=== PATIENT | female | born 1980 | race Caucasian/White ===

== ENCOUNTER 2022-01-13 23:51 | Inpatient (IN) ==
[2022-01-14] MEDS ORDERED: HYDROmorphone INJ 1 MG/ML SYRINGE IV STA (00:49)
[2022-01-14] MEDS ORDERED: ONDANSETRON INJ 2 MG/ML 2 ML VIAL IV STA ×2 (00:49→05:14)
[2022-01-14] MEDS ORDERED: SODIUM CHLORIDE 0.9% 1000ML 1,000 ML IV SCH ×3 (00:56→11:07)
[2022-01-14 01:40] LABS: Basophils # (auto) 0.02 K/uL (0-0.2); Basophils % (auto) 0.1 %; Eosinophils # (auto) 0.02 K/uL (0-0.5); Eosinophils % (auto) 0.1 %; Hematocrit (blood only) 41.7 % (37-47); Hemoglobin 13.9 g/dL (12.0-16.0); Immature Granulocytes # (auto) 0.04 K/uL (0.00-0.02); Immature Granulocytes % (auto) 0.3 %; Lymphocytes # (auto) 1.12 K/uL (1.2-3.4); Lymphocytes % (auto) 8.3 %; Mean Corpuscular Hemoglobin 31.2 pg (25-34); Mean Corpuscular Hgb Conc 33.3 g/dL (32-36); Mean Corpuscular Volume 93.7 fL (80-100); Mean Platelet Volume 11.3 fL (7.4-10.4); Monocytes # (auto) 0.75 K/uL (0.11-0.59); Monocytes % (auto) 5.6 %; Neutrophils # (auto) 11.49 K/uL (1.4-6.5); Neutrophils % (auto) 85.6 %; Platelet Count 327 K/uL (130-400); RDW Coefficient of Variation 12.8 % (11.5-14.5); RDW Standard Deviation 43.9 fL (36.4-46.3); Red Blood Count 4.45 M/uL (4.2-5.4); White Blood Count 13.44 K/uL (4.8-10.8)
[2022-01-14 01:48] LABS: Alanine Aminotransferase 18 U/L (7-52); Albumin Globulin Ratio 1.2 (0.9-2); Albumin Level 4.4 gm/dl (3.4-5.0); Alkaline Phosphatase 126 U/L (34-104); Anion Gap 22 (3-11); Aspartate Aminotransferase 11 U/L (13-39); BUN Creatinine Ratio 17.5 (10-20); Bilirubin,Total 0.6 mg/dl (0.2-1.0); Blood Urea Nitrogen 10 mg/dl (6-23); Calcium 9.8 mg/dl (8.5-10.1); Carbon Dioxide 18 mmol/L (21-32); Chloride 97 mmol/L (98-107); Est GFR (African American) 131.6 ml/min; Est GFR (Non-African American) 113.5 ml/min; Globulin 3.8 gm/dl (2.5-4.0); Glucose 363 mg/dl (70-99(Fasting)); Potassium 3.3 mmol/L (3.5-5.1); Sodium 137 mmol/L (136-145); Total Protein 8.2 gm/dl (6.0-8.3)
[2022-01-14] MEDS ORDERED: OPTIRAY 320 100ml IV ONE (02:33)
[2022-01-14] MEDS ORDERED: HYDROmorphone INJ 0.5 MG/0.5 ML SYR IV STA ×3 (02:59→06:41)
--- NOTE | 2022-01-14 08:58 | Emergency Department Note ---
Impression & Plan Post-operative pain, Intractable nausea and vomiting, H/O pancreatic cancer ED Provider Note CHIEF COMPLAINT: Vomiting HISTORY OF PRESENT ILLNESS: [place] Ceballos is a 41 year old female with history of pancreatic cancer with previous chemotherapy and recent radiation, DM2, HTN, DLD, among others listed below who presents to the Emergency Department for evaluation of intractable nausea and vomiting with associated abdominal pain which has been worsening since he had a surgical procedure 4 days prior. The patient states that she was scheduled to have a Whipple procedure done with general surgery at [facility] in [place] this past Saturday. When the opened her up, she states that they saw additional lesions on her liver so they did not perform the procedure and closed her abdomen back up. The patient did stay in the hospital briefly for continued pain control but was then discharged home with instructions to follow-up with her oncologist. The patient states that her oncologist did order additional imaging, however this has not yet been done and she is unsure of additional plans to come. Since returning home, the patient states that she has continued with significant abdominal pain despite taking Tylenol, oxycodone, and gabapentin. She has been taking stool softeners but states that she has not been able to move her bowels at all since earlier in the week, prior to having the surgery. The patient also states that she has constantly felt nauseous and has not been able to eat or drink anything secondary to her discomfort. Anything she tries to consume, she immediately vomits back up and notes large amounts of green liquid with dark flecks throughout. No apparent blood. Currently, she rates her discomfort as a 7/10 which worsens with movements and after vomiting. None of her medications have been helping. Due to her ongoing symptoms, the patient presents to the ED for further evaluation this evening. The patient denies having specific chest pain but states that she has felt more short of breath and tired. No fevers/chills. RSchreiner OF SYSTEMS: 10 systems were reviewed and were negative unless otherwise stated in HPI as above PHYSICAL EXAM: VITALS: Vitals are noted on the nurse's note and reviewed by myself. Hypertensive and tachycardic, additional vital signs stable. General: Resting in bed, appears very tired and uncomfortable HEENT: Normocephalic, atraumatic, PERRL, EOMI, mucous membranes extremely dry, oropharynx clear Neck: Supple, nontender, ROM intact without pain Resp: Good inspiratory effort on room air, lung sounds clear bilaterally CV: Tachycardic rate, regular rhythm, peripheral pulses palpated Abd: Midline surgical incision with rod in place, appears to be healing well without wound dehiscence, no surrounding erythema or edema. Abdomen is mildly distended but soft. Tender to palpation generally about the abdomen. No rebound, guarding or rigidity to suggest peritoneal signs MSK: Moving all extremities without apparent pain or difficulty Integumentary: Warm, dry, no appreciable rash Neuro: Awake, alert and oriented x 3, interacting and answering questions appropriately Differential diagnosis includes post-surgical pain, ileus, obstruction, abscess, pancreatic cancer, metastasis, among others were considered. EMERGENCY DEPARTMENT COURSE: Physical exam and history were performed. Nursing triage notes, EMR, and medication list were personally reviewed. Patient is a 41-year-old female with history of pancreatic cancer with previous chemotherapy and recent radiation who presents emergency department for evaluation of intractable nausea and vomiting with associated abdominal pain which has been worsening since she had a surgical procedure 4 days prior. She was scheduled to have a Whipple procedure, however after opening her abdomen she was noted to have additional lesions on her liver so the procedure was not performed and her abdomen was subsequently closed. Additional history as descr ibed above. See physical exam as noted above. Continuous director cardiac: Order was placed for continuous director cardiac. Patient was placed on the director cardiac. Patient was noted to be sinus tachycardic at an initial rate of 109 bpm. The patient was offered medications. IV access was established and she was given 1 L NSS, Zofran 4 mg and Dilaudid 1 mg. The patient was given an additional dose of Zofran 4 mg and multiple additional doses of Dilaudid in 0.5 mg increments throughout her emergency department course for continued pain and nausea. Labs were obtained and reviewed by myself as below. Of note, she does have leukocytosis with a WBC of 13.44. No concern for anemia with hemoglobin 13.9. Electrolytes WNL. Renal indices stable. Glucose elevated at 324. LFTs nondiagnostic. CAT scan of the abdomen and pelvis were obtained and reviewed by radiologist myself as below. This did show postsurgical changes, negative for bowel loop dilatation or obstruction. This did show postsurgical changes. No evidence for bowel loop dilatation or obstruction. The patient was evaluated several times throughout her emergency department course and continued to have abdominal pain and nausea despite given multiple doses of medications as above. She also continued to remain hypertensive and tachycardic. I do feel that she will benefit from continued management in the hospital. [facility] to evaluate the patient for further management. The patient verbalized understanding agreement with the treatment plan as above. The chart was completed utilizing [employer] Speech Voice Recognition Software. Grammatical errors, random word insertions, pronoun errors, and incomplete sentences are an occasional consequence of this system due to software limitations, ambient noise, and hardware issues. Any formal questions or co ncerns about the content, text, or information contained within the body of this dictation should be directly addressed to the provider for clarification. Past Med/Surg History Medical History Allergy-induced asthma rare inhaler use Depression with anxiety Diabetes mellitus, type 2 IDDM Dyslipidemia Hypertension Hypothyroidism Lumbosacral pain Obesity Pancreatic cancer + current chemo, follows with S heme/onc PCOS (polycystic ovarian syndrome) Surgical History History of ERCP ERCP (06/2021) & EUS/ERCP (04/28/21): Good view with glidescope #3, ETT 7.0 at [facility] History of tonsillectomy History of umbilical hernia repair History of vascular access device A PORT INSERTION History of wisdom tooth extraction Nausea and vomiting after administration of anesthetic agent Family History Brother Diabetes Hypertension Father Hypertension Aunt Diabetes Grandmother (Maternal) Diabetes Other No family history of adverse response to anesthesia Social History Smoking Status: Former smoker Tobacco Type: Cigarettes packs per day: 1; Cigarettes Per Day: 15 cigs/day; Second Hand Exposure: No; Do You Dip or Chew Tobacco: No; Tobacco Cessation Education Requested by Patient: No Hx Alcohol Use: No Hx Substance Use: No Preferred Language: Lao Communication Ability: Effective Track Patrol Required: No Beliefs That Will Affect Care: None Current Living Situation: Alone and Family Current Living Situation Comment: WITH DAUGHTER Other Information That Helps Us Care for You: No Feels Safe at Home: Yes Safety Concerns: Feels Safe At This Time Assistive Devices: Glasses Allergies Allergies Allergy/AdvReac Type Severity Reaction Status Date / Time Penicillins Allergy Mild Rash Verified 01/14/22 00:54 [facility] AdvReac Severe Pancreatiti Verified 01/14/22 00:54 s clarithromycin AdvReac Unknown Vomiting Verified 01/14/22 00:54 fish Allergy Severe Anaphylaxis Uncoded 01/14/22 00:54 Home Meds Home Medications Medication Instructions Recorded Confirmed albuterol sulfate 90 mcg/actuation 1 - 2 puff INHALATION Q6H PRN 04/14/21 01/14/22 aerosol inhaler (Ventolin HFA) amlodipine 5 mg tablet 5 mg PO BID 04/14/21 01/14/22 clonidine HCl 0.1 mg tablet 0.1 mg PO QID PRN 04/14/21 01/14/22 duloxetine 60 mg capsule,delayed 120 mg PO DAILY cap 04/14/21 01/14/22 release (Cymbalta) enalapril maleate 20 mg tablet 20 mg PO QAM 04/14/21 01/14/22 (Vasotec) flash glucose scanning reader 04/14/21 12/25/21 ([employer] Tanmay 14 Day Yawkey) hydrochlorothiazide 25 mg tablet 25 mg PO QAM 04/14/21 01/14/22 lamotrigine 200 mg tablet 200 mg PO HS 04/14/21 01/14/22 (Lamictal) levothyroxine 50 mcg tablet 50 mcg PO QAM 04/14/21 01/14/22 ropinirole 4 mg tablet 4 mg PO TID 04/14/21 01/14/22 valacyclovir 1 gram tablet 2,000 mg PO BID PRN tab 04/14/21 01/14/22 atenolol 50 mg tablet 100 mg PO QAM 04/28/21 01/14/22 oxycodone 10 mg tablet 10 mg PO Q4 PRN 06/22/21 01/14/22 acetaminophen 500 mg tablet See Rx Instructions .ROUTE .COMPLEX 01/14/22 01/14/22 carisoprodol 350 mg tablet 350 mg PO Q8 PRN 01/14/22 01/14/22 docusate sodium 100 mg capsule 100 mg PO AMHS 01/14/22 01/14/22 enoxaparin 40 mg/0.4 mL 40 mg SUBCUT QAM 01/14/22 01/14/22 subcutaneous syringe furosemide 40 mg tablet 40 mg PO UD 01/14/22 01/14/22 gabapentin 300 mg capsule See Rx Instructions .ROUTE .COMPLEX 01/14/22 01/14/22 insulin aspart U-100 100 unit/mL 22 unit SUBCUT TIDM 01/14/22 01/14/22 (3 mL) subcutaneous pen (Novolog Flexpen U-100 Insulin aspart) insulin glargine U-300 conc 300 0 unit SUBCUT UD 01/14/22 01/14/22 unit/mL (3 mL) subcutaneous pen (Toujeo Max U-300 SoloStar) lidocaine-prilocaine 2.5 %-2.5 % See Rx Instructions .ROUTE .COMPLEX 01/14/22 01/14/22 topical cream lipase 16,800-protease 1 cap PO TIDM 01/14/22 01/14/22 56,800-amylase 98,400 unit capsule, delayed rel (Pancreaze) loratadine 10 mg tablet (Claritin) 10 mg PO DAILY 01/14/22 01/14/22 lorazepam 1 mg tablet 1 mg PO Q8 PRN 01/14/22 01/14/22 ondansetron 8 mg disintegrating 8 mg TRANSLINGUAL Q8 PRN 01/14/22 01/14/22 tablet pegfilgrastim-bmez 6 mg/0.6 mL 6 mg SUBCUT UD 01/14/22 01/14/22 subcutaneous syringe (Ziextenzo) potassium chloride 10 mEq 10 meq PO AMHS 01/14/22 01/14/22 tablet,extended release quetiapine 100 mg tablet 100 mg PO HS 01/14/22 01/14/22 sennosides 8.6 mg tablet (senna) 17.2 mg PO QAM 01/14/22 01/14/22 Previous Rx's Medication Instructions Recorded blood sugar diagnostic (OneTouch #600 ea 05/26/21 Verio test strips) flash glucose sensor (FreeStyle #7 ea 05/26/21 Tanmay 14 Day Sensor) pen needle, diabetic 31 gauge x #150 ea 11/29/21 3/16" (BD Ultra-Fine Mini Pen Needle) flash glucose scanning reader #2 ea 01/02/22 (FreeStyle Tanmay 2 Yawkey) flash glucose sensor (FreeStyle #2 ea 01/02/22 Tanmay 2 Sensor) Results & Data (ED) Vital Signs Vital Signs - 24 hr 01/13/22 23:52 01/13/22 23:59 01/14/22 02:40 Temperature 36.1 C L Temperature Source Temporal Artery Scan Pulse Rate 109 H Pulse Rate [Apical] 106 H Pulse Rhythm [Apical] Regular Pulse Strength [Apical] Respiratory Rate 18 18 Respiratory Effort / Characteristics Non-Labored Non-Labored Respiratory Depth Normal Normal Blood Pressure 180/111 H Blood Pressure [Left Arm] 176/103 H Blood Pressure Mean 134 Blood Pressure Mean [Left Arm] 127 Blood Pressure Position [Left Arm] Pulse Oximetry 96 92 Oxygen Delivery Method Room Air Sepsis Recent Fever Within 48 Hours No Sepsis New/Unexplained Change in Mental Status N/A Sepsis Action Taken by Nursing No Action Required 01/14/22 04:41 01/14/22 05:44 01/14/22 06:27 Temperature 37.1 C Temperature Source Oral Pulse Rate Pulse Rate [Apical] 113 H 115 H Pulse Rhythm [Apical] Pulse Strength [Apical] Respiratory Rate 16 26 H Respiratory Effort / Characteristics Respiratory Depth Blood Pressure Blood Pressure [Left Arm] 176/111 H 165/106 H Blood Pressure Mean Blood Pressure Mean [Left Arm] 132 125 Blood Pressure Position [Left Arm] Lying Lying Pulse Oximetry 92 91 Oxygen Delivery Method Room Air Room Air Sepsis Recent Fever Within 48 Hours Sepsis New/Unexplained Change in Mental Status Sepsis Action Taken by Nursing 01/14/22 07:13 Temperature Temperature Source Pulse Rate Pulse Rate [Apical] 122 H Pulse Rhythm [Apical] Regular Pulse Strength [Apical] Normal Respiratory Rate 20 Respiratory Effort / Characteristics Non-Labored Respiratory Depth Normal Blood Pressure Blood Pressure [Left Arm] 177/111 H Blood Pressure Mean Blood Pressure Mean [Left Arm] 133 Blood Pressure Position [Left Arm] Lying Pulse Oximetry 95 Oxygen Delivery Method Room Air Sepsis Recent Fever Within 48 Hours Sepsis New/Unexplained Change in Mental Status Sepsis Action Taken by Nursing Laboratory Data Result diagrams: 01/14/22 01:10 01/14/22 19:18 Lab Results 01/14/22 01/14/22 01/14/22 Range/Units 01:10 01:10 05:49 WBC 13.44 H (4.8-10.8) K/uL RBC 4.45 (4.2-5.4) M/uL Hgb 13.9 (12.0-16.0) g/dL Hct 41.7 (37-47) % MCV 93.7 (80-100) fL MCH 31.2 (25-34) pg MCHC 33.3 (32-36) g/dL RDW Std Deviation 43.9 (36.4-46.3) fL RDW Coeff of Yang 12.8 (11.5-14.5) % Plt Count 327 (130-400) K/uL MPV 11.3 H (7.4-10.4) fL Immature Gran % (Auto) 0.3 % Neut % (Auto) 85.6 % Lymph % (Auto) 8.3 % [place] % (Auto) 5.6 % Eos % (Auto) 0.1 % Baso % (Auto) 0.1 % Neut # (Auto) 11.49 H (1.4-6.5) K/uL Lymph # (Auto) 1.12 L (1.2-3.4) K/uL [place] # (Auto) 0.75 H (0.11-0.59) K/uL Eos # (Auto) 0.02 (0-0.5) K/uL Baso # (Auto) 0.02 (0-0.2) K/uL Immature Gran # (Auto) 0.04 H (0.00-0.02) K/uL Sodium 137 (136-145) mmol/L Potassium 3.3 L (3.5-5.1) mmol/L Chloride 97 L (98-107) mmol/L Carbon Dioxide 18 L (21-32) mmol/L Anion Gap 22 H (3-11) BUN 10 (6-23) mg/dl Creatinine 0.57 L (0.6-1.2) mg/dl Est Cr Clr Drug Dosing Not Reportable Est GFR ( Amer) 131.6 ml/min Est GFR (Non-Af Amer) 113.5 ml/min BUN/Creatinine Ratio 17.5 (10-20) Glucose 363 H* (70-99(Fasting)) mg/dl Calcium 9.8 (8.5-10.1) mg/dl Total Bilirubin 0.6 (0.2-1.0) mg/dl AST 11 L (13-39) U/L ALT 18 (7-52) U/L Alkaline Phosphatase 126 H (34-104) U/L Total Protein 8.2 (6.0-8.3) gm/dl Albumin 4.4 (3.4-5.0) gm/dl Globulin 3.8 (2.5-4.0) gm/dl Albumin/Globulin Ratio 1.2 (0.9-2) SARS-CoV-2, RNA, NAAT NEGATIVE (NEGATIVE) Administered Medications Hydrocodone Bitart/Acetaminophen (Hydrocodone/Acetaminophen 10/325 Tab) 1 tab PO Q4H PRN PRN Reason: Pain Stop: 01/28/22 15:37 Last Admin: 01/14/22 19:57 Dose: 1 tab Documented by: [id number] Amlodipine Besylate (Amlodipine Besylate 5 Mg Tab) 5 mg PO BID BRIANNA Stop: 02/13/22 11:06 Last Admin: 01/14/22 15:17 Dose: 5 mg Documented by: [id number] Lipase/Protease/Amylase (Pancreaze (Lipase 16,800u) Cap) 1 cap PO TIDM BRIANNA Stop: 02/13/22 16:59 Last Admin: 01/14/22 15:33 Dose: 1 cap Documented by: [id number] Atenolol (Atenolol 50 Mg Tablet) 100 mg PO QAM BRIANNA Stop: 02/13/22 11:06 Last Admin: 01/14/22 15:17 Dose: 100 mg Documented by: [id number] Docusate Sodium (Docusate Sodium 100 Mg Cap) 100 mg PO AMHS BRIANNA Stop: 02/13/22 11:06 Last Admin: 01/14/22 15:17 Dose: 100 mg Documented by: [id number] Duloxetine HCl (Duloxetine Hcl 60 Mg Cap) 120 mg PO DAILY BRIANNA Stop: 02/13/22 11:06 Last Admin: 01/14/22 15:16 Dose: 120 mg Documented by: [id number] Enalapril Maleate (Enalapril Maleate 10 Mg Tab) 20 mg PO QAM BRIANNA Stop: 02/13/22 11:06 Last Admin: 01/14/22 15:16 Dose: 20 mg Documented by: [id number] Gabapentin (Gabapentin 300 Mg Cap) 300 mg PO TID BRIANNA; Taper Stop: 01/23/22 13:59 Last Admin: 01/14/22 15:29 Dose: 300 mg Documented by: [id number] Hydrochlorothiazide (Hydrochlorothiazide 25 Mg Tab) 25 mg PO QAM BRIANNA Stop: 02/13/22 11:06 Last Admin: 01/14/22 15:16 Dose: Not Given Documented by: [id number] Insulin Human Regular 250 (units/ Sodium Chloride) 250 mls @ 3.3 mls/hr IV .Q24H BRIANNA; Protocol Stop: 02/13/22 11:06 Last Titration: 01/14/22 20:01 Dose: 3.3 units/hr, 3.3 mls/hr Documented by: [id number] Cosigned by: [id number] Titration: 01/14/22 18:56 Dose: 3.3 units/hr, 3.3 mls/hr Documented by: [id number] Cosigned by: [id number] Titration: 01/14/22 18:19 Dose: 4.1 units/hr, 4.1 mls/hr Documented by: [id number] Cosigned by: [id number] Titration: 01/14/22 17:15 Dose: 4.1 units/hr, 4.1 mls/hr Documented by: [id number] Cosigned by: [id number] Titration: 01/14/22 15:10 Dose: 5.1 units/hr, 5.1 mls/hr Documented by: [id number] Cosigned by: [id number] Titration: 01/14/22 14:05 Dose: 6.4 units/hr, 6.4 mls/hr Documented by: [id number] Cosigned by: [id number] Admin: 01/14/22 12:50 Dose: 8 units/hr, 8 mls/hr Documented by: [id number] Cosigned by: [id number] Potassium Chloride/Dextrose/Sod Cl (D5w And 1/2nss + 20meq Kcl) 20 meq in 1,000 mls @ 150 mls/hr IV .Q6H40M BRIANNA Stop: 02/13/22 14:59 Last Admin: 01/14/22 15:14 Dose: 150 mls/hr Documented by: [id number] Magnesium Sulfate/Dextrose (Magnesium Sulfate / D5w) 1 gm in 100 mls @ 50 mls/hr IV Q2H BRIANNA Stop: 01/14/22 20:29 Last Admin: 01/14/22 18:50 Dose: 50 mls/hr Documented by: [id number] Infusion: 01/14/22 18:50 Dose: 50 mls/hr Documented by: [id number] Infusion: 01/14/22 18:50 Dose: 50 mls/hr Documented by: [id number] Admin: 01/14/22 17:51 Dose: 50 mls/hr Documented by: [id number] Insulin Aspart (Insulin Aspart Per Unit) 0 units SC ACHS BRIANNA Stop: 02/13/22 11:29 Last Admin: 01/14/22 17:08 Dose: Not Given Documented by: [id number] Admin: 01/14/22 13:09 Dose: Not Given Documented by: [id number] Levothyroxine Sodium (Levothyroxine Sodium 50 Mcg Tablet) 50 mcg PO DAILYBB [facility] Stop: 02/13/22 11:06 Last Admin: 01/14/22 15:16 Dose: Not Given Documented by: [id number] Loratadine (Loratadine 10 Mg Tab) 10 mg PO DAILY BRIANNA Stop: 02/13/22 11:06 Last Admin: 01/14/22 15:15 Dose: 10 mg Documented by: [id number] Potassium Chloride (Potassium Chloride 10 Meq Tabcr) 10 meq PO AMHS BRIANNA Stop: 02/13/22 11:06 Last Admin: 01/14/22 15:34 Dose: 10 meq Documented by: [id number] Ropinirole HCl (Ropinirole Hcl 2 Mg Tablet) 4 mg PO TID BRIANNA Stop: 02/13/22 11:06 Last Admin: 01/14/22 15:32 Dose: 4 mg Documented by: [id number] Admin: 01/14/22 15:15 Dose: 4 mg Documented by: [id number] Sennosides (Senna 8.6 Mg Tab) 17.2 mg PO QAM BRIANNA Stop: 02/13/22 11:06 Last Admin: 01/14/22 15:15 Dose: 17.2 mg Documented by: [id number] Discontinued Medications Hydromorphone HCl (Hydromorphone Inj 1 Mg/Ml Syringe) 1 mg IV NOW STA Stop: 01/14/22 00:50 Last Admin: 01/14/22 01:13 Dose: 1 mg Documented by: [id number] Hydromorphone HCl (Hydromorphone Inj 0.5 Mg/0.5 Ml Syr) 0.5 mg IV NOW STA Stop: 01/14/22 03:00 Last Admin: 01/14/22 03:08 Dose: 0.5 mg Documented by: [id number] Hydromorphone HCl (Hydromorphone Inj 0.5 Mg/0.5 Ml Syr) 0.5 mg IV NOW STA Stop: 01/14/22 04:56 Last Admin: 01/14/22 05:06 Dose: 0.5 mg Documented by: [id number] Hydromorphone HCl (Hydromorphone Inj 0.5 Mg/0.5 Ml Syr) 0.5 mg IV NOW STA Stop: 01/14/22 06:42 Last Admin: 01/14/22 06:50 Dose: 0.5 mg Documented by: [id number] Hydromorphone HCl (Hydromorphone Inj 1 Mg/Ml Syringe) 1 mg IV Q3H PRN PRN Reason: Pain Stop: 01/28/22 11:06 Last Admin: 01/14/22 15:38 Dose: 1 mg Documented by: [id number] Admin: 01/14/22 11:34 Dose: 1 mg Documented by: [id number] Sodium Chloride (Nss 1000ml) 1,000 mls @ 999 mls/hr IV .Q1H1M BRIANNA Stop: 01/14/22 01:56 Last Infusion: 01/14/22 02:42 Dose: 0 mls/hr Documented by: [id number] Admin: 01/14/22 01:20 Dose: 999 mls/hr Documented by: [id number] Sodium Chloride (Nss 1000ml) 1,000 mls @ 999 mls/hr IV .Q1H1M BRIANNA Stop: 01/14/22 12:07 Last Infusion: 01/14/22 15:45 Dose: 0 mls/hr Documented by: [id number] Admin: 01/14/22 12:50 Dose: 999 mls/hr Documented by: [id number] Potassium Chloride/Sodium Chloride (1/2 Nss + 20meq Kcl 1000ml) 20 meq in 1,000 mls @ 200 mls/hr IV .Q5H BRIANNA Stop: 01/14/22 14:59 Last Admin: 01/14/22 15:14 Dose: Not Given Documented by: [id number] Insulin Glargine (Insulin Glargine Solostar 100 Units/Ml 3 Ml Pen) 50 units SC ONE ONE; Protocol Stop: 01/14/22 17:01 Last Admin: 01/14/22 19:46 Dose: 50 units Documented by: [id number] Cosigned by: [id number] Ioversol (Optiray 320 100ml) 95 ml IV ONCE ONE Stop: 01/14/22 02:34 Last Admin: 01/14/22 02:21 Dose: 95 ml Documented by: [id number] Ketorolac Tromethamine (Ketorolac 30 Mg/Ml Vial) 30 mg IV NOW ONE Stop: 01/14/22 09:03 Last Admin: 01/14/22 09:09 Dose: 30 mg Documented by: [id number] Miscellaneous (Dka Goal Range 150-250 Mg/Dl) 1 ea N/A ONE ONE Stop: 01/14/22 11:08 Last Admin: 01/14/22 15:17 Dose: 1 ea Documented by: [id number] Ondansetron HCl (Ondansetron Inj 2 Mg/Ml 2 Ml Vial) 4 mg IV NOW STA Stop: 01/14/22 00:50 Last Admin: 01/14/22 01:00 Dose: 4 mg Documented by: [id number] Ondansetron HCl (Ondansetron Inj 2 Mg/Ml 2 Ml Vial) 4 mg IV NOW STA Stop: 01/14/22 05:15 Last Admin: 01/14/22 05:23 Dose: 4 mg Documented by: [id number] Potassium Chloride (Potassium Chloride 20 Meq/15 Ml Udc) 60 meq PO NOW STA Stop: 01/14/22 11:08 Last Admin: 01/14/22 11:33 Dose: 60 meq Documented by: [id number] Imaging Data Radiologist's Impression: Abdomen/Pelvis CT 01/14/22 00:54 CT abd pelvis IV con only CLINICAL HISTORY: Diffuse abdominal pain with nausea and vomiting. History pancreatic cancer COMPARISON STUDY: 04/28/2021 CT DOSE: 1467.70 mGy.cm TECHNIQUE: Standard CT of the Abdomen and Pelvis was performed with IV contrast. A dose lowering technique was utilized adhering to the principles of ALARA. Contrast Volume: Optiray 320, 95 ml. The patient did not receive oral contrast. FINDINGS: Lung base: There is right basilar atelectasis. Abdominal cavity and pancreas: The patient is status post recent abdominal surgery for resection of a mass in head of pancreas. There is minimal free air present related to the surgery. A biliary stent is now in place with pneumobilia present. There is dilatation of the pancreatic duct. Liver: There is homogeneous attenuation of the liver parenchyma. There is no evidence for enhancing mass lesion. Spleen: There is homogeneous attenuation of the splenic parenchyma. There is no enhancing mass lesion. Gall Bladder: The gallbladder is well distended with no evidence for intraluminal calculi, wall thickening or pericholecystic edema. Adrenal glands: The adrenal glands are normal in size and attenuation. There is no evidence for enhancing mass lesion. Kidneys: There is homogeneous attenuation of the renal parenchyma bilaterally. There is no evidence for renal calculus or hydronephrosis. There is no evidence for enhancing mass. Bowel: The bowel loops are normally placed within the abdomen and pelvis without evidence for dilatation or obstruction. There is no evidence for mass lesion. There is prominent fecal material in the rectosigmoid colon characteristic of mild fecal stasis without impaction or obstruction. There are no inflammatory changes present. Bladder: The bladder is within normal limits with no evidence for focal mass, calculus or diverticulum. : There is no evidence for pelvic mass or adenopathy. There is no evidence for pelvic ascites. Calcified fibroid uterus. There are cystic changes of the ovaries. Vasculature: There is no evidence for aneurysmal dilatation of the abdominal aorta. Osseous structures: There is no acute osseous pathology. Degenerative changes of the spine. IMPRESSION: 1. Status post resection head of pancreas with biliary stent in place. Postsurgical changes are present. 2. No evidence for bowel loop dilatation or obstruction. 3. Right basilar atelectasis. 4. Additional nonacute findings are delineated above. ACT 112: Negative or not required by law. Electronically signed by: Albert Johns M.D. 01/14/2022 3:08 PM Discharge Plan Visit Data Chief Complaint: Vomiting Stated Complaint: POST SURGERY VOMITING ED Provider: Hemalatha Beltrán ED Midlevel Provider: Beronica Esquivel Discharge Problem: Post-operative pain, Intractable nausea and vomiting, H/O pancreatic cancer Patient Disposition: Admitted As Inpatient Discharge Instructions Interventions: ED Discharge Assessment Last Done: 01/14/22 11:35
[2022-01-14] MEDS ORDERED: KETOROLAC 30 MG/ML VIAL IV ONE (09:02)
[2022-01-14] MEDS ORDERED: DKA GOAL RANGE 150-250 mg/dl ONE (11:07)
[2022-01-14] MEDS ORDERED: CARISOPRODOL 350 MG TABLET PO PRN (11:07)
[2022-01-14] MEDS ORDERED: NITROGLYCERIN SL 0.4 MG/TAB TAB SL PRN (11:07)
[2022-01-14] MEDS ORDERED: POTASSIUM CHLORIDE 20 MEQ/15 ML UDC PO STA (11:07)
[2022-01-14] MEDS ORDERED: DC ALL PREVIOUSLY ORDERED DIABETES MEDS ONE (11:07)
[2022-01-14] MEDS ORDERED: LIDOCAINE/PRILOCAINE 2.5% EA CRM EXT PRN (11:07)
[2022-01-14] MEDS ORDERED: STAT IV Infusion **Titration per Protocol STA ×2 (11:07)
[2022-01-14] MEDS ORDERED: PENDING 1/2NSS+20mEq KCL IVF SCH (11:07)
[2022-01-14] MEDS ORDERED: ACETAMINOPHEN 325 MG TAB PO PRN (11:07)
[2022-01-14] MEDS ORDERED: valACYclovir HCL 500 MG TABLET PO PRN (11:07)
[2022-01-14] MEDS ORDERED: LABETALOL HCL IV 5 MG/ML 20ML IV PRN (11:07)
[2022-01-14] MEDS ORDERED: ALBUTEROL HFA 8 GM INHALER INH PRN (11:07)
[2022-01-14] MEDS ORDERED: oxyCODONE HCL IR 5 MG TAB (IMMEDIATE RELEASE) PO PRN (11:07)
[2022-01-14] MEDS ORDERED: INSULIN REGULAR 250 UNITS in SODIUM CHLORIDE 0.9% 247.5 ML IV SCH (11:07)
[2022-01-14] MEDS ORDERED: PHARMACY GLYCEMIC MGMT CONSULT PRN (11:07)
[2022-01-14] MEDS ORDERED: POTASSIUM CHLORIDE 20 MEQ in SODIUM CHLORIDE 0.45 % 1,000 ML IV SCH (11:30)
[2022-01-14] MEDS ORDERED: INSULIN ASPART PER UNIT SC SCH (11:30)
[2022-01-14] MEDS ORDERED: SODIUM CHLOR 0.45% + 20MEQ KCL 20 MEQ/1,000 ML BAG IV SCH (11:30)
[2022-01-14] MEDS: HYDROmorphone INJ 1 MG/ML SYRINGE IV PRN ×3 (11:34→21:27)
[2022-01-14 12:35] LABS: BUN Creatinine Ratio 14.8 (10-20); Calcium 9.5 mg/dl (8.5-10.1); Creatinine Clr Calc Pharmacy 133.3 ml/min; Est GFR (African American) 128.7 ml/min; Magnesium 1.7 mg/dl (1.7-2.4); Phosphorus 4.3 mg/dl (2.5-4.9); Potassium 3.8 mmol/L (3.5-5.1)
[2022-01-14] MEDS: INSULIN ASPART PER UNIT SC SCH ×3 (13:09→21:26)
--- NOTE | 2022-01-14 14:04 | Pharmacy Report ---
Pharmacy Glycemic Short Note 2 - Date of Service January 14, 2022 - Glycemic Short BSG Results (Last 24 hours): 01/14/22 01/14/22 01/14/22 01:10 11:14 11:26 Glucose 363 H* 324 H* POC Glucose 311 H* OUTPATIENT ANTIDIABETIC REGIMEN: * As reported from Endocrinology note in [place]: * Toujeo 110 units SQ daily * NovoLog 22 units TID + SSI ASSESSMENT: * 41 year old female admitted with vomiting, DKA, PMH significant for Type 2 DM, pancreatic cancer, started on DKA protocol, IV fluids, insulin drip * Pt NPO at this time PLAN FOR INPATIENT GLYCEMIC CONTROL: * Insulin drip per DKA protocol * Goal range 150-250mg/dl, will adjust to 110-180mg/dl as blood sugars come into goal range * currently running at 8ml/hr * Basal insulin * Lantus 50 units HS - to overlap with insulin drip in anticipation of transition to SQ insulin tomorrow * Bolus insulin * NovoLog per scale ACHS per insulin drip calculator if diet started
--- NOTE | 2022-01-14 15:10 | CT Scan Report ---
CT abd pelvis IV con only CLINICAL HISTORY: Diffuse abdominal pain with nausea and vomiting. History pancreatic cancer COMPARISON STUDY: 04/28/2021 CT DOSE: 1467.70 mGy.cm TECHNIQUE: Standard CT of the Abdomen and Pelvis was performed with IV contrast. A dose lowering kaylin hnique was utilized adhering to the principles of ALARA. Contrast Volume: Optiray 320, 95 ml. The patient did not receive oral contrast. FINDINGS: Lung base: There is right basilar atelectasis. Abdominal cavity and pancreas: The patient is status post recent abdominal surgery for resection of a mass in head of pancreas. There is minimal free air present related to the surgery. A biliary stent is now in place with pneumobilia present. There is dilatation of the pancreatic duct. Liver: There is homogeneous attenuation of the liver parenchyma. There is no evidence for enhancing m ass lesion. Spleen: There is homogeneous attenuation of the splenic parenchyma. There is no enhancing mass lesion . Gall Bladder: The gallbladder is well distended with no evidence for intraluminal calculi, wall thick ening or pericholecystic edema. Adrenal glands: The adrenal glands are normal in size and attenuation. There is no evidence for enhan cing mass lesion. Kidneys: There is homogeneous attenuation of the renal parenchyma bilaterally. There is no evidence f or renal calculus or hydronephrosis. There is no evidence for enhancing mass. Bowel: The bowel loops are normally placed within the abdomen and pelvis without evidence for dilatat ion or obstruction. There is no evidence for mass lesion. There is prominent fecal material in the re ctosigmoid colon characteristic of mild fecal stasis without impaction or obstruction. There are no i nflammatory changes present. Bladder: The bladder is within normal limits with no evidence for focal mass, calculus or diverticulu m. : There is no evidence for pelvic mass or adenopathy. There is no evidence for pelvic ascites. Calc ified fibroid uterus. There are cystic changes of the ovaries. Vasculature: There is no evidence for aneurysmal dilatation of the abdominal aorta. Osseous structures: There is no acute osseous pathology. Degenerative changes of the spine. IMPRESSION: 1. Status post resection head of pancreas with biliary stent in place. Postsurgical changes are prese nt. 2. No evidence for bowel loop dilatation or obstruction. 3. Right basilar atelectasis. 4. Additional nonacute findings are delineated above. ACT 112: Negative or not required by law. Electronically signed by: Albert Johns M.D. 01/14/2022 3:08 PM
[2022-01-14] MEDS: D5W AND 1/2NSS + 20MEQ KCL 20 MEQ/1,000 ML BAG IV SCH ×2 (15:14→21:40)
[2022-01-14] MEDS: rOPINIRole HCL 2 MG TABLET PO SCH ×3 (15:15→21:36)
[2022-01-14] MEDS: LORATADINE 10 MG TAB PO SCH (15:15)
[2022-01-14] MEDS: SENNA 8.6 MG TAB PO SCH (15:15)
[2022-01-14] MEDS: LEVOTHYROXINE SODIUM 50 MCG TABLET PO SCH (15:16)
[2022-01-14] MEDS: hydroCHLOROthiazide 25 MG TAB PO SCH (15:16)
[2022-01-14] MEDS: DULoxetine HCL 60 MG CAP PO SCH (15:16)
[2022-01-14] MEDS: ENALAPRIL MALEATE 10 MG TAB PO SCH (15:16)
[2022-01-14] MEDS: ATENOLOL 50 MG TABLET PO SCH (15:17)
[2022-01-14] MEDS: amLODIPine BESYLATE 5 MG TAB PO SCH ×2 (15:17→20:14)
[2022-01-14] MEDS: DOCUSATE SODIUM 100 MG CAP PO SCH ×2 (15:17→20:13)
[2022-01-14] MEDS: GABAPENTIN 300 MG CAP PO SCH ×2 (15:29→20:13)
[2022-01-14] MEDS: PANCREAZE (LIPASE 16,800U) CAP PO SCH (15:33)
[2022-01-14] MEDS: POTASSIUM CHLORIDE 10 MEQ TABCR PO SCH ×2 (15:34→20:18)
[2022-01-14] MEDS ORDERED: HYDROcodone/ACETAMINOPHEN 10/325 TAB PO PRN (15:38)
--- NOTE | 2022-01-14 15:45 | History and Physical Report ---
DATE OF ADMISSION: 01/14/2022. CHIEF COMPLAINT: Nausea, vomiting, abdominal pain. HISTORY OF PRESENT ILLNESS: This 41-year-old female with past medical history significant for type 2 diabetes, history of polycystic ovary disease, hyperlipidemia, history of dehydration, chronic rhinitis, hypertension, obesity, history of abdominal uterine bleeding, allergic conjunctivitis, history of tobacco use disorder, history of pancreatic cancer, status post chemoradiation. The patient was supposed to get Whipple surgery at [facility] recently, when they opened up they found liver lesions and surgery was aborted. She was supposed to follow up with Hem/Onc with CT scan abdomen and pelvis, but since the surgery, she is having lot of abdominal pain, nausea, vomiting constipated and not able to eat much, getting dehydrated, so came to the ER. In the ER, she received some pain medications. She was also given enema for constipation, with bowel movement, but as she has persistent nausea, vomiting we called her for admission. Patient is having tachycardia and high blood pressure.Patient says she is not able to eat much the last few days because of the persistent nausea. Requesting for pain medication. Denies any headache, no dizziness, no blurred vision, no earache, no runny nose, no sore throat, no cough, no fevers, no chest pain or shortness of breath. There is no blood in stool, or black stools. Normal bladder movements. No swelling in the legs. ALLERGIES: PENICILLINS, TRULICITY, CLARITHROMYCIN, FISH. PAST MEDICAL HISTORY: As mentioned above. PAST SURGICAL HISTORY: Dental surgery, EGDs, EGD with endoscopic ultrasound, ERCP, malignant biliary stricture, stent exchange, hysteroscopy with biopsy and polypectomy, injection of lumbosacral spine, tonsillectomy, Whipple procedure aborted due to intraoperative finding of liver metastasis with repair of inguinal hernia. MEDICATIONS: The patient is on Tylenol as directed, albuterol 2 puffs inhalation q. 6 hours p.r.n., amlodipine 5 mg p.o. b.i.d., atenolol 100 mg p.o. a.m., carisoprodol 350 mg p.o. 8 hours p.r.n., clonidine 0.1 mg p.o. q.i.d. p.r.n. for anxiety, Colace 100 mg p.o. b.i.d., Duloxetine 120 mg p.o. daily, enalapril 20 mg p.o. a.m., Lovenox 40 mg subcutaneous a.m., Lasix, gabapentin as directed, hydrochlorothiazide 25 mg p.o. a.m., NovoLog 22 units subcutaneous t.i.d., insulin glargine as directed, Lamictal 200 mg p.o. at bedtime, levothyroxine 50 mcg p.o. a.m., Pancrease enzyme 1 capsule p.o. t.i.d., loratadine 10 mg p.o. daily, Lorazepam 1 mg p.o. 8 hours p.r.n., Zofran 8 mg, po q. 8 hours p.r.n., oxycodone 10 mg p.o. q. 4 hours p.r.n., potassium chloride 10 mEq p.o. b.i.d., quetiapine 100 mg p.o. at bedtime, sotalol 40 mg p.o. t.i.d., senna 17.2 mg p.o. a.m., valacyclovir 2 g p.o. b.i.d. p.r.n. FAMILY HISTORY: Significant for maternal grandfather had cirrhosis; maternal grandmother had diabetes; paternal grandfather had lung cancer, paternal grandmother had hypertension; father had hypertension, brother has diabetes. SOCIAL HISTORY: Smoked about 3/4 pack a day for 20 years. No alcohol use. No drug use. REVIEW OF SYSTEMS: As per HPI. Rest of review of systems is negative. PHYSICAL EXAMINATION: GENERAL: The patient is obese, not in acute distress. VITAL SIGNS: Temperature 37.1, pulse 120, respiratory rate 20, blood pressure 177/111, oxygen 95% on room air. HEENT: Pupils equal, round and reactive to light. Oral mucosa dry. NECK: No JVD or neck masses. CARDIOVASCULAR: S1 and S2 heard. Tachycardia. No murmurs. RESPIRATORY SYSTEM: Normal AP diameter. No accessory muscle use. No wheezing, no crackles. ABDOMEN: Soft. Surgical site clean, no drainage seen. Diffuse mild tenderness. Mild guarding, no rigidity, no distention. CENTRAL NERVOUS SYSTEM: Cranial nerves II-XII grossly intact, nonfocal. EXTREMITIES: No edema, no erythema. LABORATORY: WBC 13.4, hemoglobin 13.9, hematocrit 41.7, platelets 227. Sodium 137, potassium 3.3, chloride 197, CO2 18, BUN 10, creatinine 0.5, glucose 363, total bilirubin 0.6, AST 11, ALT 18, alkaline phosphatase 126. SARS-CoV-2 rapid test negative. IMAGING: CT of abdomen and pelvis preliminary report, no acute findings. ASSESSMENT AND PLAN: This is a 41-year-old female who recently diagnosed with pancreatic cancer s/p chemoradiation and planned for Whipple procedure at [facility] which was aborted as they found lesions on liver presents with persistent nausea, vomiting. 1. Persistent nausea and vomiting. We will placed her on clear liquid diet, aggressive IV fluids, IV Zofran p.r.n. Consult GI 2. possible early diabetic ketoacidosis. Sugars are 360 and CO2 is 18, we will place on insulin's DKA protocol. Pharmacy consult. 2. Pancreatic cancer, status post chemoradiation. Recently whipple procedure aborted because of liver metastasis. Follow up with Hem/Onc. 3. Depression, anxiety. Continue her home medications. 4. Hypothyroidism. Continue Synthroid. 5. Hypertension. Continue home medication of amlodipine, atenolol and enalapril. Currently possible hypertensive urgency, placed on IV labetalol p.r.n. Monitor the blood pressure. 6. Deep venous thrombosis prophylaxis, Lovenox. DISPOSITION: Closely monitor in the med tele. PT/OT prior to discharge. Social Service to help with discharge planning. Job ID: [id number] [facility] HOSPITALPatricio
[2022-01-14 16:02] LABS: BUN Creatinine Ratio 20.4 (10-20); Calcium 8.8 mg/dl (8.5-10.1); Creatinine Clr Calc Pharmacy 165.9 ml/min; Est GFR (African American) 138.3 ml/min; Est GFR (Non-African American) 119.3 ml/min; Magnesium 1.6 mg/dl (1.7-2.4); Phosphorus 2.7 mg/dl (2.5-4.9); Potassium 3.6 mmol/L (3.5-5.1)
[2022-01-14] MEDS ORDERED: INSULIN GLARGINE SOLOSTAR 100 UNITS/ML 3 ML PEN SC ONE (17:00)
--- NOTE | 2022-01-14 17:36 | Communication Note ---
Date of Service: January 14, 2022 Seen and examined at bedside. Chart reviewed. Admitted earlier today ( see H&P) note for details. CT A/P 1. Status post resection head of pancreas with biliary stent in place. Postsurgical changes are present. 2. No evidence for bowel loop dilatation or obstruction. 3. Right basilar atelectasis. 4. Additional nonacute findings are delineated above. Still having significant pain during my encounter, bandar with movements. She is tearful. States oxy does not help. Dilaudid lasts only 45 mins or so. No N/V. Abdominal exam non peritoneal, incision site clean dry intact with no cellulitis or discharge. Will have norco q4hr prn- if not controlled toradol prn alternating with dilaudid whichever helps more. Her DKA is rapidly improving- AG closed- talked to pharmacy and will change to basal bolus insulin. Electrolytes stable. Will follow. She hopes to go home tomorrow.
[2022-01-14] MEDS: MAGNESIUM SULFATE / D5W 1 GM/100 ML BAG IV SCH ×2 (17:51→18:50)
[2022-01-14 20:07] LABS: BUN Creatinine Ratio 20.9 (10-20); Calcium 8.8 mg/dl (8.5-10.1); Creatinine Clr Calc Pharmacy 188.4 ml/min; Est GFR (African American) 144.4 ml/min; Est GFR (Non-African American) 124.6 ml/min; Phosphorus 2.5 mg/dl (2.5-4.9); Potassium 3.4 mmol/L (3.5-5.1)
[2022-01-14] MEDS: cloNIDine HCL 0.1 MG TAB PO PRN (20:13)
[2022-01-14] MEDS: lamoTRIgine 100 MG TAB PO SCH (20:13)
[2022-01-14] MEDS: ENOXAPARIN INJ 40 MG/0.4 ML SYR SQ SCH (20:13)
[2022-01-14] MEDS ORDERED: INSULIN GLARGINE SOLOSTAR 100 UNITS/ML 3 ML PEN SC SCH (21:00)
[2022-01-14] MEDS: LORazepam 1 MG TAB PO PRN (21:26)
[2022-01-14] MEDS: ONDANSETRON INJ 2 MG/ML 2 ML VIAL IV PRN (21:35)
[2022-01-14] MEDS: QUEtiapine FUMARATE 100 MG TABLET PO SCH (21:36)
[2022-01-14] MEDS: KETOROLAC TROMETHAMINE 15 MG/ML VIAL IV PRN (23:24)
[2022-01-14] MEDS: SODIUM CHLORIDE 0.45 % 1,000 ML IV SCH (23:24)
[2022-01-14 23:48] LABS: Calcium 8.8 mg/dl (8.5-10.1); Creatinine Clr Calc Pharmacy 192.9 ml/min; Est GFR (African American) 145.5 ml/min; Est GFR (Non-African American) 125.5 ml/min; Phosphorus 3.1 mg/dl (2.5-4.9); Potassium 3.8 mmol/L (3.5-5.1)
[2022-01-15] MEDS: PENDING D5 1/2NS+20mEq KCL IVF SCH (00:22)
[2022-01-15] MEDS: INSULIN ASPART PER UNIT SC SCH ×6 (00:46→21:00)
[2022-01-15] MEDS: HYDROmorphone INJ 1 MG/ML SYRINGE IV PRN ×3 (02:22→21:17)
[2022-01-15] MEDS: LEVOTHYROXINE SODIUM 50 MCG TABLET PO SCH (07:34)
[2022-01-15] MEDS: SODIUM CHLORIDE 0.45 % 1,000 ML IV SCH ×2 (07:37→21:15)
[2022-01-15] MEDS: DOCUSATE SODIUM 100 MG CAP PO SCH ×2 (08:33→21:06)
[2022-01-15] MEDS: DULoxetine HCL 60 MG CAP PO SCH (08:33)
[2022-01-15] MEDS: hydroCHLOROthiazide 25 MG TAB PO SCH (08:33)
[2022-01-15] MEDS: amLODIPine BESYLATE 5 MG TAB PO SCH ×2 (08:34→21:05)
[2022-01-15] MEDS: rOPINIRole HCL 2 MG TABLET PO SCH ×3 (08:34→21:05)
[2022-01-15] MEDS: SENNA 8.6 MG TAB PO SCH (08:34)
[2022-01-15] MEDS: ATENOLOL 50 MG TABLET PO SCH (08:34)
[2022-01-15] MEDS: GABAPENTIN 300 MG CAP PO SCH ×3 (08:34→21:06)
[2022-01-15] MEDS: PANCREAZE (LIPASE 16,800U) CAP PO SCH ×3 (08:35→17:28)
[2022-01-15] MEDS: LORATADINE 10 MG TAB PO SCH (08:35)
[2022-01-15] MEDS: ENALAPRIL MALEATE 10 MG TAB PO SCH (08:35)
[2022-01-15] MEDS: POTASSIUM CHLORIDE 10 MEQ TABCR PO SCH ×2 (08:37→21:18)
[2022-01-15] MEDS: KETOROLAC TROMETHAMINE 15 MG/ML VIAL IV PRN (08:38)
[2022-01-15] MEDS: ONDANSETRON INJ 2 MG/ML 2 ML VIAL IV PRN ×2 (08:48→16:21)
[2022-01-15 09:16] LABS: Basophils # (auto) 0.02 K/uL (0-0.2); Basophils % (auto) 0.2 %; Eosinophils # (auto) 0.64 K/uL (0-0.5); Eosinophils % (auto) 6.4 %; Hematocrit (blood only) 38.6 % (37-47); Hemoglobin 12.5 g/dL (12.0-16.0); Immature Granulocytes # (auto) 0.04 K/uL (0.00-0.02); Immature Granulocytes % (auto) 0.4 %; Lymphocytes # (auto) 1.54 K/uL (1.2-3.4); Lymphocytes % (auto) 15.3 %; Mean Corpuscular Hemoglobin 30.9 pg (25-34); Mean Corpuscular Hgb Conc 32.4 g/dL (32-36); Mean Corpuscular Volume 95.5 fL (80-100); Mean Platelet Volume 10.6 fL (7.4-10.4); Monocytes # (auto) 0.69 K/uL (0.11-0.59); Monocytes % (auto) 6.9 %; Neutrophils # (auto) 7.12 K/uL (1.4-6.5); Neutrophils % (auto) 70.8 %; Platelet Count 280 K/uL (130-400); RDW Coefficient of Variation 12.8 % (11.5-14.5); RDW Standard Deviation 44.4 fL (36.4-46.3); Red Blood Count 4.04 M/uL (4.2-5.4); White Blood Count 10.05 K/uL (4.8-10.8)
[2022-01-15 09:56] LABS: BUN Creatinine Ratio 25.6 (10-20); Calcium 8.9 mg/dl (8.5-10.1); Creatinine Clr Calc Pharmacy 242.5 ml/min; Est GFR (African American) 149.1 ml/min; Est GFR (Non-African American) 128.6 ml/min; Magnesium 1.7 mg/dl (1.7-2.4); Phosphorus 3.3 mg/dl (2.5-4.9); Potassium 3.7 mmol/L (3.5-5.1)
[2022-01-15] MEDS: NICOTINE 21 MG/24 HR TDSY TD SCH (10:33)
[2022-01-15] MEDS: POLYETHYLENE (MIRALAX) 17 GM PACK PO PRN (10:47)
[2022-01-15] MEDS: cloNIDine HCL 0.1 MG TAB PO PRN (10:47)
[2022-01-15 11:08] LABS: Estimated Average Glucose 189 mg/dl; Hemoglobin A1C 8.2 % (4.5-5.6)
[2022-01-15] MEDS: LORazepam 1 MG TAB PO PRN (11:36)
[2022-01-15] MEDS ORDERED: INSULIN GLARGINE SOLOSTAR 100 UNITS/ML 3 ML PEN SC ONE (12:30)
--- NOTE | 2022-01-15 12:40 | Pharmacy Report ---
Pharmacy Glycemic Short Note 2 - Date of Service January 15, 2022 - Glycemic Short BSG Results (Last 24 hours): 01/14/22 01/14/22 01/14/22 14:01 15:09 15:10 Glucose 204 H POC Glucose 242 H 186 H 01/14/22 01/14/22 01/14/22 16:11 17:06 18:08 Glucose POC Glucose 174 H 146 H 171 H 01/14/22 01/14/22 01/14/22 18:52 19:18 19:57 Glucose 143 H POC Glucose 142 H 153 H 01/14/22 01/14/22 01/15/22 21:57 23:15 00:26 Glucose 139 H POC Glucose 134 H 129 H 01/15/22 01/15/22 01/15/22 04:05 07:38 08:38 Glucose 144 H POC Glucose 132 H 123 H 01/15/22 11:26 Glucose POC Glucose 166 H OUTPATIENT ANTIDIABETIC REGIMEN: * As reported from Endocrinology note in [place]: * Toujeo 110 units SQ daily * NovoLog 22 units TID + SSI * HbA1C = 8.2% ASSESSMENT: * Patient was transitioned from insulin infusion yesterday. She was given 50 units of Lantus. * BSGs today are 123-166 mg/dL. Patient has a diet ordered but did not eat breakfast. Patient requesting Lantus be moved to morning. * Will reduce Lantus dose by 20% to 40 units due to overlap with moving Lantus to AM and decreased PO intake. * Novolog weight-based stress of 2-3. Background * 41 year old female admitted with vomiting, DKA, PMH significant for Type 2 DM, pancreatic cancer, started on DKA protocol, IV fluids, insulin drip * Pt NPO at this time PLAN FOR INPATIENT GLYCEMIC CONTROL: * Basal insulin * Lantus 40 units with lunch today then qAM * Bolus insulin * NovoLog ACHS or q6 if NPO * CF = 25 mg/dL/unit * CR = 8
[2022-01-15] MEDS ORDERED: fentaNYL 50 MCG/HR TDSY TD SCH (16:30)
--- NOTE | 2022-01-15 17:03 | Gastrointestinal Consultation ---
Date of Consultation January 15, 2022 Assessment & Plan (1) Nausea & vomiting: Most likely caused by the effect of post op pain meds, constipation and pancreas cancer. This is resolved. No plans for GI procedures. For constipation would continue stimulant and osmotic laxative. GI will sign off. Please notify us if new/worsening GI issues. Supervising Physician Co-Signing Physician Notes Late entry: Patient was seen and examined on 01/15 with ANNETTE Busch whose note reflects our findings and plan. History of Present Illness Reason for Consultation: Nausea, vomiting Requesting Physician: Dr. Hutchins Attending Physician: Femi Clinton MD History of Present Illness Ms. Jamaica Ceballos is a 41 yr old female w DM2, PCOS, hyperlipidemia, HTN, who was dx'ed with pancreas cancer in by EUS in Apr 2021 and completed neoadjuvant chemo/radiation then attempted Whipple last week. Unfortunately liver mets was seen and though she has a large mid abdomen incision with sutures, the whipple was aborted. She was discharged to home but had not been able to mange the post surgical/cancer pain at home and presented to the ED for pain control. After arrival, she vomited once, bringing up coffee grounds emesis. The nausea and vomiting has since resolved but the pain continues. She has had constipation since surgery, is being given Senna and miralax and passed a small BM this morning. She has been passing flatus as well. Allergies Allergy/AdvReac Type Severity Reaction Status Date / Time Penicillins Allergy Mild Rash Verified 01/14/22 00:54 dulaglutide [From [facility]] AdvReac Severe Pancreatiti Verified 01/14/22 00:54 s clarithromycin AdvReac Unknown Vomiting Verified 01/14/22 00:54 fish Allergy Severe Anaphylaxis Uncoded 01/14/22 00:54 Home Medications Medication Instructions Recorded Confirmed Type albuterol sulfate 90 mcg/actuation 1 - 2 puff INHALATION Q6H PRN 04/14/21 01/14/22 History aerosol inhaler (Ventolin HFA) amlodipine 5 mg tablet 5 mg PO BID 04/14/21 01/14/22 History clonidine HCl 0.1 mg tablet 0.1 mg PO QID PRN 04/14/21 01/14/22 History duloxetine 60 mg capsule,delayed 120 mg PO DAILY cap 04/14/21 01/14/22 History release (Cymbalta) enalapril maleate 20 mg tablet 20 mg PO QAM 04/14/21 01/14/22 History (Vasotec) flash glucose scanning reader 04/14/21 12/25/21 History (FreeStyle Tanmay 14 Day [place]) hydrochlorothiazide 25 mg tablet 25 mg PO QAM 04/14/21 01/14/22 History lamotrigine 200 mg tablet 200 mg PO HS 04/14/21 01/14/22 History (Lamictal) levothyroxine 50 mcg tablet 50 mcg PO QAM 04/14/21 01/14/22 History ropinirole 4 mg tablet 4 mg PO TID 04/14/21 01/14/22 History valacyclovir 1 gram tablet 2,000 mg PO BID PRN tab 04/14/21 01/14/22 History atenolol 50 mg tablet 100 mg PO QAM 04/28/21 01/14/22 History blood sugar diagnostic (OneTouch #600 ea 05/26/21 12/25/21 Rx Verio test strips) flash glucose sensor (FreeStyle #7 ea 05/26/21 12/25/21 Rx Tanmay 14 Day Sensor) oxycodone 10 mg tablet 10 mg PO Q4 PRN 06/22/21 01/14/22 History pen needle, diabetic 31 gauge x #150 ea 11/29/21 12/25/21 Rx 3/16" (BD Ultra-Fine Mini Pen Needle) flash glucose scanning reader #2 ea 01/02/22 01/02/22 Rx (FreeStyle Tanmay 2 [place]) flash glucose sensor (FreeStyle #2 ea 01/02/22 01/02/22 Rx Tanmay 2 Sensor) acetaminophen 500 mg tablet See Rx Instructions .ROUTE .COMPLEX 01/14/22 01/14/22 History carisoprodol 350 mg tablet 350 mg PO Q8 PRN 01/14/22 01/14/22 History docusate sodium 100 mg capsule 100 mg PO AMHS 01/14/22 01/14/22 History enoxaparin 40 mg/0.4 mL 40 mg SUBCUT QAM 01/14/22 01/14/22 History subcutaneous syringe furosemide 40 mg tablet 40 mg PO UD 01/14/22 01/14/22 History gabapentin 300 mg capsule See Rx Instructions .ROUTE .COMPLEX 01/14/22 01/14/22 History insulin aspart U-100 100 unit/mL 22 unit SUBCUT TIDM 01/14/22 01/14/22 History (3 mL) subcutaneous pen (Novolog Flexpen U-100 Insulin aspart) insulin glargine U-300 conc 300 0 unit SUBCUT UD 01/14/22 01/14/22 History unit/mL (3 mL) subcutaneous pen (Toujeo Max U-300 SoloStar) lidocaine-prilocaine 2.5 %-2.5 % See Rx Instructions .ROUTE .COMPLEX 01/14/22 01/14/22 History topical cream lipase 16,800-protease 1 cap PO TIDM 01/14/22 01/14/22 History 56,800-amylase 98,400 unit capsule, delayed rel (Pancreaze) loratadine 10 mg tablet (Claritin) 10 mg PO DAILY 01/14/22 01/14/22 History lorazepam 1 mg tablet 1 mg PO Q8 PRN 01/14/22 01/14/22 History ondansetron 8 mg disintegrating 8 mg TRANSLINGUAL Q8 PRN 01/14/22 01/14/22 History tablet pegfilgrastim-bmez 6 mg/0.6 mL 6 mg SUBCUT UD 01/14/22 01/14/22 History subcutaneous syringe (Ziextenzo) potassium chloride 10 mEq 10 meq PO AMHS 01/14/22 01/14/22 History tablet,extended release quetiapine 100 mg tablet 100 mg PO HS 01/14/22 01/14/22 History sennosides 8.6 mg tablet (senna) 17.2 mg PO QAM 01/14/22 01/14/22 History Patient History Medical History Allergy-induced asthma rare inhaler use Depression with anxiety Diabetes mellitus, type 2 IDDM Dyslipidemia Hypertension Hypothyroidism Lumbosacral pain Obesity Pancreatic cancer + current chemo, follows with [facility] heme/onc PCOS (polycystic ovarian syndrome) Surgical History History of ERCP ERCP (06/2021) & EUS/ERCP (04/28/21): Good view with glidescope #3, ETT 7.0 at [facility] History of tonsillectomy History of umbilical hernia repair History of vascular access device A PORT INSERTION History of wisdom tooth extraction Nausea and vomiting after administration of anesthetic agent Family History Brother Diabetes Hypertension Father Hypertension Aunt Diabetes Grandmother (Maternal) Diabetes Other No family history of adverse response to anesthesia Social History Smoking Status: Former smoker Tobacco Type: Cigarettes packs per day: 1; Cigarettes Per Day: 15 cigs/day; Second Hand Exposure: No; Do You Dip or Chew Tobacco: No; Tobacco Cessation Education Requested by Patient: No Hx Alcohol Use: No Hx Substance Use: No Preferred Language: Portuguese Communication Ability: Effective 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 [employer] Required: No Beliefs That Will Affect Care: None marital status: Single Current Living Situation: Alone and Family Current Living Situation Comment: WITH DAUGHTER Other Information That Helps Us Care for You: No Feels Safe at Home: Yes Safety Concerns: Feels Safe At This Time Assistive Devices: Oxygen - at Night Review of Systems Review of Systems: ROS: Gen: + weakness, no fevers, + weight loss Eyes: No eye redness, or pain, no recent vision changes Resp: No SOB, no cough Cardio: No palpitations/irregular beats, no chest pain GI: as per HPI, otherwise (-) : Denies pain on urination Skin: No jaundice, itching or new rashes Physical Exam Constitutional: well developed and cooperative Eyes: PERRL, conjunctivae normal, anicteric sclerae Respiratory: normal respiratory effort, lungs clear to auscultation Cardiovascular: RRR, no murmur, no edema Gastrointestinal (Abdomen): Inspection/Auscultation: normal bowel sounds Percussion/Palpation: + abdomen tender (large mid line abd incision, w rod, no discharge, no bleeding, no edema) and abdomen soft; abdomen not rigid Skin: no rashes, warm and dry normal turgor and + pallor Neurologic: PERRL, EOMI, accommodation nl, no face palsy, no dysarthria awake; not confused Psychiatric: A+Ox3, euthymic affect Orientation: alert, oriented x 3 and cooperative Lymphatic: no cervical or axillary lymphadenopathy Results & Data ([facility]) Vital Signs (Past 12 Hours) Vital Signs Temp Pulse Resp BP Pulse Ox 01/15/22 11:07 36.9 C 69 14 158/94 H 92 01/15/22 10:45 36.8 C 72 170/92 H 92 01/15/22 08:00 36.9 C 80 16 174/100 H 92 Laboratory Results WBC 10, Hct 12.5, Hct 38.6, plts 280, Na 139, K 3.7, Cl 106, CO2 24 BUN 10, Cr 0.39, glucose 144. Diagnostic Findings CTAP 01/14/22: . Status post resection head of pancreas with biliary stent in place. Postsurgical changes are present. 2. No evidence for bowel loop dilatation or obstruction. 3. Right basilar atelectasis. 4. Additional nonacute findings are delineated above.
[2022-01-15] MEDS ORDERED: traMADol HCL 50 MG TABLET PO PRN (20:19)
--- NOTE | 2022-01-15 20:31 | Hospitalist Progress Note ---
Date of Service January 15, 2022 Assessment & Plan (1) Post-operative pain: (2) Intractable nausea and vomiting: Plan: 41-year-old female with past medical history significant for type 2 diabetes, history of polycystic ovary disease, hyperlipidemia, history of dehydration, chronic rhinitis, hypertension, obesity, history of abdominal uterine bleeding, allergic conjunctivitis, history of tobacco use disorder, history of pancreatic cancer, status post chemoradiation presented 6/12 w/ c/o N, V and abd pain a/w decreased appetite. Of note, she was recently diagnosed with pancreatic cancer s/p chemoradiation and planned for Whipple procedure at [place] which was abo rted as they found lesions on liver. She is being managed for the following: Admitting CT A/P1. Status post resection head of pancreas with biliary stent in place. Postsurgical changes are present. 2. No evidence for bowel loop dilatation or obstruction. 3. Right basilar atelectasis. 4. Additional nonacute findings are delineated above. 1. Persistent nausea and vomiting. zofran, and on ivf, improving, dc ivf if eating ok. 2. possible early diabetic ketoacidosis.s/p DKA protocol, resolved, N/V improved, pt eating Ok. 2. Pancreatic cancer, status post chemoradiation. Recently whipple procedure aborted because of liver metastasis. Follow up with Hem/Onc. #. Abdominal pain: related to cancer, Oxy and hydrocodone doesn't help per Pt, on ketorolac and dilaudid, added fentanyl patch and tramadol. Pain Mx consult. 3. Depression, anxiety. Continue her home medications. 4. Hypothyroidism. Continue Synthroid. 5. Hypertension. Continue home medication of amlodipine, atenolol and enalapril. BP better controlled, placed on IV labetalol p.r.n. Monitor the blood pressure. 6. Deep venous thrombosis prophylaxis, Lovenox. dispo: pain control, awaiting Pain Mx consult recs for DC, pt will need Pain Mx f/u as OP, Hem/onc f/u and PCP f/u. Admission and Anticipated Discharge Date Admission Date: January 14, 2022 Subjective Patient seen and examined at bedside as a follow-up of early diabetic ketoa cidosis, persistent nausea and vomiting, persistent abdominal pain. Patient was lying in bed, on room air, in mild distress due to belly pain. Patient reports tolerating diet better today. Patient had 1 episode of emesis overnight, no nausea or vomiting in the morning. Patient denies chest pain or palpitation. Patient denies headache. Patient appears sad. Physical Exam Physical Exam: GENERAL: Alert and oriented x3. NAD, on RA. HEENT: No pallor, no icterus. Pupils equal, round and reactive to light. Oral mucosa moist. NECK: No JVD, no neck masses. HEART: S1 and S2 heard. Regular rate and rhythm. No murmur, no gallop. RESPIRATORY SYSTEM: Normal AP diameter. No accessory muscle use. No wheezing, no crackles. ABDOMEN: Soft, bowel sounds present, diffuse tender, midline incision clean w/ sutures, no distention. CENTRAL NERVOUS SYSTEM: No facial droop. Speech is clear. Obeys simple commands. Moves extremities. EXTREMITIES: No edema, no erythema seen. Results & Data Results & Data ([facility]) Vital Signs (Past 12 Hours) Vital Signs Temp Pulse Resp BP Pulse Ox 01/15/22 19:47 36.9 C 81 18 145/89 H 90 01/15/22 17:17 36.7 C 72 18 145/82 H 92 01/15/22 11:07 36.9 C 69 14 158/94 H 92 01/15/22 10:45 36.8 C 72 170/92 H 92
[2022-01-15] MEDS: QUEtiapine FUMARATE 100 MG TABLET PO SCH (21:06)
[2022-01-15] MEDS: lamoTRIgine 100 MG TAB PO SCH (21:06)
[2022-01-15] MEDS: ENOXAPARIN INJ 40 MG/0.4 ML SYR SQ SCH (21:07)
[2022-01-15] MEDS: MELATONIN 3 MG TAB PO SCH (21:17)
[2022-01-15] MEDS: CHECK fentaNYL PATCH PLACEMENT SCH (23:54)
[2022-01-16] MEDS: LEVOTHYROXINE SODIUM 50 MCG TABLET PO SCH (06:16)
[2022-01-16] MEDS ORDERED: MoRPHine SULFATE IR 15 MG TAB (IMMEDIATE RELEASE) PO PRN (07:57)
[2022-01-16] MEDS ORDERED: HYDROmorphone INJ 1 MG/ML SYRINGE IV PRN (07:59)
--- NOTE | 2022-01-16 08:39 | Pain Management Consultation ---
Date of Consultation January 16, 2022 Assessment & Plan (1) Post-operative pain: (2) H/O pancreatic cancer: 1. Current pain complaints appear to be predominantly postoperative as opposed to chronic ongoing cancer related pain. We discussed management options at length with the patient. Will recommend discontinuation of fentanyl patch given that her presurgical opiate burden was minimal and current pain appears to be more postoperative in nature with an extremely large midline abdominal i ncision. Given reported prior failure of hydrocodone and oxycodone, will initiate MS IR 15 mg every 4 hours as needed breakthrough pain-recommend use at pain scale greater than 5/10. Patient will maintain tramadol 50 mg every 4 hours as needed breakthrough pain for pain scale less than 5/10. Dosage adjustments will be made based upon response. 2. Will discontinue Soma 3. Recommend she maintain gabapentin 300 mg 3 times daily. Would consider dose titration pending pain control issues. 4. She will continue to follow Dr. Felder in the outpatient setting for management of comorbid mood disorder 5. She is not currently a candidate for interventional treatment such as celiac plexus block, but moving forward should she develop midepigastric abdominal pain is has a pancreatic cancer burden this would be considered. 6. Will continue to follow. History of Present Illness Reason for Consultation: Abdominal Pain Requesting Physician: Femi Clinton MD Attending Physician: Femi Clinton MD History of Present Illness Mrs. Ceballos is a 41-year-old white female who was admitted due to nausea, vomiting and abdominal pain complaints. Patient has past medical history significant for type 2 diabetes mellitus, hyperlipidemia, hypertension, obesity, tobacco use disorder and pancreatic cancer. Patient is status post chemoradiation and underwent a surgical procedure last Saturday at [facility] in [place]. There was plan for Whipple procedure which was aborted due to discovery of liver metastatic disease. The patient reported onset of recurrent abdominal pain complaints the night following her surgery which has been fairly persistent since that time. She then developed difficulty with nausea and vomiting as well as constipation. This led to increased difficulties with abdominal pain. She denies any significant abdominal pain prior to her procedure and no ongoing utilization of chronic opiate therapy. The pain is more over the incisional site and generalized across the abdomen. She denies any specific deep boring or aching pain in the midepigastric region. She was further reporting some left-sided lumbosacral pain which she felt was related to vomiting but does have history of lumbar herniated disc with lumbar radiculopathy. She has no current radicular pain complaints. Patient's pain is episodically sharp and localized ranging between a 4-7/10. Patient reports that she was trialed on oxycodone and hydrocodone without relief of symptoms. She was initiated on fentanyl 50 mcg every 72 hour patch yesterday afternoon. She finds IV Dilaudid to be effective at diminishing her pain. She did utilize tramadol this morning which she felt was moderately effective at diminishing abdominal pain complaints. She reports that she is tolerating the fentanyl patch at this time. She is awaiting a PET scan and further recommendations from oncology due to the recent discovery during her surgical procedure. She does co ntinue to follow Dr. Felder regarding behavioral health and feels the symptoms are currently adequately controlled with her current medications. She did have bowel movement yesterday after undergoing an enema the day prior. Patient has no further constitutional complaints at this time. Plan of care discussed with Dr. Estrada. Pain Assessment Full Body Front + Back: 1. Generalized abdominal pain-midline incisional site pain 2. Left-sided lumbosacral pain Pain scale - at its best (0-10): 4 Pain scale - at its worst (0-10): 7 Allergies Allergy/AdvReac Type Severity Reaction Status Date / Time Penicillins Allergy Mild Rash Verified 01/14/22 00:54 dulaglutide [From [facility]] AdvReac Severe Pancreatiti Verified 01/14/22 00:54 s clarithromycin AdvReac Unknown Vomiting Verified 01/14/22 00:54 fish Allergy Severe Anaphylaxis Uncoded 01/14/22 00:54 Home Medications Medication Instructions Recorded Confirmed Type albuterol sulfate 90 mcg/actuation 1 - 2 puff INHALATION Q6H PRN 04/14/21 01/14/22 History aerosol inhaler (Ventolin HFA) amlodipine 5 mg tablet 5 mg PO BID 04/14/21 01/14/22 History clonidine HCl 0.1 mg tablet 0.1 mg PO QID PRN 04/14/21 01/14/22 History duloxetine 60 mg capsule,delayed 120 mg PO DAILY cap 04/14/21 01/14/22 History release (Cymbalta) enalapril maleate 20 mg tablet 20 mg PO QAM 04/14/21 01/14/22 History (Vasotec) flash glucose scanning reader 04/14/21 12/25/21 History (FreeStyle Tanmay 14 Day [place]) hydrochlorothiazide 25 mg tablet 25 mg PO QAM 04/14/21 01/14/22 History lamotrigine 200 mg tablet 200 mg PO HS 04/14/21 01/14/22 History (Lamictal) levothyroxine 50 mcg tablet 50 mcg PO QAM 04/14/21 01/14/22 History ropinirole 4 mg tablet 4 mg PO TID 04/14/21 01/14/22 History valacyclovir 1 gram tablet 2,000 mg PO BID PRN tab 04/14/21 01/14/22 History atenolol 50 mg tablet 100 mg PO QAM 04/28/21 01/14/22 History blood sugar diagnostic (OneTouch #600 ea 05/26/21 12/25/21 Rx Verio test strips) flash glucose sensor (FreeStyle #7 ea 05/26/21 12/25/21 Rx Tanmay 14 Day Sensor) oxycodone 10 mg tablet 10 mg PO Q4 PRN 06/22/21 01/14/22 History pen needle, diabetic 31 gauge x #150 ea 11/29/21 12/25/21 Rx 3/16" (BD Ultra-Fine Mini Pen Needle) flash glucose scanning reader #2 ea 01/02/22 01/02/22 Rx (FreeStyle Tanmay 2 [place]) flash glucose sensor (FreeStyle #2 ea 01/02/22 01/02/22 Rx Tanmay 2 Sensor) acetaminophen 500 mg tablet See Rx Instructions .ROUTE .COMPLEX 01/14/22 01/14/22 History carisoprodol 350 mg tablet 350 mg PO Q8 PRN 01/14/22 01/14/22 History docusate sodium 100 mg capsule 100 mg PO AMHS 01/14/22 01/14/22 History enoxaparin 40 mg/0.4 mL 40 mg SUBCUT QAM 01/14/22 01/14/22 History subcutaneous syringe furosemide 40 mg tablet 40 mg PO UD 01/14/22 01/14/22 History gabapentin 300 mg capsule See Rx Instructions .ROUTE .COMPLEX 01/14/22 01/14/22 History insulin aspart U-100 100 unit/mL 22 unit SUBCUT TIDM 01/14/22 01/14/22 History (3 mL) subcutaneous pen (Novolog Flexpen U-100 Insulin aspart) insulin glargine U-300 conc 300 0 unit SUBCUT UD 01/14/22 01/14/22 History unit/mL (3 mL) subcutaneous pen (Toujeo Max U-300 SoloStar) lidocaine-prilocaine 2.5 %-2.5 % See Rx Instructions .ROUTE .COMPLEX 01/14/22 01/14/22 History topical cream lipase 16,800-protease 1 cap PO TIDM 01/14/22 01/14/22 History 56,800-amylase 98,400 unit capsule, delayed rel (Pancreaze) loratadine 10 mg tablet (Claritin) 10 mg PO DAILY 01/14/22 01/14/22 History lorazepam 1 mg tablet 1 mg PO Q8 PRN 01/14/22 01/14/22 History ondansetron 8 mg disintegrating 8 mg TRANSLINGUAL Q8 PRN 01/14/22 01/14/22 History tablet pegfilgrastim-bmez 6 mg/0.6 mL 6 mg SUBCUT UD 01/14/22 01/14/22 History subcutaneous syringe (Ziextenzo) potassium chloride 10 mEq 10 meq PO AMHS 01/14/22 01/14/22 History tablet,extended release quetiapine 100 mg tablet 100 mg PO HS 01/14/22 01/14/22 History sennosides 8.6 mg tablet (senna) 17.2 mg PO QAM 01/14/22 01/14/22 History Pain History Pain Intensity Pain scale - at its best (0-10): 4 Pain scale - at its worst (0-10): 7 Patient History Medical History Allergy-induced asthma rare inhaler use Depression with anxiety Diabetes mellitus, type 2 IDDM Dyslipidemia Hypertension Hypothyroidism Lumbosacral pain Obesity Pancreatic cancer + current chemo, follows with [facility] heme/onc PCOS (polycystic ovarian syndrome) Surgical History History of ERCP ERCP (06/2021) & EUS/ERCP (04/28/21): Good view with glidescope #3, ETT 7.0 at [facility] History of tonsillectomy History of umbilical hernia repair History of vascular access device A PORT INSERTION History of wisdom tooth extraction Nausea and vomiting after administration of anesthetic agent Family History Brother Diabetes Hypertension Father Hypertension Aunt Diabetes Grandmother (Maternal) Diabetes Other No family history of adverse response to anesthesia Social History Smoking Status: Former smoker Tobacco Type: Cigarettes packs per day: 1; Cigarettes Per Day: 15 cigs/day; Second Hand Exposure: No; Do You Dip or Chew Tobacco: No; Tobacco Cessation Education Requested by Patient: No Hx Alcohol Use: No Hx Substance Use: No Preferred Language: [place] Communication Ability: Effective Channel Opener Outsoles Required: No Beliefs That Will Affect Care: None marital status: Single Current Living Situation: Alone and Family Current Living Situation Comment: WITH DAUGHTER Other Information That Helps Us Care for You: No Feels Safe at Home: Yes Safety Concerns: Feels Safe At This Time Assistive Devices: Oxygen - at Night Physical Exam Physical Exam: General: Patient lying supine quietly in exam room in no acute distress. Speech and thought process appropriate. Mood and affect appropriate. Cognition intact. Patient obese and physically deconditioned. Head: Normocephalic and atraumatic. ENT: No evidence of nasal or oral mucosal lesions. Mucous membranes are moist. Eyes: Pupils equal round reactive to light. Neck: Supple without adenopathy and full range of motion. Abdomen: Soft and nondistended. No organomegaly. Bowel sounds active. Patient has a large midline incision extending from the mid epigastric through the suprapubic region with rod in place. There is no evidence of edema, erythema or skin breakdown. The wound is well approximated. Patient is generally tender over the incisional region and to palpation throughout the abdomen without rebound or guarding. No focal midepigastric tenderness to palpation. Back/spine: Patient was able to logroll towards her right side for visual inspection. Fentanyl patch is in place on the left shoulder. No erythema. Patient is nontender palpation over the midline. No focal facet or SI joint tenderness. Minimally tender in the lumbar paravertebral musculature and quadratus lumborum. Lower extremities: SLR negative bilaterally. Strength testing 5/5 and equal. Sensation intact without deficit. Neurologic: Cranial nerves grossly intact. Ambulatory function not witnessed. Results (Pain Clinic) Diagnostic Review CT Findings: Close Abdomen/Pelvis CT (Signed) Albert Johns - 01/14/22 Arthroscopy Image 12/29/21 CT Scan 11/02/21 Endo Retro Cholangiopancreatogram (Signed) Gary Prajapati - 06/23/21 Endo Retro Cholangiopancreatogram (Signed) AbdulsamabenedictMolham - 06/23/21 Upper Endoscopic Ultrasound 04/28/21 Endo Retro Cholangiopancreatogram (Signed) Mahendra Alvarez - 04/28/21 Upper Endoscopic Ultrasound (Signed) Abdulsamad,Molham - 04/28/21 Endo Retro Cholangiopancreatogram (Signed) Abdulsamad,Molham - 04/28/21 GI Upper Endoscopy Procedure 04/28/[address] (Signed) Gary Prajapati - 04/28/21 Outside Magnetic Resonance Imaging (MRI) 04/25/21 Chest X-Ray 04/07/21 [place], [place] [phone] CT Scan Report Patient:MIR CEBALLOS Admit Date:01/14/22 MR#:[id number] Address1:[address] [place] [address] Acct ID:[id number] Address2: Date:1980 [facility] Zip:[place] [address] Age:41 Location:2W Sex:F Room/Bed:[facility] Att Phy:Russell Aguilar MD Diagnosis:VOMITING Maru Phy:Dhruv Hawley MD Service Date:01/14/22 Fam Phy: Interpreting Phy:Albert Johns MDAdmit Phy:Arie Hutchins MD Ordering Phy:Beronica Esquivel PA-C cc: ~ CT abd pelvis IV con only CLINICAL HISTORY: Diffuse abdominal pain with nausea and vomiting. History pancreatic cancer COMPARISON STUDY: 04/28/2021 CT DOSE: 1467.70 mGy.cm TECHNIQUE: Standard CT of the Abdomen and Pelvis was performed with IV contrast. A dose lowering technique was utilized adhering to the principles of ALARA. Contrast Volume: Optiray 320, 95 ml. The patient did not receive oral contrast. FINDINGS: Lung base: There is right basilar atelectasis. Abdominal cavity and pancreas: The patient is status post recent abdominal surgery for resection of a mass in head of pancreas. There is minimal free air present related to the surgery. A biliary stent is now in place with pneumobilia present. There is dilatation of the pancreatic duct. Liver: There is homogeneous attenuation of the liver parenchyma. There is no evidence for enhancing mass lesion. Spleen: There is homogeneous attenuation of the splenic parenchyma. There is no enhancing mass lesion. Gall Bladder: The gallbladder is well distended with no evidence for intraluminal calculi, wall thickening or pericholecystic edema. Adrenal glands: The adrenal glands are normal in size and attenuation. There is no evidence for enhancing mass lesion. Kidneys: There is homogeneous attenuation of the renal parenchyma bilaterally. There is no evidence for renal calculus or hydronephrosis. There is no evidence for enhancing mass. Bowel: The bowel loops are normally placed within the abdomen and pelvis without evidence for dilatation or obstruction. There is no evidence for mass lesion. There is prominent fecal material in the rectosigmoid colon characteristic of mild fecal stasis without impaction or obstruction. There are no inflammatory changes present. Bladder: The bladder is within normal limits with no evidence for focal mass, calculus or diverticulum. : There is no evidence for pelvic mass or adenopathy. There is no evidence for pelvic ascites. Calcified fibroid uterus. There are cystic changes of the ovar ies. Vasculature: There is no evidence for aneurysmal dilatation of the abdominal aorta. Osseous structures: There is no acute osseous pathology. Degenerative changes of the spine. IMPRESSION: 1. Status post resection head of pancreas with biliary stent in place. Postsurgical changes are present. 2. No evidence for bowel loop dilatation or obstruction. 3. Right basilar atelectasis. 4. Additional nonacute findings are delineated above. ACT 112: Negative or not required by law. Electronically signed by: Albert Johns M.D. 01/14/2022 3:08 PM Dictated:01/14/22 1454 Transcribed: 01/14/22 1451
[2022-01-16] MEDS: INSULIN ASPART PER UNIT SC SCH ×4 (08:43→21:00)
[2022-01-16] MEDS: CHECK fentaNYL PATCH PLACEMENT SCH (08:43)
[2022-01-16] MEDS: NICOTINE 21 MG/24 HR TDSY TD SCH (08:45)
[2022-01-16] MEDS: GABAPENTIN 300 MG CAP PO SCH ×3 (08:47→20:54)
[2022-01-16] MEDS: PANCREAZE (LIPASE 16,800U) CAP PO SCH ×3 (08:47→17:27)
[2022-01-16] MEDS: DOCUSATE SODIUM 100 MG CAP PO SCH ×2 (08:48→20:54)
[2022-01-16] MEDS: SENNA 8.6 MG TAB PO SCH (08:48)
[2022-01-16] MEDS: ATENOLOL 50 MG TABLET PO SCH (08:48)
[2022-01-16] MEDS: amLODIPine BESYLATE 5 MG TAB PO SCH ×2 (08:48→20:53)
[2022-01-16] MEDS: rOPINIRole HCL 2 MG TABLET PO SCH ×3 (08:48→20:55)
[2022-01-16] MEDS: hydroCHLOROthiazide 25 MG TAB PO SCH (08:49)
[2022-01-16] MEDS: ENALAPRIL MALEATE 10 MG TAB PO SCH (08:49)
[2022-01-16] MEDS: LORATADINE 10 MG TAB PO SCH (08:49)
[2022-01-16] MEDS: DULoxetine HCL 60 MG CAP PO SCH (08:49)
[2022-01-16] MEDS: SODIUM CHLORIDE 0.45 % 1,000 ML IV SCH (08:56)
[2022-01-16] MEDS: POLYETHYLENE (MIRALAX) 17 GM PACK PO PRN (08:57)
[2022-01-16] MEDS: LORazepam 1 MG TAB PO PRN (08:58)
[2022-01-16] MEDS: POTASSIUM CHLORIDE 10 MEQ TABCR PO SCH ×2 (08:58→20:58)
[2022-01-16] MEDS: cloNIDine HCL 0.1 MG TAB PO PRN (11:54)
[2022-01-16] MEDS: traMADol HCL 50 MG TABLET PO PRN ×3 (12:32→20:57)
--- NOTE | 2022-01-16 14:51 | Pharmacy Report ---
Pharmacy Glycemic Short Note 2 - Date of Service January 16, 2022 - Glycemic Short BSG Results (Last 24 hours): 01/15/22 01/15/22 01/15/22 16:47 20:20 22:44 POC Glucose 121 H 107 H 63 L* 01/15/22 01/15/22 01/16/22 23:13 23:33 05:21 POC Glucose 63 L* 71 138 H 01/16/22 01/16/22 01/16/22 07:36 11:35 11:57 POC Glucose 118 H 94 75 OUTPATIENT ANTIDIABETIC REGIMEN: * As reported from Endocrinology note in Aug: * Toujeo 110 units SQ daily * NovoLog 22 units TID + SSI * HbA1C = 8.2% ASSESSMENT: 01/16/22 * BSGs yesterday were [phone] and today are 118-94/75 mg/dL. * Patient received 53 units of insulin yesterday (40 units of basal and 13 units of bolus). Patient had a hypoglycemic episode most likely due to too much basal. * Had attempted to move Lantus administration to AM but due to hypoglycemia then lower BSGs halted this process. Lunch BSG lower than breakfast. * Will schedule Lantus with dinner. Highest dose available is 20 units (half of what patient received yesterday) due to hypoglycemia yesterday. * Continue loosened Novolog. 01/15/22 * Patient was transitioned from insulin infusion yesterday. She was given 50 units of Lantus. * BSGs today are 123-166 mg/dL. Patient has a diet ordered but did not eat breakfast. Patient requesting Lantus be moved to morning. * Will reduce Lantus dose by 20% to 40 units due to overlap with moving Lantus to AM and decreased PO intake. * Novolog weight-based stress of 2-3. Background * 41 year old female admitted with vomiting, DKA, PMH significant for Type 2 DM, pancreatic cancer, started on DKA protocol, IV fluids, insulin drip * Pt NPO at this time PLAN FOR INPATIENT GLYCEMIC CONTROL: * Basal insulin * Lantus 0-20 units with dinner then reevaluate tomorrow (hold if BSG < 100 mg/dL; 10 units if BSG 100-140 mg/dL; 20 units for BSG > 140 mg/dL) * Bolus insulin * NovoLog ACHS or q6 if NPO * CF = 25 mg/dL/unit * CR = 8
[2022-01-16] MEDS ORDERED: INSULIN GLARGINE SOLOSTAR 100 UNITS/ML 3 ML PEN SC ONE (17:00)
[2022-01-16] MEDS: MoRPHine SULFATE IR 15 MG TAB (IMMEDIATE RELEASE) PO PRN (17:26)
--- NOTE | 2022-01-16 17:56 | Hospitalist Progress Note ---
Date of Service January 16, 2022 Assessment & Plan (1) Post-operative pain: (2) Intractable nausea and vomiting: Plan: 41-year-old female with past medical history significant for type 2 diabetes, history of polycystic ovary disease, hyperlipidemia, history of dehydration, chronic rhinitis, hypertension, obesity, history of abdominal uterine bleeding, allergic conjunctivitis, history of tobacco use disorder, history of pancreatic cancer, status post chemoradiation presented 6/12 w/ c/o N, V and abd pain a/w decreased appetite. Of note, she was recently diagnosed with pancreatic cancer s/p chemoradiation and planned for Whipple procedure at [place] which was abo rted as they found lesions on liver. She is being managed for the following: Admitting CT A/P1. Status post resection head of pancreas with biliary stent in place. Postsurgical changes are present. 2. No evidence for bowel loop dilatation or obstruction. 3. Right basilar atelectasis. 4. Additional nonacute findings are delineated above. 1. Persistent nausea and vomiting. zofran prn, improved, dc ivf. 2. possible early diabetic ketoacidosis.s/p DKA protocol, resolved, N/V improved, pt eating Ok. 2. Pancreatic cancer, status post chemoradiation. Recently whipple procedure aborted because of liver metastasis. Follow up with Hem/Onc. #. Abdominal pain: related to post op status vs cancer, Oxy and hydrocodone doesn't help per Pt, on ketorolac and dilaudid and tramadol. Pain Mx consult -- appreciate recs 3. Depression, anxiety. Continue her home medications. 4. Hypothyroidism. Continue Synthroid. 5. Hypertension. Continue home medication of amlodipine, atenolol and enalapril. BP better controlled, placed on IV labetalol p.r.n. Monitor the blood pressure. 6. Deep venous thrombosis prophylaxis, Lovenox. dispo: pain control, awaiting Pain Mx consult recs for DC, pt will need Pain Mx f/u as OP, Hem/onc f/u and PCP f/u. Admission and Anticipated Discharge Date Admission Date: January 14, 2022 Subjective Patient seen and examined at bedside as a follow-up of early diabetic ketoacidosis, persistent nausea and vomiting, persistent abdominal pain. Patient was lying in bed, on room air, not in acute distress, no new events overnight, no nausea or vomiting. Patient reports tolerating diet well today. Patient denies chest pain or palpitation. Patient denies headache. Patient feels better. Physical Exam Physical Exam: GENERAL: Alert and oriented x3. NAD, on RA. HEENT: No pallor, no icterus. Pupils equal, round and reactive to light. Oral mucosa moist. NECK: No JVD, no neck masses. HEART: S1 and S2 heard. Regular rate and rhythm. No murmur, no gallop. RESPIRATORY SYSTEM: Normal AP diameter. No accessory muscle use. No wheezing, no crackles. ABDOMEN: Soft, bowel sounds present, diffuse tender, midline incision clean w/ sutures, no distention. CENTRAL NERVOUS SYSTEM: No facial droop. Speech is clear. Obeys simple commands. Moves extremities. EXTREMITIES: No edema, no erythema seen. Results & Data Results & Data ([facility]) Vital Signs (Past 12 Hours) Vital Signs Temp Pulse Pulse Resp BP Pulse Ox 01/16/22 16:08 36.6 C 69 18 111/73 91 01/16/22 15:05 70 01/16/22 11:10 37.3 C 81 18 160/93 H 92 01/16/22 08:28 36.9 C 87 18 150/81 H 93
[2022-01-16] MEDS: MELATONIN 3 MG TAB PO SCH (20:50)
[2022-01-16] MEDS: lamoTRIgine 100 MG TAB PO SCH (20:50)
[2022-01-16] MEDS: ENOXAPARIN INJ 40 MG/0.4 ML SYR SQ SCH (20:53)
[2022-01-16] MEDS: QUEtiapine FUMARATE 100 MG TABLET PO SCH (20:54)
[2022-01-17] MEDS: MoRPHine SULFATE IR 15 MG TAB (IMMEDIATE RELEASE) PO PRN (04:40)
[2022-01-17] MEDS: LEVOTHYROXINE SODIUM 50 MCG TABLET PO SCH (06:18)
[2022-01-17] MEDS: traMADol HCL 50 MG TABLET PO PRN ×3 (08:06→16:14)
[2022-01-17] MEDS: POTASSIUM CHLORIDE 10 MEQ TABCR PO SCH (08:24)
[2022-01-17] MEDS: POLYETHYLENE (MIRALAX) 17 GM PACK PO PRN (08:24)
[2022-01-17] MEDS: PANCREAZE (LIPASE 16,800U) CAP PO SCH ×3 (08:25→16:14)
[2022-01-17] MEDS: NICOTINE 21 MG/24 HR TDSY TD SCH (08:25)
[2022-01-17] MEDS: rOPINIRole HCL 2 MG TABLET PO SCH ×2 (08:25→12:21)
[2022-01-17] MEDS: DOCUSATE SODIUM 100 MG CAP PO SCH (08:25)
[2022-01-17] MEDS: GABAPENTIN 300 MG CAP PO SCH (08:26)
[2022-01-17] MEDS: amLODIPine BESYLATE 5 MG TAB PO SCH (08:26)
[2022-01-17] MEDS: hydroCHLOROthiazide 25 MG TAB PO SCH (08:26)
[2022-01-17] MEDS: ENALAPRIL MALEATE 10 MG TAB PO SCH (08:26)
[2022-01-17] MEDS: ATENOLOL 50 MG TABLET PO SCH (08:27)
[2022-01-17] MEDS: SENNA 8.6 MG TAB PO SCH (08:27)
[2022-01-17] MEDS: DULoxetine HCL 60 MG CAP PO SCH (08:27)
[2022-01-17] MEDS: LORATADINE 10 MG TAB PO SCH (08:27)
[2022-01-17] MEDS: INSULIN ASPART PER UNIT SC SCH ×2 (08:30→12:22)
[2022-01-17 08:55] LABS: Calcium 8.9 mg/dl (8.5-10.1); Creatinine Clr Calc Pharmacy 191.4 ml/min; Est GFR (African American) 137.4 ml/min; Est GFR (Non-African American) 118.5 ml/min; Magnesium 1.7 mg/dl (1.7-2.4); Phosphorus 5.1 mg/dl (2.5-4.9); Potassium 3.5 mmol/L (3.5-5.1)
--- NOTE | 2022-01-17 09:03 | Pain Management Progress Note ---
Date of Service January 17, 2022 Assessment & Plan (1) Post-operative pain: (2) H/O pancreatic cancer: (3) Therapeutic opioid-induced constipation (OIC): Plan: 1. Would recommend continuing with tramadol 100 mg every 6 hours for as needed breakthrough pain 2. Continue with MiraLAX and Senokot utilization. Potentially increase MiraLAX to twice daily 3. Patient may follow-up in the pain clinic in the outpatient setting as needed. Pain service will sign off on patient at this time. Admission and Anticipated Discharge Date Admission Date: January 14, 2022 Subjective Ms. Ceballos is a 41-year-old white female who was admitted due to intractable abdominal region pain status post a aborted Whipple procedure with known history of metastatic pancreatic cancer. She had reported no chronic pain leading up to her surgical procedure reporting that most of her pain is related to postoperative discomfort near the incisional site. She subsequently developed some nausea, vomiting and constipation in the postoperative setting which may have exacerbated her incisional region pain. She had reported minimal benefit from oxycodone and hydrocodone. She was subsequently initiated on fentanyl 2 days ago which was discontinued yesterday. She was transition to tramadol 100 mg every 6 hours for as needed breakthrough pain with morphine 30 mg for pain not well controlled with tramadol. She reports that the tramadol has been effective at diminishing her abdominal pain without notable side effects. She reports some sedation from morphine but she was reporting more efficacy from this medication compared to the oxycodone hydrocodone dosing. She is eager for discharge today feeling that her pain control is improved. She indicates that her current pain is minimal at a 4-5/10. Her pain remains in the midline near the incisional site. Patient reported improved sleep quality and quantity and reports she was able to lie on her side to sleep. Patient has no further constitutional complaints. Plan of care discussed with Dr. Estrada. Pain Assessment Pain Assessment Full Body Front + Back: 1. Midline incisional region pain Physical Exam Physical Exam: General: Patient was sleeping upon entering the room. She was awakened without difficulty. She reports that her pain is currently minimal at a 3-4/10 indicating just some abdominal region soreness. Abdomen: Soft and nondistended. Incisional site is well approximated in the midline. Minimally tender to palpation. Neurologic: Cranial nerves grossly intact. Ambulation not witnessed.
[2022-01-17] MEDS ORDERED: LACTULOSE SYRUP 20 GM/30 ML UDC PO ONE (11:10)
[2022-01-17] MEDS: LORazepam 1 MG TAB PO PRN (11:29)
--- NOTE | 2022-01-17 12:40 | Pharmacy Report ---
Pharmacy Glycemic Short Note 2 - Date of Service January 17, 2022 - Glycemic Short BSG Results (Last 24 hours): 01/16/22 01/16/22 01/17/22 16:32 20:10 07:51 Glucose POC Glucose 132 H 130 H 118 H 01/17/22 01/17/22 08:01 12:04 Glucose 117 H POC Glucose 132 H OUTPATIENT ANTIDIABETIC REGIMEN: * As reported from Endocrinology note in [place]: * Toujeo 110 units SQ daily * NovoLog 22 units TID + SSI * HbA1C = 8.2% ASSESSMENT: 01/17/22 * Patient's BSGs yesterday were 118-94/75-132-130 mg/dL. Patient received 14 units of insulin (10 units of basal and 4 units of bolus). * BSGs today are 118-132 mg/dL. * Since lunch BSG trending upwards, more comfortable transitioning to AM insulin. Give 10 units at lunch today then start Lantus tomorrow AM. * Continue Novolog. 01/16/22 * BSGs yesterday were [phone] and today are 118-94/75 mg/dL. * Patient received 53 units of insulin yesterday (40 units of basal and 13 units of bolus). Patient had a hypoglycemic episode most likely due to too much basal. * Had attempted to move Lantus administration to AM but due to hypoglycemia then lower BSGs halted this process. Lunch BSG lower than breakfast. * Will schedule Lantus with dinner. Highest dose available is 20 units (half of what patient received yesterday) due to hypoglycemia yesterday. * Continue loosened Novolog. 01/15/22 * Patient was transitioned from insulin infusion yesterday. She was given 50 units of Lantus. * BSGs today are 123-166 mg/dL. Patient has a diet ordered but did not eat breakfast. Patient requesting Lantus be moved to morning. * Will reduce Lantus dose by 20% to 40 units due to overlap with moving Lantus to AM and decreased PO intake. * Novolog weight-based stress of 2-3. Background * 41 year old female admitted with vomiting, DKA, PMH significant for Type 2 DM, pancreatic cancer, started on DKA protocol, IV fluids, insulin drip * Pt NPO at this time PLAN FOR INPATIENT GLYCEMIC CONTROL: * Basal insulin * Lantus 10 units SQ x 1 then * Lantus 10-20 units SQ qAM (10 units if BSG < 120 mg/dL; 20 units for BSG 120 mg/dL or greater) * Bolus insulin * NovoLog ACHS or q6 if NPO * CF = 25 mg/dL/unit * CR = 8
[2022-01-17] MEDS ORDERED: INSULIN GLARGINE SOLOSTAR 100 UNITS/ML 3 ML PEN SC ONE (12:45)
--- NOTE | 2022-01-17 15:13 | Discharge Summary ---
Date of Service January 17, 2022 Admission HPI Per Admitting Provider CHIEF COMPLAINT: Nausea, vomiting, abdominal pain. HISTORY OF PRESENT ILLNESS: This 41-year-old female with past medical history significant for type 2 diabetes, history of polycystic ovary disease, hyperlipidemia, history of dehydration, chronic rhinitis, hypertension, obesity, history of abdominal uterine bleeding, allergic conjunctivitis, history of tobacco use disorder, history of pancreatic cancer, status post chemoradiation. The patient was supposed to get Whipple surgery at [facility] recently, when they opened up they found liver lesions and surgery was aborted. She was supposed to follow up with Hem/Onc with CT scan abdomen and pelvis, but since the surgery, she is having lot of abdominal pain, nausea, vomiting constipated and not able to eat much, getting dehydrated, so came to the ER. In the ER, she received some pain medications. She was also given enema for constipation, with bowel movement, but as she has persistent nausea, vomiting we called her for admission. Patient is having tachycardia and high blood pressure.Patient says she is not able to eat much the last few days because of the persistent nausea. Requesting for pain medication. Denies any headache, no dizziness, no blurred vision, no earache, no runny nose, no sore throat, no cough, no fevers, no chest pain or shortness of breath. There is no blood in stool, or black stools. Normal bladder movements. No swelling in the legs. ALLERGIES: PENICILLINS, TRULICITY, CLARITHROMYCIN, FISH. PAST MEDICAL HISTORY: As mentioned above. PAST SURGICAL HISTORY: Dental surgery, EGDs, EGD with endoscopic ultrasound, ERCP, malignant biliary stricture, stent exchange, hysteroscopy with biopsy and polypectomy, injection of lumbosacral spine, tonsillectomy, Whipple procedure aborted due to intraoperative finding of liver metastasis with repair of inguinal hernia. MEDICATIONS: The patient is on Tylenol as directed, albuterol 2 puffs inhalation q. 6 hours p.r.n., amlodipine 5 mg p.o. b.i.d., atenolol 100 mg p.o. a.m., carisoprodol 350 mg p.o. 8 hours p.r.n., clonidine 0.1 mg p.o. q.i.d. p.r.n. for anxiety, Colace 100 mg p.o. b.i.d., Duloxetine 120 mg p.o. daily, enalapril 20 mg p.o. a.m., Lovenox 40 mg subcutaneous a.m., Lasix, gabapentin as directed, hydrochlorothiazide 25 mg p.o. a.m., NovoLog 22 units subcutaneous t.i.d., insulin glargine as directed, Lamictal 200 mg p.o. at bedtime, levothyroxine 50 mcg p.o. a.m., Pancrease enzyme 1 capsule p.o. t.i.d., loratadine 10 mg p.o. daily, Lorazepam 1 mg p.o. 8 hours p.r.n., Zofran 8 mg, po q. 8 hours p.r.n., oxycodone 10 mg p.o. q. 4 hours p.r.n., potassium chloride 10 mEq p.o. b.i.d., quetiapine 100 mg p.o. at bedtime, sotalol 40 mg p.o. t.i.d., senna 17.2 mg p.o. a.m., valacyclovir 2 g p.o. b.i.d. p.r.n. FAMILY HISTORY: Significant for maternal grandfather had cirrhosis; maternal grandmother had diabetes; paternal grandfather had lung cancer, paternal grandmother had hypertension; father had hypertension, brother has diabetes. SOCIAL HISTORY: Smoked about 3/4 pack a day for 20 years. No alcohol use. No drug use. REVIEW OF SYSTEMS: As per HPI. Rest of review of systems is negative. Admission Exam Per Admitting Provider GENERAL: The patient is obese, not in acute distress. VITAL SIGNS: Temperature 37.1, pulse 120, respiratory rate 20, blood pressure 177/111, oxygen 95% on room air. HEENT: Pupils equal, round and reactive to light. Oral mucosa dry. NECK: No JVD or neck masses. CARDIOVASCULAR: S1 and S2 heard. Tachycardia. No murmurs. RESPIRATORY SYSTEM: Normal AP diameter. No accessory muscle use. No wheezing, no crackles. ABDOMEN: Soft. Surgical site clean, no drainage seen. Diffuse mild tenderness. Mild guarding, no rigidity, no distention. CENTRAL NERVOUS SYSTEM: Cranial nerves II-XII grossly intact, nonfocal. EXTREMITIES: No edema, no erythema. Principal Diagnosis Early DKA, nausea and vomiting Postoperative versus cancer related abdominal pain Discharge Exam GENERAL: Alert and oriented x3. NAD, on RA. HEENT: No pallor, no icterus. Pupils equal, round and reactive to light. Oral mucosa moist. NECK: No JVD, no neck masses. HEART: S1 and S2 heard. Regular rate and rhythm. No murmur, no gallop. RESPIRATORY SYSTEM: Normal AP diameter. No accessory muscle use. No wheezing, no crackles. ABDOMEN: Soft, bowel sounds present, diffuse tender-minimal, midline incision clean w/ sutures, no distention. CENTRAL NERVOUS SYSTEM: No facial droop. Speech is clear. Obeys simple commands. Moves extremities. EXTREMITIES: No edema, no erythema seen. Discharge Data Allergies Allergy/AdvReac Type Severity Reaction Status Date / Time Fish Containing Products Allergy Severe Anaphylaxis Verified 01/16/22 11:11 Penicillins Allergy Mild Rash Verified 01/14/22 00:54 dulaglutide [From [facility]] AdvReac Severe Pancreatiti Verified 01/14/22 00:54 s clarithromycin AdvReac Unknown Vomiting Verified 01/14/22 00:54 Consultations 01/14/22 05:54 ED Decision to Admit Stat 01/14/22 11:07 Consult Gastroenterology Routine 01/15/22 09:30 Consult Pain Management Routine Ordered Studies 01/14/22 00:54 CT abd pelvis IV con only Urgent Hospital Course (1) Post-operative pain: (2) Intractable nausea and vomitin-year-old female with past medical history significant for type 2 diabetes, history of polycystic ovary disease, hyperlipidemia, history of dehydration, chronic rhinitis, hypertension, obesity, history of abdominal uterine bleeding, allergic conjunctivitis, history of tobacco use disorder, history of pancreatic cancer, status post chemoradiation presented 01/14 w/ c/o N, V and abd pain a/w decreased appetite. Of note, she was recently diagnosed with pancreatic cancer s/p chemoradiation and planned for Whipple procedure at [facility] which was aborted as they found lesions on liver. She was managed for the following: Admitting CT A/P1. Status post resection head of pancreas with biliary stent in place. Postsurgical changes are present. 2. No evidence for bowel loop dilatation or obstruction. 3. Right basilar atelectasis. 4. Additional nonacute findings are delineated above. 1. Persistent nausea and vomiting. zofran prn, improved, tolerating diet. 2. possible early diabetic ketoacidosis.s/p DKA protocol, resolved, N/V improved, pt eating Ok. 2. Pancreatic cancer, status post chemoradiation. Recently whipple procedure aborted because of liver metastasis. Follow up with Hem/Onc as OP. Pt aware. #. Abdominal pain: related to post op status vs cancer, Oxy and hydrocodone doesn't help per Pt, Pain Mx evaluated, Discontinuing soma and oxy, pt on tramadol. appreaciate pain mx recs. 3. Depression, anxiety. Continue her home medications. 4. Hypothyroidism. Continue Synthroid. 5. Hypertension. Continue home medication of amlodipine, atenolol and enalapril. BP better controlled, placed on IV labetalol p.r.n. Monitor the bl ood pressure. 6. Deep venous thrombosis prophylaxis, Lovenox. Patient being discharged home with following instruction at the point of discharge: Follow-up with the primary care physician within a week time. Follow-up with your oncologist within a week time. Follow-up with your psychiatry doctor as an outpatient. Establish and maintain follow-up with your pain doctor as an outpatient for ongoing management of her pain. Your oxycodone and carisoprodol has been discontinued for pain management while inpatient. You have been discharged on tramadol for few days worth, for further prescription you will need to follow-up with your primary care physician or establish pain management as an outpatient. Get your blood work CBC and CMP in a week time and have the results forwarded to your primary care physician. You can use [id number] laxatives for constipation. Take your medications as prescribed. Total Time Total Time Spent Total Time Spent (In Minutes): 40 Discharge Plan Discharge Items Patient Disposition: Home - Home Health Services Reason For Visit: VOMITING Discharge Diagnosis: Early DKA, nausea and vomiting Postoperative versus cancer related abdominal pain Activity: Resume your previous activity Non-emergency contact: Primary Care Provider Call non-emergency contact if: you have any medication questions, your symptoms worsen and your temperature is above 101 Follow-up/Referrals: Lobito Holt [Staff Physician] - (Date & Time 01/29/2022 11:15 AM Provider Lobito Holt MD Department General Surgery, [facility] ) Dhruv Hawley MD [Primary Care Provider] - (Date & Time 01/19/2022 2:00 PM Provider Dhruv Hawley MD Department [facility] ) Gregorio Bahena MD [Surgeon] - (Date & Time 01/31/2022 11:15 AM Provider Gregorio Bahena MD Department Hematology/Oncology [facility] ) Diet: Carb Consistent or DM2 Diet Texture: Dental soft (bite-sized) Addtl Attending Provider Instructions: Follow-up with the primary care physician within a week time. Follow-up with your oncologist within a week time. Follow-up with your psychiatry doctor as an outpatient. Establish and maintain follow-up with your pain doctor as an outpatient for ongoing management of her pain. Your oxycodone and carisoprodol has been discontinued for pain management while inpatient. You have been discharged on tramadol for few days worth, for further prescription you will need to follow-up with your primary care physician or establish pain management as an outpatient. Get your blood work CBC and CMP in a week time and have the results forwarded to your primary care physician. You can use [id number] laxatives for constipation. Take your medications as prescribed. Pending Studies at Discharge: No Stand-Alone Forms: My [employer], Smoking Cessation Medications and DC Order Prescriptions: New nicotine [Nicoderm CQ] 21 mg/24 hr Patch 24 Hour 21 mg transdermal QAM 28 Days Qty: 28 RF: 0 tramadol 50 mg Tablet 100 mg PO Q6H PRN (Reason: pain (scale score 7-10)) 6 Days Qty: 48 RF: 0 Continued (DME) OneTouch Verio test strips Strip See Rx Instructions .Route Qty: 600 RF: 3 (DME) FreeStyle Tanmay 14 Day Sensor Kit See Rx Instructions .Route Qty: 7 RF: 3 (DME) pen needle, diabetic [BD Ultra-Fine Mini Pen Needle] 31 gauge x 3/16" needle See Rx Instructions .Route Qty: 150 RF: 5 (DME) FreeStyle Tanmay 2 Rudolph Misc See Rx Instructions .ROUTE Qty: 2 RF: 11 (DME) FreeStyle Tanmay 2 Sensor Kit See Rx Instructions .Route Qty: 2 RF: 11 levothyroxine 50 mcg tablet 50 mcg PO QAM RF: 0 hydrochlorothiazide 25 mg tablet 25 mg PO QAM RF: 0 amlodipine 5 mg tablet 5 mg PO BID RF: 0 ropinirole 4 mg tablet 4 mg PO TID RF: 0 enalapril maleate [Vasotec] 20 mg tablet 20 mg PO QAM RF: 0 (DME) FreeStyle Tanmay 14 Day Rudolph Misc See Rx Instructions .Route RF: 0 albuterol sulfate [Ventolin HFA] 90 mcg/actuation HFA aerosol inhaler 1 - 2 puff inhalation Q6H PRN (Reason: Shortness Of Breath Or Wheezing) RF: 0 valacyclovir 1 gram tablet 2,000 mg PO BID PRN (Reason: Cold Sores) RF: 0 clonidine HCl 0.1 mg tablet 0.1 mg PO QID PRN (Reason: Anxiety) RF: 0 lamotrigine [Lamictal] 200 mg tablet 200 mg PO HS RF: 0 duloxetine [Cymbalta] 60 mg capsule,delayed release(DR/EC) 120 mg PO DAILY RF: 0 atenolol 50 mg tablet 100 mg PO QAM RF: 0 enoxaparin 40 mg/0.4 mL syringe 40 mg subcut QAM RF: 0 quetiapine 100 mg tablet 100 mg PO HS RF: 0 lorazepam 1 mg tablet 1 mg PO Q8 PRN (Reason: anxiety or sleep) RF: 0 Pancreaze 16,800-56,800- 98,400 unit capsule,delayed release(DR/EC) 1 cap PO TIDM RF: 0 Toujeo Max U-300 SoloStar 300 unit/mL (3 mL) insulin pen 0 unit SUBCUT UD RF: 0 insulin aspart U-100 [Novolog Flexpen U-100 Insulin] 100 unit/mL (3 mL) insulin pen 22 unit subcut TIDM RF: 0 docusate sodium 100 mg Capsule 100 mg PO AMHS RF: 0 acetaminophen 500 mg Tablet See Rx Instructions .ROUTE .COMPLEX RF: 0 loratadine [Claritin] 10 mg Tablet 10 mg PO DAILY RF: 0 ondansetron 8 mg tablet,disintegrating 8 mg translingual Q8 PRN (Reason: Nausea) RF: 0 furosemide 40 mg tablet 40 mg PO UD RF: 0 potassium chloride 10 mEq tablet extended release 10 meq PO AMHS RF: 0 lidocaine-prilocaine 2.5-2.5 % cream See Rx Instructions .ROUTE .COMPLEX RF: 0 Ziextenzo 6 mg/0.6 mL syringe 6 mg SUBCUT UD RF: 0 gabapentin 300 mg capsule See Rx Instructions .ROUTE .COMPLEX Qty: 9 RF: 0 Changed sennosides [senna] 8.6 mg Tablet 17.2 mg PO BID Qty: 0 RF: 0 Discontinued oxycodone 10 mg Tablet 10 mg PO Q4 PRN (Reason: severe incisional pain) RF: 0 carisoprodol 350 mg tablet 350 mg PO Q8 PRN (Reason: Muscle Spasm) RF: 0 Discharge Orders: Discharge Order (Routine); Ordered 01/17/22 Ordered By: Femi Clinton Admission Data Admit Date/Time: 01/14/22 07:44 Attending Provider: Femi Clinton Admit Provider: Arie Hutchins Primary Care Provider: Dhruv Hawley Other Providers: Gregorio Bahena ; Arie Hutchins ; Rex Swann ; David Estrada
[2022-01-18] MEDS ORDERED: INSULIN GLARGINE SOLOSTAR 100 UNITS/ML 3 ML PEN SC SCH (09:00)
== END 2022-01-17 16:35 | disposition home health service (06) | DRG 638 ==
LOC: ED 23:51 → SUATTDRO 01-14 07:44 → EDINP 01-14 07:44 → 2W 01-14 12:08

== ENCOUNTER 2022-02-09 12:34 | Observation (INO) ==
[2022-02-09] MEDS ORDERED: LORazepam 2 MG/1 ML VIAL IV STA (13:23)
[2022-02-09] MEDS ORDERED: SODIUM CHLORIDE 0.9% 1000ML 1,000 ML IV STA (13:23)
[2022-02-09] MEDS ORDERED: ONDANSETRON INJ 2 MG/ML 2 ML VIAL IV STA (13:23)
--- NOTE | 2022-02-09 13:38 | Emergency Department Note ---
Impression & Plan Hypoglycemia, Acute dehydration, Nausea & vomiting, Closed fibular fracture ED Provider Note CHIEF COMPLAINT: Leg pain/swelling, fevers, low blood sugar HISTORY OF PRESENTING ILLNESS: This is a 42-year-old female with past medical history significant for stage IV pancreatic cancer and currently receiving chemotherapy, who presents to the emergency department by private vehicle with complaint of fluctuating blood glucose levels, feeling feverish and having some chills, and concerns about increased pain and swelling in her right lower extremity. The patient notes that she has been having persistently low blood glucose levels for the past 2 weeks, and feels that this caused her to fall 1 week ago and she sustained a right fibula fracture at that time. She spoke with her tire mold tester last week and reports they decreased her long-acting insulin from 110 units down to 80 units/day, however she notes that she was not taking any insulin at all for the past few days due to persistently low blood glucose levels and she is not eating much. She has a continuous glucose monitor. She notes that she does not have much of an appetite and has a lot of nausea and vomiting because of her chemotherapy treatment. She states that she is having significant difficulty caring for herself because of pain in the right ankle and lightheadedness from low blood sugar. She also notes that she has been feeling feverish and having chills off and on for the past 2 days, however she has not checked her temperature. She denies any headaches, neck pain or stiffness, chest pain, shortness of breath, cough, hemoptysis, diarrhea, urinary symptoms, or rash. She denies any known sick contacts. She is vaccinated and boosted for COVID-19. She notes that her abdominal pain is at baseline. She does note that she has been feeling itchy, which she relates is often worse when her bilirubin levels are rising. She is followed by [facility] oncology and endocrinology and notes that she has a referral and an appointment this coming Saturday to establish care with [facility] regarding her pancreatic cancer and hopes to get into a clinical trial. She states that she does not feel like she can go home because her blood sugars have been very low and difficult to control and she is having difficulty caring for herself. She lives alone at home with her 10-year-old daughter, though she does note that she has some in-home nursing care. REVIEW OF SYSTEMS: A complete 10 point review of systems was reviewed with the patient with pertinent positives and negatives as per history of present il lness. All else were negative. PAST MEDICAL HISTORY: Pancreatic cancer, type 2 diabetes, hypertension, dyslipidemia, hypothyroidism, PCOS, depression, anxiety, tobacco use SOCIAL HISTORY: Lives at home, she is a current everyday smoker ALLERGIES: Reviewed in chart and with the patient PHYSICAL EXAM: CONSTITUTIONAL: Pleasant and cooperative. Nontoxic-appearing and in no acute distress. Appears mildly dehydrated. HEENT: Normocephalic, atraumatic. PERRL, EOMI, no scleral icterus. TMs normal. Pharynx normal. Dry mucous membranes. NECK: Supple, full active range of motion without discomfort. No cervical adenopathy. No nuchal rigidity or meningismus. RESPIRATORY: Clear to auscultation bilaterally with no wheezing, crackles, rhonchi or stridor. Equal expansion bilaterally. CARDIOVASCULAR: Regular rate and rhythm with no murmurs, rubs or gallops. Normal peripheral perfusion. No edema. GASTROINTESTINAL: Soft, nontender, nondistended. No palpable masses or HSM. Bowel sounds present in all quadrants. []No CVA tenderness bilaterally. MUSCULOSKELETAL: Moderate diffuse swelling noted to the right ankle, most prominent along the lateral aspect with surrounding ecchymosis. Slightly warm to touch. No erythema. Mild tenderness to palpation throughout the posterior calf. Negative Homans' sign. DP and PT pulses 2+, brisk capillary refill. INTEGUMENTARY: Diffuse pink urticarial rash noted to the abdominal wall, blanches, pruritic. Linear petechia and excoriations noted. No jaundice. NEUROLOGIC: Alert and oriented X 4 with normal affect. Normal strength and sensation in all 4 extremities. Normal speech. Normal gait observed. ED COURSE AND MEDICAL DECISION MAKING: CC: Patient presenting with complaint of low blood glucose levels, fevers, leg pain/swelling DIFFERENTIAL DIAGNOSIS: Includes, but not limited to viral syndrome, COVID-19, pneumonia, urinary tract infection, sepsis, bacteremia, cellulitis, DVT, electrolyte abnormality, dehydration, medication side effect, among others. INTERPRETATION OF LABS: No leukocytosis, mild anemia (appears to be decreasing over the past month), normal platelets, mild hyponatremia, hypokalemia, and hypochloremia which all appear improved from previous labs. Normal renal function. Mildly elevated liver enzymes within normal bilirubin and lipase. Lactate and procalcitonin unremarkable. UA appears negative COVID-19 test negative. EKG: Indication was fevers. Shows normal sinus rhythm with rate of 83 bpm, normal intervals, no ST elevation or depression, no ectopy by my interpretation. No previous EKGs available for comparison. MEDICATION RECONCILIATION: I attest that I have personally reviewed the patient's current medication list. INITIAL VITAL SIGNS REVIEW: I reviewed the patient's initial vital signs and interpret them as follows: T: Afebrile; BP: Normotensive; HR: Mildly tachycardic; RR: Within normal limits; Pulse Ox: Within normal limits on room air. MDM SUMMARY: Patient was evaluated at bedside, history and physical exam performed. Patient is alert and oriented, in no acute distress, resting calmly in the stretcher. She appears somewhat dehydrated on exam with dry mucous membranes and mild tachycardia. I did check her temperature at bedside and it was 99.5 F. She currently compl ains of feeling very itchy. Urticarial rash was noted on her abdomen as well as several petechia and excoriations noted. She does not have any evidence of jaundice or icterus on my exam. Abdominal ex am is benign. She does note that she was recently started on Keflex for UTI, she is unsure if she has taken this before, which could be the cause of her itching and rash. Cardiac monitoring: An order was placed for continuous cardiac monitoring. The monitor shows a rate of 95 bpm with normal sinus rhythm. The patient states that she has been feeling worse anxiety than usual and requested something for this, she has taken Ativan in the past with good effect. The patient does note that she feels unsafe to care for herself at home and is requesting to be admitted. I discussed with the patient that I would discuss this possibility with the hospitalist after her work-up is back Orders were placed for labs, lactate, procalcitonin, blood cultures x2, UA, IV fluid bolus for hydration, IV Ativan for anxiety, IV Zofran for nausea, EKG, chest x-ray, and venous ultrasound of the right lower extremity. Patient discussed with Dr. Ocasio, who agrees with my assessment, plan, and disposition. Labs and imaging reviewed as above, labs notable for a mild anemia which appears to be somewhat new and mildly elevated liver enzymes. No significant electrolyte abnormalities. No hypoglycemia currently. Lactate and procalcitonin were unremarkable and UA appears negative for UTI. Negative COVID. Nursing staff notified me that the patient's rash and itching were worsening, 50 mg IV Benadryl was ordered. The patient is not having any respiratory symptoms. Lungs remain clear with no evidence of wheezing and there is no facial or oral swelling. Given the recent start of Keflex, I suspect this could be the cause of the rash. Urine culture was reviewed from 3 days ago and was negative, I feel the patient does not need to continue the Keflex. Given the patient's persistent issues with hypoglycemia at home as well as nausea and vomiting with poor appetite, I felt that she warranted evaluation by the hospitalist team for possible admission. I spoke on the phone with Keiry Mahmood PA-C with the [facility] hospitalist team, who agrees to evaluate the patient for admission. Patient reassessed multiple times throughout ED stay, she has remained hemodynamically stable and repeat temp was normal at 98.6F. Patient did have some periods of hypoxia, however she notes that this is not uncommon for her and she has oxygen for use at home. She was placed on nasal cannula. The patient was updated on all results and plan for admission, all questions were answered to the best my ability and the patient was agreeable to this plan. The patient was stable at the time of admission. The chart was completed utilizing [employer] system Speech voice recognition software. Grammatical errors, random word insertions, pronoun errors, and incomplete sentences are an occasional consequence of this system due to software limitations, ambient noise, and hardware issues. Any formal questions or concerns about the content, text, or information contained within the body of this dictation should be directly addressed to the nurse practitioner for clarification. Past Med/Surg History Medical History Allergy-induced asthma rare inhaler use Depression with anxiety Diabetes mellitus, type 2 IDDM Dyslipidemia Hypertension Hypothyroidism Lumbosacral pain Obesity Pancreatic cancer + current chemo, follows with [facility] heme/onc PCOS (polycystic ovarian syndrome) Therapeutic opioid-induced constipation (OIC) Surgical History History of ERCP ERCP (06/2021) & EUS/ERCP (04/28/21): Good view with glidescope #3, ETT 7.0 at [facility] History of tonsillectomy History of umbilical hernia repair History of vascular access device A PORT INSERTION History of wisdom tooth extraction Nausea and vomiting after administration of anesthetic agent Family History Brother Diabetes Hypertension Father Hypertension Aunt Diabetes Grandmother (Maternal) Diabetes Other No family history of adverse response to anesthesia Social History Smoking Status: Current every day smoker Tobacco Type: Cigarettes packs per day: 1; Cigarettes Per Day: 15 cigs/day; Second Hand Exposure: No; Hx Alcohol Use: No Hx Substance Use: No Preferred Language: Italian Communication Ability: Effective Water Leak Repairer Required: No Beliefs That Will Affect Care: None marital status: Single Current Living Situation: Alone and Family Current Living Situation Comment: WITH DAUGHTER Feels Safe at Home: Yes Assistive Devices: Oxygen - at Night Allergies Allergies Allergy/AdvReac Type Severity Reaction Status Date / Time Fish Containing Products Allergy Severe Anaphylaxis Verified 02/09/22 17:05 cephalexin [From Keflex] Allergy Mild Rash, Verified 02/09/22 21:20 urticaria Penicillins Allergy Mild Rash Verified 02/09/22 17:05 dulaglutide [From Trulicity] AdvReac Severe Pancreatiti Verified 02/09/22 17:05 s clarithromycin AdvReac Unknown Vomiting Verified 02/09/22 17:05 Home Meds Home Medications Medication Instructions Recorded Confirmed amlodipine 5 mg tablet 5 mg PO BID 04/14/21 02/09/22 clonidine HCl 0.1 mg tablet See Rx Instructions .ROUTE 04/14/21 02/09/22 .COMPLEX PRN duloxetine 60 mg capsule,delayed 120 mg PO DAILY cap 04/14/21 02/09/22 release (Cymbalta) enalapril maleate 20 mg tablet 20 mg PO QAM 04/14/21 02/09/22 (Vasotec) flash glucose scanning reader 04/14/21 02/09/22 (FreeStyle Tanmay 14 Day [place]) hydrochlorothiazide 25 mg tablet 25 mg PO QAM 04/14/21 02/09/22 lamotrigine 200 mg tablet 200 mg PO HS 04/14/21 02/09/22 (Lamictal) levothyroxine 50 mcg tablet 50 mcg PO QAM 04/14/21 02/09/22 ropinirole 4 mg tablet 4 mg PO TID 04/14/21 02/09/22 valacyclovir 1 gram tablet 2,000 mg PO BID PRN tab 04/14/21 02/09/22 atenolol 50 mg tablet 100 mg PO QAM 04/28/21 02/09/22 acetaminophen 500 mg tablet 500 mg PO Q4 PRN MDD 3g 01/14/22 02/09/22 docusate sodium 100 mg capsule 100 mg PO AMHS 01/14/22 02/09/22 insulin aspart U-100 100 unit/mL 2 unit SUBCUT TIDM 01/14/22 02/09/22 (3 mL) subcutaneous pen (Novolog Flexpen U-100 Insulin aspart) insulin glargine U-300 conc 300 80 unit SUBCUT QAM 01/14/22 02/09/22 unit/mL (3 mL) subcutaneous pen (Toujeo Max U-300 SoloStar) lidocaine-prilocaine 2.5 %-2.5 % See Rx Instructions .ROUTE .COMPLEX 01/14/22 02/09/22 topical cream lipase 16,800-protease 1 cap PO TIDM 01/14/22 02/09/22 56,800-amylase 98,400 unit capsule, delayed rel (Pancreaze) loratadine 10 mg tablet (Claritin) 10 mg PO DAILY PRN 01/14/22 02/09/22 lorazepam 1 mg tablet 1 mg PO Q8 PRN 01/14/22 02/09/22 ondansetron 8 mg disintegrating 8 mg TRANSLINGUAL Q8 PRN 01/14/22 02/09/22 tablet potassium chloride 10 mEq 10 meq PO AMHS 01/14/22 02/09/22 tablet,extended release quetiapine 100 mg tablet 200 - 300 mg PO HS 01/14/22 02/09/22 oxycodone 10 mg tablet 10 mg PO Q4 PRN 02/09/22 02/09/22 Previous Rx's Medication Instructions Recorded blood sugar diagnostic (OneTouch #600 ea 05/26/21 Verio test strips) flash glucose sensor (FreeStyle #7 ea 05/26/21 Tanmay 14 Day Sensor) pen needle, diabetic 31 gauge x #150 ea 11/29/21 3/16" (BD Ultra-Fine Mini Pen Needle) flash glucose scanning reader #2 ea 01/02/22 (FreeStyle Tanmay 2 [place]) flash glucose sensor (FreeStyle #2 ea 01/02/22 Tanmay 2 Sensor) nicotine 21 mg/24 hr daily 21 mg TRANSDERMAL QAM 28 Days #28 01/17/22 transdermal patch (Nicoderm CQ) ea sennosides 8.6 mg tablet (senna) 17.2 mg PO BID #0 tab 01/17/22 Results & Data (ED) Vital Signs Vital Signs - 24 hr 02/09/22 12:43 02/09/22 14:30 02/09/22 17:01 Temperature 36.9 C Temperature Source Temporal Artery Scan Pulse Rate 92 H 89 Pulse Rate [Apical] 83 Pulse Rate from SpO2 Sensor 89 Pulse Rhythm [Apical] Regular Respiratory Rate 16 16 23 Respiratory Effort / Characteristics Non-Labored Respiratory Depth Normal Respiratory Pattern Regular Blood Pressure 128/77 142/78 H Blood Pressure [Left Arm] 117/79 Blood Pressure Mean 94 99 Blood Pressure Mean [Left Arm] 91 Pulse Oximetry 95 97 92 Oxygen Delivery Method Room Air Room Air Sepsis Recent Fever Within 48 Hours Yes Sepsis New/Unexplained Change in Mental Status No Sepsis Action Taken by Nursing No Action Required Laboratory Data Result diagrams: 02/09/22 14:16 02/09/22 14:16 Lab Results 02/09/22 02/09/22 02/09/22 Range/Units 14:15 14:15 14:16 WBC (4.8-10.8) K/ul RBC (3.93-5.22) M/uL Hgb (12.0-16.0) g/dl Hct (34.1-44.9) % MCV (80.0-100.0) fL MCH (25.0-34.0) pg MCHC (32.0-36.0) g/dL RDW Std Deviation (36.4-46.3) fL RDW Coeff of Yang (11.5-14.5) % Plt Count (130-400) K/uL MPV (9.4-12.3) fL Immature Gran % (Auto) % Neut % (Auto) % Lymph % (Auto) % [place] % (Auto) % Eos % (Auto) % Baso % (Auto) % Neut # (Auto) (1.4-6.5) K/uL Lymph # (Auto) (1.2-3.4) K/uL [place] # (Auto) (0.24-0.82) K/uL Eos # (Auto) (0-0.50) K/uL Baso # (Auto) (0-0.2) K/uL Immature Gran # (Auto) (0.00-0.02) K/uL Hypersegmented Neuts Sodium (136-145) mmol/L Potassium (3.5-5.1) mmol/L Chloride (98-107) mmol/L Carbon Dioxide (21-32) mmol/L Anion Gap (3-11) BUN (6-23) mg/dl Creatinine (0.6-1.2) mg/dl Est Cr Clr Drug Dosing Est GFR ( Amer) ml/min Est GFR (Non-Af Amer) ml/min BUN/Creatinine Ratio (10-20) Glucose (70-99(Fasting)) mg/dl Lactate (0.4-2.0) mmol/L Calcium (8.5-10.1) mg/dl Total Bilirubin (0.2-1.0) mg/dl AST (13-39) U/L ALT (7-52) U/L Alkaline Phosphatase (34-104) U/L Total Protein (6.0-8.3) gm/dl Albumin (3.4-5.0) gm/dl Globulin (2.5-4.0) gm/dl Albumin/Globulin Ratio (0.9-2) Lipase (11-82) U/L Procalcitonin 0.25 (0-0.5) ng/ml Urine Color Yellow Urine Appearance Clear (Clear) Urine pH 6.0 (4.5-7.5) Ur Specific [place] 1.021 (1.000-1.030) Urine Protein Negative (Negative) Urine Glucose (UA) 1+ H (Negative) Urine Ketones 1+ H (Negative) Urine Blood Negative (Negative) Urine Nitrite Negative (Negative) Urine Bilirubin Negative (Negative) Urine Urobilinogen Negative (Negative) Ur Leukocyte Esterase Negative (Negative) SARS-CoV-2 (PCR) Cancelled SARS-CoV-2, RNA, NAAT (NEGATIVE) 0702/09/22 02/09/22 Range/Units 14:16 14:16 14:16 WBC 9.66 (4.8-10.8) K/ul RBC 3.58 L (3.93-5.22) M/uL Hgb 10.8 L (12.0-16.0) g/dl Hct 32.4 L (34.1-44.9) % MCV 90.5 (80.0-100.0) fL MCH 30.2 (25.0-34.0) pg MCHC 33.3 (32.0-36.0) g/dL RDW Std Deviation 41.1 (36.4-46.3) fL RDW Coeff of Yang 12.4 (11.5-14.5) % Plt Count 169 (130-400) K/uL MPV 11.6 (9.4-12.3) fL Immature Gran % (Auto) 0.5 % Neut % (Auto) 94.6 % Lymph % (Auto) 3.8 % [place] % (Auto) 0.7 % Eos % (Auto) 0.3 % Baso % (Auto) 0.1 % Neut # (Auto) 9.13 H (1.4-6.5) K/uL Lymph # (Auto) 0.37 L (1.2-3.4) K/uL [place] # (Auto) 0.07 L (0.24-0.82) K/uL Eos # (Auto) 0.03 (0-0.50) K/uL Baso # (Auto) 0.01 (0-0.2) K/uL Immature Gran # (Auto) 0.05 H (0.00-0.02) K/uL Hypersegmented Neuts 1+ Sodium 133 L (136-145) mmol/L Potassium 3.4 L (3.5-5.1) mmol/L Chloride 96 L (98-107) mmol/L Carbon Dioxide 29 (21-32) mmol/L Anion Gap 8 (3-11) BUN 8 (6-23) mg/dl Creatinine 0.51 L (0.6-1.2) mg/dl Est Cr Clr Drug Dosing Not Reportable Est GFR ( Amer) 135.5 ml/min Est GFR (Non-Af Amer) 116.9 ml/min BUN/Creatinine Ratio 15.7 (10-20) Glucose 232 H (70-99(Fasting)) mg/dl Lactate 1.0 (0.4-2.0) mmol/L Calcium 9.0 (8.5-10.1) mg/dl Total Bilirubin 1.0 (0.2-1.0) mg/dl AST 96 H (13-39) U/L ALT 72 H (7-52) U/L Alkaline Phosphatase 145 H (34-104) U/L Total Protein 6.9 (6.0-8.3) gm/dl Albumin 3.5 (3.4-5.0) gm/dl Globulin 3.4 (2.5-4.0) gm/dl Albumin/Globulin Ratio 1.0 (0.9-2) Lipase 4 L (11-82) U/L Procalcitonin (0-0.5) ng/ml Urine Color Urine Appearance (Clear) Urine pH (4.5-7.5) Ur Specific [place] (1.000-1.030) Urine Protein (Negative) Urine Glucose (UA) (Negative) Urine Ketones (Negative) Urine Blood (Negative) Urine Nitrite (Negative) Urine Bilirubin (Negative) Urine Urobilinogen (Negative) Ur Leukocyte Esterase (Negative) SARS-CoV-2 (PCR) SARS-CoV-2, RNA, NAAT (NEGATIVE) 02/09/22 Range/Units 15:48 WBC (4.8-10.8) K/ul RBC (3.93-5.22) M/uL Hgb (12.0-16.0) g/dl Hct (34.1-44.9) % MCV (80.0-100.0) fL MCH (25.0-34.0) pg MCHC (32.0-36.0) g/dL RDW Std Deviation (36.4-46.3) fL RDW Coeff of Yang (11.5-14.5) % Plt Count (130-400) K/uL MPV (9.4-12.3) fL Immature Gran % (Auto) % Neut % (Auto) % Lymph % (Auto) % [place] % (Auto) % Eos % (Auto) % Baso % (Auto) % Neut # (Auto) (1.4-6.5) K/uL Lymph # (Auto) (1.2-3.4) K/uL [place] # (Auto) (0.24-0.82) K/uL Eos # (Auto) (0-0.50) K/uL Baso # (Auto) (0-0.2) K/uL Immature Gran # (Auto) (0.00-0.02) K/uL Hypersegmented Neuts Sodium (136-145) mmol/L Potassium (3.5-5.1) mmol/L Chloride (98-107) mmol/L Carbon Dioxide (21-32) mmol/L Anion Gap (3-11) BUN (6-23) mg/dl Creatinine (0.6-1.2) mg/dl Est Cr Clr Drug Dosing Est GFR ( Amer) ml/min Est GFR (Non-Af Amer) ml/min BUN/Creatinine Ratio (10-20) Glucose (70-99(Fasting)) mg/dl Lactate (0.4-2.0) mmol/L Calcium (8.5-10.1) mg/dl Total Bilirubin (0.2-1.0) mg/dl AST (13-39) U/L ALT (7-52) U/L Alkaline Phosphatase (34-104) U/L Total Protein (6.0-8.3) gm/dl Albumin (3.4-5.0) gm/dl Globulin (2.5-4.0) gm/dl Albumin/Globulin Ratio (0.9-2) Lipase (11-82) U/L Procalcitonin (0-0.5) ng/ml Urine Color Urine Appearance (Clear) Urine pH (4.5-7.5) Ur Specific [place] (1.000-1.030) Urine Protein (Negative) Urine Glucose (UA) (Negative) Urine Ketones (Negative) Urine Blood (Negative) Urine Nitrite (Negative) Urine Bilirubin (Negative) Urine Urobilinogen (Negative) Ur Leukocyte Esterase (Negative) SARS-CoV-2 (PCR) SARS-CoV-2, RNA, NAAT NEGATIVE (NEGATIVE) Administered Medications Discontinued Medications Diphenhydramine HCl (Diphenhydramine 50 Mg/Ml Vial) 50 mg IV NOW STA Stop: 02/09/22 14:23 Last Admin: 02/09/22 14:41 Dose: 50 mg Documented by: [id number] Sodium Chloride (Nss 1000ml) 1,000 mls @ 999 mls/hr IV .Q1H1M STA Stop: 02/09/22 14:23 Last Infusion: 02/09/22 15:25 Dose: 0 mls/hr Documented by: [id number] Admin: 02/09/22 14:19 Dose: 999 mls/hr Documented by: [id number] Lorazepam (Lorazepam 2 Mg/1 Ml Vial) 0.5 mg IV NOW STA; Protocol Stop: 02/09/22 13:24 Last Admin: 02/09/22 14:41 Dose: 0.5 mg Documented by: [id number] Morphine Sulfate (Morphine Sulfate 4 Mg/Ml 1 Ml Carp\\Vial) 4 mg IV NOW STA Stop: 02/09/22 17:15 Last Admin: 02/09/22 17:49 Dose: 4 mg Documented by: [id number] Ondansetron HCl (Ondansetron Inj 2 Mg/Ml 2 Ml Vial) 4 mg IV NOW STA Stop: 02/09/22 13:24 Last Admin: 02/09/22 14:41 Dose: 4 mg Documented by: [id number] Potassium Chloride (Potassium Chloride Crtab 20 Meq Tabcr) 20 meq PO NOW STA Stop: 02/09/22 20:09 Last Admin: 02/09/22 21:16 Dose: 20 meq Documented by: [id number] Imaging Data Radiologist's Impression: Venous Doppler Study 02/09/22 13:23 ULTRASOUND RIGHT LOWER EXTREMITY VENOUS CLINICAL HISTORY: Right leg swelling and erythema. COMPARISON STUDY: Right lower extremity venous ultrasound dated 02/06/2022. TECHNIQUE: Real-time, grayscale, and color Doppler sonography of the deep veins of the right lower extremity was performed from the inguinal crease to the calf. Compression and augmentation were utilized. FINDINGS: There is no sonographic evidence of deep venous thrombosis identified in the right lower extremity. The common femoral, superficial femoral, and popliteal veins are patent and normally compressible. The greater saphenous vein and the profunda femoris vein at the junction with the common femoral vein are clear. The visualized calf veins are patent. IMPRESSION: There is no sonographic evidence of deep venous thrombosis identified in the right lower extremity. ACT 112: Negative or not required by law. Electronically signed by: Geoff Ramirez M.D. 02/09/2022 3:57 PM Chest X-Ray 02/09/22 13:24 XR chest 1V portable HISTORY: Fever COMPARISON: Chest 10/19/2006. FINDINGS: There are low lung volumes. The lungs are clear. Right jugular Port-A-Cath terminates at the distal SVC. The heart is normal in size. No pleural effusions. No pneumothorax. IMPRESSION: No acute process. ACT 112: Negative or not required by law. Electronically signed by: Ru Arce M.D. 02/09/2022 1:45 PM Discharge Plan Visit Data Chief Complaint: Leg Injury/Pain Stated Complaint: FEVER, SUGAR LEVELS OFF ED Provider: Joel Ocasio ED Midlevel Provider: Bozena Armstrong Discharge Problem: Hypoglycemia, Acute dehydration, Nausea & vomiting, Closed fibular fracture Patient Disposition: Admitted As Inpatient Discharge Instructions Interventions: ED Discharge Assessment Last Done: 02/09/22 21:16 Discharge Problem: Nausea & vomiting Qualifiers: Vomiting type: unspecified Qualified Code(s): R11.2 - Nausea with vomiting, unspecified Closed fibular fracture Qualifiers: Encounter type: subsequent encounter Laterality: right
--- NOTE | 2022-02-09 13:47 | XRay Report ---
XR chest 1V portable HISTORY: Fever COMPARISON: Chest 10/19/2006. FINDINGS: There are low lung volumes. The lungs are clear. Right jugular Port-A-Cath terminates at th e distal SVC. The heart is normal in size. No pleural effusions. No pneumothorax. IMPRESSION: No acute process. ACT 112: Negative or not required by law. Electronically signed by: Ru Arce M.D. 02/09/2022 1:45 PM
[2022-02-09] MEDS ORDERED: diphenhydrAMINE 50 MG/ML VIAL IV STA (14:22)
[2022-02-09 14:30] LABS: Hematocrit (blood only) 32.4 % (34.1-44.9); Hemoglobin 10.8 g/dl (12.0-16.0); Mean Corpuscular Hemoglobin 30.2 pg (25.0-34.0); Mean Corpuscular Hgb Conc 33.3 g/dL (32.0-36.0); Mean Corpuscular Volume 90.5 fL (80.0-100.0); Mean Platelet Volume 11.6 fL (9.4-12.3); Platelet Count 169 K/uL (130-400); RDW Coefficient of Variation 12.4 % (11.5-14.5); RDW Standard Deviation 41.1 fL (36.4-46.3); Red Blood Count 3.58 M/uL (3.93-5.22); White Blood Count 9.66 K/ul (4.8-10.8)
[2022-02-09 14:52] LABS: Alanine Aminotransferase 72 U/L (7-52); Albumin Level 3.5 gm/dl (3.4-5.0); Alkaline Phosphatase 145 U/L (34-104); Anion Gap 8 (3-11); Aspartate Aminotransferase 96 U/L (13-39); BUN Creatinine Ratio 15.7 (10-20); Blood Urea Nitrogen 8 mg/dl (6-23); Carbon Dioxide 29 mmol/L (21-32); Chloride 96 mmol/L (98-107); Est GFR (African American) 135.5 ml/min; Est GFR (Non-African American) 116.9 ml/min; Globulin 3.4 gm/dl (2.5-4.0); Glucose 232 mg/dl (70-99(Fasting)); Lipase 4 U/L (11-82); Potassium 3.4 mmol/L (3.5-5.1); Sodium 133 mmol/L (136-145); Total Protein 6.9 gm/dl (6.0-8.3)
[2022-02-09 15:01] LABS: Appearance Urine Clear (Clear); Bilirubin Urine Negative (Negative); Blood Urine Negative (Negative); Color Urine Yellow; Glucose Urine UA 1+ (Negative); Ketones Urine 1+ (Negative); Leukocyte Esterase Urine Negative (Negative); Nitrite Urine Negative (Negative); Protein Urine Negative (Negative); Specific Gravity Urine 1.021 (1.000-1.030); Urobilinogen Urine Negative (Negative)
[2022-02-09 15:04] LABS: Basophils # (auto) 0.01 K/uL (0-0.2); Basophils % (auto) 0.1 %; Eosinophils # (auto) 0.03 K/uL (0-0.50); Eosinophils % (auto) 0.3 %; Immature Granulocytes # (auto) 0.05 K/uL (0.00-0.02); Immature Granulocytes % (auto) 0.5 %; Lymphocytes # (auto) 0.37 K/uL (1.2-3.4); Lymphocytes % (auto) 3.8 %; Monocytes # (auto) 0.07 K/uL (0.24-0.82); Monocytes % (auto) 0.7 %; Neutrophils # (auto) 9.13 K/uL (1.4-6.5); Neutrophils % (auto) 94.6 %
--- NOTE | 2022-02-09 15:59 | Ultrasound Report ---
ULTRASOUND RIGHT LOWER EXTREMITY VENOUS CLINICAL HISTORY: Right leg swelling and erythema. COMPARISON STUDY: Right lower extremity venous ultrasound dated 02/06/2022. TECHNIQUE: Real-time, grayscale, and color Doppler sonography of the deep veins of the right lower ex tremity was performed from the inguinal crease to the calf. Compression and augmentation were utilize d. FINDINGS: There is no sonographic evidence of deep venous thrombosis identified in the right lower ex tremity. The common femoral, superficial femoral, and popliteal veins are patent and normally brittny sible. The greater saphenous vein and the profunda femoris vein at the junction with the common femor al vein are clear. The visualized calf veins are patent. IMPRESSION: There is no sonographic evidence of deep venous thrombosis identified in the right lower extremity. ACT 112: Negative or not required by law. Electronically signed by: Geoff Ramirez M.D. 02/09/2022 3:57 PM
[2022-02-09] MEDS ORDERED: MoRPHine SULFATE 4 MG/ML 1 ML CARP\\VIAL IV STA (17:14)
--- NOTE | 2022-02-09 18:21 | History & Physical Report ---
Date of Service February 09, 2022 Assessment & Plan (1) Hypoglycemia: Plan: Patient is 42 y/o F with PMH insulin dependent DM II, HTN, HLD, pancreatic cancer on chemo presented to ER with complaint of episodes of hypoglycemia x 1 week. BSG down to 60 with associated dizziness, diaphoresis. Has had decreased appetite and decreased oral intake Endocrinology decreased Toujeo from 110 units to 80 units daily. Has not been using Novolog. Today in ER random glucose: 232 Ac1: 8.2 on 01/11/22 Monitor BSGs closely. Basal bolus insulin per protocol Glycemic pharmacy consult to assist in ongoing dosing clinical staff educator consult (2) Closed fibular fracture: Plan: 02/06/22 Fall. +distal fibula fracture In walking boot. Following with [facility] Continue outpatient ortho follow up (3) History of pancreatic cancer: Plan: Currently on chemo. Recent attempt at whipple procedure however aborted secondary to liver metastasis found Following with [facility] oncology. Is to have second opinion and [facility] on 02/13/22 Chronic abdominal pain, nausea, vomiting, decreased appetite. Continue oxycodone, Pancreaze Depression/Anxiety Continue home medications HTN Continue amlodipine, atenolol, clonidine, enalapril, HCTZ Hypothyroidism Continue levothyroxine DVT Prophylaxis Lovenox SQ Full Code as per discussion with pt Follows with Dr Hawley for routine care Pt was seen and care coordinated with Dr Clinton. See addendum History of Present Illness Chief Complaint: episodes of hypoglycemia Primary Care Provider: Dhruv Hawley MD Patient is 42 y/o F with PMH insulin dependent DM II, HTN, HLD, pancreatic cancer on chemo presented to ER with complaint of episodes of hypoglycemia. Patient reports 1 week ago started having episodes of hypoglycemia with blood sugars down into 60s. She reports dizziness and sweating. Patient states that she has had decreased appetite and decreased oral intake. She has not been using NovoLog secondary to hypoglycemia. Is following with [facility] endocrinology who recommended decreasing Toujeo from 110 units to 80 units daily. Patient reports did have Toujeo this morning. Patient reports chronic abdominal pain. Denies any increased abdominal pain. Following with [facility] oncology. Last chemo 02/07/2022. She reports gets nausea, vomiting and decreased appetite worsening after chemo treatment. States last night had episode of vomiting and this morning as well. She reports is to have second opinion with [facility] 02/13/2022 for pancreatic cancer. Patient also seen in ER on 02/06/2022 after fall that she reports she had dizziness and hypoglycemia and was trying to get to kitchen to get something to eat. In ER was then found to have distal right fibular fracture. Patient has followed up with [facility] and has walking boot. She reports her right lower extremity has been swollen and bruised. Has been taking oxycodone for pain. UA at that time felt concerning for UTI and patient was started on Keflex. Urine culture consistent with contaminant. Patient no longer taking Keflex. She denies any urinary symptoms. Patient reports past 2 days having itching that started on abdomen and has spread to chest, legs, back. She noted red rash today. Denies fever/chills, hematemesis, hematochezia, melena, constipation, diarrhea VENTURA, syncope, vision changes, neck pain, CP, SOB, orthopnea, palpitations, cough, sore throat, choking, otalgia, rhinorrhea, paresthesias, weakness, extremity weakness, other extremity edema. Allergies Allergy/AdvReac Type Severity Reaction Status Date / Time Fish Containing Products Allergy Severe Anaphylaxis Verified 02/09/22 17:05 Penicillins Allergy Mild Rash Verified 02/09/22 17:05 dulaglutide [From [facility]] AdvReac Severe Pancreatiti Verified 02/09/22 17:05 s clarithromycin AdvReac Unknown Vomiting Verified 02/09/22 17:05 Home Medications Medication Instructions Recorded Confirmed Type amlodipine 5 mg tablet 5 mg PO BID 04/14/21 02/09/22 History clonidine HCl 0.1 mg tablet See Rx Instructions .ROUTE 04/14/21 02/09/22 History .COMPLEX PRN duloxetine 60 mg capsule,delayed 120 mg PO DAILY cap 04/14/21 02/09/22 History release (Cymbalta) enalapril maleate 20 mg tablet 20 mg PO QAM 04/14/21 02/09/22 History (Vasotec) flash glucose scanning reader 04/14/21 02/09/22 History (FreeStyle Tanmay 14 Day Clark) hydrochlorothiazide 25 mg tablet 25 mg PO QAM 04/14/21 02/09/22 History lamotrigine 200 mg tablet 200 mg PO HS 04/14/21 02/09/22 History (Lamictal) levothyroxine 50 mcg tablet 50 mcg PO QAM 04/14/21 02/09/22 History ropinirole 4 mg tablet 4 mg PO TID 04/14/21 02/09/22 History valacyclovir 1 gram tablet 2,000 mg PO BID PRN tab 04/14/21 02/09/22 History atenolol 50 mg tablet 100 mg PO QAM 04/28/21 02/09/22 History blood sugar diagnostic (OneTouch #600 ea 05/26/21 02/09/22 Rx Verio test strips) flash glucose sensor (FreeStyle #7 ea 05/26/21 02/09/22 Rx Tanmay 14 Day Sensor) pen needle, diabetic 31 gauge x #150 ea 11/29/21 02/09/22 Rx 3/16" (BD Ultra-Fine Mini Pen Needle) flash glucose scanning reader #2 ea 01/02/22 02/09/22 Rx (FreeStyle Tanmay 2 Clark) flash glucose sensor (FreeStyle #2 ea 01/02/22 02/09/22 Rx Tanmay 2 Sensor) acetaminophen 500 mg tablet 500 mg PO Q4 PRN MDD 3g 01/14/22 02/09/22 History docusate sodium 100 mg capsule 100 mg PO AMHS 01/14/22 02/09/22 History insulin aspart U-100 100 unit/mL 2 unit SUBCUT TIDM 01/14/22 02/09/22 History (3 mL) subcutaneous pen (Novolog Flexpen U-100 Insulin aspart) insulin glargine U-300 conc 300 80 unit SUBCUT QAM 01/14/22 02/09/22 History unit/mL (3 mL) subcutaneous pen (Toujeo Max U-300 SoloStar) lidocaine-prilocaine 2.5 %-2.5 % See Rx Instructions .ROUTE .COMPLEX 01/14/22 02/09/22 History topical cream lipase 16,800-protease 1 cap PO TIDM 01/14/22 02/09/22 History 56,800-amylase 98,400 unit capsule, delayed rel (Pancreaze) loratadine 10 mg tablet (Claritin) 10 mg PO DAILY PRN 01/14/22 02/09/22 History lorazepam 1 mg tablet 1 mg PO Q8 PRN 01/14/22 02/09/22 History ondansetron 8 mg disintegrating 8 mg TRANSLINGUAL Q8 PRN 01/14/22 02/09/22 History tablet potassium chloride 10 mEq 10 meq PO AMHS 01/14/22 02/09/22 History tablet,extended release quetiapine 100 mg tablet 200 - 300 mg PO HS 01/14/22 02/09/22 History nicotine 21 mg/24 hr daily 21 mg TRANSDERMAL QAM 28 Days #28 01/17/22 02/09/22 Rx transdermal patch (Nicoderm CQ) ea sennosides 8.6 mg tablet (senna) 17.2 mg PO BID #0 tab 01/17/22 02/09/22 Rx oxycodone 10 mg tablet 10 mg PO Q4 PRN 02/09/22 02/09/22 History Past Med/Surg History Medical History Allergy-induced asthma rare inhaler use Depression with anxiety Diabetes mellitus, type 2 IDDM Dyslipidemia Hypertension Hypothyroidism Lumbosacral pain Obesity Pancreatic cancer + current chemo, follows with [facility] heme/onc PCOS (polycystic ovarian syndrome) Therapeutic opioid-induced constipation (OIC) Surgical History History of ERCP ERCP (06/2021) & EUS/ERCP (04/28/21): Good view with glidescope #3, ETT 7.0 at [facility] History of tonsillectomy History of umbilical hernia repair History of vascular access device A PORT INSERTION History of wisdom tooth extraction Nausea and vomiting after administration of anesthetic agent Family History Brother Diabetes Hypertension Father Hypertension Aunt Diabetes Grandmother (Maternal) Diabetes Other No family history of adverse response to anesthesia Social History Smoking Status: Current every day smoker Tobacco Type: Cigarettes packs per day: 1; Cigarettes Per Day: 15 cigs/day; Second Hand Exposure: No; Hx Alcohol Use: No Hx Substance Use: No Preferred Language: Moldovan Communication Ability: Effective Radio Repair Teacher Required: No Beliefs That Will Affect Care: None marital status: Single Current Living Situation: Alone and Family Current Living Situation Comment: WITH DAUGHTER Feels Safe at Home: Yes Assistive Devices: Oxygen - at Night Review of Systems Review of Systems: All systems reviewed & are unremarkable except as noted in HPI & below Physical Exam Physical Exam: General: no distress, overweight Head: normocephalic, atraumatic Eyes: conjunctiva non-injected, anicteric ENT: normal inspection external ears, nose, mucous membranes moist, no tongue or lip edema Neck: supple, trachea midline Lungs: clear, no respiratory distress, no wheezing/rhonchi/rales CV: RRR, no murmur Abd: protuberant, mid abdominal incision without erythema or discharge, normal BS, soft, non-tender to palpation Ext: no cyanosis, no erythema, no calf tenderness; RLE: +distal leg edema and ecchymosis extending to foot, distal pulses intact, sensation to light touch intact Neuro: A&O x 3, no focal deficits noted, normal affect Skin: warm, dry, +erythematous urticaria to abdomen, back, bilateral upper legs with excoriations Results & Data Results & Data ([facility]) Vital Signs (Past 12 Hours) Vital Signs Temp Pulse Pulse Resp BP BP Pulse Ox 02/09/22 18:00 87 21 137/71 95 02/09/22 17:01 89 23 142/78 H 92 02/09/22 14:30 83 16 117/79 97 02/09/22 12:43 36.9 C 92 H 16 128/77 95 Laboratory Results Short CBC 02/09/22 Range/Units 14:16 WBC 9.66 (4.8-10.8) K/ul Hgb 10.8 L (12.0-16.0) g/dl Hct 32.4 L (34.1-44.9) % Plt Count 169 (130-400) K/uL BMP 02/09/22 14:16 Sodium 133 L Potassium 3.4 L Chloride 96 L Carbon Dioxide 29 BUN 8 Creatinine 0.51 L Glucose 232 H Calcium 9.0 Liver Function 02/09/22 Range/Units 14:16 Total Bilirubin 1.0 (0.2-1.0) mg/dl AST 96 H (13-39) U/L ALT 72 H (7-52) U/L Alkaline Phosphatase 145 H (34-104) U/L Albumin 3.5 (3.4-5.0) gm/dl Urine 02/09/22 Range/Units 14:15 Urine Color Yellow Urine Appearance Clear (Clear) Urine pH 6.0 (4.5-7.5) Ur Specific [place] 1.021 (1.000-1.030) Urine Protein Negative (Negative) Urine Glucose (UA) 1+ H (Negative) Diagnostic Findings Venous Doppler Study 02/09/22 13:23 ULTRASOUND RIGHT LOWER EXTREMITY VENOUS CLINICAL HISTORY: Right leg swelling and erythema. COMPARISON STUDY: Right lower extremity venous ultrasound dated 02/06/2022. TECHNIQUE: Real-time, grayscale, and color Doppler sonography of the deep veins of the right lower extremity was performed from the inguinal crease to the calf. Compression and augmentation were utilized. FINDINGS: There is no sonographic evidence of deep venous thrombosis identified in the right lower extremity. The common femoral, superficial femoral, and popliteal veins are patent and normally compressible. The greater saphenous vein and the profunda femoris vein at the junction with the common femoral vein are clear. The visualized calf veins are patent. IMPRESSION: There is no sonographic evidence of deep venous thrombosis identified in the right lower extremity. ACT 112: Negative or not required by law. Electronically signed by: Geoff Ramirez M.D. 02/09/2022 3:57 PM Chest X-Ray 02/09/22 13:24 XR chest 1V portable HISTORY: Fever COMPARISON: Chest 10/19/2006. FINDINGS: There are low lung volumes. The lungs are clear. Right jugular Port-A-Cath terminates at the distal SVC. The heart is normal in size. No pleural effusions. No pneumothorax. IMPRESSION: No acute process. ACT 112: Negative or not required by law. Electronically signed by: Ru Arce M.D. 02/09/2022 1:45 PM Code Status & VTE Plan VTE Prophylaxis Plan VTE Prophylaxis will be ordered: Yes Supervising Physician Co-Signing Physician Notes 42-year-old lady with PMH of pancreatic cancer on chemo, T2DM, DM2, HTN, HLD presented to our ED 02/09 with complaint of fluctuating blood sugar level down to 60s despite readjustment of her insulin by her acetaldehyde converter operator as an outpatient since last 1 week. Patient also complains of having decreased appetite since last 1 to 2 weeks after her chemo was restarted. She also reports nausea and vomiting since last evening. She was recently managed in the ER for right fibular fracture, already evaluated by orthopedics as an outpatient. She is also complaining of skin rash since last 2 days, the new medication started was Keflex. Will use Benadryl as needed for allergic his skin rash. Hyperglycemia, glycemic pharmacy consult, clinical trial educator consult, sliding scale. Closed right fibula fracture, Ortho evaluation done as an outpatient, patient with walking boot, pain control with oxycodone. History of pancreatic cancer, currently on chemo, plan to visit [facility] 02/13/2022. Benadryl as needed for hives and itching. Pain management, nausea control. Upon examination: GENERAL: Alert and oriented x3. NAD, on RA. Obese. HEENT: No pallor, no icterus. Pupils equal, round and reactive to light. Oral mucosa moist. NECK: No JVD, no neck masses. Right chest with port without signs of infection. HEART: S1 and S2 heard. Regular rate and rhythm. No murmur, no gallop. RESPIRATORY SYSTEM: Normal AP diameter. No accessory muscle use. No wheezing, no crackles. ABDOMEN: Soft, bowel sounds present, nontender, no distention. Blood glucose sensor right belly. Healed midline surgical scar. CENTRAL NERVOUS SYSTEM: No facial droop. Speech is clear. Obeys simple commands. Moves extremities. EXTREMITIES: No edema, no erythema seen. Right ankle swollen. Skin: Rash upper back, over belly, upper thigh. Excoriation flanagan over belly. I have seen and examined the patient and have discussed the case with the provider above. I agree with the assessment and plan as stated. (1) Closed fibular fracture Encounter type: initial encounter Fibula location: distal Fracture morphology: unspecified fracture morphology Laterality: right Qualified Code(s): S82.831A - Other fracture of upper and lower end of right fibula, initial encounter for closed fracture
[2022-02-09] MEDS ORDERED: POTASSIUM CHLORIDE CRTAB 20 MEQ TABCR PO STA (20:08)
[2022-02-09] MEDS ORDERED: GLUCOSE 10 TAB/TUBE PO PRN (21:40)
[2022-02-09] MEDS ORDERED: GLUCAGON FOR INJ 1 MG VIAL SQ PRN (21:40)
[2022-02-09] MEDS ORDERED: CARBOHYDRATES FOR HYPOGLYCEMIA PO PRN (21:40)
[2022-02-09] MEDS ORDERED: GLUCOSE 40% GEL 15 GM TUBE PO PRN (21:40)
[2022-02-09] MEDS ORDERED: DEXTROSE 50% 50 ML SYRINGE IV PRN (21:40)
[2022-02-09] MEDS ORDERED: POLYETHYLENE (MIRALAX) 17 GM PACK PO PRN (21:40)
[2022-02-09] MEDS ORDERED: FAMOTIDINE 20 MG TAB PO ONE (21:40)
[2022-02-09] MEDS ORDERED: PHARMACY GLYCEMIC MGMT CONSULT PRN (21:40)
[2022-02-09] MEDS ORDERED: LORATADINE 10 MG TAB PO PRN (21:40)
[2022-02-09] MEDS ORDERED: cloNIDine HCL 0.1 MG TAB PO PRN ×2 (22:23)
[2022-02-09] MEDS: amLODIPine BESYLATE 5 MG TAB PO SCH (22:30)
[2022-02-09] MEDS: lamoTRIgine 100 MG TAB PO SCH (22:31)
[2022-02-09] MEDS: DOCUSATE SODIUM 100 MG CAP PO SCH (22:31)
[2022-02-09] MEDS: POTASSIUM CHLORIDE 10 MEQ TABCR PO SCH (22:32)
[2022-02-09] MEDS: QUEtiapine FUMARATE 200 MG TAB PO SCH (22:32)
[2022-02-09] MEDS: rOPINIRole HCL 2 MG TABLET PO SCH (22:32)
[2022-02-09] MEDS: SENNA 8.6 MG TAB PO SCH (22:33)
[2022-02-09] MEDS: diphenhydrAMINE 50 MG/ML VIAL IV PRN (22:57)
[2022-02-09] MEDS: oxyCODONE HCL IR 5 MG TAB (IMMEDIATE RELEASE) PO PRN (22:57)
--- NOTE | 2022-02-09 23:41 | Electrocardiogram Report ---
Test Reason : Blood Pressure : / mmHG Vent. Rate : 083 BPM Atrial Rate : 083 BPM P-R Int : 162 ms QRS Dur : 088 ms QT Int : 376 ms P-R-T Axes : 056 022 049 degrees QTc Int : 441 ms Normal sinus rhythm Normal ECG No previous ECGs available Confirmed by Jez Simeon ([id number]) on 02/09/2022 11:40:57 PM Referred By: REFERRED SELF Confirmed By:Jez Simeon
[2022-02-10] MEDS ORDERED: KETOROLAC TROMETHAMINE 15 MG/ML VIAL IV ONE (01:39)
[2022-02-10] MEDS: cloNIDine HCL 0.1 MG TAB PO PRN (01:46)
[2022-02-10] MEDS: ONDANSETRON INJ 2 MG/ML 2 ML VIAL IV PRN ×3 (01:49→20:38)
[2022-02-10] MEDS: INSULIN ASPART PER UNIT SC SCH ×5 (03:30→20:47)
[2022-02-10] MEDS: LORazepam 1 MG TAB PO PRN ×2 (03:34→11:18)
[2022-02-10] MEDS: HYDROmorphone INJ 0.5 MG/0.5 ML SYR IV PRN ×3 (04:11→20:38)
[2022-02-10] MEDS: LEVOTHYROXINE SODIUM 50 MCG TABLET PO SCH (06:39)
[2022-02-10] MEDS ORDERED: SODIUM CHLORIDE 0.9% 1000ML 500 ML IV ONE (07:23)
[2022-02-10 08:35] LABS: Hematocrit (blood only) 25.7 % (34.1-44.9); Hemoglobin 8.5 g/dl (12.0-16.0); Mean Corpuscular Hemoglobin 29.9 pg (25.0-34.0); Mean Corpuscular Hgb Conc 33.1 g/dL (32.0-36.0); Mean Corpuscular Volume 90.5 fL (80.0-100.0); Mean Platelet Volume 11.2 fL (9.4-12.3); Platelet Count 122 K/uL (130-400); Platelet Estimate Normal (Normal); RDW Coefficient of Variation 12.6 % (11.5-14.5); RDW Standard Deviation 42.1 fL (36.4-46.3); Red Blood Count 2.84 M/uL (3.93-5.22)
[2022-02-10 08:39] LABS: BUN Creatinine Ratio 16.7 (10-20); Calcium 7.8 mg/dl (8.5-10.1); Creatinine Clr Calc Pharmacy 190.5 ml/min; Est GFR (African American) 138.3 ml/min; Est GFR (Non-African American) 119.3 ml/min; Magnesium 1.8 mg/dl (1.7-2.4); Potassium 3.7 mmol/L (3.5-5.1)
[2022-02-10] MEDS ORDERED: LANTUS PER UNIT CHARGE SQ SCH ×2 (09:00)
[2022-02-10] MEDS ORDERED: hydroCHLOROthiazide 25 MG TAB PO SCH (09:00)
[2022-02-10] MEDS: PANCREAZE (LIPASE 16,800U) CAP PO SCH ×3 (09:35→17:34)
[2022-02-10] MEDS: oxyCODONE HCL IR 5 MG TAB (IMMEDIATE RELEASE) PO PRN ×2 (09:35→22:42)
[2022-02-10] MEDS: DULoxetine HCL 60 MG CAP PO SCH (09:35)
[2022-02-10] MEDS: POTASSIUM CHLORIDE 10 MEQ TABCR PO SCH ×2 (09:36→20:50)
[2022-02-10] MEDS: rOPINIRole HCL 2 MG TABLET PO SCH ×3 (09:36→20:49)
[2022-02-10] MEDS: DOCUSATE SODIUM 100 MG CAP PO SCH ×2 (09:36→20:43)
[2022-02-10] MEDS: LORATADINE 10 MG TAB PO SCH (09:37)
[2022-02-10] MEDS: SENNA 8.6 MG TAB PO SCH ×2 (09:37→20:43)
[2022-02-10] MEDS: ENOXAPARIN INJ 40 MG/0.4 ML SYR SQ SCH (09:38)
--- NOTE | 2022-02-10 10:50 | Pharmacy Report ---
Pharmacy Glycemic Short Note 2 - Date of Service February 10, 2022 - Glycemic Short BSG Results (Last 24 hours): 02/09/22 02/09/22 02/10/22 14:16 21:45 02:28 Glucose 232 H POC Glucose 120 H 145 H 02/10/22 02/10/22 02/10/22 07:29 07:36 08:10 Glucose 115 H POC Glucose 113 H 126 H OUTPATIENT ANTIDIABETIC REGIMEN: * Toujeo 80 units SQ QAM (recently decreased from 110 units by Endo) * NovoLog 2 units TIDm + CR 1:25 (patient reports not taking in last week d/t hypoglycemia) ASSESSMENT: * Patient is 42 y/o F with PMH insulin dependent DM II, HTN, HLD, pancreatic cancer on chemo, last treatment Saturday. Presented to ER with complaint of episodes of hypoglycemia x 1 week. BSG down to 60 with associated dizziness, diaphoresis. Has had decreased appetite and decreased oral intake. * Patient reports she is to have second opinion with [facility] 02/13/2022 for pancreatic cancer. * Patient also seen in ER on 02/06/2022 after fall that she reports she had dizziness and hypoglycemia and was trying to get to kitchen to get something to eat. In ER was then found to have distal right fibular fracture. Patient has followed up with [facility] and has walking boot. * Patient recently admitted for DKA in January, only needed ~20 units basal per day, will start at a low dose and titrate to goal to prevent hypoglycemia. PLAN FOR INPATIENT GLYCEMIC CONTROL: * Hold outpatient diabetes medications * Basal insulin * Lantus 15 units SQ daily * Bolus insulin * NovoLog per scale ACHS or Q6hrs while NPO * Goal Range: Low 110 mg/dL - High 140 mg/dL * Correction Factor: 25 mg/dL/unit * Nutritional / Prandial insulin per carb ratio of 1 unit per 8 grams CHO consumed
[2022-02-10] MEDS: predniSONE 20 MG TAB PO SCH (13:07)
--- NOTE | 2022-02-10 13:41 | Hospitalist Progress Note ---
Date of Service February 10, 2022 Assessment & Plan (1) Hypoglycemia: Plan: 42 y/o F with PMH insulin dependent DM II, HTN, HLD, pancreatic cancer on chemo presented to ER with complaint of episodes of hypoglycemia x 1 week. BSG down to 60 with associated dizziness, diaphoresis. Has had decreased appetite and decreased oral intake. Had chemo within the week Endocrinology decreased Toujeo from 110 units to 80 units daily. Has not been using Novolog due to poor oral intake BG has been >80 since admission Ac1: 8.2 on 01/11/22 Monitor BSGs closely. Glycemic pharmacy on board with glycemic management clinical nurse educator consult (2) Allergic rash present on examination: Plan: Patient reported rash started same day as Keflex. Also reports allergy to penicillin with rash. Keflex has been discontinued Urinalysis on presentation does not suggest UTI and patient denies any symptoms at this time. Continue antihistamines. Considering generalized rash, start prednisone 40 mg daily and monitor blood glu cose and manage accordingly. (3) Closed fibular fracture: Plan: 02/06/22 Fall. +distal fibula fracture In walking boot. Following with [facility]o - [facility] Continue outpatient ortho follow up (4) History of pancreatic cancer: Plan: Currently on chemo. Recent attempt at whipple procedure however aborted secondary to liver metastasis found Following with [facility] oncology. Is to have second opinion and [facility] on 02/13/22 Chronic abdominal pain, nausea, vomiting, decreased appetite. Continue oxycodone, Pancreaze Depression/Anxiety Continue home medications HTN Hypotensive today At home, she was on amlodipine, atenolol, clonidine, enalapril, HCTZ Hold all antihypertensives for now and monitor Hypothyroidism Continue levothyroxine DVT Prophylaxis Lovenox SQ Full Code Admission and Anticipated Discharge Date Admission Date: February 09, 2022 Subjective 42-year-old woman with insulin-dependent diabetes, hypertension, pancreatic cancer on chemo who presented to the ER with complaint of hypoglycemia with home blood glucose in the 60s within the past week. Reported she had chemo within the week and has been having some anorexia with nausea and vomiting. She also reported pruritic rash that started 3 days ago after starting Keflex as prescribed for possible UTI. Patient seen and examined. Reported dizziness earlier this morning and blood pressure at the time was 86/51 and resolved after getting 500 cc bolus of IV fluids. Currently reports dizziness is resolved. Reports occasional nausea. Denied vomiting, abdominal pain Denied fevers Denied cough, chest pain, shortness of breath Reports worsening pruritic rash especially over the abdomen and the back. Denied dysuria, frequency, urgency, incontinence, hematuria Denies diarrhea, constipation Review of Systems Review of Systems: All systems reviewed & are unremarkable except as noted in Subjective Physical Exam Constitutional: + well hydrated and + obese; no acute distress Eyes: PERRL, conjunctivae normal, anicteric sclerae ENMT: external ear and nose normal, oropharynx normal Respiratory: normal respiratory effort, lungs clear to auscultation Cardiovascular: Rate/Rhythm: regular rate and regular rhythm S1 S2 Gastrointestinal (Abdomen): normal bowel sounds, soft, nontender, no hepatosplenomegaly Musculoskeletal: no cyanosis or clubbing, extremities motor strength 5/5 Skin: Generalized erythematous papular rash of trunk abdomen and back with scratch flanagan Neurologic: PERRL, EOMI, accommodation nl, no face palsy, no dysarthria Psychiatric: A+Ox3, euthymic affect Results & Data Results & [facility]) Vital Signs (Past 12 Hours) Vital Signs Pulse BP 02/10/22 11:19 121/73 02/10/22 10:48 99/61 L 02/10/22 08:36 100/64 02/10/22 07:44 86/51 L 02/10/22 06:42 93 H 87/50 L Laboratory Results Abnormal lab results 02/09/22 02/09/22 02/09/22 Range/Units 14:15 14:16 21:45 RBC (3.93-5.22) M/uL Hgb (12.0-16.0) g/dl Hct (34.1-44.9) % Plt Count (130-400) K/uL Neut # (Auto) 9.13 H (1.4-6.5) K/uL Lymph # (Auto) 0.37 L (1.2-3.4) K/uL [place] # (Auto) 0.07 L (0.24-0.82) K/uL Immature Gran # (Auto) 0.05 H (0.00-0.02) K/uL Sodium (136-145) mmol/L Creatinine (0.6-1.2) mg/dl Glucose (70-99(Fasting)) mg/dl POC Glucose 120 H (70-99) mg/dl Calcium (8.5-10.1) mg/dl Urine Glucose (UA) 1+ H (Negative) Urine Ketones 1+ H (Negative) 02/10/22 02/10/22 02/10/22 Range/Units 02:28 07:29 07:36 RBC 2.84 L (3.93-5.22) M/uL Hgb 8.5 L (12.0-16.0) g/dl Hct 25.7 L (34.1-44.9) % Plt Count 122 L (130-400) K/uL Neut # (Auto) (1.4-6.5) K/uL Lymph # (Auto) (1.2-3.4) K/uL [place] # (Auto) (0.24-0.82) K/uL Immature Gran # (Auto) (0.00-0.02) K/uL Sodium (136-145) mmol/L Creatinine (0.6-1.2) mg/dl Glucose (70-99(Fasting)) mg/dl POC Glucose 145 H 113 H (70-99) mg/dl Calcium (8.5-10.1) mg/dl Urine Glucose (UA) (Negative) Urine Ketones (Negative) 02/10/22 02/10/22 02/10/22 Range/Units 07:36 08:10 11:21 RBC (3.93-5.22) M/uL Hgb (12.0-16.0) g/dl Hct (34.1-44.9) % Plt Count (130-400) K/uL Neut # (Auto) (1.4-6.5) K/uL Lymph # (Auto) (1.2-3.4) K/uL [place] # (Auto) (0.24-0.82) K/uL Immature Gran # (Auto) (0.00-0.02) K/uL Sodium 134 L (136-145) mmol/L Creatinine 0.48 L (0.6-1.2) mg/dl Glucose 115 H (70-99(Fasting)) mg/dl POC Glucose 126 H 136 H (70-99) mg/dl Calcium 7.8 L (8.5-10.1) mg/dl Urine Glucose (UA) (Negative) Urine Ketones (Negative) 02/10/22 Range/Units 12:09 RBC (3.93-5.22) M/uL Hgb (12.0-16.0) g/dl Hct (34.1-44.9) % Plt Count (130-400) K/uL Neut # (Auto) (1.4-6.5) K/uL Lymph # (Auto) (1.2-3.4) K/uL [place] # (Auto) (0.24-0.82) K/uL Immature Gran # (Auto) (0.00-0.02) K/uL Sodium (136-145) mmol/L Creatinine (0.6-1.2) mg/dl Glucose (70-99(Fasting)) mg/dl POC Glucose 136 H (70-99) mg/dl Calcium (8.5-10.1) mg/dl Urine Glucose (UA) (Negative) Urine Ketones (Negative) (1) Closed fibular fracture Encounter type: subsequent encounter Laterality: right
[2022-02-10] MEDS: LANTUS PER UNIT CHARGE SQ SCH (20:48)
[2022-02-10] MEDS: lamoTRIgine 100 MG TAB PO SCH (20:49)
[2022-02-10] MEDS: QUEtiapine FUMARATE 200 MG TAB PO SCH (20:49)
[2022-02-10] MEDS: ACETAMINOPHEN 325 MG TAB PO PRN (22:42)
[2022-02-11] MEDS: HYDROmorphone INJ 0.5 MG/0.5 ML SYR IV PRN ×4 (04:07→22:17)
[2022-02-11] MEDS: LEVOTHYROXINE SODIUM 50 MCG TABLET PO SCH (04:33)
[2022-02-11] MEDS: diphenhydrAMINE 50 MG/ML VIAL IV PRN ×2 (05:57→20:07)
[2022-02-11 06:21] LABS: Hematocrit (blood only) 27.5 % (34.1-44.9); Mean Corpuscular Hgb Conc 32.7 g/dL (32.0-36.0); Mean Corpuscular Volume 91.7 fL (80.0-100.0); Mean Platelet Volume 11.4 fL (9.4-12.3); Platelet Count 121 K/uL (130-400); RDW Coefficient of Variation 12.3 % (11.5-14.5); White Blood Count 5.49 K/ul (4.8-10.8)
[2022-02-11 06:43] LABS: Albumin Level 3.1 gm/dl (3.4-5.0); BUN Creatinine Ratio 17.1 (10-20); Bilirubin,Total 0.7 mg/dl (0.2-1.0); Calcium 8.7 mg/dl (8.5-10.1); Creatinine Clr Calc Pharmacy 223.1 ml/min; Est GFR (African American) 145.6 ml/min; Est GFR (Non-African American) 125.7 ml/min; Globulin 3.1 gm/dl (2.5-4.0); Phosphorus 2.7 mg/dl (2.5-4.9); Potassium 4.2 mmol/L (3.5-5.1); Total Protein 6.2 gm/dl (6.0-8.3)
[2022-02-11] MEDS: ONDANSETRON INJ 2 MG/ML 2 ML VIAL IV PRN ×3 (07:19→22:17)
[2022-02-11] MEDS: LORazepam 1 MG TAB PO PRN ×2 (07:29→16:02)
[2022-02-11] MEDS: DOCUSATE SODIUM 100 MG CAP PO SCH ×2 (08:59→22:25)
[2022-02-11] MEDS ORDERED: LANTUS PER UNIT CHARGE SQ SCH (09:00)
[2022-02-11] MEDS: SENNA 8.6 MG TAB PO SCH ×2 (09:00→22:26)
[2022-02-11] MEDS: INSULIN ASPART PER UNIT SC SCH ×4 (09:04→22:11)
[2022-02-11] MEDS: predniSONE 20 MG TAB PO SCH (09:11)
[2022-02-11] MEDS: POTASSIUM CHLORIDE 10 MEQ TABCR PO SCH ×2 (09:11→22:25)
[2022-02-11] MEDS: rOPINIRole HCL 2 MG TABLET PO SCH ×3 (09:11→22:25)
[2022-02-11] MEDS: LORATADINE 10 MG TAB PO SCH (09:12)
[2022-02-11] MEDS: ENOXAPARIN INJ 40 MG/0.4 ML SYR SQ SCH (09:12)
[2022-02-11] MEDS: DULoxetine HCL 60 MG CAP PO SCH (09:12)
[2022-02-11] MEDS: PANCREAZE (LIPASE 16,800U) CAP PO SCH ×3 (09:12→17:26)
[2022-02-11 09:58] LABS: Thyroid Stimulating Hormone 1.027 uIu/ml (0.300-4.500)
[2022-02-11 10:00] LABS: T4 Free Thyroxine 0.88 ng/dl (0.61-1.60)
[2022-02-11] MEDS: NICOTINE 7 MG/24 HR TDSY TD SCH (10:51)
--- NOTE | 2022-02-11 13:10 | Hospitalist Progress Note ---
Date of Service February 11, 2022 Assessment & Plan (1) Hypoglycemia: Plan: 42 y/o F with PMH insulin dependent DM II, HTN, HLD, pancreatic cancer on chemo presented to ER with complaint of episodes of hypoglycemia x 1 week. BSG down to 60 with associated dizziness, diaphoresis. Has had decreased appetite and decreased oral intake. Had chemo within the week Endocrinology decreased Toujeo from 110 units to 80 units daily. Has not been using Novolog due to poor oral intake BG has been >80 since admission Ac1: 8.2 on 01/11/22 Monitor BSGs closely. Glycemic pharmacy on board with glycemic management BG running higher today than yesterday. Likely due to improving oral intake as well as steroid simulation educator consult (2) Allergic rash present on examination: Plan: Patient reported rash started same day as Keflex. Also reports allergy to penicillin with rash. Keflex has been discontinued Urinalysis on presentation does not suggest UTI and patient denies any symptoms at this time. Continue antihistamines. Continue prednisone 40 mg daily and monitor blood glucose and manage accordingly. (3) Closed fibular fracture: Plan: 02/06/22 Fall. +distal fibula fracture In walking boot. Following with ortho - [facility] Continue outpatient ortho follow up (4) History of pancreatic cancer: Plan: Currently on chemo. Recent attempt at whipple procedure however aborted secondary to liver metastasis found Following with [facility] oncology. Is to have second opinion and [facility] on 02/13/22 Chronic abdominal pain, nausea, vomiting. Continue oxycodone, Pancreaze Depression/Anxiety Continue home medications HTN Was hypotensive yesterday At home, she was on amlodipine, atenolol, clonidine, enalapril, HCTZ Antihypertensives were held yesterday BP going up today Resume home atenolol and enalapril today and monitor till morning Hypothyroidism Continue levothyroxine Normocytic Anemia May be related to chronic disease, pancreatic cancer on chemo Also possible dilutional effect Anemia workup pending DVT Prophylaxis Lovenox SQ Full Code Plan to ok tomorrow Admission and Anticipated Discharge Date Admission Date: February 10, 2022 Subjective 42-year-old woman with insulin-dependent diabetes, hypertension, pancreatic cancer on chemo who presented to the ER with complaint of hypoglycemia with home blood glucose in the 60s within the past week. Reported she had chemo within the week and has been having some anorexia with nausea and vomiting. She also reported pruritic rash that started 3 days ago after starting Keflex as prescribed for possible UTI. Patient seen and examined. Reported no dizziness Reported nausea and some abd discomfort Reports generalized itchy rash, similar to yesterday but not progressing Denied fevers Denied cough, chest pain, shortness of breath Denied dysuria, frequency, urgency, incontinence, hematuria Denies diarrhea, constipation Physical Exam Constitutional: + well hydrated and + obese; no acute distress Eyes: PERRL, conjunctivae normal, anicteric sclerae ENMT: external ear and nose normal, oropharynx normal Respiratory: normal respiratory effort, lungs clear to auscultation Cardiovascular: Rate/Rhythm: regular rate and regular rhythm S1 S2 Gastrointestinal (Abdomen): normal bowel sounds, soft, nontender, no hepatosplenomegaly Musculoskeletal: no cyanosis or clubbing, extremities motor strength 5/5 Skin: Generalized erythematous papular rash on abdomen and back. Neurologic: PERRL, EOMI, accommodation nl, no face palsy, no dysarthria Psychiatric: A+Ox3, euthymic affect Results & Data Results & Data ([facility]) Vital Signs (Past 12 Hours) Vital Signs Temp Pulse Resp BP Pulse Ox 02/11/22 06:55 36.6 C 87 16 138/79 94 02/11/22 04:03 36.6 C 84 16 143/80 H 97 Laboratory Results Abnormal lab results 02/10/22 02/10/22 02/11/22 Range/Units 17:08 20:34 05:36 RBC 3.00 L (3.93-5.22) M/uL Hgb 9.0 L (12.0-16.0) g/dl Hct 27.5 L (34.1-44.9) % Plt Count 121 L (130-400) K/uL Creatinine (0.6-1.2) mg/dl Glucose (70-99(Fasting)) mg/dl POC Glucose 129 H 198 H (70-99) mg/dl Unsaturated IBC (155-355) mcg/dl Transferrin (200-360) mg/dl Ferritin (8-388) ng/ml AST (13-39) U/L Alkaline Phosphatase (34-104) U/L Albumin (3.4-5.0) gm/dl 02/11/22 02/11/22 02/11/22 Range/Units 05:36 08:09 08:49 RBC (3.93-5.22) M/uL Hgb (12.0-16.0) g/dl Hct (34.1-44.9) % Plt Count (130-400) K/uL Creatinine 0.41 L (0.6-1.2) mg/dl Glucose 232 H (70-99(Fasting)) mg/dl POC Glucose 225 H (70-99) mg/dl Unsaturated IBC 79 L (155-355) mcg/dl Transferrin 144 L (200-360) mg/dl Ferritin 3354.0 H (8-388) ng/ml AST 40 H (13-39) U/L Alkaline Phosphatase 105 H (34-104) U/L Albumin 3.1 L (3.4-5.0) gm/dl 02/11/22 Range/Units 11:59 RBC (3.93-5.22) M/uL Hgb (12.0-16.0) g/dl Hct (34.1-44.9) % Plt Count (130-400) K/uL Creatinine (0.6-1.2) mg/dl Glucose (70-99(Fasting)) mg/dl POC Glucose 104 H (70-99) mg/dl Unsaturated IBC (155-355) mcg/dl Transferrin (200-360) mg/dl Ferritin (8-388) ng/ml AST (13-39) U/L Alkaline Phosphatase (34-104) U/L Albumin (3.4-5.0) gm/dl (1) Closed fibular fracture Encounter type: subsequent encounter Laterality: right
[2022-02-11] MEDS ORDERED: ATENOLOL 50 MG TABLET PO ONE (14:00)
[2022-02-11] MEDS ORDERED: ENALAPRIL MALEATE 10 MG TAB PO ONE (14:00)
[2022-02-11] MEDS: CALCIUM CARBONATE 500 MG CHEWABLE TAB PO PRN (14:02)
[2022-02-11] MEDS: ACETAMINOPHEN 325 MG TAB PO PRN (14:07)
[2022-02-11] MEDS ORDERED: SODIUM CHLORIDE 0.9% 500 ML IV SCH (17:15)
[2022-02-11] MEDS: oxyCODONE HCL IR 5 MG TAB (IMMEDIATE RELEASE) PO PRN (17:21)
[2022-02-11] MEDS ORDERED: PROCHLORPERAZINE 5 MG in SYRINGE 4 ML IV PRN (17:38)
[2022-02-11] MEDS: cloNIDine HCL 0.1 MG TAB PO PRN (20:01)
[2022-02-11] MEDS: LANTUS PER UNIT CHARGE SQ SCH (22:11)
[2022-02-11] MEDS: QUEtiapine FUMARATE 200 MG TAB PO SCH (22:25)
[2022-02-11] MEDS: lamoTRIgine 100 MG TAB PO SCH (22:25)
[2022-02-12] MEDS ORDERED: METOCLOPRAMIDE HCL INJ 5 MG/ML 2 ML VIAL IV STA (00:03)
[2022-02-12] MEDS ORDERED: bisacodyL 10 MG SUPP PR STA (00:06)
[2022-02-12] MEDS ORDERED: ACETAMINOPHEN 1,000 MG/100 ML VIAL IV PRN (00:09)
--- NOTE | 2022-02-12 00:16 | Communication Note ---
Date of Service: February 12, 2022 Patient nausea, recurrent vomiting symptoms since early a.m. Chronic abdominal pain. Last bowel movement yesterday. CT abdomen pelvis initial read Increased distal esophageal wall thickening. Redemonstrated postoperative changes the abdomen including a biliarystent, surgical clips adjacent the pancreatic head with mesenteric infiltration. Thickening of the gastric antrumand duodenum. Slight overall interval increase in degree of surrounding infiltration. Small subcentimeter lymph nodes. Gaswithin the biliarytree. Remainder the pancreas is atrophicwith prominent duct, unchanged. Interval development of multiple ill-defined subcentimeter hypodense lesions throughout the liver suspicious for masses. Metastatic disease of the excluded. No bowel obstruction or ileus. Colonicwall thickening fromthe right colon to the distal left colon consistent with a nonspecific colitis. Appendix not distinctlyvisualized. No evidence for diverticulitis. No obstructive uropathy. Partiallycontracted urinarybladder with nonspecificwall thickening. Uterus is unchanged calcifications.. 2.9 x 2 cmsoft tissue mass adjacent to the uterus. Ap Recurrent vomiting symptoms Esophagitis Possible colitis on CT Clear liquids for now Follow official CT abdomen pelvis IV PPI for esophagitis Hold IV narcotics May need GI evaluation Will relay to AM provider.
[2022-02-12] MEDS ORDERED: LACTATED RINGER'S 1,000 ML IV ONE (01:46)
[2022-02-12] MEDS ORDERED: OPTIRAY 320 100ml IV ONE (02:08)
[2022-02-12] MEDS: PROMETHAZINE HCL 12.5 MG in SODIUM CHLORIDE 0.9% 50 ML IV PRN ×3 (02:29→19:16)
[2022-02-12 03:14] LABS: Basophils # (auto) 0.01 K/uL (0-0.2); Basophils % (auto) 0.3 %; Eosinophils # (auto) 0.02 K/uL (0-0.50); Eosinophils % (auto) 0.6 %; Hematocrit (blood only) 32.1 % (34.1-44.9); Hemoglobin 10.5 g/dl (12.0-16.0); Immature Granulocytes # (auto) 0.05 K/uL (0.00-0.02); Immature Granulocytes % (auto) 1.6 %; Lymphocytes # (auto) 0.34 K/uL (1.2-3.4); Lymphocytes % (auto) 10.6 %; Mean Corpuscular Hemoglobin 29.2 pg (25.0-34.0); Mean Corpuscular Hgb Conc 32.7 g/dL (32.0-36.0); Mean Corpuscular Volume 89.4 fL (80.0-100.0); Mean Platelet Volume 10.7 fL (9.4-12.3); Monocytes # (auto) 0.03 K/uL (0.24-0.82); Monocytes % (auto) 0.9 %; Neutrophils # (auto) 2.77 K/uL (1.4-6.5); Platelet Count 111 K/uL (130-400); RDW Coefficient of Variation 12.2 % (11.5-14.5); RDW Standard Deviation 39.7 fL (36.4-46.3); Red Blood Count 3.59 M/uL (3.93-5.22); White Blood Count 3.22 K/ul (4.8-10.8)
[2022-02-12 03:39] LABS: Anion Gap 10 (3-11); BUN Creatinine Ratio 20.4 (10-20); Blood Urea Nitrogen 10 mg/dl (6-23); Calcium 8.9 mg/dl (8.5-10.1); Carbon Dioxide 31 mmol/L (21-32); Chloride 97 mmol/L (98-107); Creatinine Clr Calc Pharmacy 186.7 ml/min; Est GFR (African American) 137.3 ml/min; Est GFR (Non-African American) 118.5 ml/min; Glucose 180 mg/dl (70-99(Fasting)); Sodium 138 mmol/L (136-145)
[2022-02-12 03:44] LABS: Alanine Aminotransferase 45 U/L (7-52); Albumin Globulin Ratio 1.1 (0.9-2); Albumin Level 3.4 gm/dl (3.4-5.0); Alkaline Phosphatase 114 U/L (34-104); Aspartate Aminotransferase 41 U/L (13-39); Bilirubin,Total 0.9 mg/dl (0.2-1.0); Globulin 3.2 gm/dl (2.5-4.0); Lipase < 3 U/L (11-82); Magnesium 1.8 mg/dl (1.7-2.4); Total Protein 6.6 gm/dl (6.0-8.3)
[2022-02-12] MEDS: ONDANSETRON INJ 2 MG/ML 2 ML VIAL IV PRN (04:29)
[2022-02-12] MEDS: rOPINIRole HCL 2 MG TABLET PO SCH ×4 (04:35→21:10)
[2022-02-12 05:07] LABS: Appearance Urine Clear (Clear); Bacteria Urine Automated 1+ (Negative); Bilirubin Urine Negative (Negative); Blood Urine Negative (Negative); Color Urine Dark Yellow; Epithelial Cell Urine Auto >30 /lpf (0-5); Glucose Urine UA Trace (Negative); Ketones Urine 3+ (Negative); Leukocyte Esterase Urine Negative (Negative); Nitrite Urine Negative (Negative); RBC Urine Automated 0-4 /hpf (0-4); Specific Gravity Urine > 1.045 (1.000-1.030); Urobilinogen Urine Negative (Negative); pH Urine 8.5 (4.5-7.5)
[2022-02-12] MEDS ORDERED: POLYETHYLENE (MIRALAX) 17 GM PACK PO STA (05:08)
[2022-02-12] MEDS ORDERED: DOCUSATE SODIUM/SENNA 50/8.6MG TAB PO SCH (05:10)
[2022-02-12] MEDS ORDERED: MAGNESIUM SULFATE / D5W 1 GM/100 ML BAG IV ONE (05:11)
[2022-02-12 05:13] LABS: Protein Urine 1+ (Negative)
[2022-02-12] MEDS ORDERED: FAMOTIDINE 20 MG in SYRINGE 3 ML IV STA (05:19)
[2022-02-12] MEDS: DOCUSATE SODIUM/SENNA 50/8.6MG TAB PO SCH ×2 (05:36→21:13)
[2022-02-12] MEDS: LEVOTHYROXINE SODIUM 50 MCG TABLET PO SCH (05:36)
[2022-02-12] MEDS ORDERED: PANTOprazole 40 MG in SYRINGE 0 ML IV SCH (05:40)
[2022-02-12] MEDS ORDERED: hydrALAZINE HCL 20 MG/ML VIAL IV PRN (07:59)
[2022-02-12] MEDS ORDERED: METOCLOPRAMIDE HCL INJ 5 MG/ML 2 ML VIAL IV PRN (08:02)
--- NOTE | 2022-02-12 08:02 | CT Scan Report ---
CT abd pelvis IV con only CLINICAL HISTORY: Lower abdominal pain with nausea and vomiting. Reported history of pancreatic cance r. COMPARISON STUDY: 01/14/2022 CT DOSE: 1147.27 mGy.cm TECHNIQUE: Standard CT of the Abdomen and Pelvis was performed with IV contrast. A dose lowering kaylin hnique was utilized adhering to the principles of ALARA. Contrast Volume: Optiray 320, 93 ml. The patient did not receive oral contrast. FINDINGS: Lung base: The lung bases are clear. Abdominal cavity: There is no evidence for abdominal mass, adenopathy or ascites. Liver: There is homogeneous attenuation of the liver parenchyma. There is no evidence for enhancing m ass lesion. However, multiple subcentimeter low-attenuation lesions are seen within the liver parench yma suspicious for interval metastatic disease. MRI would be the study of choice for further evaluati on. Spleen: There is homogeneous attenuation of the splenic parenchyma. There is no enhancing mass lesion . Pancreas: Compared to the previous examination, there is again a stent present within the common bile duct extending through a site of previous mass within the head of the pancreas. There is associated pneumobilia. No recurrent mass is identified within the pancreas. Gall Bladder: The gallbladder is well distended with no evidence for intraluminal calculi, wall thick ening or pericholecystic edema. Air is also present within the gallbladder from the stent. Adrenal glands: The adrenal glands are normal in size and attenuation. There is no evidence for enhan cing mass lesion. Kidneys: There is homogeneous attenuation of the renal parenchyma bilaterally. There is no evidence f or renal calculus or hydronephrosis. There is no evidence for enhancing mass. Bowel: There is now mucosal thickening involving the distal esophagus of uncertain etiology. The lory l loops are normally placed within the abdomen and pelvis without evidence for dilatation or obstruct ion. There is no evidence for mass lesion. However, there is also evidence for mucosal thickening wit hin the colon which can be seen with an infectious versus inflammatory colitis. This could be etiolog y of the patient's nausea and vomiting.. There are no inflammatory changes present. There is no evide nce for free air. Bladder: The bladder is within normal limits with no evidence for focal mass, calculus or diverticulu m. : There is no evidence for pelvic mass or adenopathy. There is no evidence for pelvic ascites. Calc ified uterine fibroids are again seen. Vasculature: There is no evidence for aneurysmal dilatation of the abdominal aorta. Osseous structures: There is no acute osseous pathology. Degenerative changes are present within the spine. IMPRESSION: 1. Compared to previous examination, there is again a stent within the common bile extending through the site of previous pancreatic head mass. 2. There is again associated pneumobilia and air within the gallbladder. 3. Interval development of multiple subcentimeter low-attenuation lesions within the liver suspicious for metastatic disease. Follow-up MRI would be the study of choice for further evaluation. 4. Interval development of mucosal thickening of the distal esophagus. 5. Interval development of mucosal thickening of the colon which can be seen with an infectious versu s inflammatory colitis. ACT 112: Negative or not required by law. Electronically signed by: Albert Johns M.D. 02/12/2022 8:00 AM
[2022-02-12] MEDS: METOCLOPRAMIDE HCL INJ 5 MG/ML 2 ML VIAL IV PRN ×2 (08:32→14:34)
[2022-02-12] MEDS: LORazepam 1 MG TAB PO PRN ×3 (08:45→22:28)
[2022-02-12] MEDS: INSULIN ASPART PER UNIT SC SCH ×4 (09:16→21:00)
[2022-02-12] MEDS: LANTUS PER UNIT CHARGE SQ SCH ×2 (09:18→21:01)
--- NOTE | 2022-02-12 09:59 | Gastrointestinal Consultation ---
Date of Consultation February 12, 2022 Assessment & Plan (1) Nausea & vomiting: (2) Abnormal CT of the abdomen: intermittent episodes of nausea and vomiting are likely related to the pancreas cancer, chemotherapy, or narcotic use. CT findings suggest esophagitis and colitis, however, she does not have clinical symptoms consistent with either of these. She denies heartburn or feeling of reflux. There is likely some esophagitis present from the vomiting. She is not had significant pako rrhea. Would treat esophagitis empirically by increasing PPI to twice daily x1 month then return to once daily. Patient believes that 1 of the antiemetics that she is currently taking is effective for her. Would continue antiemetics and defer endoscopy at this time. GI will watch peripherally, please notify us if new/worsening GI issues. Supervising Physician Co-Signing Physician Notes Late entry: Patient was seen and examined with ANNETTE Busch on 02/12. Her note reflects our findings and plan. History of Present Illness Reason for Consultation: Intractable N/V Requesting Physician: Dr. Clinton Attending Physician: Roya Mcginnis MD History of Present Illness Ms. Jamaica Ceballos is a 41 yr old female w DM2, PCOS, hyperlipidemia, HTN, who was dx'ed with pancreas cancer in by EUS in Apr 2021 and completed neoadjuvant chemo/radiation. She then underwent surgery in January (Whipple aborted due to liver mets seen during surgery), undergoing chemo. She had undergone ERCP with placement of metal stent into the CBD in November. PET scan on 02/08/22 with mets to lymph nodes and liver. She presented to the ED 02/09 for hypoglycemia. She had also had an episode of vomiting last Saturday (chemo was received last Sat). She had an episode of severe mid to lower abd cramping and dry heaves an hour prior to my seeing her as well. GI is consulted for N/V. CT suggests esophagitis. She repots that one of the antiemetics has been effective, but that zofran is not effective. She denies hea rtburn/epigastric burning or feeling of reflux. Pt tells me that one of the antiemetics has been effective and that she is unsure of the name of that med but that it is not Zofran/ondansetron or Compazine. She is also taking Phenergan and hydroxyzine prn. At the time of my interview with her, her nausea was much improved. She was briefly on steroids for treatment of CT findings of questionable colitis. She also tells me that her psych meds including clonidine were temporarily discontinued and restarted recently. Allergies Allergy/AdvReac Type Severity Reaction Status Date / Time Fish Containing Products Allergy Severe Anaphylaxis Verified 02/09/22 17:05 cephalexin [From Keflex] Allergy Mild Rash, Verified 02/09/22 21:20 urticaria Penicillins Allergy Mild Rash Verified 02/09/22 17:05 dulaglutide [From Trulicity] AdvReac Severe Pancreatiti Verified 02/09/22 17:05 s clarithromycin AdvReac Unknown Vomiting Verified 02/09/22 17:05 Home Medications Medication Instructions Recorded Confirmed Type amlodipine 5 mg tablet 5 mg PO BID 04/14/21 02/09/22 History clonidine HCl 0.1 mg tablet See Rx Instructions .ROUTE 04/14/21 02/09/22 History .COMPLEX PRN duloxetine 60 mg capsule,delayed 120 mg PO DAILY cap 04/14/21 02/09/22 History release (Cymbalta) enalapril maleate 20 mg tablet 20 mg PO QAM 04/14/21 02/09/22 History (Vasotec) flash glucose scanning reader 04/14/21 02/09/22 History (FreeStyle Tanmay 14 Day [place]) hydrochlorothiazide 25 mg tablet 25 mg PO QAM 04/14/21 02/09/22 History lamotrigine 200 mg tablet 200 mg PO HS 04/14/21 02/09/22 History (Lamictal) levothyroxine 50 mcg tablet 50 mcg PO QAM 04/14/21 02/09/22 History ropinirole 4 mg tablet 4 mg PO TID 04/14/21 02/09/22 History valacyclovir 1 gram tablet 2,000 mg PO BID PRN tab 04/14/21 02/09/22 History atenolol 50 mg tablet 100 mg PO QAM 04/28/21 02/09/22 History blood sugar diagnostic (OneTouch #600 ea 05/26/21 02/09/22 Rx Verio test strips) flash glucose sensor (FreeStyle #7 ea 05/26/21 02/09/22 Rx Tanmay 14 Day Sensor) pen needle, diabetic 31 gauge x #150 ea 04/27/22 07/08/22 Rx 3/16" (BD Ultra-Fine Mini Pen Needle) flash glucose scanning reader #2 ea 01/02/22 02/09/22 Rx (FreeStyle Tanmay 2 [place]) flash glucose sensor (FreeStyle #2 ea 01/02/22 02/09/22 Rx Tanmay 2 Sensor) acetaminophen 500 mg tablet 500 mg PO Q4 PRN MDD 3g 01/14/22 02/09/22 History docusate sodium 100 mg capsule 100 mg PO AMHS 01/14/22 02/09/22 History insulin aspart U-100 100 unit/mL 2 unit SUBCUT TIDM 01/14/22 02/09/22 History (3 mL) subcutaneous pen (Novolog Flexpen U-100 Insulin aspart) insulin glargine U-300 conc 300 80 unit SUBCUT QAM 01/14/22 02/09/22 History unit/mL (3 mL) subcutaneous pen (Toujeo Max U-300 SoloStar) lidocaine-prilocaine 2.5 %-2.5 % See Rx Instructions .ROUTE .COMPLEX 01/14/22 02/09/22 History topical cream lipase 16,800-protease 1 cap PO TIDM 01/14/22 02/09/22 History 56,800-amylase 98,400 unit capsule, delayed rel (Pancreaze) loratadine 10 mg tablet (Claritin) 10 mg PO DAILY PRN 01/14/22 02/09/22 History lorazepam 1 mg tablet 1 mg PO Q8 PRN 01/14/22 02/09/22 History ondansetron 8 mg disintegrating 8 mg TRANSLINGUAL Q8 PRN 01/14/22 02/09/22 History tablet potassium chloride 10 mEq 10 meq PO AMHS 01/14/22 02/09/22 History tablet,extended release quetiapine 100 mg tablet 200 - 300 mg PO HS 01/14/22 02/09/22 History nicotine 21 mg/24 hr daily 21 mg TRANSDERMAL QAM 28 Days #28 01/17/22 02/09/22 Rx transdermal patch (Nicoderm CQ) ea sennosides 8.6 mg tablet (senna) 17.2 mg PO BID #0 tab 01/17/22 02/09/22 Rx oxycodone 10 mg tablet 10 mg PO Q4 PRN 02/09/22 02/09/22 History Patient History Medical History Allergy-induced asthma rare inhaler use Depression with anxiety Diabetes mellitus, type 2 IDDM Dyslipidemia Hypertension Hypothyroidism Lumbosacral pain Obesity Pancreatic cancer + current chemo, follows with [facility] heme/onc PCOS (polycystic ovarian syndrome) Therapeutic opioid-induced constipation (OIC) Surgical History History of ERCP ERCP (06/2021) & EUS/ERCP (04/28/21): Good view with glidescope #3, ETT 7.0 at [facility] History of tonsillectomy History of umbilical hernia repair History of vascular access device A PORT INSERTION History of wisdom tooth extraction Nausea and vomiting after administration of anesthetic agent Family History Brother Diabetes Hypertension Father Hypertension Aunt Diabetes Grandmother (Maternal) Diabetes Other No family history of adverse response to anesthesia Social History Smoking Status: Current some day smoker Tobacco Type: Cigarettes packs per day: 1; Cigarettes Per Day: 20; Second Hand Exposure: No; Do You Dip or Chew Tobacco: No; Tobacco Cessation Education Requested by Patient: No Hx Alcohol Use: No Hx Substance Use: No Preferred Language: Bolivian Communication Ability: Effective Gore Maker Required: No Beliefs That Will Affect Care: None marital status: Single Current Living Situation: Family and Other Current Living Situation Comment: Lives with Daughter and Dog. Other Information That Helps Us Care for You: No Feels Safe at Home: Yes Safety Concerns: Feels Safe At This Time Assistive Devices: Walker Assistive Devices Comment: scooter Review of Systems Review of Systems: ROS: Gen: + weakness, + weight loss Eyes: No eye redness, or pain, no recent vision changes Resp: No SOB, no cough Cardio: No palpitations/irregular beats, no chest pain GI: Per HPI, otherwise (-) : Denies pain on urination Skin: + rash x 1wk, very itchy; no jaundice Physical Exam Constitutional: well developed, + ill appearing and cooperative Eyes: PERRL, conjunctivae normal, anicteric sclerae Neck: trachea midline, no thyromegaly Respiratory: normal respiratory effort, lungs clear to auscultation Cardiovascular: RRR, no murmur, no edema Gastrointestinal (Abdomen): Inspection/Auscultation: abdomen normal to inspection and normal bowel sounds; abdomen not distended and no abdominal edema Percussion/Palpation: + abdomen tender (diffuse mid abd tenderness on palpation) and abdomen soft; no guarding and abdomen not rigid Skin: normal turgor dull, red confluent non raised rash over the torso Neurologic: PERRL, EOMI, accommodation nl, no face palsy, no dysarthria awake; not confused Psychiatric: A+Ox3, euthymic affect Lymphatic: no cervical or axillary lymphadenopathy Results & Data ([facility]) Vital Signs (Past 12 Hours) Vital Signs Temp Pulse Resp BP Pulse Ox 02/12/22 07:30 36.5 C 69 16 170/93 H 100 02/11/22 22:14 36.9 C 70 16 173/99 H 97 Laboratory Results WBC 3, Hb 10.5, Hct 32.1, Plts 111, Na 138, K 4.0, Cl 97, CO2 31, BUN 10, Cr 0.47, glucose 180. Diagnostic Findings CTAP w IV on 02/12/22 1. Compared to previous examination, there is again a stent within the common bile extending through the site of previous pancreatic head mass. 2. There is again associated pneumobilia and air within the gallbladder. 3. Interval development of multiple subcentimeter low-attenuation lesions within the liver suspicious for metastatic disease. Follow-up MRI would be the study of choice for further evaluation. 4. Interval development of mucosal thickening of the distal esophagus. 5. Interval development of mucosal thickening of the colon which can be seen with an infectious versus inflammatory colitis. (1) Nausea & vomiting Vomiting type: unspecified Qualified Code(s): R11.2 - Nausea with vomiting, unspecified
--- NOTE | 2022-02-12 12:52 | Electrocardiogram Report ---
Test Reason : Blood Pressure : / mmHG Vent. Rate : 085 BPM Atrial Rate : 085 BPM P-R Int : 168 ms QRS Dur : 092 ms QT Int : 376 ms P-R-T Axes : 038 046 030 degrees QTc Int : 447 ms Normal sinus rhythm Normal ECG When compared with ECG of 09-FEB-2022 14:10, No significant change was found Confirmed by Nikolai Luciano ([id number]) on 02/12/2022 12:52:29 PM Referred By: REFERRED SELF Confirmed By:Josr Luciano
[2022-02-12] MEDS: NICOTINE 7 MG/24 HR TDSY TD SCH (12:55)
[2022-02-12] MEDS: CALCIUM CARBONATE 500 MG CHEWABLE TAB PO PRN (14:29)
--- NOTE | 2022-02-12 14:51 | Pharmacy Report ---
Pharmacy Glycemic Short Note 2 - Date of Service February 12, 2022 - Glycemic Short BSG Results (Last 24 hours): 02/11/22 02/11/22 02/12/22 17:03 20:41 03:04 Glucose 180 H POC Glucose 177 H 187 H 02/12/22 02/12/22 08:00 12:18 Glucose POC Glucose 234 H 283 H OUTPATIENT ANTIDIABETIC REGIMEN: * Toujeo 80 units SQ QAM (recently decreased from 110 units by Endo) * NovoLog 2 units TIDm + CR 1:25 (patient reports not taking in last week d/t hypoglycemia) ASSESSMENT: * BSGs yesterday were [phone] mg/dL and today are 234-283 mg/dL. Prednisone 40 mg daily has been stopped (did not receive today). * Patient with significant N/V. * Reduced AM dose of Lantus to 15 units due to above. Will still provide scale for Lantus this evening with TDD of 15-25 units. * Loosened CF due to significant decrease in BSG from breakfast to lunch. * Cautious titration right now due to N/V. Background * Patient is 42 y/o F with PMH insulin dependent DM II, HTN, HLD, pancreatic cancer on chemo, last treatment Saturday. Presented to ER with complaint of episodes of hypoglycemia x 1 week. BSG down to 60 with associated dizziness, diaphoresis. Has had decreased appetite and decreased oral intake. * Patient reports she is to have second opinion with [facility] 02/13/2022 for pancreatic cancer. * Patient also seen in ER on 02/06/2022 after fall that she reports she had di zziness and hypoglycemia and was trying to get to kitchen to get something to eat. In ER was then found to have distal right fibular fracture. Patient has followed up with ortho[facility] and has walking boot. * Patient recently admitted for DKA in January, only needed ~20 units basal per day, will start at a low dose and titrate to goal to prevent hypoglycemia. PLAN FOR INPATIENT GLYCEMIC CONTROL: * Hold outpatient diabetes medications * Basal insulin * Lantus 15 units SQ daily + 0-15 units tonight * Bolus insulin * NovoLog per scale ACHS or Q6hrs while NPO * Goal Range: Low 110 mg/dL - High 140 mg/dL * Correction Factor: 25 mg/dL/unit * Nutritional / Prandial insulin per carb ratio of 1 unit per 6 grams CHO consumed
[2022-02-12] MEDS: HYDROmorphone INJ 0.5 MG/0.5 ML SYR IV PRN (14:53)
--- NOTE | 2022-02-12 15:46 | Hospitalist Progress Note ---
Date of Service February 12, 2022 Assessment & Plan (1) Hypoglycemia: Plan: 42 y/o F with PMH insulin dependent DM II, HTN, HLD, pancreatic cancer on chemo presented to ER with complaint of episodes of hypoglycemia x 1 week. BSG down to 60 with associated dizziness, diaphoresis. Has had decreased appetite and decreased oral intake. Had chemo within the week Endocrinology decreased Toujeo from 110 units to 80 units daily. Has not been using Novolog due to poor oral intake BG has been >80 since admission Ac1: 8.2 on 01/11/22 Monitor BSGs closely. Blood glucose 234 this AM. Glycemic pharmacy on board with glycemic management family living educator consult (2) Intractable nausea and vomiting: Plan: Likely due to esophagitis Possible colitis Continue IV PPI Continue clears and advance as tolerated Will appreciate GI evaluation and recommendations Continue antiemetics (3) Allergic rash present on examination: Plan: Patient reported rash started same day as Keflex. Also reports allergy to penicillin with rash. Keflex has been discontinued Urinalysis on presentation does not suggest UTI and patient denies any symptoms at this time. Continue antihistamines. Stop prednisone per patient's request (4) Closed fibular fracture: Plan: 02/06/22 Fall. +distal fibula fracture Has walking boot. Following with [facility]o - [facility] Continue outpatient ortho follow up (5) History of pancreatic cancer: Plan: Currently on chemo. Recent attempt at whipple procedure however aborted secondary to liver metastasis found Following with [facility] oncology. Is to have second opinion and [facility] on 02/13/22, now rescheduled to 02/27/22 Chronic abdominal pain, nausea Also poor oral intake, weight loss since recent admission. Likely protein- calorie malnutrition Continue Pancreaze Depression/Anxiety Continue home medications HTN Was hypotensive on 02/10/22 At home, she was on amlodipine, atenolol, clonidine, enalapril, HCTZ Antihypertensives were initially held Now hypertensives Home antihypertensives resumed Hypothyroidism Continue levothyroxine Pancytopenia Likely related to chemotherapy DVT Prophylaxis Lovenox SQ Full Code Admission and Anticipated Discharge Date Admission Date: February 10, 2022 Subjective 42-year-old woman with insulin-dependent diabetes, hypertension, pancreatic cancer on chemo who presented to the ER with complaint of hypoglycemia with home blood glucose in the 60s within the past week. Reported she had chemo within the week and has been having some anorexia with nausea and vomiting. She also reported pruritic rash that started 3 days ago after starting Keflex as prescribed for possible UTI. Had worsening abd pain and intractable nausea/vomiting overnight necessitating CT ab/P which showed esophagitis, ?colitis and was started on IV PPI Patient seen and examined today Reports symptoms are improved compared to last night but still present Still has nausea, abd pain No vomiting so far today Denied any constipation or diarrhea Denied hematochezia, melena No headache or dizziness at this time Reports rash is stable and no more pruritus She stated she wants prednisone discontinued as it was affecting her mood Denied fevers Denied cough, chest pain, shortness of breath Denied dysuria, frequency, urgency, incontinence, hematuria Physical Exam Constitutional: + well hydrated and + obese; no acute distress Eyes: PERRL, conjunctivae normal, anicteric sclerae ENMT: external ear and nose normal, oropharynx normal Respiratory: normal respiratory effort, lungs clear to auscultation Cardiovascular: Rate/Rhythm: regular rate and regular rhythm S1 S2 Gastrointestinal (Abdomen): Inspection/Auscultation: abdomen normal to inspection and normal bowel sounds; abdomen not distended +diffuse abd tenderness, no rebound or guarding Musculoskeletal: no cyanosis or clubbing, extremities motor strength 5/5 Skin: Erythematous rash over abd/back Neurologic: PERRL, EOMI, accommodation nl, no face palsy, no dysarthria Psychiatric: A+Ox3, euthymic affect Results & Data Results & Data ([facility]) Vital Signs (Past 12 Hours) Vital Signs Temp Pulse Pulse Resp BP Pulse Ox 02/12/22 14:59 37.2 C 94 H 16 159/91 H 16 L 02/12/22 07:30 36.5 C 69 16 170/93 H 100 Laboratory Results Abnormal lab results 02/11/22 02/11/22 02/12/22 Range/Units 17:03 20:41 03:04 WBC 3.22 L (4.8-10.8) K/ul RBC 3.59 L (3.93-5.22) M/uL Hgb 10.5 L (12.0-16.0) g/dl Hct 32.1 L (34.1-44.9) % Plt Count 111 L (130-400) K/uL Lymph # (Auto) 0.34 L (1.2-3.4) K/uL [place] # (Auto) 0.03 L (0.24-0.82) K/uL Immature Gran # (Auto) 0.05 H (0.00-0.02) K/uL Chloride (98-107) mmol/L Creatinine (0.6-1.2) mg/dl BUN/Creatinine Ratio (10-20) Glucose (70-99(Fasting)) mg/dl POC Glucose 177 H 187 H (70-99) mg/dl AST (13-39) U/L Alkaline Phosphatase (34-104) U/L Lipase (11-82) U/L Urine pH (4.5-7.5) Ur Specific [place] (1.000-1.030) Urine Protein (Negative) Urine Glucose (UA) (Negative) Urine Ketones (Negative) U Epithel Cells (Auto) (0-5) /lpf Urine Bacteria (Auto) (Negative) 02/12/22 02/12/22 02/12/22 Range/Units 03:04 04:53 08:00 WBC (4.8-10.8) K/ul RBC (3.93-5.22) M/uL Hgb (12.0-16.0) g/dl Hct (34.1-44.9) % Plt Count (130-400) K/uL Lymph # (Auto) (1.2-3.4) K/uL [place] # (Auto) (0.24-0.82) K/uL Immature Gran # (Auto) (0.00-0.02) K/uL Chloride 97 L (98-107) mmol/L Creatinine 0.49 L (0.6-1.2) mg/dl BUN/Creatinine Ratio 20.4 H (10-20) Glucose 180 H (70-99(Fasting)) mg/dl POC Glucose 234 H (70-99) mg/dl AST 41 H (13-39) U/L Alkaline Phosphatase 114 H (34-104) U/L Lipase < 3 L (11-82) U/L Urine pH 8.5 H (4.5-7.5) Ur Specific [place] > 1.045 H (1.000-1.030) Urine Protein 1+ H (Negative) Urine Glucose (UA) Trace H (Negative) Urine Ketones 3+ H (Negative) U Epithel Cells (Auto) >30 H (0-5) /lpf Urine Bacteria (Auto) 1+ H (Negative) 02/12/22 Range/Units 12:18 WBC (4.8-10.8) K/ul RBC (3.93-5.22) M/uL Hgb (12.0-16.0) g/dl Hct (34.1-44.9) % Plt Count (130-400) K/uL Lymph # (Auto) (1.2-3.4) K/uL [place] # (Auto) (0.24-0.82) K/uL Immature Gran # (Auto) (0.00-0.02) K/uL Chloride (98-107) mmol/L Creatinine (0.6-1.2) mg/dl BUN/Creatinine Ratio (10-20) Glucose (70-99(Fasting)) mg/dl POC Glucose 283 H (70-99) mg/dl AST (13-39) U/L Alkaline Phosphatase (34-104) U/L Lipase (11-82) U/L Urine pH (4.5-7.5) Ur Specific [place] (1.000-1.030) Urine Protein (Negative) Urine Glucose (UA) (Negative) Urine Ketones (Negative) U Epithel Cells (Auto) (0-5) /lpf Urine Bacteria (Auto) (Negative) Diagnostic Findings CT ABD/PELVIS Lung base: The lung bases are clear. Abdominal cavity: There is no evidence for abdominal mass, adenopathy or ascites. Liver: There is homogeneous attenuation of the liver parenchyma. There is no evidence for enhancing mass lesion. However, multiple subcentimeter low- attenuation lesions are seen within the liver parenchyma suspicious for interval metastatic disease. MRI would be the study of choice for further evaluation. Spleen: There is homogeneous attenuation of the splenic parenchyma. There is no enhancing mass lesion. Pancreas: Compared to the previous examination, there is again a stent present within the common bile duct extending through a site of previous mass within the head of the pancreas. There is associated pneumobilia. No recurrent mass is identified within the pancreas. Gall Bladder: The gallbladder is well distended with no evidence for intraluminal calculi, wall thickening or pericholecystic edema. Air is also pr esent within the gallbladder from the stent. Adrenal glands: The adrenal glands are normal in size and attenuation. There is no evidence for enhancing mass lesion. Kidneys: There is homogeneous attenuation of the renal parenchyma bilaterally. There is no evidence for renal calculus or hydronephrosis. There is no evidence for enhancing mass. Bowel: There is now mucosal thickening involving the distal esophagus of uncertain etiology. The bowel loops are normally placed within the abdomen and pelvis without evidence for dilatation or obstruction. There is no evidence for mass lesion. However, there is also evidence for mucosal thickening within the colon which can be seen with an infectious versus inflammatory colitis. This could be etiology of the patient's nausea and vomiting.. There are no inflammatory changes present. There is no evidence for free air. Bladder: The bladder is within normal limits with no evidence for focal mass, calculus or diverticulum. : There is no evidence for pelvic mass or adenopathy. There is no evidence for pelvic ascites. Calcified uterine fibroids are again seen. Vasculature: There is no evidence for aneurysmal dilatation of the abdominal aorta. Osseous structures: There is no acute osseous pathology. Degenerative changes are present within the spine. IMPRESSION: 1. Compared to previous examination, there is again a stent within the common bile extending through the site of previous pancreatic head mass. 2. There is again associated pneumobilia and air within the gallbladder. 3. Interval development of multiple subcentimeter low-attenuation lesions within the liver suspicious for metastatic disease. Follow-up MRI would be the study of choice for further evaluation. 4. Interval development of mucosal thickening of the distal esophagus. 5. Interval development of mucosal thickening of the colon which can be seen with an infectious versus inflammatory colitis. (1) Closed fibular fracture Encounter type: subsequent encounter Laterality: right
[2022-02-12] MEDS: amLODIPine BESYLATE 5 MG TAB PO SCH ×2 (16:05→21:08)
[2022-02-12] MEDS: PANCREAZE (LIPASE 16,800U) CAP PO SCH ×3 (16:05→18:06)
[2022-02-12] MEDS: LORATADINE 10 MG TAB PO SCH ×2 (16:06→18:34)
[2022-02-12] MEDS: ATENOLOL 50 MG TABLET PO SCH ×2 (16:06→18:34)
[2022-02-12] MEDS: DULoxetine HCL 60 MG CAP PO SCH ×2 (16:06→18:34)
[2022-02-12] MEDS: ENALAPRIL MALEATE 10 MG TAB PO SCH ×2 (16:06→18:34)
[2022-02-12] MEDS: ENOXAPARIN INJ 40 MG/0.4 ML SYR SQ SCH ×2 (16:06→18:33)
[2022-02-12] MEDS: POTASSIUM CHLORIDE 10 MEQ TABCR PO SCH ×2 (16:07→21:11)
[2022-02-12] MEDS: SENNA 8.6 MG TAB PO SCH ×2 (16:07→21:09)
[2022-02-12] MEDS: predniSONE 20 MG TAB PO SCH (19:26)
[2022-02-12] MEDS: PANTOprazole 40 MG in SYRINGE 0 ML IV SCH (21:05)
[2022-02-12] MEDS: lamoTRIgine 100 MG TAB PO SCH (21:09)
[2022-02-12] MEDS: QUEtiapine FUMARATE 200 MG TAB PO SCH (21:10)
[2022-02-12] MEDS: cloNIDine HCL 0.1 MG TAB PO PRN (21:12)
[2022-02-12] MEDS: oxyCODONE HCL IR 5 MG TAB (IMMEDIATE RELEASE) PO PRN (21:29)
[2022-02-13] MEDS: HYDROmorphone INJ 0.5 MG/0.5 ML SYR IV PRN ×2 (00:03→09:21)
[2022-02-13] MEDS: INSULIN ASPART PER UNIT SC SCH ×4 (00:28→12:33)
[2022-02-13] MEDS: LORazepam 1 MG TAB PO PRN (04:32)
[2022-02-13] MEDS: LEVOTHYROXINE SODIUM 50 MCG TABLET PO SCH (05:48)
[2022-02-13 06:17] LABS: BUN Creatinine Ratio 18.4 (10-20); Calcium 8.1 mg/dl (8.5-10.1); Creatinine Clr Calc Pharmacy 186.7 ml/min; Est GFR (African American) 137.3 ml/min; Est GFR (Non-African American) 118.5 ml/min; Magnesium 1.8 mg/dl (1.7-2.4); Phosphorus 3.4 mg/dl (2.5-4.9); Potassium 3.1 mmol/L (3.5-5.1)
[2022-02-13 06:21] LABS: Hematocrit (blood only) 25.3 % (34.1-44.9); Hemoglobin 8.4 g/dl (12.0-16.0); Mean Corpuscular Hemoglobin 30.1 pg (25.0-34.0); Mean Corpuscular Hgb Conc 33.2 g/dL (32.0-36.0); Mean Corpuscular Volume 90.7 fL (80.0-100.0); Mean Platelet Volume 10.2 fL (9.4-12.3); Platelet Count 78 K/uL (130-400); Platelet Estimate Decreased (Normal); RDW Coefficient of Variation 12.5 % (11.5-14.5); RDW Standard Deviation 41.3 fL (36.4-46.3); Red Blood Count 2.79 M/uL (3.93-5.22); White Blood Count 2.69 K/ul (4.8-10.8)
[2022-02-13] MEDS: POTASSIUM CHLORIDE 10 MEQ TABCR PO SCH (08:11)
[2022-02-13] MEDS: amLODIPine BESYLATE 5 MG TAB PO SCH (08:12)
[2022-02-13] MEDS: PANCREAZE (LIPASE 16,800U) CAP PO SCH ×2 (08:13→12:35)
[2022-02-13] MEDS: NICOTINE 7 MG/24 HR TDSY TD SCH (08:13)
[2022-02-13] MEDS: rOPINIRole HCL 2 MG TABLET PO SCH ×2 (08:14→13:51)
[2022-02-13] MEDS: DOCUSATE SODIUM/SENNA 50/8.6MG TAB PO SCH (08:16)
[2022-02-13] MEDS: SENNA 8.6 MG TAB PO SCH (08:17)
[2022-02-13] MEDS: LANTUS PER UNIT CHARGE SQ SCH (08:31)
[2022-02-13] MEDS: PANTOprazole 40 MG in SYRINGE 0 ML IV SCH (09:21)
[2022-02-13] MEDS: POTASSIUM CHLORIDE / WTR 10 MEQ/100 ML PLCT IV SCH ×4 (09:41→13:03)
[2022-02-13] MEDS: ATENOLOL 50 MG TABLET PO SCH (09:54)
[2022-02-13] MEDS: ENALAPRIL MALEATE 10 MG TAB PO SCH (09:55)
[2022-02-13] MEDS: LORATADINE 10 MG TAB PO SCH (09:55)
[2022-02-13] MEDS: DULoxetine HCL 60 MG CAP PO SCH (09:55)
[2022-02-13] MEDS: ENOXAPARIN INJ 40 MG/0.4 ML SYR SQ SCH (09:58)
[2022-02-13] MEDS: CALCIUM CARBONATE 500 MG CHEWABLE TAB PO PRN (12:52)
--- NOTE | 2022-02-13 13:06 | Discharge Summary ---
Date of Service February 13, 2022 Admission HPI Per Admitting Provider Patient is 42 y/o F with PMH insulin dependent DM II, HTN, HLD, pancreatic cancer on chemo presented to ER with complaint of episodes of hypoglycemia. Patient reports 1 week ago started having episodes of hypoglycemia with blood sugars down into 60s. She reports dizziness and sweating. Patient states that she has had decreased appetite and decreased oral intake. She has not been using NovoLog secondary to hypoglycemia. Is following with [facility] endocrinology who recommended decreasing Toujeo from 110 units to 80 units daily. Patient reports did have Toujeo this morning. Patient reports chronic abdominal pain. Denies any increased abdominal pain. Following with [facility] oncology. Last chemo 02/07/2022. She reports gets nausea, vomiting and decreased appetite worsening after chemo treatment. States last night had episode of vomiting and this morning as well. She reports is to have second opinion with [facility] 02/13/2022 for pancreatic cancer. Patient also seen in ER on 02/06/2022 after fall that she reports she had dizziness and hypoglycemia and was trying to get to kitchen to get something to eat. In ER was then found to have distal right fibular fracture. Patient has followed up with [facility]o-[facility] and has walking boot. She reports her right lower extremity has been swollen and bruised. Has been taking oxycodone for pain. UA at that time felt concerning for UTI and patient was started on Keflex. Urine culture consistent with contaminant. Patient no longer taking Keflex. She denies any urinary symptoms. Patient reports past 2 days having itching that started on abdomen and has spread to chest, legs, back. She noted red rash today. Denies fever/chills, hematemesis, hematochezia, melena, constipation, diarrhea VENTURA, syncope, vision changes, neck pain, CP, SOB, orthopnea, palpitations, cough, sore throat, choking, otalgia, rhinorrhea, paresthesias, weakness, extremity weakness, other extremity edema. Admission Exam Per Admitting Provider General: no distress, overweight Head: normocephalic, atraumatic Eyes: conjunctiva non-injected, anicteric ENT: normal inspection external ears, nose, mucous membranes moist, no tongue or lip edema Neck: supple, trachea midline Lungs: clear, no respiratory distress, no wheezing/rhonchi/rales CV: RRR, no murmur Abd: protuberant, mid abdominal incision without erythema or discharge, normal BS, soft, non-tender to palpation Ext: no cyanosis, no erythema, no calf tenderness; RLE: +distal leg edema and ecchymosis extending to foot, distal pulses intact, sensation to light touch intact Neuro: A&O x 3, no focal deficits noted, normal affect Skin: warm, dry, +erythematous urticaria to abdomen, back, bilateral upper legs with excoriations Principal Diagnosis Nausea and vomiting Esophagitis Allergic rash Hypoglycemia Pancytopenia Discharge Exam Constitutional + well hydrated and + obese; no acute distress Eyes PERRL, conjunctivae normal, anicteric sclerae ENMT external ear and nose normal, oropharynx normal Respiratory normal respiratory effort, lungs clear to auscultation Cardiovascular Rate/Rhythm: regular rate and regular rhythm S1 S2 Gastrointestinal (Abdomen) normal bowel sounds, soft, nontender, no hepatosplenomegaly Musculoskeletal no cyanosis or clubbing, extremities motor strength 5/5 Right ankle swelling Skin Erythematous rash clearing Neurologic PERRL, EOMI, accommodation nl, no face palsy, no dysarthria Psychiatric A+Ox3, euthymic affect Discharge Data Allergies Allergy/AdvReac Type Severity Reaction Status Date / Time Fish Containing Products Allergy Severe Anaphylaxis Verified 02/09/22 17:05 cephalexin [From Keflex] Allergy Mild Rash, Verified 02/09/22 21:20 urticaria Penicillins Allergy Mild Rash Verified 02/09/22 17:05 dulaglutide [From Trulicity] AdvReac Severe Pancreatiti Verified 02/09/22 17:05 s clarithromycin AdvReac Unknown Vomiting Verified 02/09/22 17:05 Consultations 02/09/22 17:19 ED Decision to Admit Stat 02/12/22 07:59 Consult Gastroenterology Routine Ordered Studies 02/09/22 13:23 US venous doppler LE RT Stat There is no sonographic evidence of deep venous thrombosis identified in the right lower extremity. The common femoral, superficial femoral, and popliteal veins are patent and normally compressible. The greater saphenous vein and the profunda femoris vein at the junction with the common femoral vein are clear. The visualized calf veins are patent. IMPRESSION: There is no sonographic evidence of deep venous thrombosis identified in the right lower extremity. 02/12/22 01:39 CT abd pelvis IV con only Urgent Lung base: The lung bases are clear. Abdominal cavity: There is no evidence for abdominal mass, adenopathy or ascites. Liver: There is homogeneous attenuation of the liver parenchyma. There is no evidence for enhancing mass lesion. However, multiple subcentimeter low-attenuation lesions are seen within the liver parenchyma suspicious for interval metastatic disease. MRI would be the study of choice for further evaluation. Spleen: There is homogeneous attenuation of the splenic parenchyma. There is no enhancing mass lesion. Pancreas: Compared to the previous examination, there is again a stent present within the common bile duct extending through a site of previous mass within the head of the pancreas. There is associated pneumobilia. No recurrent mass is identified within the pancreas. Gall Bladder: The gallbladder is well distended with no evidence for intralumi nal calculi, wall thickening or pericholecystic edema. Air is also present within the gallbladder from the stent. Adrenal glands: The adrenal glands are normal in size and attenuation. There is no evidence for enhancing mass lesion. Kidneys: There is homogeneous attenuation of the renal parenchyma bilaterally. There is no evidence for renal calculus or hydronephrosis. There is no evidence for enhancing mass. Bowel: There is now mucosal thickening involving the distal esophagus of uncertain etiology. The bowel loops are normally placed within the abdomen and pelvis without evidence for dilatation or obstruction. There is no evidence for mass lesion. However, there is also evidence for mucosal thickening within the colon which can be seen with an infectious versus inflammatory colitis. This could be etiology of the patient's nausea and vomiting.. There are no inflammatory changes present. There is no evidence for free air. Bladder: The bladder is within normal limits with no evidence for focal mass, calculus or diverticulum. : There is no evidence for pelvic mass or adenopathy. There is no evidence for pelvic ascites. Calcified uterine fibroids are again seen. Vasculature: There is no evidence for aneurysmal dilatation of the abdominal aorta. Osseous structures: There is no acute osseous pathology. Degenerative changes are present within the spine. IMPRESSION: 1. Compared to previous examination, there is again a stent within the common bile extending through the site of previous pancreatic head mass. 2. There is again associated pneumobilia and air within the gallbladder. 3. Interval development of multiple subcentimeter low-attenuation lesions within the liver suspicious for metastatic disease. Follow-up MRI would be the study of choice for further evaluation. 4. Interval development of mucosal thickening of the distal esophagus. 5. Interval development of mucosal thickening of the colon which can be seen with an infectious versus inflammatory colitis. Hospital Course (1) Hypoglycemia: 42 y/o F with PMH insulin dependent DM II, HTN, HLD, pancreatic cancer on chemo presented to ER with complaint of episodes of hypoglycemia x 1 week. BSG down to 60 with associated dizziness, diaphoresis. Has had decreased appetite and decreased oral intake. Had chemo within the week Endocrinology decreased Toujeo from 110 units to 80 units daily. Has not been using Novolog due to poor oral intake BG has been >80 since admission Ac1: 8.2 on 01/11/22 Based on patient's insulin requirement while inpatient, long acting insulin was reduced to 30U daily for now Patient to continue her short acting with sliding scale as oral intake improves She reported she will get an appointment to follow up with her [employer] this week (2) Intractable nausea and vomiting: Likely due to esophagitis CT abd/Pelvis mucosal thickening of distal esophagus and colon Patient was evaluted by GI Started on IV PPI Symptoms resolved Discharged on po pantoprazole 40mg bid x 1 month. Needs to continue daily afterwards Patient to follow up with GI Continue home antiemetics (3) Allergic rash present on examination: Patient reported rash started same day as Keflex. Also reports allergy to penicillin with rash. Keflex has been discontinued Urinalysis on presentation does not suggest UTI and patient denies any symptoms at this time. Rash is improving with antihistamine (4) Closed fibular fracture: 02/06/22 Fall. +distal fibula fracture Has walking boot. Following with [facility]o - [facility] Continue outpatient ortho follow up (5) History of pancreatic cancer: Currently on chemo. Recent attempt at whipple procedure however aborted secondary to liver metastasis found Following with [facility] oncology. Is to have second opinion and [facility] on 02/13/22, now rescheduled to 02/27/22 Chronic abdominal pain, nausea CT abd also noted metastatic lesion in liver Also poor oral intake, weight loss since recent admission. Likely protein- calorie malnutrition Continue Pancreaze Depression/Anxiety Continue home medications HTN Continue home antihypertensives Hypothyroidism Continue levothyroxine Pancytopenia Likely related to chemotherapy Total Time Total Time Spent Total Time Spent (In Minutes): 45 Discharge Plan Discharge Items Patient Disposition: Home - Home Health Services Reason For Visit: HYPOGLYCEMIA Discharge Diagnosis: Nausea and vomiting Esophagitis Allergic rash Hypoglycemia Pancytopenia Activity: Resume your previous activity Non-emergency contact: Primary Care Provider, Treasury Assistant and Oncologist Call non-emergency contact if: you have any medication questions and your symptoms worsen Follow-up/Referrals: Dhruv Hawley MD [Primary Care Provider] - (Date & Time 02/16/2022 2:00 PM Provider Thuy Bajwa MD Department [facility] ) Kelly Serrano CRNP [Nurse Practitioner] - (Date & Time 02/14/2022 11:00 AM Provider ANNETTE Thomas Department Gastroenterology, [facility] ) Diet: Carb Consistent or DM2 and Heart Healthy Addtl Attending Provider Instructions: Ms Ceballos You came to the hospital due to nausea, vomiting, low blood glucose level at home. You also had generalized itchy rash which starteed after taking keflex prescribed during your recent ER visit. You were evaluated and found to have esophagitis. CT abd also noted lesions in the liver suspicious for metastasis. You were started on pantoprazole. Please take this as prescribed ( 40mg twice daily for 1 month, then once daily afterwards) Please take the loratadine for another 3 days for your rash Based on your insulin requirement while you were in the hospital, please reduce your long acting insulin to 30Units once a day until you follow up with [employer]. Continue to use short acting insulin as sliding scale as you do. Please ensure follow up with Treasury Assistant and Oncologist. It was a pleasure taking care of you. Pending Studies at Discharge: No Stand-Alone Forms: My Angry Citizen, Smoking Cessation Medications and DC Order Prescriptions: New loratadine [Wal-itin] 10 mg Tablet 10 mg PO QAM Qty: 3 RF: 0 pantoprazole 40 mg tablet,delayed release (DR/EC) 40 mg PO BID 30 Days Qty: 60 RF: 0 Continued (DME) OneTouch Verio test strips Strip See Rx Instructions .Route Qty: 600 RF: 3 (DME) FreeStyle Tanmay 14 Day Sensor Kit See Rx Instructions .Route Qty: 7 RF: 3 (DME) pen needle, diabetic [BD Ultra-Fine Mini Pen Needle] 31 gauge x 3/16" needle See Rx Instructions .Route Qty: 150 RF: 5 (DME) FreeStyle Tanmay 2 [place] Misc See Rx Instructions .Route Qty: 2 RF: 11 (DME) FreeStyle Tanmay 2 Sensor Kit See Rx Instructions .Route Qty: 2 RF: 11 levothyroxine 50 mcg tablet 50 mcg PO QAM RF: 0 hydrochlorothiazide 25 mg tablet 25 mg PO QAM RF: 0 amlodipine 5 mg tablet 5 mg PO BID RF: 0 ropinirole 4 mg tablet 4 mg PO TID RF: 0 enalapril maleate [Vasotec] 20 mg tablet 20 mg PO QAM RF: 0 (DME) FreeStyle Tanmay 14 Day [place] Misc See Rx Instructions .Route RF: 0 valacyclovir 1 gram tablet 2,000 mg PO BID PRN (Reason: Cold Sores) RF: 0 clonidine HCl 0.1 mg tablet See Rx Instructions .ROUTE .COMPLEX PRN (Reason: Anxiety) RF: 0 lamotrigine [Lamictal] 200 mg tablet 200 mg PO HS RF: 0 duloxetine [Cymbalta] 60 mg capsule,delayed release(DR/EC) 120 mg PO DAILY RF: 0 atenolol 50 mg tablet 100 mg PO QAM RF: 0 quetiapine 100 mg tablet 200 - 300 mg PO HS RF: 0 lorazepam 1 mg tablet 1 mg PO Q8 PRN (Reason: anxiety or sleep) RF: 0 Pancreaze 16,800-56,800- 98,400 unit capsule,delayed release(DR/EC) 1 cap PO TIDM RF: 0 insulin aspart U-100 [Novolog Flexpen U-100 Insulin] 100 unit/mL (3 mL) insulin pen 2 unit subcut TIDM RF: 0 docusate sodium 100 mg Capsule 100 mg PO AMHS RF: 0 acetaminophen 500 mg Tablet 500 mg PO Q4 MDD 3g PRN (Reason: Pain) RF: 0 loratadine [Claritin] 10 mg Tablet 10 mg PO DAILY PRN (Reason: Nasal Congestion) RF: 0 ondansetron 8 mg tablet,disintegrating 8 mg translingual Q8 PRN (Reason: Nausea) RF: 0 potassium chloride 10 mEq tablet extended release 10 meq PO AMHS RF: 0 lidocaine-prilocaine 2.5-2.5 % cream See Rx Instructions .ROUTE .COMPLEX RF: 0 nicotine [Nicoderm CQ] 21 mg/24 hr Patch 24 Hour 21 mg transdermal QAM 28 Days Qty: 28 RF: 0 sennosides [senna] 8.6 mg Tablet 17.2 mg PO BID Qty: 0 RF: 0 oxycodone 10 mg tablet 10 mg PO Q4 PRN (Reason: Severe Pain (Scale Score 7-10)) RF: 0 Changed Toujeo Max U-300 SoloStar 300 unit/mL (3 mL) insulin pen 30 unit SUBCUT QAM Qty: 0 RF: 0 Discharge Orders: Discharge Order (Routine); Ordered 02/13/22 Ordered By: Roya Torres/Other Patient Handouts: Abdominal Pain Admission Data Admit Date/Time: 02/10/22 19:13 Attending Provider: Roya Mcginnis I. Admit Provider: Roya Mcginnis I. Primary Care Provider: Dhruv Hawley Other Providers: Femi Clinton ; Concepción Velazquez Other Interventions: Discharge Summary Assessment (RN) Last Done: 02/13/22 16:26
[2022-02-13] MEDS: oxyCODONE HCL IR 5 MG TAB (IMMEDIATE RELEASE) PO PRN (13:55)
== END 2022-02-13 16:44 | disposition home health service (06) | DRG 637 ==
LOC: ED 12:34 → 3E 12:34 → SUATTDRO 17:51 → 3E 21:16

== ENCOUNTER 2022-05-09 11:36 | Inpatient (IN) ==
[2022-05-09 12:17] LABS: Basophils # (auto) 0.04 K/uL (0-0.2); Basophils % (auto) 0.4 %; Eosinophils # (auto) 0.01 K/uL (0-0.50); Eosinophils % (auto) 0.1 %; Hematocrit (blood only) 43.9 % (34.1-44.9); Hemoglobin 14.5 g/dl (12.0-16.0); Immature Granulocytes # (auto) 0.04 K/uL (0.00-0.02); Immature Granulocytes % (auto) 0.4 %; Lymphocytes # (auto) 1.08 K/uL (1.2-3.4); Lymphocytes % (auto) 10.8 %; Mean Corpuscular Hemoglobin 31.9 pg (25.0-34.0); Mean Corpuscular Volume 96.7 fL (80.0-100.0); Mean Platelet Volume 11.9 fL (9.4-12.3); Monocytes # (auto) 0.19 K/uL (0.24-0.82); Monocytes % (auto) 1.9 %; Neutrophils # (auto) 8.68 K/uL (1.4-6.5); Neutrophils % (auto) 86.4 %; Platelet Count 295 K/uL (130-400); RDW Coefficient of Variation 16.4 % (11.5-14.5); Red Blood Count 4.54 M/uL (3.93-5.22); White Blood Count 10.04 K/ul (4.8-10.8)
[2022-05-09 12:37] LABS: INR 1.1 (0.9-1.1); Partial Thromboplastin Time 27.3 Seconds (21.0-31.0); Prothrombin Time 11.7 Seconds (9.0-12.0)
[2022-05-09 12:44] LABS: Alanine Aminotransferase 22 U/L (7-52); Albumin Globulin Ratio 0.9 (0.9-2); Albumin Level 3.3 gm/dl (3.4-5.0); Alkaline Phosphatase 380 U/L (34-104); Anion Gap 15 (3-11); Aspartate Aminotransferase 52 U/L (13-39); BUN Creatinine Ratio 13.6 (10-20); Blood Urea Nitrogen 6 mg/dl (6-23); Carbon Dioxide 24 mmol/L (21-32); Chloride 96 mmol/L (98-107); Est GFR (African American) 142.3 ml/min; Est GFR (Non-African American) 122.8 ml/min; Globulin 3.7 gm/dl (2.5-4.0); Glucose 308 mg/dl (70-99(Fasting)); Sodium 135 mmol/L (136-145); Troponin I High Sensitivity 8.6 pg/ml (0-14)
[2022-05-09] MEDS ORDERED: ONDANSETRON INJ 2 MG/ML 2 ML VIAL IV STA ×3 (12:44→15:35)
[2022-05-09] MEDS ORDERED: MoRPHine SULFATE 10 MG/ML CARP/VIAL IV STA (12:44)
--- NOTE | 2022-05-09 12:50 | Emergency Department Note ---
Impression & Plan Closed rib fracture, Adenocarcinoma of head of pancreas, Hemothorax, Fall, Dizziness ED Provider Note NAME: MIR GRIMM AGE: 42 SEX: F : 1980 ARRIVES VIA: Walk-In INFORMANT: Patient ED PROVIDER(S): Garrett Robb DO CHIEF COMPLAINT: fall HPI: Patient is a 42-year-old female who presents to ER following a fall on Saturday. She fell into the toilet. She notes that she was lightheaded/dizzy which is typical when she takes morphine. She comes in here for severe 10 out of 10 right rib pain. She did not take her morphine since 4 AM. She notes the reason she did not take it although in severe pain was this does sometimes cause dizziness. She notes that she is still dizzy from the morphine previously. Denies any headache or change in vision. No new belly pain but admits to persistent right-sided abdominal pain which is unchanged as well as nausea which is slightly worse. No dysuria, urgency, or frequency. No weakness or numbness in the arms or legs. No other exacerbating or remitting factors. ROS: See above HPI for pertinent positives & negatives. A total of 10 systems reviewed and were otherwise negative. PAST MEDICAL HISTORY:See Below PAST SURGICAL HISTORY:See Below FAMILY HISTORY:See Below SOCIAL HISTORY:See Below HOME MEDICATIONS:See Below ALLERGIES:See Below VITALS:See Below PHYSICAL EXAMINATION: GENERAL: Sitting up in bed, alert, ill-appearing, disheveled EYE EXAM: normal conjunctiva. PERRL and EOM's grossly intact. OROPHARYNX:mucous membranes are dry NECK: supple, no nuchal rigidity, no adenopathy, non-tender LUNGS: Clear to auscultation. Normal chest wall mechanics HEART: no murmurs, S1 normal and S2 normal CHEST: Tenderness over right lower chest wall ABDOMEN: abdomen soft, mild diffuse tenderness with drainage catheter in right lower abdomen normo-active bowel sounds, no masses, no rebound or guarding. BACK: Back is symmetrical on inspection and there is no deformity, no midline tenderness, no CVA tenderness. SKIN: no rashes and no bruising UPPER EXTREMITIES: upper extremities are grossly normal. PICC in left upper extremity LOWER EXTREMITIES: No pitting edema. NEURO EXAM: Normal sensorium, cranial nerves II-XII grossly intact, normal speech, no gross weakness of arms, no gross weakness of legs. MEDICAL DECISION MAKING: Patient is a 42-year-old female with metastatic adenocarcinoma of the pancreas the presents the ER following mechanical fall hitting the toilet. This occurred on Saturday. IV was established blood work was obtained. Labs show no significant leukocytosis or anemia. INR unremarkable. BMP with slightly elevated glucose at 308. LFTs bilirubin was unremarkable. Troponin was negative. CT of the head was negative. Chest abdomen pelvis showed rib fractures of 10, 11 and 12 with a trace effusion which is favored to be small hemothorax. There is no pneumothorax. This has been present since this past Saturday. Discussed with the patient and she would prefer to stay here. Discussed with Dr. Cruz and he is agreeable to seeing and evaluating the patient. CT of the abdomen showed improvement of the abscess. Patient was given multiple dose of IV narcotics. Triage Nursing notes reviewed. Limited review of prior medical records performed Vital Signs: reviewed and remarkable for HTN and tachy Differential diagnosis: Differential diagnoses include major intracranial, cervical, spinal, thoracic, abdominal, pelvic and neurologic injury. Fracture, contusion, sprain, strain, laceration, abrasions included as well. ER treatment provided: See below Diagnostics interpreted by me: ECG: none Cardiac Monitoring: An order was placed for continuous cardiac monitoring. The monitor shows a rate of 92 with sinus rhythm. Laboratory studies: As stated above and show below. Imaging studies: CT of the head was negative. CT of the chest abdomen pelvis as described above Consultation(s): Discussed with Dr. Crzu for further evaluation Procedures: none Past Med/Surg History Medical History Allergy-induced asthma rare inhaler use Depression with anxiety Diabetes mellitus, type 2 IDDM Dyslipidemia Hypertension Hypothyroidism Lumbosacral pain Obesity Pancreatic cancer + current chemo, follows with [facility] heme/onc PCOS (polycystic ovarian syndrome) Therapeutic opioid-induced constipation (OIC) Surgical History History of ERCP ERCP (06/2021) & EUS/ERCP (04/28/21): Good view with glidescope #3, ETT 7.0 at [facility] History of tonsillectomy History of umbilical hernia repair History of vascular access device A PORT INSERTION History of wisdom tooth extraction Nausea and vomiting after administration of anesthetic agent Family History Brother Diabetes Hypertension Father Hypertension Aunt Diabetes Grandmother (Maternal) Diabetes Other No family history of adverse response to anesthesia Social History Smoking Status: Never smoker Tobacco Type: Cigarettes packs per day: 1; Cigarettes Per Day: 20; Second Hand Exposure: No; Hx Alcohol Use: No Hx Substance Use: No Preferred Language: Uzbek Communication Ability: Effective Portrait Photographer Required: No Beliefs That Will Affect Care: None marital status: Single Current Living Situation: Family and Other Current Living Situation Comment: Lives with Daughter and Dog. Feels Safe at Home: No Is there a partner from a previous relationship who is making you feel unsafe now?: No Assistive Devices: Walker and Other Allergies Allergies Allergy/AdvReac Type Severity Reaction Status Date / Time cephalexin [From Keflex] Allergy Mild Rash, Verified 05/09/22 15:02 urticaria Penicillins Allergy Mild Rash Verified 05/09/22 15:02 Fish Containing Products Allergy Unknown Unknown Verified 05/09/22 15:02 fish oil Allergy Unknown Unknown Verified 05/09/22 15:02 dulaglutide [From Trulicity] AdvReac Severe Pancreatiti Verified 05/09/22 15:02 s clarithromycin AdvReac Unknown Vomiting Verified 05/09/22 15:02 Home Meds Home Medications Medication Instructions Recorded Confirmed duloxetine 60 mg capsule,delayed 120 mg PO DAILY 04/14/21 05/09/22 release (Cymbalta) flash glucose scanning reader 04/14/21 04/17/22 (FreeStyle Tanmay 14 Day [place]) lamotrigine 200 mg tablet 200 mg PO HS 04/14/21 05/09/22 (Lamictal) levothyroxine 50 mcg tablet 50 mcg PO QAM 04/14/21 05/09/22 ropinirole 4 mg tablet 4 mg PO TID 04/14/21 05/09/22 valacyclovir 1 gram tablet 2,000 mg PO BID PRN Cold Sores 04/14/21 05/09/22 acetaminophen 500 mg tablet 500 mg PO Q4 PRN Pain 01/14/22 05/09/22 lipase 16,800-protease 1 cap PO TIDM 01/14/22 05/09/22 56,800-amylase 98,400 unit capsule, delayed rel (Pancreaze) loratadine 10 mg tablet (Claritin) 10 mg PO DAILY 01/14/22 05/09/22 lorazepam 1 mg tablet 1 mg PO Q8 PRN anxiety or sleep 01/14/22 05/09/22 ondansetron 8 mg disintegrating 8 mg translingual Q8 PRN Nausea 01/14/22 05/09/22 tablet potassium chloride 10 mEq 10 meq PO AMHS 01/14/22 05/09/22 tablet,extended release quetiapine 100 mg tablet 200 mg PO HS 03/01/22 05/09/22 insulin glargine U-300 conc 300 10 unit subcut QAM 04/09/22 05/09/22 unit/mL (3 mL) subcutaneous pen (Toujeo Max U-300 SoloStar) albuterol sulfate 90 mcg/actuation 1 - 2 inh inhalation Q6 PRN as 04/17/22 05/09/22 aerosol inhaler (Ventolin HFA) directed bisacodyl 10 mg rectal suppository 10 mg VA DAILY PRN Constipation 04/17/22 05/09/22 ceftriaxone 1 gram intravenous 2 g IV DAILY 04/17/22 05/09/22 solution enalapril maleate 20 mg tablet 20 mg PO DAILY 04/17/22 05/09/22 fluticasone propionate 50 2 spray intranasal DAILY 04/17/22 05/09/22 mcg/actuation nasal spray,suspension lidocaine-prilocaine 2.5 %-2.5 % 1 applic topical UD 04/17/22 05/09/22 topical cream morphine 30 mg immediate release 30 mg PO Q4H PRN Pain 04/17/22 05/09/22 tablet morphine 30 mg tablet,extended 30 mg PO BID 04/17/22 05/09/22 release naloxegol 25 mg tablet 25 mg PO HS 04/17/22 05/09/22 pantoprazole 40 mg tablet,delayed 40 mg PO BID 04/17/22 05/09/22 release pegfilgrastim-bmez 6 mg/0.6 mL 6 mg subcut UD 04/17/22 05/09/22 subcutaneous syringe polyethylene glycol 3350 17 17 g PO QAM 04/17/22 05/09/22 gram/dose oral powder (Miralax) prochlorperazine maleate 10 mg 10 mg PO Q6H PRN Nausea 04/17/22 05/09/22 tablet sennosides 8.6 mg tablet (senna) 17.2 mg PO HS 04/17/22 05/09/22 aspirin 81 mg tablet,delayed 81 mg PO DAILY 05/09/22 05/09/22 release olanzapine 5 mg tablet 5 mg PO HS 05/09/22 05/09/22 Previous Rx's Medication Instructions Recorded blood sugar diagnostic (OneTouch #600 ea 05/26/21 Verio test strips) flash glucose sensor (FreeStyle #7 ea 05/26/21 Tanmay 14 Day Sensor kit) flash glucose sensor (FreeStyle #2 ea 01/02/22 Tanmay 2 Sensor kit) pen needle, diabetic 31 gauge x #200 ea 04/05/22 3/16" (BD Ultra-Fine Mini Pen Needle) insulin lispro 100 unit/mL 2 unit (0.02 mL) subcut TIDM #15 mL 05/05/22 subcutaneous pen (Humalog KwikPen (U-100) Insulin) Results & Data (ED) Vital Signs Vital Signs - 24 hr 05/09/22 11:39 05/09/22 12:29 05/09/22 12:29 Temperature 36.7 C Temperature Source Temporal Artery Scan Pulse Rate [Right Finger] 101 H Pulse Rhythm [Right Finger] Pulse Strength [Right Finger] Respiratory Rate 26 H Respiratory Effort / Characteristics Respiratory Depth Respiratory Pattern Blood Pressure [Right Arm] 178/124 H Blood Pressure Mean [Right Arm] 142 Blood Pressure Position [Right Arm] Pulse Oximetry 98 98 Oxygen Delivery Method Room Air Room Air Sepsis Recent Fever Within 48 Hours No Sepsis New/Unexplained Change in Mental Status No Sepsis Action Taken by Nursing No Action Required 05/09/22 16:00 Temperature Temperature Source Pulse Rate [Right Finger] 90 Pulse Rhythm [Right Finger] Regular Pulse Strength [Right Finger] Normal Respiratory Rate 20 Respiratory Effort / Characteristics Non-Labored Respiratory Depth Normal Respiratory Pattern Regular Blood Pressure [Right Arm] 163/99 H Blood Pressure Mean [Right Arm] 120 Blood Pressure Position [Right Arm] Lying Pulse Oximetry 96 Oxygen Delivery Method Room Air Sepsis Recent Fever Within 48 Hours Sepsis New/Unexplained Change in Mental Status Sepsis Action Taken by Nursing Laboratory Data Result diagrams: 05/09/22 11:45 05/09/22 11:45 Lab Results 05/09/22 05/09/22 05/09/22 Range/Units 11:45 11:45 11:45 WBC 10.04 (4.8-10.8) K/ul RBC 4.54 (3.93-5.22) M/uL Hgb 14.5 (12.0-16.0) g/dl Hct 43.9 (34.1-44.9) % MCV 96.7 (80.0-100.0) fL MCH 31.9 (25.0-34.0) pg MCHC 33.0 (32.0-36.0) g/dL RDW Std Deviation 59.0 H (36.4-46.3) fL RDW Coeff of Yang 16.4 H (11.5-14.5) % Plt Count 295 D (130-400) K/uL MPV 11.9 (9.4-12.3) fL Immature Gran % (Auto) 0.4 % Neut % (Auto) 86.4 % Lymph % (Auto) 10.8 % Ida % (Auto) 1.9 % Eos % (Auto) 0.1 % Baso % (Auto) 0.4 % Neut # (Auto) 8.68 H (1.4-6.5) K/uL Lymph # (Auto) 1.08 L (1.2-3.4) K/uL Ida # (Auto) 0.19 L (0.24-0.82) K/uL Eos # (Auto) 0.01 (0-0.50) K/uL Baso # (Auto) 0.04 (0-0.2) K/uL Immature Gran # (Auto) 0.04 H (0.00-0.02) K/uL PT 11.7 (9.0-12.0) Seconds INR 1.1 (0.9-1.1) APTT 27.3 (21.0-31.0) Seconds PTT Ratio 1.0 Sodium 135 L (136-145) mmol/L Potassium 4.0 (3.5-5.1) mmol/L Chloride 96 L (98-107) mmol/L Carbon Dioxide 24 (21-32) mmol/L Anion Gap 15 H (3-11) BUN 6 (6-23) mg/dl Creatinine 0.44 L (0.6-1.2) mg/dl Est Cr Clr Drug Dosing Not Reportable Est GFR ( Amer) 142.3 ml/min Est GFR (Non-Af Amer) 122.8 ml/min BUN/Creatinine Ratio 13.6 (10-20) Glucose 308 H* (70-99(Fasting)) mg/dl Calcium 9.0 (8.5-10.1) mg/dl Total Bilirubin 1.0 (0.2-1.0) mg/dl AST 52 H (13-39) U/L ALT 22 (7-52) U/L Alkaline Phosphatase 380 H (34-104) U/L Troponin I High Sens 8.6 (0-14) pg/ml Total Protein 7.0 (6.0-8.3) gm/dl Albumin 3.3 L (3.4-5.0) gm/dl Globulin 3.7 (2.5-4.0) gm/dl Albumin/Globulin Ratio 0.9 (0.9-2) SARS-CoV-2, RNA, NAAT (NEGATIVE) 05/09/22 Range/Units 12:49 WBC (4.8-10.8) K/ul RBC (3.93-5.22) M/uL Hgb (12.0-16.0) g/dl Hct (34.1-44.9) % MCV (80.0-100.0) fL MCH (25.0-34.0) pg MCHC (32.0-36.0) g/dL RDW Std Deviation (36.4-46.3) fL RDW Coeff of Yang (11.5-14.5) % Plt Count (130-400) K/uL MPV (9.4-12.3) fL Immature Gran % (Auto) % Neut % (Auto) % Lymph % (Auto) % Ida % (Auto) % Eos % (Auto) % Baso % (Auto) % Neut # (Auto) (1.4-6.5) K/uL Lymph # (Auto) (1.2-3.4) K/uL Ida # (Auto) (0.24-0.82) K/uL Eos # (Auto) (0-0.50) K/uL Baso # (Auto) (0-0.2) K/uL Immature Gran # (Auto) (0.00-0.02) K/uL PT (9.0-12.0) Seconds INR (0.9-1.1) APTT (21.0-31.0) Seconds PTT Ratio Sodium (136-145) mmol/L Potassium (3.5-5.1) mmol/L Chloride (98-107) mmol/L Carbon Dioxide (21-32) mmol/L Anion Gap (3-11) BUN (6-23) mg/dl Creatinine (0.6-1.2) mg/dl Est Cr Clr Drug Dosing Est GFR ( Amer) ml/min Est GFR (Non-Af Amer) ml/min BUN/Creatinine Ratio (10-20) Glucose (70-99(Fasting)) mg/dl Calcium (8.5-10.1) mg/dl Total Bilirubin (0.2-1.0) mg/dl AST (13-39) U/L ALT (7-52) U/L Alkaline Phosphatase (34-104) U/L Troponin I High Sens (0-14) pg/ml Total Protein (6.0-8.3) gm/dl Albumin (3.4-5.0) gm/dl Globulin (2.5-4.0) gm/dl Albumin/Globulin Ratio (0.9-2) SARS-CoV-2, RNA, NAAT NEGATIVE (NEGATIVE) Administered Medications Discontinued Medications Al Hydrox/Mg Hydrox/Simethicone (Gi Cocktail Ed Use) 1 dose PO ONE ONE Stop: 05/09/22 13:41 Last Admin: 05/09/22 13:46 Dose: 1 dose Documented By: MES Hydromorphone HCl (Hydromorphone Inj 1 Mg/Ml Syringe) 1 mg IV NOW STA Stop: 05/09/22 13:14 Last Admin: 05/09/22 13:28 Dose: 1 mg Documented By: MES Hydromorphone HCl (Hydromorphone Inj 0.5 Mg/0.5 Ml Syr) 0.5 mg IV NOW STA Stop: 05/09/22 14:55 Last Admin: 05/09/22 15:03 Dose: 0.5 mg Documented By: RSL Hydromorphone HCl (Hydromorphone Inj 1 Mg/Ml Syringe) Confirm Administered Dose 1 mg .ROUTE .STK-MED ONE Stop: 05/09/22 17:34 Last Admin: 05/09/22 17:35 Dose: 1 mg Documented By: WON Promethazine HCl 12.5 mg/ (Sodium Chloride) 50.5 mls @ 202 mls/hr IV NOW STA Stop: 05/09/22 16:29 Last Infusion: 05/09/22 17:22 Dose: 0 mls/hr Documented By: RSVandana Admin: 05/09/22 16:56 Dose: 202 mls/hr Documented By: WON Ioversol (Ioversol 350 Mg 100ml Prefilled Syringe) 94 ml IV ONCE ONE Stop: 05/09/22 14:02 Last Admin: 05/09/22 14:01 Dose: 94 ml Documented By: GLENNA Morphine Sulfate (Morphine Sulfate 10 Mg/Ml Carp/Vial) 6 mg IV NOW STA Stop: 05/09/22 12:45 Last Admin: 05/09/22 12:52 Dose: 6 mg Documented By: AMANDA Ondansetron HCl (Ondansetron Inj 2 Mg/Ml 2 Ml Vial) 4 mg IV NOW STA Stop: 05/09/22 12:45 Last Admin: 05/09/22 12:52 Dose: 4 mg Documented By: MES Ondansetron HCl (Ondansetron Inj 2 Mg/Ml 2 Ml Vial) 4 mg IV NOW STA Stop: 05/09/22 13:14 Last Admin: 05/09/22 13:28 Dose: 4 mg Documented By: MES Ondansetron HCl (Ondansetron Inj 2 Mg/Ml 2 Ml Vial) 4 mg IV NOW STA Stop: 05/09/22 15:36 Last Admin: 05/09/22 15:39 Dose: 4 mg Documented By: WON Imaging Data Radiologist's Impression: Abdomen/Pelvis CT 05/09/22 12:[address] WITH IV CONTRAST CT DOSE: 2199.87 mGy.cm HISTORY: Right-sided abdominal pain. Fall. TECHNIQUE: Multiaxial CT images of the abdomen and pelvis were performed fo llowing the use of intravenous contrast. A dose lowering technique was utilized adhering to the principles of ALARA. COMPARISON STUDY: Abdomen and pelvis CT 04/17/2022. FINDINGS: Please refer to the same day chest CT for further evaluation of the l rosy bases. No pneumoperitoneum. No pneumatosis. There are mildly displaced right posterior 10th through 12th rib fractures. Trace pericardial effusion. The tip of the Port-A-Cath is partially visualized. There is right upper quadrant percutaneous drainage catheter. There is been interval resolution of the right upper quadrant fluid collection compared to prior study. There is a small residual soft tissue focus at the catheter measuring 1.9 cm. The right upper quadrant subcapsular fluid collection has almost completely resolved in the interval. There is residual 3 cm soft tissue density at this location best seen on image 150. These areas of soft tissue could represent phlegmon or possibly me tastatic deposits. There is a diffusely heterogeneous liver, unchanged. A metallic common bile duct stent is again noted with associated pneumobilia suggesting stent patency. The necrotic pancreatic head mass is again noted measuring approximately 2.7 cm. This accounts for the main pancreatic duct d ilatation. No significant gallbladder wall thickening. Gas within the gallbladder is again noted. The spleen, adrenal glands, and kidneys remain unchanged. The main portal vein is patent. Mild peripancreatic lymphadenopathy persists. Normal caliber abdominal aorta. The bladder is decompressed. There are a few small calcified and noncalcified uterine fibroids. No evidence for bowel obstruction. Normal appendix. IMPRESSION: 1. Mildly displaced acute right posterior 10th through 12th rib fractures. 2. Interval resolution of the fluid collections within the right upper quadrant within an indwelling percutaneous drainage catheter. There are residual soft tissue densities at these locations as described above measuring up to 3 cm. Therefore, this could represent phlegmon or possibly metastatic disease. 3. Diffusely heterogeneous liver again noted with several hypodense foci. This may represent areas of focal fat or underlying metastatic disease. 4. Redemonstration of the necrotic pancreatic head mass. 5. Patent metallic common bile duct stent. 6. Additional findings as described above. ACT 112: Negative or not required by law. Electronically signed by: Ru Arce M.D. 05/09/2022 2:[address] 05/09/22 12:45 CT OF THE CHEST WITH IV CONTRAST CLINICAL HISTORY: Right chest pain following fall. COMPARISON STUDY: Chest radiograph February 09, 2022. TECHNIQUE: Following IV administration of 94 mL of Optiray, helical axial images of the chest were obtained. Sagittal and coronal reconstructions were viewed as well as maximal intensity projections on an independent 3-D workstation. Automated exposure control was utilized for the study. A dose lowering technique was utilized adhering to the principles of ALARA. FINDINGS: A right internal jugular Ceqdcy-r-Aygh is in place. There is stranding and gas adjacent to the port. A left PICC is in place. No enlarged thoracic lymph nodes are present. Size of the heart is normal. There is no pericardial effusion. No pneumothorax or pleural effusion is present. There is no consolidation. Linear opacities reflect atelectasis. Note is made of an acute mildly displaced fracture pf the posterior right 10th rib. There is an acute minimally displaced fracture pf the posterior right 11th rib and acute mildly displaced fracture of the posterior right 12th rib. Old right-sided rib fractures are present. No acute thoracic spine fracture is present. The abdomen and pelvis CT will be reported separately. Hypodense hepatic foci are better depicted on that exam. There is hepatic steatosis. Biliary stent is in place. IMPRESSION: 1. Acute fractures of the posterior right 10th, 11th and 12th ribs. No pneumo thorax. Trace right pleural effusion which may reflect a small hemothorax. 2. Infiltration and gas adjacent to the right [id number]. This is nonspecific and could be due to recent access. However, an infectious process is also within the differential. ACT 112: Negative or not required by law. Electronically signed by: Morales Story M.D. 05/09/2022 2:[address] 05/09/22 12:45 CT head/brain wo con CLINICAL HISTORY: 42 years-old Female with fall. Acute head trauma status post fall TECHNIQUE: Multiple axial CT images of the head were obtained without contrast. A dose lowering technique was utilized adhering to the principles of ALARA. COMPARISON: None. FINDINGS: No acute intracranial hemorrhage, midline shift, intracranial mass, hydrocephalus, territorial ischemia or abnormal extra-axial collection. Mild involutional changes. Calcifications of the falx cerebri. The calvarium is intact. The paranasal sinuses, mastoid air cells, and middle ear cavities are clear. IMPRESSION: No acute intracranial abnormality or calvarial fracture. ACT 112: Negative or not required by law. The above report was generated using voice recognition software. It may contain grammatical, syntax or spelling errors. Electronically signed by: Mahendra Alvarez M.D. 05/09/2022 2:15 PM Discharge Plan Visit Data Chief Complaint: Rib Injury/Pain Stated Complaint: RIB PAIN, nausea, dizzy, cancer patient, pic line ED Provider: Garrett Robb Discharge Problem: Closed rib fracture, Adenocarcinoma of head of pancreas, Hemothorax, Fall, Dizziness Discharge Instructions Interventions: ED Discharge Assessment Last Done: 05/09/22 18:20 Forms Stand Alone Forms: My [facility] [employer] Prescriptions Prescriptions: No Action (DME) OneTouch Verio test strips Strip See Rx Instructions .Route Qty: 600 3RF Rx Instructions: Test six times daily (DME) FreeStyle Tanmay 14 Day Sensor Kit See Rx Instructions .Route Qty: 7 3RF Rx Instructions: Change every 14 days (DME) pen needle, diabetic [BD Ultra-Fine Mini Pen Needle] 31 gauge x 3/16" needle See Rx Instructions .Route Qty: 200 5RF Rx Instructions: use 4 needles daily insulin lispro [Humalog KwikPen Insulin] 100 unit/mL insulin pen 2 unit subcut TIDM Qty: 15 2RF Rx Instructions: plus sliding scale please give an additional 2 units of insulin for every 50 grams of carbs eaten with meals; 50 gr carb=2 units,100 gr carb=4 units,150 gr carb=6 units (DME) FreeStyle Tanmay 2 Sensor Kit See Rx Instructions .Route Qty: 2 11RF Rx Instructions: Change every 14 days levothyroxine 50 mcg tablet 50 mcg PO QAM ropinirole 4 mg tablet 4 mg PO TID (DME) FreeStyle Tanmay 14 Day [place] Misc See Rx Instructions .Route Rx Instructions: As directed valacyclovir 1 gram tablet 2,000 mg PO BID PRN (Reason: Cold Sores) lamotrigine [Lamictal] 200 mg tablet 200 mg PO HS duloxetine [Cymbalta] 60 mg capsule,delayed release(DR/EC) 120 mg PO DAILY ceftriaxone 1 gram Recon Soln 2 g IV DAILY Rx Instructions: through 05/17 naloxegol 25 mg Tablet 25 mg PO HS Rx Instructions: must be taken on empty stomach; no food 1 hr after or 2-3 hrs before dose sennosides [senna] 8.6 mg tablet 17.2 mg PO HS morphine 30 mg Tablet Extended Release 30 mg PO BID morphine 30 mg Tablet 30 mg PO Q4H PRN (Reason: Pain) polyethylene glycol 3350 [Miralax] 17 gram/dose Powder 17 g PO QAM bisacodyl 10 mg Suppository 10 mg VA DAILY MDD dont use morne than 1 a week PRN (Reason: Constipation) prochlorperazine maleate 10 mg Tablet 10 mg PO Q6H PRN (Reason: Nausea) enalapril maleate 20 mg tablet 20 mg PO DAILY pantoprazole 40 mg tablet,delayed release (DR/EC) 40 mg PO BID fluticasone propionate [Flonase] 50 mcg/actuation [place],Suspension 2 spray INTRANASAL DAILY Rx Instructions: administer into each nostril pegfilgrastim-bmez 6 mg/0.6 mL Syringe 6 mg SUBCUT UD Rx Instructions: 6 mg under skin 24 hours after chemotherapy every 14 days albuterol sulfate [Ventolin HFA] 90 mcg/actuation Hfa Aerosol Inhaler 1 - 2 inh INHALATION Q6 PRN (Reason: as directed) lidocaine-prilocaine 2.5-2.5 % cream 1 applic topical UD Rx Instructions: apply to affectd area as needed for pain. appyl to skin over mediport & cover 1 hour prior to accessing olanzapine 5 mg Tablet 5 mg PO HS aspirin [Aspir-81] 81 mg Tablet,Delayed Release (Dr/Ec) 81 mg PO DAILY lorazepam 1 mg tablet 1 mg PO Q8 PRN (Reason: anxiety or sleep) Pancreaze 16,800-56,800- 98,400 unit capsule,delayed release(DR/EC) 1 cap PO TIDM acetaminophen 500 mg Tablet 500 mg PO Q4 MDD 3g PRN (Reason: Pain) Rx Instructions: take 2 caps every 8 hour for 3 days ,then 1 cap every 4 hours as needed for pain. do not exceed 3000mg every 24 hours ordered 01/12/22 loratadine [Claritin] 10 mg Tablet 10 mg PO DAILY ondansetron 8 mg tablet,disintegrating 8 mg translingual Q8 PRN (Reason: Nausea) potassium chloride 10 mEq tablet extended release 10 meq PO AMHS quetiapine 100 mg tablet 200 mg PO HS Toujeo Max U-300 SoloStar 300 unit/mL (3 mL) insulin pen 10 unit SUBCUT QAM Referrals Referrals: Dhruv Hawley MD [Primary Care Provider] -
[2022-05-09] MEDS ORDERED: HYDROmorphone INJ 1 MG/ML SYRINGE IV STA (13:13)
[2022-05-09] MEDS ORDERED: GI COCKTAIL ED USE PO ONE (13:40)
[2022-05-09] MEDS ORDERED: IOVERSOL 350 MG 100mL Prefilled Syringe IV ONE (14:01)
--- NOTE | 2022-05-09 14:18 | CT Scan Report ---
CT head/brain wo con CLINICAL HISTORY: 42 years-old Female with fall. Acute head trauma status post fall TECHNIQUE: Multiple axial CT images of the head were obtained without contrast. A dose lowering tech nique was utilized adhering to the principles of ALARA. COMPARISON: None. FINDINGS: No acute intracranial hemorrhage, midline shift, intracranial mass, hydrocephalus, territorial ischem ia or abnormal extra-axial collection. Mild involutional changes. Calcifications of the falx cerebri. The calvarium is intact. The paranasal sinuses, mastoid air cells, and middle ear cavities are clear . IMPRESSION: No acute intracranial abnormality or calvarial fracture. ACT 112: Negative or not required by law. The above report was generated using voice recognition software. It may contain grammatical, syntax o r spelling errors. Electronically signed by: Mahendra Alvarez M.D. 05/09/2022 2:15 PM
--- NOTE | 2022-05-09 14:24 | CT Scan Report ---
ABDOMEN AND PELVIS CT WITH IV CONTRAST CT DOSE: 2199.87 mGy.cm HISTORY: Right-sided abdominal pain. Fall. TECHNIQUE: Multiaxial CT images of the abdomen and pelvis were performed following the use of intrave nous contrast. A dose lowering technique was utilized adhering to the principles of ALARA. COMPARISON STUDY: Abdomen and pelvis CT 04/17/2022. FINDINGS: Please refer to the same day chest CT for further evaluation of the lung bases. No pneumope ritoneum. No pneumatosis. There are mildly displaced right posterior 10th through 12th rib fractures. Trace pericardial effusion. The tip of the Port-A-Cath is partially visualized. There is right upper quadrant percutaneous drainage catheter. There is been interval resolution of the right upper quadra nt fluid collection compared to prior study. There is a small residual soft tissue focus at the lucian ter measuring 1.9 cm. The right upper quadrant subcapsular fluid collection has almost completely res olved in the interval. There is residual 3 cm soft tissue density at this location best seen on image 150. These areas of soft tissue could represent phlegmon or possibly metastatic deposits. There is a diffusely heterogeneous liver, unchanged. A metallic common bile duct stent is again noted with asso ciated pneumobilia suggesting stent patency. The necrotic pancreatic head mass is again noted measuri ng approximately 2.7 cm. This accounts for the main pancreatic duct dilatation. No significant gallbl adder wall thickening. Gas within the gallbladder is again noted. The spleen, adrenal glands, and kid neys remain unchanged. The main portal vein is patent. Mild peripancreatic lymphadenopathy persists. Normal caliber abdominal aorta. The bladder is decompressed. There are a few small calcified and nonc alcified uterine fibroids. No evidence for bowel obstruction. Normal appendix. IMPRESSION: 1. Mildly displaced acute right posterior 10th through 12th rib fractures. 2. Interval resolution of the fluid collections within the right upper quadrant within an indwelling percutaneous drainage catheter. There are residual soft tissue densities at these locations as descri bed above measuring up to 3 cm. Therefore, this could represent phlegmon or possibly metastatic disea se. 3. Diffusely heterogeneous liver again noted with several hypodense foci. This may represent areas of focal fat or underlying metastatic disease. 4. Redemonstration of the necrotic pancreatic head mass. 5. Patent metallic common bile duct stent. 6. Additional findings as described above. ACT 112: Negative or not required by law. Electronically signed by: Ru Arce M.D. 05/09/2022 2:22 PM
--- NOTE | 2022-05-09 14:39 | CT Scan Report ---
CT OF THE CHEST WITH IV CONTRAST CLINICAL HISTORY: Right chest pain following fall. COMPARISON STUDY: Chest radiograph February 09, 2022. TECHNIQUE: Following IV administration of 94 mL of Optiray, helical axial images of the chest were o btained. Sagittal and coronal reconstructions were viewed as well as maximal intensity projections o n an independent 3-D workstation. Automated exposure control was utilized for the study. A dose low ering technique was utilized adhering to the principles of ALARA. FINDINGS: A right internal jugular [id number] is in place. There is stranding and gas adjacent to the port. A left PICC is in place. No enlarged thoracic lymph nodes are present. Size of the heart is normal. There is no pericardial effusion. No pneumothorax or pleural effusion is present. There is n o consolidation. Linear opacities reflect atelectasis. Note is made of an acute mildly displaced frac ture pf the posterior right 10th rib. There is an acute minimally displaced fracture pf the posterior right 11th rib and acute mildly displaced fracture of the posterior right 12th rib. Old right-sided rib fractures are present. No acute thoracic spine fracture is present. The abdomen and pelvis CT more l be reported separately. Hypodense hepatic foci are better depicted on that exam. There is hepatic s teatosis. Biliary stent is in place. IMPRESSION: 1. Acute fractures of the posterior right 10th, 11th and 12th ribs. No pneumothorax. Trace right pleu ral effusion which may reflect a small hemothorax. 2. Infiltration and gas adjacent to the right [id number]. This is nonspecific and could be due to recent access. However, an infectious process is also within the differential. ACT 112: Negative or not required by law. Electronically signed by: Morales Story M.D. 05/09/2022 2:37 PM
[2022-05-09] MEDS ORDERED: HYDROmorphone INJ 0.5 MG/0.5 ML SYR IV STA (14:54)
--- NOTE | 2022-05-09 15:54 | Electrocardiogram Report ---
Test Reason : Blood Pressure : / mmHG Vent. Rate : 123 BPM Atrial Rate : 123 BPM P-R Int : 132 ms QRS Dur : 068 ms QT Int : 314 ms P-R-T Axes : 065 022 108 degrees QTc Int : 449 ms Poor data quality, interpretation may be adversely affected Sinus tachycardia T wave abnormality, consider lateral ischemia Abnormal ECG When compared with ECG of 09-APR-2022 09:56, No significant change was found Confirmed by Nikolai Luciano ([id number]) on 05/09/2022 3:54:12 PM Referred By: Confirmed By:Josr Luciano
[2022-05-09] MEDS ORDERED: PROMETHAZINE HCL 12.5 MG in SODIUM CHLORIDE 0.9% 50 ML IV STA (16:15)
--- NOTE | 2022-05-09 17:16 | History & Physical Report ---
Date of Service May 09, 2022 Assessment & Plan (1) Fracture of ribs, multiple, closed: (2) Intractable pain: (3) Nausea and vomiting: (4) Metastatic adenocarcinoma to pancreas: (5) Hepatic metastases: (6) Hepatic abscess: (7) Uncontrolled type 2 diabetes mellitus, with long-term current use of insulin: Admission and Anticipated Discharge Date Admission Date: This is a 42-year-old female who has a significant past medical history of metastatic adenocarcinoma of pancreas currently on chemotherapy with mets to liver, Complex hepatic abscess currently on IV antibiotics, insulin-dependent T2DM, HTN, HLD, chronic pain in setting of malignancy, PCM who presents to ED secondary to significant pain to her right back. Multiple Rib Fx, R posterior 10-12, with small pleural effusion, possible hemothorax Intractable pain Nausea and vomiting admit to PCU pain control - pt on chronic Morphine ER 30mg bid, and IR 30mg q4h (utilize this for mild pain 1-6), IV dilaudid 1mg q6h (pain 7-10), lidocaine patch Prn Phenergan for antiemetic clear liquid diet for now, advance to carb consistent when able repeat cxr in a.m. incentive spirometry check vit d level in morning Gentle IVF due to lack of intake Metastatic adenocarcinoma of pancreas with mets to Liver follows [facility] oncology last tx 04/02 due to recent medical issues Hepatic Abscess IR drain placed on 04/18, cultures grew Klebsiella and E. coli currently treating with 2 g of IV Rocephin daily until 05/17 CT scan pushed to [facility] will ask [facility] if Drain able to be removed while inpatient given no drainage and improvement on imaging Uncontrolled T2DM, insulin dependent Hyperglycemia place on insulin per protocol admitting bsg 308 last a1c 6.8 on 03/30 repeat in a.m. HTN continue enalapril bp elevated in ED likely 2/2 pain DVT ppx: SCDS due to rib fx and possible hemothorax Full CODE Dispo: FULL CODE PCP: Marleen Pt was seen and examined in collaboration with Dr. Cruz, please see addendum History of Present Illness Chief Complaint: R sided back/flank pain x 5 days. Primary Care Provider: Dhruv Hawley MD This is a 42-year-old female who has a significant past medical history of metastatic adenocarcinoma of pancreas currently on chemotherapy with mets to liver, Complex hepatic abscess currently on IV antibiotics, insulin-dependent T2DM, HTN, HLD, chronic pain in setting of malignancy, PCM who presents to ED secondary to significant pain to her right back. Currently she lives by herself and occasionally her daughter to stay with her. On Saturday she was trying to walk to the bathroom. She is generally very weak and her legs shake when she walks. She ramped her right side and back into the toilet. Since then she developed significant pain. Pain has continued despite taking prescribed narcotics. Today she woke up with nausea and vomiting and inability to tolerate oral intake and therefore came to ED. Of significance patient was recently hospitalized at [facility] on 04/17-04/23 secondary to complex hepatic abscess. She required hepatic percutaneous drain placement on 04/18. She was seen and evaluated by infectious disease. She was placed on IV ceftriaxone 2 g daily until 05/17. She did have antibiotic today. She continues to have a hepatic drain in place and continues to have chronic right upper quadrant pain. She states she has been fever free for several weeks and has not had any drainage output for at least 2 weeks as well. In regards to her metastatic pancreatic cancer she does follow with [facility] oncology. Due to her recent medical issues her last chemotherapy was on 04/02. In ED she underwent CT chest which revealed acute fx of post right 10th-12 rib, no pneumothorax, trace right pleural effusion which may reflect a small hemothorax. Allergies Allergy/AdvReac Type Severity Reaction Status Date / Time cephalexin [From Keflex] Allergy Mild Rash, Verified 05/09/22 15:02 urticaria Penicillins Allergy Mild Rash Verified 05/09/22 15:02 Fish Containing Products Allergy Unknown Unknown Verified 05/09/22 15:02 fish oil Allergy Unknown Unknown Verified 05/09/22 15:02 dulaglutide [facility] AdvReac Severe Pancreatiti Verified 05/09/22 15:02 s clarithromycin AdvReac Unknown Vomiting Verified 05/09/22 15:02 Home Medications Medication Instructions Recorded Confirmed Type duloxetine 60 mg capsule,delayed 120 mg PO DAILY 04/14/21 05/09/22 History release (Cymbalta) flash glucose scanning reader 04/14/21 04/17/22 History (Primordial GeneticsStyle Tanmay 14 Day Delmar) lamotrigine 200 mg tablet 200 mg PO HS 04/14/21 05/09/22 History (Lamictal) levothyroxine 50 mcg tablet 50 mcg PO QAM 04/14/21 05/09/22 History ropinirole 4 mg tablet 4 mg PO TID 04/14/21 05/09/22 History valacyclovir 1 gram tablet 2,000 mg PO BID PRN Cold Sores 04/14/21 05/09/22 History blood sugar diagnostic (OneTouch #600 ea 05/26/21 04/17/22 Rx Verio test strips) flash glucose sensor (FreeStyle #7 ea 05/26/21 04/17/22 Rx Tanmay 14 Day Sensor kit) flash glucose sensor (FreeStyle #2 ea 01/02/22 04/17/22 Rx Tanmay 2 Sensor kit) acetaminophen 500 mg tablet 500 mg PO Q4 PRN Pain 01/14/22 05/09/22 History lipase 16,800-protease 1 cap PO TIDM 01/14/22 05/09/22 History 56,800-amylase 98,400 unit capsule, delayed rel (Pancreaze) loratadine 10 mg tablet (Claritin) 10 mg PO DAILY 01/14/22 05/09/22 History lorazepam 1 mg tablet 1 mg PO Q8 PRN anxiety or sleep 01/14/22 05/09/22 History ondansetron 8 mg disintegrating 8 mg translingual Q8 PRN Nausea 01/14/22 05/09/22 History tablet potassium chloride 10 mEq 10 meq PO AMHS 01/14/22 05/09/22 History tablet,extended release quetiapine 100 mg tablet 200 mg PO HS 03/01/22 05/09/22 History pen needle, diabetic 31 gauge x #200 ea 04/05/22 04/17/22 Rx 3/16" (BD Ultra-Fine Mini Pen Needle) insulin glargine U-300 conc 300 10 unit subcut QAM 04/09/22 05/09/22 History unit/mL (3 mL) subcutaneous pen (Toujeo Max U-300 SoloStar) albuterol sulfate 90 mcg/actuation 1 - 2 inh inhalation Q6 PRN as 04/17/22 05/09/22 History aerosol inhaler (Ventolin HFA) directed bisacodyl 10 mg rectal suppository 10 mg IA DAILY PRN Constipation 04/17/22 05/09/22 History ceftriaxone 1 gram intravenous 2 g IV DAILY 04/17/22 05/09/22 History solution enalapril maleate 20 mg tablet 20 mg PO DAILY 04/17/22 05/09/22 History fluticasone propionate 50 2 spray intranasal DAILY 04/17/22 05/09/22 History mcg/actuation nasal spray,suspension lidocaine-prilocaine 2.5 %-2.5 % 1 applic topical UD 04/17/22 05/09/22 History topical cream morphine 30 mg immediate release 30 mg PO Q4H PRN Pain 04/17/22 05/09/22 History tablet morphine 30 mg tablet,extended 30 mg PO BID 04/17/22 05/09/22 History release naloxegol 25 mg tablet 25 mg PO HS 04/17/22 05/09/22 History pantoprazole 40 mg tablet,delayed 40 mg PO BID 04/17/22 05/09/22 History release pegfilgrastim-bmez 6 mg/0.6 mL 6 mg subcut UD 04/17/22 05/09/22 History subcutaneous syringe polyethylene glycol 3350 17 17 g PO QAM 04/17/22 05/09/22 History gram/dose oral powder (Miralax) prochlorperazine maleate 10 mg 10 mg PO Q6H PRN Nausea 04/17/22 05/09/22 History tablet sennosides 8.6 mg tablet (senna) 17.2 mg PO HS 04/17/22 05/09/22 History insulin lispro 100 unit/mL 2 unit (0.02 mL) subcut TIDM #15 mL 05/05/22 05/09/22 Rx subcutaneous pen (Humalog KwikPen (U-100) Insulin) aspirin 81 mg tablet,delayed 81 mg PO DAILY 05/09/22 05/09/22 History release olanzapine 5 mg tablet 5 mg PO HS 05/09/22 05/09/22 History Past Med/Surg History Medical History Allergy-induced asthma rare inhaler use Depression with anxiety Diabetes mellitus, type 2 IDDM Dyslipidemia Hypertension Hypothyroidism Lumbosacral pain Obesity Pancreatic cancer + current chemo, follows with [facility] heme/onc PCOS (polycystic ovarian syndrome) Therapeutic opioid-induced constipation (OIC) Surgical History History of ERCP ERCP (06/2021) & EUS/ERCP (04/28/21): Good view with glidescope #3, ETT 7.0 at [facility] History of tonsillectomy History of umbilical hernia repair History of vascular access device A PORT INSERTION History of wisdom tooth extraction Nausea and vomiting after administration of anesthetic agent Family History Brother Diabetes Hypertension Father Hypertension Aunt Diabetes Grandmother (Maternal) Diabetes Other No family history of adverse response to anesthesia Social History Smoking Status: Never smoker Tobacco Type: Cigarettes packs per day: 1; Cigarettes Per Day: 20; Second Hand Exposure: No; Hx Alcohol Use: No Hx Substance Use: No Preferred Language: Lithuanian Communication Ability: Effective Sign Wirer Required: No Beliefs That Will Affect Care: None marital status: Single Current Living Situation: Family and Other Current Living Situation Comment: Lives with Daughter and Dog. Feels Safe at Home: No Is there a partner from a previous relationship who is making you feel unsafe now?: No Assistive Devices: Walker and Other Review of Systems Review of Systems: All systems reviewed & are unremarkable except as noted in HPI & below Physical Exam Physical Exam: please refer to Dr. Cruz addendum for physical exam findings. Results & Data Results & Data ([facility]) Vital Signs (Past 12 Hours) Vital Signs Temp Pulse Resp BP Pulse Ox O2 Del Method 05/09/22 16:00 90 20 163/99 H 96 Room Air 05/09/22 12:29 98 Room Air 05/09/22 12:29 101 H 26 H 178/124 H 98 Room Air 05/09/22 11:39 36.7 C Diagnostic Findings Abdomen/Pelvis CT 05/09/22 12:[address] WITH IV CONTRAST CT DOSE: 2199.87 mGy.cm HISTORY: Right-sided abdominal pain. Fall. TECHNIQUE: Multiaxial CT images of the abdomen and pelvis were performed following the use of intravenous contrast. A dose lowering technique was utilized adhering to the principles of ALARA. COMPARISON STUDY: Abdomen and pelvis CT 04/17/2022. FINDINGS: Please refer to the same day chest CT for further evaluation of the lung bases. No pneumoperitoneum. No pneumatosis. There are mildly displaced right posterior 10th through 12th rib fractures. Trace pericardial effusion. The tip of the Port-A-Cath is partially visualized. There is right upper quadrant percutaneous drainage catheter. There is been interval resolution of the right upper quadrant fluid collection compared to prior study. There is a small residual soft tissue focus at the catheter measuring 1.9 cm. The right upper quadrant subcapsular fluid collection has almost completely resolved in the interval. There is residual 3 cm soft tissue density at this location best seen on image 150. These areas of soft tissue could represent phlegmon or possibly metastatic deposits. There is a diffusely heterogeneous liver, unchanged. A metallic common bile duct stent is again noted with associated pneumobilia suggesting stent patency. The necrotic pancreatic head mass is again noted christian suring approximately 2.7 cm. This accounts for the main pancreatic duct dilatation. No significant gallbladder wall thickening. Gas within the gallbladder is again noted. The spleen, adrenal glands, and kidneys remain unchanged. The main portal vein is patent. Mild peripancreatic lymphadenopathy persists. Normal caliber abdominal aorta. The bladder is decompressed. There are a few small calcified and noncalcified uterine fibroids. No evidence for bowel obstruction. Normal appendix. IMPRESSION: 1. Mildly displaced acute right posterior 10th through 12th rib fractures. 2. Interval resolution of the fluid collections within the right upper quadrant within an indwelling percutaneous drainage catheter. There are residual soft tissue densities at these locations as described above measuring up to 3 cm. Therefore, this could represent phlegmon or possibly metastatic disease. 3. Diffusely heterogeneous liver again noted with several hypodense foci. This may represent areas of focal fat or underlying metastatic disease. 4. Redemonstration of the necrotic pancreatic head mass. 5. Patent metallic common bile duct stent. 6. Additional findings as described above. ACT 112: Negative or not required by law. Electronically signed by: Ru Arce M.D. 05/09/2022 2:[address] 05/09/22 12:45 CT OF THE CHEST WITH IV CONTRAST CLINICAL HISTORY: Right chest pain following fall. COMPARISON STUDY: Chest radiograph February 09, 2022. TECHNIQUE: Following IV administration of 94 mL of Optiray, helical axial images of the chest were obtained. Sagittal and coronal reconstructions were viewed as well as maximal intensity projections on an independent 3-D workstation. Automated exposure control was utilized for the study. A dose lowering technique was utilized adhering to the principles of ALARA. FINDINGS: A right internal jugular [id number] is in place. There is stranding and gas adjacent to the port. A left PICC is in place. No enlarged thoracic lymph nodes are present. Size of the heart is normal. There is no pericardial effusion. No pneumothorax or pleural effusion is present. There is no consolidation. Linear opacities reflect atelectasis. Note is made of an acute mildly displaced fracture pf the posterior right 10th rib. There is an acute minimally displaced fracture pf the posterior right 11th rib and acute mildly displaced fracture of the posterior right 12th rib. Old right-sided rib fractures are present. No acute thoracic spine fracture is present. The abdomen and pelvis CT will be reported separately. Hypodense hepatic foci are better depicted on that exam. There is hepatic steatosis. Biliary stent is in place. IMPRESSION: 1. Acute fractures of the posterior right 10th, 11th and 12th ribs. No pneu mothorax. Trace right pleural effusion which may reflect a small hemothorax. 2. Infiltration and gas adjacent to the right [id number]-Tufi. This is nonspecific and could be due to recent access. However, an infectious process is also within the differential. ACT 112: Negative or not required by law. Electronically signed by: Morales Story M.D. 05/09/2022 2:[address] 05/09/22 12:45 CT head/brain wo con CLINICAL HISTORY: 42 years-old Female with fall. Acute head trauma status post fall TECHNIQUE: Multiple axial CT images of the head were obtained without contrast. A dose lowering technique was utilized adhering to the principles of ALARA. COMPARISON: None. FINDINGS: No acute intracranial hemorrhage, midline shift, intracranial mass, hydrocephalus, territorial ischemia or abnormal extra-axial collection. Mild involutional changes. Calcifications of the falx cerebri. The calvarium is intact. The paranasal sinuses, mastoid air cells, and middle ear cavities are clear. IMPRESSION: No acute intracranial abnormality or calvarial fracture. ACT 112: Negative or not required by law. The above report was generated using voice recognition software. It may contain grammatical, syntax or spelling errors. Electronically signed by: Mahendra Alvarez M.D. 05/09/2022 2:15 PM Medications Administered Medication List Discontinued Medications Al Hydrox/Mg Hydrox/Simethicone (Gi Cocktail Ed Use) 1 dose PO ONE ONE Stop: 05/09/22 13:41 Last Admin: 05/09/22 13:46 Dose: 1 dose Documented By: MES Hydromorphone HCl (Hydromorphone Inj 1 Mg/Ml Syringe) 1 mg IV NOW STA Stop: 05/09/22 13:14 Last Admin: 05/09/22 13:28 Dose: 1 mg Documented By: MES Hydromorphone HCl (Hydromorphone Inj 0.5 Mg/0.5 Ml Syr) 0.5 mg IV NOW STA Stop: 05/09/22 14:55 Last Admin: 05/09/22 15:03 Dose: 0.5 mg Documented By: WON Promethazine HCl 12.5 mg/ (Sodium Chloride) 50.5 mls @ 202 mls/hr IV NOW STA Stop: 05/09/22 16:29 Last Admin: 05/09/22 16:56 Dose: 202 mls/hr Documented By: RSVandana Ioversol (Ioversol 350 Mg 100ml Prefilled Syringe) 94 ml IV ONCE ONE Stop: 05/09/22 14:02 Last Admin: 05/09/22 14:01 Dose: 94 ml Documented By: GLENNA Morphine Sulfate (Morphine Sulfate 10 Mg/Ml Carp/Vial) 6 mg IV NOW STA Stop: 05/09/22 12:45 Last Admin: 05/09/22 12:52 Dose: 6 mg Documented By: MES Ondansetron HCl (Ondansetron Inj 2 Mg/Ml 2 Ml Vial) 4 mg IV NOW STA Stop: 05/09/22 12:45 Last Admin: 05/09/22 12:52 Dose: 4 mg Documented By: MES Ondansetron HCl (Ondansetron Inj 2 Mg/Ml 2 Ml Vial) 4 mg IV NOW STA Stop: 05/09/22 13:14 Last Admin: 05/09/22 13:28 Dose: 4 mg Documented By: MES Ondansetron HCl (Ondansetron Inj 2 Mg/Ml 2 Ml Vial) 4 mg IV NOW STA Stop: 05/09/22 15:36 Last Admin: 05/09/22 15:39 Dose: 4 mg Documented By: RSL ECG Rate (beats per minute): 123 Rhythm: sinus tachycardia COVID-19 Results Results COVID-19 Adm Lab Results: RBC 4.54 M/uL (3.93-5.22) 05/09/22 WBC 10.04 K/ul (4.8-10.8) 05/09/22 Hgb 14.5 g/dl (12.0-16.0) 05/09/22 Hct 43.9 % (34.1-44.9) 05/09/22 Plt Count 295 K/uL (130-400) 05/09/22 Neutrophils (%) (Auto) 86.4 % 05/09/22 Lymphocytes (%) (Auto) 10.8 % 05/09/22 Monocytes # (Auto) 0.19 K/uL (0.24-0.82) L 05/09/22 Eosinophils # (Auto) 0.01 K/uL (0-0.50) 05/09/22 Immature Granulocyte % (Auto) 0.4 % 05/09/22 Neutrophils # (Auto) 8.68 K/uL (1.4-6.5) H 05/09/22 Lymphocytes # (Auto) 1.08 K/uL (1.2-3.4) L 05/09/22 Monocytes # (Auto) 0.19 K/uL (0.24-0.82) L 05/09/22 Eosinophils # (Auto) 0.01 K/uL (0-0.50) 05/09/22 Basophils # (Auto) 0.04 K/uL (0-0.2) 05/09/22 Immature Granulocyte # (Auto) 0.04 K/uL (0.00-0.02) H 05/09 Na 135 mmol/L (136-145) L 05/09/22 K 4.0 mmol/L (3.5-5.1) 05/09/22 Cl 96 mmol/L (98-107) L 05/09/22 CO2 24 mmol/L (21-32) 05/09/22 Anion Gap 15 (3-11) H 05/09/22 BUN 6 mg/dl (6-23) 05/09/22 Creatinine 0.44 mg/dl (0.6-1.2) L 05/09/22 BUN/Creatinine Ratio 13.6 (10-20) 05/09/22 Glucose Level 308 mg/dl (70-99(Fasting)) H* 05/09/22 Ca 9.0 mg/dl (8.5-10.1) 05/09/22 Total Bilirubin 1.0 mg/dl (0.2-1.0) 05/09/22 AST/SGOT 52 U/L (13-39) H 05/09/22 ALT/SGPT 22 U/L (7-52) 05/09/22 Alkaline Phosphatase 380 U/L (34-104) H 05/09/22 Total Protein 7.0 gm/dl (6.0-8.3) 05/09/22 Albumin 3.3 gm/dl (3.4-5.0) L 05/09/22 Globulin 3.7 gm/dl (2.5-4.0) 05/09/22 Albumin/Globulin Ratio 0.9 (0.9-2) 05/09/22 PTT 27.3 Seconds (21.0-31.0) 05/09/22 INR 1.1 (0.9-1.1) 05/09/22 SARS-CoV-2, RNA, NAAT NEGATIVE (NEGATIVE) 05/09/[address] 05/09/22 Code Status & VTE Plan Code Status Full Code VTE Prophylaxis Plan VTE Prophylaxis will be ordered: Yes Supervising Physician Co-Signing Physician Notes Attending addendum: The patient was seen and examined in emergency room She is a 42-year-old female with significant past medical history of metastatic adenocarcinoma of the pancreas on chemotherapy with mets to liver and complex hepatic abscess status post drain is in situ and is on IV antibiotic She has had a fall on Saturday and fractured a few of her ribs She is in the emergency room with increasing pain mainly in the right quadrants of the abdomen and also chest pain On examination She is in pain but hemodynamically stable Chest-decreased breath sound bilaterally, more pain with respiration Abdomen-soft, very tender right quadrants with intra-abdominal drain in situ with localized tenderness Heart-S1-S2, regular Extremities-trace edema bilaterally 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 Generally weak and lethargy Her admission labs, EKG and imaging studies reviewed Has multiple rib fractures with increasing pain and a small pleural effusion could be hemothorax Metastatic adenocarcinoma of the pancreas with mets to liver and complex hepatic abscess Has intra-abdominal IR drain placed on 04/18 and has been on intravenous Rocephin which will be continued until 05/17 No more drainage from the drain for the last or not 2 weeks without any significant abdominal distention but still having nausea and pain Will talk to attending physician in [facility] to manage the drain from here-EPIC is not accessible now Agree with assessment and plan as outlined above by Princess Cruz
[2022-05-09] MEDS ORDERED: HYDROmorphone INJ 1 MG/ML SYRINGE ONE (17:33)
[2022-05-09] MEDS ORDERED: HYDROmorphone INJ 1 MG/ML SYRINGE IV PRN (18:39)
[2022-05-09] MEDS ORDERED: GLUCAGON FOR INJ 1 MG VIAL SQ PRN (18:39)
[2022-05-09] MEDS ORDERED: GLUCOSE 10 TAB/TUBE PO PRN (18:39)
[2022-05-09] MEDS ORDERED: POLYETHYLENE (MIRALAX) 17 GM PACK PO PRN (18:39)
[2022-05-09] MEDS ORDERED: SODIUM CHLORIDE 0.9% 1000ML 1,000 ML IV SCH (18:39)
[2022-05-09] MEDS ORDERED: MAGNESIUM HYDROXIDE SUSP 30 ML UDC PO PRN (18:39)
[2022-05-09] MEDS ORDERED: DEXTROSE 50% 50 ML SYRINGE IV PRN (18:39)
[2022-05-09] MEDS ORDERED: GLUCOSE 40% GEL 15 GM TUBE PO PRN (18:39)
[2022-05-09] MEDS ORDERED: CARBOHYDRATES FOR HYPOGLYCEMIA PO PRN (18:39)
[2022-05-09] MEDS ORDERED: ALBUTEROL HFA 8 GM INHALER INH PRN (18:39)
[2022-05-09] MEDS ORDERED: MoRPHine SULFATE CR 15 MG TABCR PO ONE (19:33)
[2022-05-09] MEDS ORDERED: LORazepam 0.5 MG TAB ONE (19:34)
[2022-05-09] MEDS: LIDOCAINE 5% 1 PATCH TD SCH (20:31)
[2022-05-09] MEDS: POTASSIUM CHLORIDE 10 MEQ TABCR PO SCH (20:33)
[2022-05-09] MEDS: QUEtiapine FUMARATE 200 MG TAB PO SCH (20:33)
[2022-05-09] MEDS: SENNA 8.6 MG TAB PO SCH (20:34)
[2022-05-09] MEDS: PANTOprazole 40 MG TAB PO SCH (20:35)
[2022-05-09] MEDS: OLANZapine 5 MG TABLET PO SCH (20:35)
[2022-05-09] MEDS: lamoTRIgine 100 MG TAB PO SCH (20:36)
[2022-05-09] MEDS: rOPINIRole HCL 2 MG TABLET PO SCH (20:36)
[2022-05-09] MEDS: PANCREAZE (LIPASE 16,800U) CAP PO SCH (20:38)
[2022-05-09] MEDS: MoRPHine SULFATE CR 15 MG TABCR PO SCH (20:50)
[2022-05-09] MEDS: INSULIN ASPART PER UNIT SC SCH ×2 (21:00→21:23)
[2022-05-09] MEDS: LANTUS PER UNIT CHARGE SQ SCH (21:25)
[2022-05-09] MEDS: ACETAMINOPHEN 325 MG TAB PO PRN (22:16)
[2022-05-10] MEDS: PROMETHAZINE HCL 12.5 MG in SODIUM CHLORIDE 0.9% 50 ML IV PRN ×3 (02:49→22:40)
[2022-05-10] MEDS: MoRPHine SULFATE IR 15 MG TAB (IMMEDIATE RELEASE) PO PRN ×3 (03:49→15:33)
[2022-05-10] MEDS ORDERED: HYDROmorphone INJ 1 MG/ML SYRINGE IV PRN (04:22)
[2022-05-10 05:56] LABS: Basophils # (auto) 0.04 K/uL (0-0.2); Basophils % (auto) 0.5 %; Eosinophils # (auto) 0.05 K/uL (0-0.50); Eosinophils % (auto) 0.6 %; Hematocrit (blood only) 36.4 % (34.1-44.9); Hemoglobin 12.2 g/dl (12.0-16.0); Immature Granulocytes # (auto) 0.02 K/uL (0.00-0.02); Immature Granulocytes % (auto) 0.2 %; Lymphocytes # (auto) 1.41 K/uL (1.2-3.4); Lymphocytes % (auto) 16.9 %; Mean Corpuscular Hemoglobin 32.1 pg (25.0-34.0); Mean Corpuscular Hgb Conc 33.5 g/dL (32.0-36.0); Mean Corpuscular Volume 95.8 fL (80.0-100.0); Mean Platelet Volume 11.2 fL (9.4-12.3); Monocytes # (auto) 0.89 K/uL (0.24-0.82); Monocytes % (auto) 10.7 %; Neutrophils # (auto) 5.94 K/uL (1.4-6.5); Neutrophils % (auto) 71.1 %; Platelet Count 195 K/uL (130-400); RDW Coefficient of Variation 16.2 % (11.5-14.5); RDW Standard Deviation 57.7 fL (36.4-46.3); White Blood Count 8.35 K/ul (4.8-10.8)
[2022-05-10 06:23] LABS: Albumin Globulin Ratio 0.9 (0.9-2); Albumin Level 2.8 gm/dl (3.4-5.0); BUN Creatinine Ratio 18.2 (10-20); Bilirubin,Total 0.7 mg/dl (0.2-1.0); Calcium 8.2 mg/dl (8.5-10.1); Creatinine Clr Calc Pharmacy 164.6 ml/min; Est GFR (African American) 142.3 ml/min; Est GFR (Non-African American) 122.8 ml/min; Globulin 3.1 gm/dl (2.5-4.0); Magnesium 1.6 mg/dl (1.7-2.4); Potassium 3.5 mmol/L (3.5-5.1); Total Protein 5.9 gm/dl (6.0-8.3)
[2022-05-10 07:36] LABS: Estimated Average Glucose 131 mg/dl; Hemoglobin A1C 6.2 % (4.5-5.6)
[2022-05-10] MEDS ORDERED: HYDROmorphone INJ 0.5 MG/0.5 ML SYR IV STA ×2 (07:42→07:57)
[2022-05-10] MEDS ORDERED: ALUMINUM/MAGNESIUM SUSP 30 ML UDC PO PRN (07:42)
[2022-05-10] MEDS ORDERED: MAGNESIUM HYDROXIDE SUSP 30 ML UDC PO PRN (07:53)
--- NOTE | 2022-05-10 07:57 | XRay Report ---
XR chest 1V portable HISTORY: 42 years-old Female repeat for pleural effusion/fx STUDY in a patient with acute fractures of the right 10th, 11th and 12th ribs. COMPARISON: CT abdomen and pelvis 05/09/2022 TECHNIQUE: AP view of the chest FINDINGS: Cardiac mediastinal and hilar silhouettes are within normal limits. A left-sided PICC is present with distal tip in the expected location of the brachiocephalic SVC confluence. Right IJ [id number] ca theter distal tip is noted in the expected location of the SVC. There is unchanged mild blunting of t he costophrenic angles. No pneumothorax, pleural effusion, airspace consolidation or overt pulmonary edema. Degenerative changes of the shoulders and spine. Healed chronic right-sided rib fractures. Acu te mildly displaced fractures of the right 10th, 11th and 12th ribs are not well visualized. IMPRESSION: 1. The acute fractures of the right 10th, 11th and 12th ribs are better visualized on the comparison CT study. 2. No pneumothorax. ACT 112: Negative or not required by law. The above report was generated using voice recognition software. It may contain grammatical, syntax o r spelling errors. Electronically signed by: Mahendra Alvarez M.D. 05/10/2022 7:56 AM
[2022-05-10] MEDS: PANCREAZE (LIPASE 16,800U) CAP PO SCH ×3 (08:11→16:16)
[2022-05-10] MEDS: LANTUS PER UNIT CHARGE SQ SCH (08:12)
[2022-05-10] MEDS: INSULIN ASPART PER UNIT SC SCH ×4 (08:13→20:31)
[2022-05-10] MEDS: PANTOprazole 40 MG TAB PO SCH ×2 (08:16→20:28)
[2022-05-10] MEDS: FLUTICASONE PROPIONATE NA SPR 16 GM BTL SCH (08:16)
[2022-05-10] MEDS: LORATADINE 10 MG TAB PO SCH (08:16)
[2022-05-10] MEDS: ASPIRIN 81 MG ECTAB PO SCH (08:16)
[2022-05-10] MEDS: LEVOTHYROXINE SODIUM 50 MCG TABLET PO SCH (08:16)
[2022-05-10] MEDS: POTASSIUM CHLORIDE 10 MEQ TABCR PO SCH ×2 (08:16→19:44)
[2022-05-10] MEDS: LIDOCAINE 5% 1 PATCH TD SCH (08:19)
[2022-05-10] MEDS: ENALAPRIL MALEATE 10 MG TAB PO SCH (08:20)
[2022-05-10] MEDS: DULoxetine HCL 60 MG CAP PO SCH (08:20)
[2022-05-10] MEDS: rOPINIRole HCL 2 MG TABLET PO SCH ×3 (08:21→20:30)
[2022-05-10] MEDS: POLYETHYLENE (MIRALAX) 17 GM PACK PO SCH (08:27)
[2022-05-10] MEDS: MoRPHine SULFATE CR 15 MG TABCR PO SCH ×2 (08:36→20:39)
[2022-05-10] MEDS ORDERED: cefTRIAXone SODIUM 2,000 MG in DEXTROSE 5% 50 ML IV SCH (09:00)
[2022-05-10] MEDS ORDERED: CEFTRIAXONE 1 GM IV SCH (09:00)
[2022-05-10] MEDS: LORazepam 1 MG TAB PO PRN ×2 (09:46→19:34)
[2022-05-10] MEDS: HYDROmorphone INJ 1 MG/ML SYRINGE IV PRN ×5 (10:11→22:15)
[2022-05-10] MEDS: METOPROLOL TARTRATE 25 MG TAB PO SCH ×2 (10:51→20:27)
[2022-05-10] MEDS ORDERED: ALUMINUM/MAGNESIUM SUSP 18 ML, LIDOCAINE VISCOUS 2% SOLN 6 ML, BARCODE IDENTIFIER 1 EACH PO ONE (12:01)
--- NOTE | 2022-05-10 16:39 | Hospitalist Progress Note ---
Date of Service May 10, 2022 Assessment & Plan (1) Fracture of ribs, multiple, closed: Plan: This is a 42-year-old female who has a significant past medical history of metastatic adenocarcinoma of pancreas currently on chemotherapy with mets to liver, Complex hepatic abscess currently on IV antibiotics, insulin-dependent T2DM, HTN, HLD, chronic pain in setting of malignancy, PCM who presents to ED secondary to significant pain to her right back. Multiple Rib Fx, R posterior 10-12, with small pleural effusion, possible hemothorax Intractable pain Nausea and vomiting Pain control - pt on chronic Morphine ER 30mg bid, and IR 30mg q4h (utilize this for mild pain 1-6), IV dilaudid 1mg q6h (pain 7-10), lidocaine patch Prn Phenergan for antiemetic Diet advanced as tolerated repeat cxr in a.m.-confirmed acute fractures of the right 10th, 11th and 12th ribs-mention about pneumonia and/or hemothorax Incentive spirometry Increasing pain as of this morning and Dilaudid doses has been increased to 1 mg IV Q3 hourly from every 4 hourly May need to discuss with the palliative care provider in [place] Pain therapist consulted (2) Metastatic adenocarcinoma to pancreas: Plan: Metastatic adenocarcinoma of pancreas with mets to Liver follows [facility] oncology last tx 04/02 due to recent medical issues Continue pancreas (3) Intractable pain: Plan: Intractable abdominal and chest pain secondary to rib fracture Pain is worsened due to the presence of intra-abdominal catheter to drain h epatic abscess (4) Nausea and vomiting: Plan: Ongoing problem Likely secondary to chronic pancreatitis (5) Hepatic abscess: Plan: Hepatic Abscess IR drain placed on 04/18, cultures grew Klebsiella and E. coli currently treating with 2 g of IV Rocephin daily until 05/17 CT scan pushed to [facility] will ask [facility] if Drain able to be removed while inpatient given no drainage and improvement on imaging The PCP Dr. Perla has been waiting reply from the IR specialist for the decision of drain to come out or to stay Antibiotic should be continued until of this month that is 05/17/2022 (6) Hepatic metastases: (7) Uncontrolled type 2 diabetes mellitus, with long-term current use of insulin: Plan: Uncontrolled T2DM, insulin dependent Hyperglycemia place on insulin per protocol admitting bsg [id number] last a1c 6.8 on 03/30 repeat in a.m. HTN continue enalapril bp elevated in ED likely 2/2 pain Depression Continue Seroquel Hypothyroidism Continue supplement Hyperlipidemia DVT Prophylaxis SCDS due to rib fx and possible hemothorax Full Code Admission and Anticipated Discharge Date Admission Date: May 09, 2022 Subjective 05/10/2022 The patient was seen and examined in telemetry unit She has been complaining of severe pain in the abdomen with nausea Denies any fever and or chills and does not have any more drainage from the intra-abdominal drain tube Has pain in the chest with deep breathing without any shortness of breath Review of Systems Review of Systems: All systems reviewed and are unremarkable except as noted below Respiratory: Chest pain with deep breathing Gastrointestinal: Abdominal pain with nausea Physical Exam Physical Exam: Sitting on the bed with acute pain and crying Constitutional: + ill appearing and average body habitus Eyes: PERRL, conjunctivae normal, anicteric sclerae ENMT: external ear and nose normal, oropharynx normal Neck: trachea midline, no thyromegaly Respiratory: no respiratory distress Auscultation: lungs clear to auscultation bilaterally Cardiovascular: Rate/Rhythm: regular rate and regular rhythm; not tachycardic Heart Sounds: normal S1 and normal S2; no murmur Extremities: + edema (Trace edema bilaterally) Gastrointestinal (Abdomen): Inspection/Auscultation: normal bowel sounds; + abdomen abnormal to inspection (Has right upper quadrant drain in place) and abdomen not distended Percussion/Palpation: + abdomen tender (Tender all over but mostly right quadrants) and abdomen soft Musculoskeletal: No acute arthritis in any joint Neurologic: Alert, 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 No focal sensory and/or motor deficit appreciated Lymphatic: no cervical or axillary lymphadenopathy Results & Data Results & Data ([facility]) Vital Signs (Past 12 Hours) Vital Signs Temp Pulse Pulse Resp BP BP Pulse Ox 05/10/22 15:57 36.7 C 76 18 156/93 H 98 05/10/22 11:43 87 05/10/22 10:52 36.7 C 125 H 18 171/95 H 99 05/10/22 07:00 36.7 C 109 H 19 171/103 H 93 O2 Del Method 05/10/22 15:57 Room Air 05/10/22 11:43 05/10/22 10:52 Room Air 05/10/22 07:00 Room Air Laboratory Results Short CBC 10/06/22 Range/Units 05:24 WBC 8.35 (4.8-10.8) K/ul Hgb 12.2 (12.0-16.0) g/dl Hct 36.4 (34.1-44.9) % Plt Count 195 (130-400) K/uL BMP 05/10/22 05:24 Sodium 135 L Potassium 3.5 Chloride 97 L Carbon Dioxide 30 BUN 8 Creatinine 0.44 L Glucose 240 H Calcium 8.2 L Liver Function 05/10/22 Range/Units 05:24 Total Bilirubin 0.7 (0.2-1.0) mg/dl AST 22 (13-39) U/L ALT 14 (7-52) U/L Alkaline Phosphatase 272 H (34-104) U/L Albumin 2.8 L (3.4-5.0) gm/dl Medications Administered Current Inpatient Medications Acetaminophen (Acetaminophen 325 Mg Tab) 650 mg PO Q4H PRN PRN Reason: Pain or Fever Stop: 06/08/22 18:38 Last Admin: 05/09/22 22:16 Dose: 650 mg Al Hydrox/Mg Hydrox/Simethicone (Aluminum/Magnesium Susp 30 Ml Udc) 15 ml PO Q4H PRN PRN Reason: Dyspepsia Stop: 06/08/22 18:38 Albuterol (Albuterol Hfa 8 Gm Inhaler) 1 - 2 puffs INH Q6 PRN PRN Reason: as directed Stop: 06/08/22 18:38 Lipase/Protease/Amylase (Pancreaze (Lipase 16,800u) Cap) 1 cap PO TIDM BRIANNA Stop: 06/08/22 19:59 Last Admin: 05/10/22 16:16 Dose: Not Given Aspirin (Aspirin 81 Mg Ectab) 81 mg PO DAILY BRIANNA Stop: 06/09/22 08:59 Last Admin: 05/10/22 08:16 Dose: Not Given Dextrose (Dextrose 50% 50 Ml Syringe) 25 - 50 ml IV UD PRN; Protocol PRN Reason: Hypoglycemia Protocol Stop: 06/08/22 18:38 Duloxetine HCl (Duloxetine Hcl 60 Mg Cap) 120 mg PO DAILY BRIANNA Stop: 06/09/22 08:59 Last Admin: 05/10/22 08:20 Dose: 120 mg Enalapril Maleate (Enalapril Maleate 10 Mg Tab) 20 mg PO DAILY BRIANNA Stop: 06/09/22 08:59 Last Admin: 05/10/22 08:20 Dose: 20 mg Fluticasone Propionate (Fluticasone Propionate Na Spr 16 Gm Btl) 2 sprays NA DAILY BRIANNA Stop: 06/09/22 08:59 Last Admin: 05/10/22 08:16 Dose: Not Given Glucagon (Glucagon For Inj 1 Mg Vial) 1 mg SQ UD PRN; Protocol PRN Reason: Hypoglycemia Protocol Stop: 06/08/22 18:38 Glucose (Glucose 40% Gel 15 Gm Tube) 15 - 30 gm PO UD PRN; Protocol PRN Reason: Hypoglycemia Protocol Stop: 06/08/22 18:38 Glucose (Glucose 10 Tab/Tube) 4 - 8 tab PO UD PRN; Protocol PRN Reason: Hypoglycemia Treatment Stop: 06/08/22 18:38 Heparin Sodium (Beef Lung) (Heparin 10 Unit/Ml 5 Ml Flush) 5 ml FLUSH PRN PRN PRN Reason: Flush Stop: 06/09/22 01:11 Hydromorphone HCl (Hydromorphone Inj 1 Mg/Ml Syringe) 1 mg IV Q3H PRN PRN Reason: Pain 7-10 Stop: 05/24/22 04:21 Last Admin: 05/10/22 16:16 Dose: 1 mg Promethazine HCl 12.5 mg/ (Sodium Chloride) 50.5 mls @ 202 mls/hr IV Q6H PRN PRN Reason: Nausea And Vomiting Stop: 06/08/22 18:38 Last Infusion: 05/10/22 10:13 Dose: Infused Ceftriaxone Sodium 2,000 mg/ (Dextrose) 70 mls @ 140 mls/hr IV UD [facility] Stop: 05/18/22 08:59 Insulin Aspart (Insulin Aspart Per Unit) 0 units SC ACHS BRIANNA Stop: 06/08/22 18:38 Last Admin: 05/10/22 11:30 Dose: Not Given Insulin Glargine (Lantus Per Unit Charge) 0 - 10 units SQ BID BRIANNA Stop: 06/08/22 20:59 Last Admin: 05/10/22 08:12 Dose: 10 units Lamotrigine (Lamotrigine 100 Mg Tab) 200 mg PO HS [facility] Stop: 06/08/22 20:59 Last Admin: 05/09/22 20:36 Dose: 200 mg Levothyroxine Sodium (Levothyroxine Sodium 50 Mcg Tablet) 50 mcg PO QAM [facility] Stop: 06/09/22 08:59 Last Admin: 05/10/22 08:16 Dose: Not Given Lidocaine (Lidocaine 5% 1 Patch) 1 patch TD QAM [facility] Stop: 06/08/22 18:38 Last Admin: 05/10/22 08:19 Dose: 1 patch Loratadine (Loratadine 10 Mg Tab) 10 mg PO DAILY BRIANNA Stop: 06/09/22 08:59 Last Admin: 05/10/22 08:16 Dose: Not Given Lorazepam (Lorazepam 1 Mg Tab) 1 mg PO Q8 PRN PRN Reason: anxiety or sleep Stop: 06/08/22 18:38 Last Admin: 05/10/22 09:46 Dose: 1 mg Magnesium Hydroxide (Magnesium Hydroxide Susp 30 Ml Udc) 30 ml PO Q12H PRN PRN Reason: Constipation Stop: 06/08/22 18:38 Last Admin: 05/10/22 08:29 Dose: 30 ml Magnesium Hydroxide (Magnesium Hydroxide Susp 30 Ml Udc) 30 ml PO Q6H PRN PRN Reason: Dyspepsia Stop: 06/09/22 07:52 Metoprolol Tartrate (Metoprolol Tartrate 25 Mg Tab) 25 mg PO BID [facility] Stop: 06/09/22 09:29 Last Admin: 05/10/22 10:51 Dose: 25 mg Miscellaneous (Carbohydrates For Hypoglycemia ) 15 - 30 gm PO UD PRN PRN Reason: Hypoglycemia Protocol Stop: 06/08/22 18:38 Miscellaneous (Remove Lidoderm Patch) 1 each N/A DAILY@2100 [facility] Stop: 06/08/22 20:59 Last Admin: 05/09/22 21:01 Dose: Not Given Morphine Sulfate (Morphine Sulfate Ir 15 Mg Tab (Immediate Release)) 30 mg PO Q4H PRN PRN Reason: Claribel 1-6 Stop: 05/23/22 18:38 Last Admin: 05/10/22 15:33 Dose: 30 mg Morphine Sulfate (Morphine Sulfate Cr 15 Mg Tabcr) 30 mg PO BID [facility] Stop: 05/23/22 20:59 Last Admin: 05/10/22 08:36 Dose: 30 mg Olanzapine (Olanzapine 5 Mg Tablet) 5 mg PO HS [facility] Stop: 06/08/22 20:59 Last Admin: 05/09/22 20:35 Dose: 5 mg Pantoprazole Sodium (Pantoprazole 40 Mg Tab) 40 mg PO BID [facility] Stop: 06/08/22 20:59 Last Admin: 05/10/22 08:16 Dose: Not Given Polyethylene Glycol (Polyethylene (Miralax) 17 Gm Pack) 17 gm PO DAILY PRN PRN Reason: Constipation Stop: 06/08/22 18:38 Polyethylene Glycol (Polyethylene (Miralax) 17 Gm Pack) 17 gm PO QAM BRIANNA Stop: 06/09/22 08:59 Last Admin: 05/10/22 08:27 Dose: 17 gm Potassium Chloride (Potassium Chloride 10 Meq Tabcr) 10 meq PO AMHS [facility] Stop: 06/08/22 20:59 Last Admin: 05/10/22 08:16 Dose: Not Given Quetiapine Fumarate (Quetiapine Fumarate 200 Mg Tab) 200 mg PO HS [facility] Stop: 06/08/22 20:59 Last Admin: 05/09/22 20:33 Dose: 200 mg Ropinirole HCl (Ropinirole Hcl 2 Mg Tablet) 4 mg PO TID [facility] Stop: 06/08/22 20:59 Last Admin: 05/10/22 15:34 Dose: 4 mg Sennosides (Senna 8.6 Mg Tab) 17.2 mg PO HS [facility] Stop: 06/08/22 20:59 Last Admin: 05/09/22 20:34 Dose: 17.2 mg
[2022-05-10 18:20] LABS: Appearance Urine Clear (Clear); Bacteria Urine Automated Negative (Negative); Blood Urine Negative (Negative); Color Urine Dark Yellow; Epithelial Cell Urine Auto >30 /lpf (0-5); Glucose Urine UA Trace (Negative); Ketones Urine 1+ (Negative); Leukocyte Esterase Urine Trace (Negative); Nitrite Urine Negative (Negative); Protein Urine 1+ (Negative); RBC Urine Automated 0-4 /hpf (0-4); Specific Gravity Urine 1.028 (1.000-1.030); Urobilinogen Urine Negative (Negative)
[2022-05-10 18:21] LABS: Bilirubin Urine 1+ (Negative)
[2022-05-10] MEDS: cefTRIAXone SODIUM 2,000 MG in DEXTROSE 5% 50 ML IV SCH (18:49)
[2022-05-10] MEDS: lamoTRIgine 100 MG TAB PO SCH (20:26)
[2022-05-10] MEDS: OLANZapine 5 MG TABLET PO SCH (20:28)
[2022-05-10] MEDS: QUEtiapine FUMARATE 200 MG TAB PO SCH (20:29)
[2022-05-10] MEDS: SENNA 8.6 MG TAB PO SCH (20:30)
[2022-05-11] MEDS: LANTUS PER UNIT CHARGE SQ SCH ×3 (00:18→21:05)
[2022-05-11] MEDS: HYDROmorphone INJ 1 MG/ML SYRINGE IV PRN ×9 (02:09→23:03)
[2022-05-11 05:08] LABS: Basophils # (auto) 0.04 K/uL (0-0.2); Basophils % (auto) 0.6 %; Eosinophils # (auto) 0.41 K/uL (0-0.50); Eosinophils % (auto) 6.3 %; Hematocrit (blood only) 36.2 % (34.1-44.9); Hemoglobin 11.7 g/dl (12.0-16.0); Immature Granulocytes # (auto) 0.02 K/uL (0.00-0.02); Immature Granulocytes % (auto) 0.3 %; Lymphocytes # (auto) 1.95 K/uL (1.2-3.4); Lymphocytes % (auto) 29.8 %; Mean Corpuscular Hemoglobin 31.7 pg (25.0-34.0); Mean Corpuscular Hgb Conc 32.3 g/dL (32.0-36.0); Mean Corpuscular Volume 98.1 fL (80.0-100.0); Mean Platelet Volume 11.2 fL (9.4-12.3); Monocytes % (auto) 10.7 %; Neutrophils # (auto) 3.42 K/uL (1.4-6.5); Neutrophils % (auto) 52.3 %; Platelet Count 169 K/uL (130-400); RDW Coefficient of Variation 15.9 % (11.5-14.5); RDW Standard Deviation 58.1 fL (36.4-46.3); Red Blood Count 3.69 M/uL (3.93-5.22); White Blood Count 6.54 K/ul (4.8-10.8)
[2022-05-11 05:29] LABS: Albumin Globulin Ratio 0.9 (0.9-2); Albumin Level 2.6 gm/dl (3.4-5.0); BUN Creatinine Ratio 15.4 (10-20); Bilirubin,Total 0.7 mg/dl (0.2-1.0); Calcium 8.2 mg/dl (8.5-10.1); Creatinine Clr Calc Pharmacy 205.7 ml/min; Est GFR (Non-African American) 127.7 ml/min; Magnesium 1.8 mg/dl (1.7-2.4); Potassium 3.2 mmol/L (3.5-5.1); Total Protein 5.6 gm/dl (6.0-8.3)
[2022-05-11] MEDS: MoRPHine SULFATE CR 15 MG TABCR PO SCH (07:29)
[2022-05-11] MEDS: LIDOCAINE 5% 1 PATCH TD SCH (08:26)
[2022-05-11] MEDS: POTASSIUM CHLORIDE 10 MEQ TABCR PO SCH ×2 (08:28→21:08)
[2022-05-11] MEDS: POLYETHYLENE (MIRALAX) 17 GM PACK PO SCH (08:28)
[2022-05-11] MEDS: LEVOTHYROXINE SODIUM 50 MCG TABLET PO SCH (08:29)
[2022-05-11] MEDS: rOPINIRole HCL 2 MG TABLET PO SCH ×3 (08:29→21:09)
[2022-05-11] MEDS: FLUTICASONE PROPIONATE NA SPR 16 GM BTL SCH (08:29)
[2022-05-11] MEDS: METOPROLOL TARTRATE 25 MG TAB PO SCH ×2 (08:29→21:06)
[2022-05-11] MEDS: LORATADINE 10 MG TAB PO SCH (08:29)
[2022-05-11] MEDS: ASPIRIN 81 MG ECTAB PO SCH (08:29)
[2022-05-11] MEDS: DULoxetine HCL 60 MG CAP PO SCH (08:29)
[2022-05-11] MEDS: PANCREAZE (LIPASE 16,800U) CAP PO SCH ×3 (08:29→17:13)
[2022-05-11] MEDS: ENALAPRIL MALEATE 10 MG TAB PO SCH (08:29)
[2022-05-11] MEDS: PANTOprazole 40 MG TAB PO SCH ×2 (08:30→21:07)
[2022-05-11] MEDS: INSULIN ASPART PER UNIT SC SCH ×4 (08:42→21:05)
[2022-05-11] MEDS: cefTRIAXone SODIUM 2,000 MG in DEXTROSE 5% 50 ML IV SCH (08:51)
--- NOTE | 2022-05-11 09:03 | Pain Management Consultation ---
Date of Consultation May 11, 2022 Assessment & Plan (1) Closed rib fracture: (2) Adenocarcinoma of head of pancreas: (3) Hepatic abscess: (4) Hemothorax: (5) Fall: (6) Dizziness: (7) Hepatic metastases: (8) Metastatic adenocarcinoma to pancreas: Plan 1. MS Contin was discontinued and patient was placed on Fentanyl patch 25mcg/hr. 2. Continue MS IR 30mg x 4 hours PRN pain 3. IV Dilaudid 1mg x 3 hours PRN breakthrough pain if MS IR is not effective. 4. Continue Lidocaine patches. 5. Thank you for the consultation. Please contact with any questions or concerns. History of Present Illness Attending Physician: Glynn Kaba MD History of Present Illness Ms. Ceballos is a 42 year old female with metastatic adenocarcinoma of the pancr eas with mets to liver. Few weeks ago she was admitted to [facility] for a complex hepatic abscess and has a drain in place. Currently on IV antibiotics. She did feel lightheaded and fell and subsequently fractured the right 10th-12th ribs. She is chronically taking MS Contin 30mg twice daily and MS IR 30mg x 4 hours. Patient states that the medication regimen does typically control her pain at home but is likely the cause to the lightheadedness. Her primary pain complaint is in the right lower abdomen. No radicular symptoms. She describes as a constant deep ache. Patient is established with [facility] palliative care. Case discussed with Dr. Mary Solis Allergies Allergy/AdvReac Type Severity Reaction Status Date / Time cephalexin [From Keflex] Allergy Mild Rash, Verified 05/09/22 15:02 urticaria Penicillins Allergy Mild Rash Verified 05/09/22 15:02 Fish Containing Products Allergy Unknown Unknown Verified 05/09/22 15:02 fish oil Allergy Unknown Unknown Verified 05/09/22 15:02 dulaglutide [From [facility]] AdvReac Severe Pancreatiti Verified 05/09/22 15:02 s clarithromycin AdvReac Unknown Vomiting Verified 05/09/22 15:02 Home Medications Medication Instructions Recorded Confirmed Type duloxetine 60 mg capsule,delayed 120 mg PO DAILY 04/14/21 05/09/22 History release (Cymbalta) flash glucose scanning reader 04/14/21 04/17/22 History (FreeStyle Tanmay 14 Day Powers) lamotrigine 200 mg tablet 200 mg PO HS 04/14/21 05/09/22 History (Lamictal) levothyroxine 50 mcg tablet 50 mcg PO QAM 04/14/21 05/09/22 History ropinirole 4 mg tablet 4 mg PO TID 04/14/21 05/09/22 History valacyclovir 1 gram tablet 2,000 mg PO BID PRN Cold Sores 04/14/21 05/09/22 History blood sugar diagnostic (OneTouch #600 ea 05/26/21 04/17/22 Rx Verio test strips) flash glucose sensor (FreeStyle #7 ea 05/26/21 04/17/22 Rx Tanmay 14 Day Sensor kit) flash glucose sensor (FreeStyle #2 ea 01/02/22 04/17/22 Rx Tanmay 2 Sensor kit) acetaminophen 500 mg tablet 500 mg PO Q4 PRN Pain 01/14/22 05/09/22 History lipase 16,800-protease 1 cap PO TIDM 01/14/22 05/09/22 History 56,800-amylase 98,400 unit capsule, delayed rel (Pancreaze) loratadine 10 mg tablet (Claritin) 10 mg PO DAILY 01/14/22 05/09/22 History lorazepam 1 mg tablet 1 mg PO Q8 PRN anxiety or sleep 01/14/22 05/09/22 History ondansetron 8 mg disintegrating 8 mg translingual Q8 PRN Nausea 01/14/22 2 History tablet potassium chloride 10 mEq 10 meq PO AMHS 01/14/22 05/09/22 History tablet,extended release quetiapine 100 mg tablet 200 mg PO HS 03/01/22 05/09/22 History pen needle, diabetic 31 gauge x #200 ea 04/05/22 04/17/22 Rx 3/16" (BD Ultra-Fine Mini Pen Needle) insulin glargine U-300 conc 300 10 unit subcut QAM 04/09/22 05/09/22 History unit/mL (3 mL) subcutaneous pen (Toujeo Max U-300 SoloStar) albuterol sulfate 90 mcg/actuation 1 - 2 inh inhalation Q6 PRN as 04/17/22 05/09/22 History aerosol inhaler (Ventolin HFA) directed bisacodyl 10 mg rectal suppository 10 mg IN DAILY PRN Constipation 04/17/22 05/09/22 History ceftriaxone 1 gram intravenous 2 g IV DAILY 04/17/22 05/09/22 History solution enalapril maleate 20 mg tablet 20 mg PO DAILY 04/17/22 05/09/22 History fluticasone propionate 50 2 spray intranasal DAILY 04/17/22 05/09/22 History mcg/actuation nasal spray,suspension lidocaine-prilocaine 2.5 %-2.5 % 1 applic topical UD 04/17/22 05/09/22 History topical cream morphine 30 mg immediate release 30 mg PO Q4H PRN Pain 04/17/22 05/09/22 History tablet morphine 30 mg tablet,extended 30 mg PO BID 04/17/22 05/09/22 History release naloxegol 25 mg tablet 25 mg PO HS 04/17/22 05/09/22 History pantoprazole 40 mg tablet,delayed 40 mg PO BID 04/17/22 05/09/22 History release pegfilgrastim-bmez 6 mg/0.6 mL 6 mg subcut UD 04/17/22 05/09/22 History subcutaneous syringe polyethylene glycol 3350 17 17 g PO QAM 04/17/22 05/09/22 History gram/dose oral powder (Miralax) prochlorperazine maleate 10 mg 10 mg PO Q6H PRN Nausea 04/17/22 05/09/22 History tablet sennosides 8.6 mg tablet (senna) 17.2 mg PO HS 04/17/22 05/09/22 History insulin lispro 100 unit/mL 2 unit (0.02 mL) subcut TIDM #15 mL 05/05/22 05/09/22 Rx subcutaneous pen (Humalog KwikPen (U-100) Insulin) aspirin 81 mg tablet,delayed 81 mg PO DAILY 05/09/22 05/09/22 History release olanzapine 5 mg tablet 5 mg PO HS 05/09/22 05/09/22 History Patient History Medical History Allergy-induced asthma rare inhaler use Depression with anxiety Diabetes mellitus, type 2 IDDM Dyslipidemia Hypertension Hypothyroidism Lumbosacral pain Obesity Pancreatic cancer + current chemo, follows with [facility] heme/onc PCOS (polycystic ovarian syndrome) Therapeutic opioid-induced constipation (OIC) Surgical History History of ERCP ERCP (06/2021) & EUS/ERCP (04/28/21): Good view with glidescope #3, ETT 7.0 at [facility] History of tonsillectomy History of umbilical hernia repair History of vascular access device A PORT INSERTION History of wisdom tooth extraction Nausea and vomiting after administration of anesthetic agent Family History Brother Diabetes Hypertension Father Hypertension Aunt Diabetes Grandmother (Maternal) Diabetes Other No family history of adverse response to anesthesia Social History Smoking Status: Current some day smoker Tobacco Type: Cigarettes packs per day: 1; Cigarettes Per Day: 20; Second Hand Exposure: No; Hx Alcohol Use: No Hx Substance Use: No Preferred Language: Algerian Communication Ability: Effective 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 Feels Safe at Home: Yes Safety Concerns: Feels Safe At This Time Assistive Devices: Cane Physical Exam Physical Exam: GENERAL: This is a 42 year old female. Tearful during our discussion. HEAD/FACE: Normocephalic and atraumatic. EYES: No drainage or conjunctival injection. ENT: Nose without bleeding or discharge. Oral mucosa moist. NECK: Full ROM without apparent pain. No swelling or masses noted. RESPIRATORY: Patient with unlabored breathing. No signs of respiratory distress. CHEST/AXILLA: Chest movement symmetrical. No deformities noted. ABDOMEN/GI: No distension. Diffuse tenderness of the right lower abdomen. Percutaneous hepatic drain in place. No rebound tenderness or peritoneal signs. BACK: Moves without difficulty SKIN: [place], warm and dry. No rash noted. MS/EXTREMITY: No swelling, no deformities. Moving extremities appropriately. NEURO: Alert and appears oriented. Speech is fluent. Cranial Nerves are grossly intact. PSYCH: Alert, pleasant, affect is calm
[2022-05-11] MEDS ORDERED: HYDROmorphone INJ 1 MG/ML SYRINGE IV STA (09:37)
[2022-05-11] MEDS: fentaNYL 25 MCG/HR TDSY TD SCH (09:54)
[2022-05-11] MEDS: POTASSIUM CHLORIDE CRTAB 20 MEQ TABCR PO SCH ×2 (09:54→21:08)
[2022-05-11] MEDS ORDERED: LACTULOSE SYRUP 20 GM/30 ML UDC PO ONE (10:00)
--- NOTE | 2022-05-11 11:34 | Hospitalist Progress Note ---
Date of Service May 11, 2022 Assessment & Plan (1) Fracture of ribs, multiple, closed: Plan: per Dr. Cruz's notes with addendum: This is a 42-year-old female who has a significant past medical history of metastatic adenocarcinoma of pancreas currently on chemotherapy with mets to liver, Complex hepatic abscess currently on IV antibiotics, insulin-dependent T2DM, HTN, HLD, chronic pain in setting of malignancy, PCM who presents to ED secondary to significant pain to her right back. Multiple Rib Fx, R posterior 10-12, with small pleural effusion, possible hemothorax Intractable pain Nausea and vomiting Pain control - pt on chronic Morphine ER 30mg bid, and IR 30mg q4h (utilize this for mild pain 1-6), IV dilaudid 1mg q6h (pain 7-10), lidocaine patch Prn Phenergan for antiemetic Diet advanced as tolerated repeat cxr in a.m.-confirmed acute fractures of the right 10th, 11th and 12th ribs-mention about pneumonia and/or hemothorax Incentive spirometry Increasing pain as of this morning and Dilaudid doses has been increased to 1 mg IV Q3 hourly from every 4 hourly May need to discuss with the palliative care provider in [place] Pain therapist consulted 05/11 pain level still high Fentanyl patch 25mcg daily started Dilaudid IV 1mg q2h Morphine IR 30mg PRN Lactulose 20g 1 dose Miralax, Senokot S daily (2) Metastatic adenocarcinoma to pancreas: Plan: Metastatic adenocarcinoma of pancreas with mets to Liver follows [facility] oncology last tx 04/02 due to recent medical issues Continue pancreas (3) Intractable pain: Plan: Intractable abdominal and chest pain secondary to rib fracture Pain is worsened due to the presence of intra-abdominal catheter to drain hepatic abscess 05/11 pain medication as per above, pain management on board will message IR from [facility] [employer] if hepatic drain can be removed Incentive spirometry, Lidoderm patch (4) Nausea and vomiting: Plan: Ongoing problem Likely secondary to chronic pancreatitis (5) Hepatic abscess: Plan: Hepatic Abscess IR drain placed on 04/18, cultures grew Klebsiella and E. coli currently treating with 2 g of IV Rocephin daily until 05/17 CT scan pushed to [facility] will ask [facility] if Drain able to be removed while inpatient given no drainage and improvement on imaging The PCP Dr. Perla has been waiting reply from the IR specialist for the decision of drain to come out or to stay Antibiotic should be continued until of this month that is 05/17/2022 10/7 will reach out to [facility] (6) Hepatic metastases: (7) Uncontrolled type 2 diabetes mellitus, with long-term current use of insulin: Plan: Uncontrolled T2DM, insulin dependent Hyperglycemia place on insulin per protocol a1c 6.2 HTN continue enalapril Depression Continue Seroquel Hypothyroidism Continue supplement Hyperlipidemia DVT Prophylaxis SCDS due to rib fx and possible hemothorax Full Code plan of care discussed with patient in detail and at length all questions answered she is understanding, agreeable, comfortable with the plan of care Admission and Anticipated Discharge Date Admission Date: May 09, 2022 Subjective ff up for abdominal pain, pancreatic cancer, hepatic abscess, etc. seen resting in bed, not in distress alert, oriented x 3 states she is still having severe RUQ pain no nausea, requesting for diet to be advanced no chest pain, dyspnea, palpitations, dizziness no other symptoms Review of Systems Review of Systems: all noted and negative except for above Physical Exam Physical Exam: General- oriented x 3, not in distress, speaks in sentences with no effort or accessory muscle use Eyes- anicteric Neck- no JVD Lungs- clear breath sounds bilaterally, no rales/wheezes Heart- normal rate, regular rhythm; no murmurs Abdomen- normal bowel sounds, nondistended, soft, (+) mild RUQ tenderness cath in place - no drainage Extremities- no pretibial edema, no calf tenderness Neuro- alert, oriented x 3; no gross focal neurologic deficits Skin- warm & dry Results & Data Results & Data ([facility]) Vital Signs (Past 12 Hours) Vital Signs Temp Pulse Resp BP Pulse Ox O2 Del Method 05/11/22 11:29 36.8 C 83 20 135/85 98 Room Air 05/11/22 08:00 Room Air 05/11/22 07:58 36.6 C 95 H 22 152/99 H 99 Room Air 05/11/22 03:00 36.6 C 108 H 16 127/79 94 Room Air all noted and reviewed including below
[2022-05-11] MEDS: LORazepam 1 MG TAB PO PRN ×2 (14:28→23:04)
[2022-05-11] MEDS ORDERED: MoRPHine SULFATE CR 15 MG TABCR PO STA (15:58)
[2022-05-11] MEDS: CHECK fentaNYL PATCH PLACEMENT SCH ×2 (16:18→23:57)
[2022-05-11] MEDS: PROMETHAZINE HCL 12.5 MG in SODIUM CHLORIDE 0.9% 50 ML IV PRN (18:37)
[2022-05-11] MEDS: lamoTRIgine 100 MG TAB PO SCH (21:06)
[2022-05-11] MEDS: OLANZapine 5 MG TABLET PO SCH (21:07)
[2022-05-11] MEDS: QUEtiapine FUMARATE 200 MG TAB PO SCH (21:09)
[2022-05-11] MEDS: SENNA 8.6 MG TAB PO SCH (21:11)
[2022-05-11] MEDS ORDERED: KETOROLAC TROMETHAMINE 15 MG/ML VIAL IV ONE (22:58)
[2022-05-12] MEDS: HYDROmorphone INJ 1 MG/ML SYRINGE IV PRN ×4 (01:06→07:36)
[2022-05-12] MEDS: LEVOTHYROXINE SODIUM 50 MCG TABLET PO SCH (06:33)
[2022-05-12] MEDS: KETOROLAC TROMETHAMINE 15 MG/ML VIAL IV PRN ×3 (06:33→21:27)
[2022-05-12] MEDS ORDERED: Nursing to Pharmacy Communication SCH (07:30)
[2022-05-12] MEDS: INSULIN ASPART PER UNIT SC SCH ×4 (08:37→21:16)
[2022-05-12] MEDS: FLUTICASONE PROPIONATE NA SPR 16 GM BTL SCH (08:41)
[2022-05-12] MEDS: CHECK fentaNYL PATCH PLACEMENT SCH ×3 (08:41→15:45)
[2022-05-12] MEDS: ASPIRIN 81 MG ECTAB PO SCH (08:41)
[2022-05-12] MEDS: LORATADINE 10 MG TAB PO SCH (08:42)
[2022-05-12] MEDS: POLYETHYLENE (MIRALAX) 17 GM PACK PO SCH (08:42)
[2022-05-12] MEDS: LIDOCAINE 5% 1 PATCH TD SCH (08:43)
[2022-05-12] MEDS: rOPINIRole HCL 2 MG TABLET PO SCH ×3 (08:43→21:15)
[2022-05-12] MEDS: METOPROLOL TARTRATE 25 MG TAB PO SCH ×2 (08:44→21:14)
[2022-05-12] MEDS: PANCREAZE (LIPASE 16,800U) CAP PO SCH ×3 (08:44→17:04)
[2022-05-12] MEDS: PANTOprazole 40 MG TAB PO SCH ×2 (08:44→21:13)
[2022-05-12] MEDS: DULoxetine HCL 60 MG CAP PO SCH (08:45)
[2022-05-12] MEDS: ENALAPRIL MALEATE 10 MG TAB PO SCH (08:45)
[2022-05-12] MEDS: cefTRIAXone SODIUM 2,000 MG in DEXTROSE 5% 50 ML IV SCH (08:54)
[2022-05-12] MEDS: LANTUS PER UNIT CHARGE SQ SCH ×2 (09:01→21:22)
[2022-05-12] MEDS: POTASSIUM CHLORIDE CRTAB 20 MEQ TABCR PO SCH ×2 (09:37→21:14)
[2022-05-12] MEDS ORDERED: fentaNYL 12 MCG/HR TDSY TD SCH (10:00)
[2022-05-12] MEDS: POTASSIUM CHLORIDE 10 MEQ TABCR PO SCH (10:09)
[2022-05-12] MEDS: HYDROmorphone HCL 2 MG TAB PO PRN ×4 (11:08→23:42)
[2022-05-12] MEDS: LORazepam 1 MG TAB PO PRN ×2 (11:12→21:12)
--- NOTE | 2022-05-12 11:29 | Surgery Consultation ---
Date of Consultation May 12, 2022 Assessment & Plan (1) Adenocarcinoma of head of pancreas: CT images and results personally viewed by me, IR pigtail catheter present The catheter was removed at bedside and the patient tolerated this well Place a dry gauze dressing daily and as needed for drainage Surgical sign off, please call with any questions or concerns (2) Hepatic metastases: (3) Hepatic abscess: History of Present Illness Reason for Consultation: Removal of IR drain Attending Physician: Glynn Kaba MD History of Present Illness Is a 42-year-old female with indwelling hepatic IR drain due to her multiple hepatic abscesses resulting from her necrotic metastatic pancreatic mass. This was placed many weeks ago in [place] and she is still on IV antibiotics for this. General surgery was consulted to remove the drain. Allergies Allergy/AdvReac Type Severity Reaction Status Date / Time cephalexin [From Keflex] Allergy Mild Rash, Verified 05/09/22 15:02 urticaria Penicillins Allergy Mild Rash Verified 05/09/22 15:02 Fish Containing Products Allergy Unknown Unknown Verified 05/09/22 15:02 fish oil Allergy Unknown Unknown Verified 05/09/22 15:02 dulaglutide [From Neuronetics] AdvReac Severe Pancreatiti Verified 05/09/22 15:02 s clarithromycin AdvReac Unknown Vomiting Verified 05/09/22 15:02 Home Medications Medication Instructions Recorded Confirmed Type duloxetine 60 mg capsule,delayed 120 mg PO DAILY 04/14/21 05/09/22 History release (Cymbalta) flash glucose scanning reader 04/14/21 04/17/22 History (FreeStyle Tanmay 14 Day [place]) lamotrigine 200 mg tablet 200 mg PO HS 04/14/21 05/09/22 History (Lamictal) levothyroxine 50 mcg tablet 50 mcg PO QAM 04/14/21 05/09/22 History ropinirole 4 mg tablet 4 mg PO TID 04/14/21 05/09/22 History valacyclovir 1 gram tablet 2,000 mg PO BID PRN Cold Sores 04/14/21 05/09/22 History blood sugar diagnostic (OneTouch #600 ea 05/26/21 04/17/22 Rx Verio test strips) flash glucose sensor (FreeStyle #7 ea 05/26/21 04/17/22 Rx Tanmay 14 Day Sensor kit) flash glucose sensor (FreeStyle #2 ea 01/02/22 04/17/22 Rx Tanmay 2 Sensor kit) acetaminophen 500 mg tablet 500 mg PO Q4 PRN Pain 01/14/22 05/09/22 History lipase 16,800-protease 1 cap PO TIDM 01/14/22 05/09/22 History 56,800-amylase 98,400 unit capsule, delayed rel (Pancreaze) loratadine 10 mg tablet (Claritin) 10 mg PO DAILY 01/14/22 05/09/22 History lorazepam 1 mg tablet 1 mg PO Q8 PRN anxiety or sleep 01/14/22 05/09/22 History ondansetron 8 mg disintegrating 8 mg translingual Q8 PRN Nausea 01/14/22 05/09/22 History tablet potassium chloride 10 mEq 10 meq PO AMHS 01/14/22 05/09/22 History tablet,extended release quetiapine 100 mg tablet 200 mg PO HS 03/01/22 05/09/22 History pen needle, diabetic 31 gauge x #200 ea 04/05/22 04/17/22 Rx 3/16" (BD Ultra-Fine Mini Pen Needle) insulin glargine U-300 conc 300 10 unit subcut QAM 04/09/22 05/09/22 History unit/mL (3 mL) subcutaneous pen (Toujeo Max U-300 SoloStar) albuterol sulfate 90 mcg/actuation 1 - 2 inh inhalation Q6 PRN as 04/17/22 05/09/22 History aerosol inhaler (Ventolin HFA) directed bisacodyl 10 mg rectal suppository 10 mg NC DAILY PRN Constipation 04/17/22 05/09/22 History ceftriaxone 1 gram intravenous 2 g IV DAILY 04/17/22 05/09/22 History solution enalapril maleate 20 mg tablet 20 mg PO DAILY 04/17/22 05/09/22 History fluticasone propionate 50 2 spray intranasal DAILY 04/17/22 05/09/22 History mcg/actuation nasal spray,suspension lidocaine-prilocaine 2.5 %-2.5 % 1 applic topical UD 04/17/22 05/09/22 History topical cream morphine 30 mg immediate release 30 mg PO Q4H PRN Pain 04/17/22 05/09/22 History tablet morphine 30 mg tablet,extended 30 mg PO BID 04/17/22 05/09/22 History release naloxegol 25 mg tablet 25 mg PO HS 04/17/22 05/09/22 History pantoprazole 40 mg tablet,delayed 40 mg PO BID 04/17/22 05/09/22 History release pegfilgrastim-bmez 6 mg/0.6 mL 6 mg subcut UD 04/17/22 05/09/22 History subcutaneous syringe polyethylene glycol 3350 17 17 g PO QAM 04/17/22 05/09/22 History gram/dose oral powder (Miralax) prochlorperazine maleate 10 mg 10 mg PO Q6H PRN Nausea 04/17/22 05/09/22 History tablet sennosides 8.6 mg tablet (senna) 17.2 mg PO HS 04/17/22 05/09/22 History insulin lispro 100 unit/mL 2 unit (0.02 mL) subcut TIDM #15 mL 05/05/22 05/09/22 Rx subcutaneous pen (Humalog KwikPen (U-100) Insulin) aspirin 81 mg tablet,delayed 81 mg PO DAILY 05/09/22 05/09/22 History release olanzapine 5 mg tablet 5 mg PO HS 05/09/22 05/09/22 History Patient History Medical History Allergy-induced asthma rare inhaler use Depression with anxiety Diabetes mellitus, type 2 IDDM Dyslipidemia Hypertension Hypothyroidism Lumbosacral pain Obesity Pancreatic cancer + current chemo, follows with [facility] heme/onc PCOS (polycystic ovarian syndrome) Therapeutic opioid-induced constipation (OIC) Surgical History History of ERCP ERCP (06/2021) & EUS/ERCP (04/28/21): Good view with glidescope #3, ETT 7.0 at [facility] History of tonsillectomy History of umbilical hernia repair History of vascular access device A PORT INSERTION History of wisdom tooth extraction Nausea and vomiting after administration of anesthetic agent Family History Brother Diabetes Hypertension Father Hypertension Aunt Diabetes Grandmother (Maternal) Diabetes Other No family history of adverse response to anesthesia Social History Smoking Status: Current some day smoker Tobacco Type: Cigarettes packs per day: 1; Cigarettes Per Day: 20; Second Hand Exposure: No; Hx Alcohol Use: No Hx Substance Use: No Preferred Language: Argentine Communication Ability: Effective Disability Advocate Required: No Beliefs That Will Affect Care: None marital status: Single Current Living Situation: Alone Current Living Situation Comment: Lives with Daughter and Dog. Feels Safe at Home: Yes Safety Concerns: Feels Safe At This Time Assistive Devices: Cane Review of Systems Constitutional: no fever and no chills Eyes: no worsening vision Ear, Nose, Mouth, Throat: no ear pain and no hearing loss Respiratory: no cough and no dyspnea Cardiovascular: no chest pain and no dyspnea on exertion Gastrointestinal: no abdominal pain, no nausea and no vomiting Genitourinary: no dysuria Musculoskeletal: no back pain and no neck pain Integumentary: no skin ulcer and no sores Neurologic: no headache(s) Psychiatric: no behavioral changes and no depression Hematologic / Lymphatic: Pancreatic cancer Physical Exam Constitutional: WD/WN, vitals as above Eyes: PERRL, conjunctivae normal, anicteric sclerae ENMT: external ear and nose normal, oropharynx normal Neck: trachea midline, no thyromegaly Respiratory: normal respiratory effort, lungs clear to auscultation Cardiovascular: RRR, no murmur, no edema Gastrointestinal (Abdomen): Inspection/Auscultation: abdomen normal to inspection; abdomen not distended Percussion/Palpation: abdomen soft; abdomen nontender and no guarding Right-sided abdominal pigtail catheter in place Musculoskeletal: no cyanosis or clubbing, extremities motor strength 5/5 Skin: no rashes, warm and dry Neurologic: PERRL, EOMI, accommodation nl, no face palsy, no dysarthria Psychiatric: A+Ox3, euthymic affect Results & Data ([facility]) Vital Signs (Past 12 Hours) Vital Signs Temp Pulse Pulse Resp BP Pulse Ox O2 Del Method 05/12/22 10:59 36.8 C 75 18 107/67 97 Room Air 05/12/22 08:00 77 05/12/22 07:28 36.9 C 77 18 119/75 94 Room Air 05/12/22 04:38 36.6 C 78 18 99/67 L 95 Room Air PG Care Time/CCT Total # of Minutes Spent Total Time Spent with Patient: Total time spent is greater than 50% in coordination of care (as documented) at patient's floor/unit and/or counseling patient: Coding Level of Care Code 07366 Inpt Consult Level 3 Diagnoses Adenocarcinoma of head of pancreas C25.0 Hepatic metastases C78.7 Hepatic abscess K75.0
[2022-05-12] MEDS: PROMETHAZINE HCL 12.5 MG in SODIUM CHLORIDE 0.9% 50 ML IV PRN ×2 (14:39→21:10)
--- NOTE | 2022-05-12 17:48 | Hospitalist Progress Note ---
Date of Service May 12, 2022 Assessment & Plan (1) Fracture of ribs, multiple, closed: Plan: per Dr. Cruz's notes with addendum: This is a 42-year-old female who has a significant past medical history of metastatic adenocarcinoma of pancreas currently on chemotherapy with mets to liver, Complex hepatic abscess currently on IV antibiotics, insulin-dependent T2DM, HTN, HLD, chronic pain in setting of malignancy, PCM who presents to ED secondary to significant pain to her right back. Multiple Rib Fx, R posterior 10-12, with small pleural effusion, possible hemothorax Intractable pain Nausea and vomiting Pain control - pt on chronic Morphine ER 30mg bid, and IR 30mg q4h (utilize this for mild pain 1-6), IV dilaudid 1mg q6h (pain 7-10), lidocaine patch Prn Phenergan for antiemetic Diet advanced as tolerated repeat cxr in a.m.-confirmed acute fractures of the right 10th, 11th and 12th ribs-mention about pneumonia and/or hemothorax Incentive spirometry Increasing pain as of this morning and Dilaudid doses has been increased to 1 mg IV Q3 hourly from every 4 hourly May need to discuss with the palliative care provider in [place] Pain therapist consulted 05/11 pain level still high Fentanyl patch 25mcg daily started Dilaudid IV 1mg q2h Morphine IR 30mg PRN Lactulose 20g 1 dose Miralax, Senokot S daily 05/12 Pain under better control Increase fentanyl patch to 37 mcg daily Trial of Dilaudid p.o. 2 mg every 2 hours as needed Continue to monitor closely (2) Metastatic adenocarcinoma to pancreas: Plan: Metastatic adenocarcinoma of pancreas with mets to Liver follows [facility] oncology last tx 04/02 due to recent medical issues Continue pancreas (3) Intractable pain: Plan: Intractable abdominal and chest pain secondary to rib fracture Pain is worsened due to the presence of intra-abdominal catheter to drain hepatic abscess pain medication as per above, pain management on board Discussed with [facility] interventional radiology at [facility] to remove hepatic catheter General surgery consulted, Dr. Casanova remove hepatic catheter today Rib pain improving, continue incentive spirometry, Lidoderm patch (4) Nausea and vomiting: Plan: Ongoing problem Likely secondary to chronic pancreatitis 05/12 resolved (5) Hepatic abscess: Plan: Hepatic Abscess IR drain placed on 04/18, cultures grew Klebsiella and E. coli currently treating with 2 g of IV Rocephin daily until 05/17 CT scan pushed to [facility] will ask Alessandro Craig if Drain able to be removed while inpatient given no drainage and improvement on imaging The PCP Dr. Perla has been waiting reply from the IR specialist for the decision of drain to come out or to stay Antibiotic should be continued until 13th of this month that is 05/17/2022 10/8 Hepatic drain removed today by Dr. Julian Casanova Continue IV ceftriaxone until 05/17/2022 (6) Hepatic metastases: (7) Uncontrolled type 2 diabetes mellitus, with long-term current use of insulin: Plan: Uncontrolled T2DM, insulin dependent Hyperglycemia place on insulin per protocol a1c 6.2 HTN continue enalapril Depression Continue Seroquel Hypothyroidism Continue supplement Hyperlipidemia DVT Prophylaxis SCDS due to rib fx and possible hemothorax Full Code plan of care discussed with patient in detail and at length all questions answered she is understanding, agreeable, comfortable with the plan of care Admission and Anticipated Discharge Date Admission Date: May 09, 2022 Subjective Follow-up for right upper quadrant pain, pancreatic cancer with liver metastasis, etc. Seen resting in bed, comfortable, not in distress, pleasant, good spirits States she feels better overall this morning Right upper quadrant pain improving, 3 out of 10 this morning No nausea or vomiting, diet well Right rib pain also much better No shortness of breath, cough Had loose stools this morning No abdominal pain No other symptoms Review of Systems Review of Systems: all noted and negative except for above Physical Exam Physical Exam: General- oriented x 3, not in distress, speaks in sentences with no effort or accessory muscle use Eyes- anicteric Neck- no JVD Lungs- clear breath sounds bilaterally, no rales/wheezes Heart- normal rate, regular rhythm; no murmurs Abdomen- normal bowel sounds, nondistended, soft, nontender Hepatic catheter in place Extremities- no pretibial edema, no calf tenderness Neuro- alert, oriented x 3; no gross focal neurologic deficits Skin- warm & dry Results & Data Results & Data ([facility]) Vital Signs (Past 12 Hours) Vital Signs Temp Pulse Pulse Resp BP Pulse Ox O2 Del Method 05/12/22 15:20 37.1 C 73 18 126/79 97 Room Air 05/12/22 10:59 36.8 C 75 18 107/67 97 Room Air 05/12/22 08:00 77 05/12/22 07:28 36.9 C 77 18 119/75 94 Room Air all noted and reviewed including below
[2022-05-12] MEDS: QUEtiapine FUMARATE 200 MG TAB PO SCH (21:14)
[2022-05-12] MEDS: OLANZapine 5 MG TABLET PO SCH (21:15)
[2022-05-12] MEDS: SENNA 8.6 MG TAB PO SCH (21:15)
[2022-05-12] MEDS: lamoTRIgine 100 MG TAB PO SCH (21:16)
[2022-05-13] MEDS: HYDROmorphone HCL 2 MG TAB PO PRN ×3 (02:11→19:57)
[2022-05-13] MEDS: KETOROLAC TROMETHAMINE 15 MG/ML VIAL IV PRN ×4 (03:35→23:17)
[2022-05-13] MEDS: LEVOTHYROXINE SODIUM 50 MCG TABLET PO SCH (06:54)
[2022-05-13] MEDS: CHECK fentaNYL PATCH PLACEMENT SCH ×8 (07:34→23:48)
[2022-05-13] MEDS: PROMETHAZINE HCL 12.5 MG in SODIUM CHLORIDE 0.9% 50 ML IV PRN (08:10)
[2022-05-13] MEDS: ENALAPRIL MALEATE 10 MG TAB PO SCH ×2 (08:10→19:58)
[2022-05-13] MEDS: INSULIN ASPART PER UNIT SC SCH ×4 (08:11→20:41)
[2022-05-13] MEDS: LIDOCAINE 5% 1 PATCH TD SCH (08:14)
[2022-05-13] MEDS: PANCREAZE (LIPASE 16,800U) CAP PO SCH ×3 (08:15→16:52)
[2022-05-13] MEDS: LORATADINE 10 MG TAB PO SCH (08:16)
[2022-05-13] MEDS: DULoxetine HCL 60 MG CAP PO SCH (08:16)
[2022-05-13] MEDS: POLYETHYLENE (MIRALAX) 17 GM PACK PO SCH (08:17)
[2022-05-13] MEDS: rOPINIRole HCL 2 MG TABLET PO SCH ×3 (08:17→19:59)
[2022-05-13] MEDS: POTASSIUM CHLORIDE CRTAB 20 MEQ TABCR PO SCH (08:18)
[2022-05-13] MEDS: ASPIRIN 81 MG ECTAB PO SCH (08:18)
[2022-05-13] MEDS: FLUTICASONE PROPIONATE NA SPR 16 GM BTL SCH (08:19)
[2022-05-13] MEDS: METOPROLOL TARTRATE 25 MG TAB PO SCH ×2 (08:19→20:00)
[2022-05-13] MEDS: PANTOprazole 40 MG TAB PO SCH ×2 (08:19→19:59)
[2022-05-13] MEDS: LANTUS PER UNIT CHARGE SQ SCH ×2 (08:24→20:42)
[2022-05-13] MEDS: cefTRIAXone SODIUM 2,000 MG in DEXTROSE 5% 50 ML IV SCH (08:28)
[2022-05-13] MEDS ORDERED: ALUMINUM/MAGNESIUM SUSP 18 ML, LIDOCAINE VISCOUS 2% SOLN 6 ML, BARCODE IDENTIFIER 1 EACH PO ONE (11:46)
[2022-05-13] MEDS: LORazepam 1 MG TAB PO PRN ×2 (11:48→23:17)
[2022-05-13] MEDS ORDERED: METOCLOPRAMIDE HCL INJ 5 MG/ML 2 ML VIAL IV STA (14:29)
[2022-05-13] MEDS ORDERED: LORazepam 0.5 MG in SYRINGE 0 ML IV STA (14:35)
--- NOTE | 2022-05-13 15:00 | XRay Report ---
KUB HISTORY: Acute nausea with abdominal pain nausea COMPARISON: CT abdomen and pelvis 02/12/2022. FINDINGS: Nonobstructive bowel gas pattern. Metallic stent is noted within the distribution of the co mmon bile duct with adjacent surgical clips. No renal calculi. No ureteral calculi. No pneumoperiton eum or pneumatosis. Degenerative changes of the spine, pelvis and hips. No fracture. IMPRESSION: Nonobstructive bowel gas pattern. ACT 112: Negative or not required by law. The above report was generated using voice recognition software. It may contain grammatical, syntax o r spelling errors. Electronically signed by: Mahendra Alvarez M.D. 05/13/2022 2:58 PM
[2022-05-13] MEDS: ACETAMINOPHEN 325 MG TAB PO PRN (16:52)
--- NOTE | 2022-05-13 17:47 | Hospitalist Progress Note ---
Date of Service May 13, 2022 Assessment & Plan (1) Fracture of ribs, multiple, closed: Plan: per Dr. Cruz's notes with addendum: This is a 42-year-old female who has a significant past medical history of metastatic adenocarcinoma of pancreas currently on chemotherapy with mets to liver, Complex hepatic abscess currently on IV antibiotics, insulin-dependent T2DM, HTN, HLD, chronic pain in setting of malignancy, PCM who presents to ED secondary to significant pain to her right back. Multiple Rib Fx, R posterior 10-12, with small pleural effusion, possible hemothorax Intractable pain Nausea and vomiting Pain control - pt on chronic Morphine ER 30mg bid, and IR 30mg q4h (utilize this for mild pain 1-6), IV dilaudid 1mg q6h (pain 7-10), lidocaine patch Prn Phenergan for antiemetic Diet advanced as tolerated repeat cxr in a.m.-confirmed acute fractures of the right 10th, 11th and 12th ribs-mention about pneumonia and/or hemothorax Incentive spirometry Increasing pain as of this morning and Dilaudid doses has been increased to 1 mg IV Q3 hourly from every 4 hourly May need to discuss with the palliative care provider in [place] Pain therapist consulted 10 pain level still high Fentanyl patch 25mcg daily started Dilaudid IV 1mg q2h Morphine IR 30mg PRN Lactulose 20g 1 dose Miralax, Senokot S daily 05/12 Pain under better control Increase fentanyl patch to 37 mcg daily Trial of Dilaudid p.o. 2 mg every 2 hours as needed Continue to monitor closely 10/9 Pain much better today Having significant nausea KUB: No obstructive pattern Reglan ordered Monitor QT Continue fentanyl patch, Dilaudid We will order psychiatry consultation for increased anxiety, patient agreeable (2) Metastatic adenocarcinoma to pancreas: Plan: Metastatic adenocarcinoma of pancreas with mets to Liver follows [facility] oncology last tx 04/02 due to recent medical issues (3) Intractable pain: Plan: Intractable abdominal and chest pain secondary to rib fracture Pain is worsened due to the presence of intra-abdominal catheter to drain hepatic abscess 10/9 Pain improving pain medication as per above, pain management on board Discussed with [facility] interventional radiology at [facility] to remove hepatic catheter General surgery consulted, Dr. Casanova removed the hepatic catheter 05/12 Rib pain improving, continue incentive spirometry, Lidoderm patch (4) Nausea and vomiting: Plan: Ongoing problem Likely secondary to chronic pancreatitis Management per above (5) Hepatic abscess: Plan: Hepatic Abscess IR drain placed on 04/18, cultures grew Klebsiella and E. coli currently treating with 2 g of IV Rocephin daily until 05/17 CT scan pushed to [facility] will ask Alessandro Craig if Drain able to be removed while inpatient given no drainage and improvement on imaging The PCP Dr. Perla has been waiting reply from the IR specialist for the decision of drain to come out or to stay Antibiotic should be continued until of this month that is 05/17/202205/12 Hepatic drain removed today by Dr. Julian Casanova Continue IV ceftriaxone until 05/17/2022 (6) Hepatic metastases: (7) Uncontrolled type 2 diabetes mellitus, with long-term current use of insulin: Plan: Uncontrolled T2DM, insulin dependent Hyperglycemia place on insulin per protocol a1c 6.2 HTN continue enalapril Depression Continue Seroquel Hypothyroidism Continue supplement Hyperlipidemia DVT Prophylaxis SCDS due to rib fx and possible hemothorax Full Code plan of care discussed with patient in detail and at length all questions answered she is understanding, agreeable, comfortable with the plan of care Admission and Anticipated Discharge Date Admission Date: May 09, 2022 Subjective Follow-up for pancreatic cancer with mets, etc. Seen sitting up in bed, tearful, states she is having significant nausea today Abdominal pain is better compared to yesterday Positive flatus, positive diarrhea today No other symptoms Review of Systems Review of Systems: all noted and negative except for above Physical Exam Physical Exam: General- oriented x 3, not in distress, speaks in sentences with no effort or accessory muscle use Eyes- anicteric Neck- no JVD Lungs- clear BS bilaterally, no rales/wheezes Heart- normal rate, regular rhythm; no murmurs Abdomen- normal bowel sounds, nondistended, soft, nontender Extremities- no pretibial edema, no calf tenderness Neuro- alert, oriented x 3; no gross focal neurologic deficits Skin- warm & dry Results & Data Results & Data ([facility]) Vital Signs (Past 12 Hours) Vital Signs Temp Pulse Pulse Resp BP Pulse Ox O2 Del Method 05/13/22 16:00 36.9 C 80 18 159/99 H 97 Room Air 05/13/22 11:39 36.7 C 75 19 153/86 H 97 Room Air 05/13/22 08:00 77 05/13/22 07:10 36.9 C 81 18 132/89 98 Room Air all noted and reviewed including below
[2022-05-13] MEDS ORDERED: Nursing to Pharmacy Communication SCH (18:00)
[2022-05-13 19:11] LABS: BUN Creatinine Ratio 8.9 (10-20); Calcium 8.7 mg/dl (8.5-10.1); Creatinine Clr Calc Pharmacy 176.6 ml/min; Est GFR (African American) 141.2 ml/min; Est GFR (Non-African American) 121.9 ml/min; Potassium 4.4 mmol/L (3.5-5.1)
[2022-05-13] MEDS: lamoTRIgine 100 MG TAB PO SCH (19:58)
[2022-05-13] MEDS: QUEtiapine FUMARATE 200 MG TAB PO SCH (20:01)
[2022-05-13] MEDS: SENNA 8.6 MG TAB PO SCH (20:02)
[2022-05-13] MEDS: OLANZapine 5 MG TABLET PO SCH (20:42)
[2022-05-13] MEDS: METOCLOPRAMIDE HCL INJ 5 MG/ML 2 ML VIAL IV PRN (23:18)
[2022-05-14] MEDS: KETOROLAC TROMETHAMINE 15 MG/ML VIAL IV PRN ×2 (05:17→22:57)
[2022-05-14] MEDS: METOCLOPRAMIDE HCL INJ 5 MG/ML 2 ML VIAL IV PRN (05:17)
[2022-05-14] MEDS: LEVOTHYROXINE SODIUM 50 MCG TABLET PO SCH (05:36)
[2022-05-14] MEDS: LORazepam 1 MG TAB PO PRN ×3 (05:36→19:43)
[2022-05-14] MEDS: HYDROmorphone HCL 2 MG TAB PO PRN (07:48)
[2022-05-14] MEDS: CHECK fentaNYL PATCH PLACEMENT SCH ×4 (07:49→15:17)
[2022-05-14] MEDS: METOPROLOL TARTRATE 25 MG TAB PO SCH ×2 (08:38→19:48)
[2022-05-14] MEDS: fentaNYL 25 MCG/HR TDSY TD SCH (08:38)
[2022-05-14] MEDS: DULoxetine HCL 60 MG CAP PO SCH (08:39)
[2022-05-14] MEDS: PANCREAZE (LIPASE 16,800U) CAP PO SCH ×3 (08:39→17:21)
[2022-05-14] MEDS: FLUTICASONE PROPIONATE NA SPR 16 GM BTL SCH (08:40)
[2022-05-14] MEDS: PANTOprazole 40 MG TAB PO SCH ×2 (08:41→19:47)
[2022-05-14] MEDS: rOPINIRole HCL 2 MG TABLET PO SCH ×3 (08:41→19:45)
[2022-05-14] MEDS: POLYETHYLENE (MIRALAX) 17 GM PACK PO SCH (08:41)
[2022-05-14] MEDS: LIDOCAINE 5% 1 PATCH TD SCH (08:41)
[2022-05-14] MEDS: ASPIRIN 81 MG ECTAB PO SCH (08:42)
[2022-05-14] MEDS: LORATADINE 10 MG TAB PO SCH (08:42)
[2022-05-14] MEDS: cefTRIAXone SODIUM 2,000 MG in DEXTROSE 5% 50 ML IV SCH (08:52)
[2022-05-14] MEDS: INSULIN ASPART PER UNIT SC SCH ×4 (08:52→20:47)
[2022-05-14] MEDS: LANTUS PER UNIT CHARGE SQ SCH ×2 (08:53→20:51)
[2022-05-14] MEDS ORDERED: HYDROmorphone INJ 1 MG/ML SYRINGE IV STA (09:30)
[2022-05-14] MEDS: PROMETHAZINE HCL 25 MG in SODIUM CHLORIDE 0.9% 50 ML IV PRN (10:22)
[2022-05-14] MEDS: HYDROmorphone INJ 1 MG/ML SYRINGE IV PRN ×6 (11:57→23:39)
--- NOTE | 2022-05-14 13:05 | Pain Management Progress Note ---
Date of Service May 14, 2022 Assessment & Plan (1) Closed rib fracture: (2) Adenocarcinoma of head of pancreas: (3) Hepatic abscess: (4) Hemothorax: (5) Fall: (6) Dizziness: (7) Hepatic metastases: (8) Metastatic adenocarcinoma to pancreas: Plan 1. Will progress fentanyl to 50 mcg/h dose 2. Will have patient resume MS IR 30mg q.4 hours PRN pain due to short-term efficacy of hydromorphone only for discharge planning 3. Patient may reserve hydromorphone for breakthrough pain not well controlled with MS IR 4. Continue Lidocaine patches. 5. Ensure patient discharged home with up-to-date Narcan prescription Admission and Anticipated Discharge Date Admission Date: May 09, 2022 Subjective Mrs. Ceballos is a 42-year-old white female who is known to the pain service with history of liver metastatic disease with history of primary adenocarcinoma of the pancreas with persisting complaints of right upper quadrant abdominal pain. Patient also suffered a recent fall and has closed rib fracture on the right of the 10 through 12th ribs. Patient had been chronically on MS Contin 30 mg every 12 hours and MS IR 30 mg every 4 hours but has been transitioned to fentanyl upon this admission currently at 37 mcg/h dose. She reported difficulties with morphine in the outpatient setting due to dizziness/lightheadedness. She continues to report her pain is a 7-9/10 in the right upper quadrant described as a intense cramping and aching sensation without radiation. She feels things are slightly improved with fentanyl dosing transition to 37 mcg. She is finding moderate relief from hydromorphone for breakthrough pain but with short-term efficacy only of 1-2 hours. Patient reports that she is moving her bowels. She denies any significant side effects to her current medications. Plan of care discussed with Dr. Estrada. Pain Assessment Pain Assessment Pain scale - at its best (0-10): 7 Pain scale - at its worst (0-10): 9 Physical Exam Physical Exam: General: Patient lying quietly in the exam room in no acute distress. Patient accompanied by her mother. Speech and thought process appropriate. Mood and affect appropriate. Cognition intact. Chest: Patient is minimally tender with AP and lateral compression of the right lateral and anterior chest wall. No focal tenderness to direct palpation of the chest wall. Abdomen: Moderately tender in the right upper quadrant to palpation. No rebound or guarding. No organomegaly. Neurological and cranial nerves grossly intact. Ambulation not witnessed.
--- NOTE | 2022-05-14 13:16 | Psychiatric Consultation ---
Date of Consultation May 14, 2022 Impression / Recommendations Impression 42 yo female, longstanding patient of [facility], ongoing symptoms under significant stress of metastatic CA. Denies SI. (1) Depression with anxiety: Plan LM for Dr. Felder and will coordinate with hospitalist on best approach to limit polypharmacy as Remeron, Seroquel, Zyprexa have overlapping indications and side effect profile. discuss internal referral to [facility] vs. resume therapy with Judit Beyer, PhD Psych History Identifying Data 42 yo female from [place], admit 05/09/22 for management of pain/PO intake. Patient with repeated hospitalizations since summer, most recently mid April for intractable N/V after discharge from [facility]. At that time was not able to undergo planned whipple procedure due to metastatic disease. Consult is by hospitalist service for depression. Chief Complaint "I'm not ready to give up". History of Present Illness patient was receptive to consult this am, met with liaison to discuss her supports and services. 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 Her daughter stays with a friend/fellow fieldwork coordinator mom during the week and home with patient on weekends. She is no longer driving due to her need for chronic opiods. Does voice her mother as a support. She denies suicidal ideation and denies concerns about her psychiatric medications although it is not 100% clear that she is taking all as precribed at last appointment with Dr. Felder in February given disruption in care. Nurse at [facility] confirms meds as Cymbalta and lamictal as ordered, Seroquel 100 mg (2-3 at hs), Remeron 15 mg hs and clonidine 0.1 mg am, 0.3 mg hs, as per surescripts. Today the patient was focussed on her medical care, would mainly be interested in telehealth therapy sessions for additional support. She denies SI. Allergies Allergy/AdvReac Type Severity Reaction Status Date / Time cephalexin [From Keflex] Allergy Mild Rash, Verified 05/09/22 15:02 urticaria Penicillins Allergy Mild Rash Verified 05/09/22 15:02 Fish Containing Products Allergy Unknown Unknown Verified 05/09/22 15:02 fish oil Allergy Unknown Unknown Verified 05/09/22 15:02 dulaglutide [From [facility]] AdvReac Severe Pancreatiti Verified 05/09/22 15:02 s clarithromycin AdvReac Unknown Vomiting Verified 05/09/22 15:02 Home Medications Medication Instructions Recorded Confirmed Type duloxetine 60 mg capsule,delayed 120 mg PO DAILY 04/14/21 05/09/22 History release (Cymbalta) flash glucose scanning reader 04/14/21 04/17/22 History (FreeStyle Tanmay 14 Day [place]) lamotrigine 200 mg tablet 200 mg PO HS 04/14/21 05/09/22 History (Lamictal) levothyroxine 50 mcg tablet 50 mcg PO QAM 04/14/21 05/09/22 History ropinirole 4 mg tablet 4 mg PO TID 04/14/21 05/09/22 History valacyclovir 1 gram tablet 2,000 mg PO BID PRN Cold Sores 04/14/21 05/09/22 History blood sugar diagnostic (OneTouch #600 ea 05/26/21 04/17/22 Rx Verio test strips) flash glucose sensor (FreeStyle #7 ea 05/26/21 04/17/22 Rx Tanmay 14 Day Sensor kit) flash glucose sensor (FreeStyle #2 ea 01/02/22 04/17/22 Rx Tanmay 2 Sensor kit) acetaminophen 500 mg tablet 500 mg PO Q4 PRN Pain 01/14/22 05/09/22 History lipase 16,800-protease 1 cap PO TIDM 01/14/22 05/09/22 History 56,800-amylase 98,400 unit capsule, delayed rel (Pancreaze) loratadine 10 mg tablet (Claritin) 10 mg PO DAILY 01/14/22 05/09/22 History lorazepam 1 mg tablet 1 mg PO Q8 PRN anxiety or sleep 01/14/22 05/09/22 History ondansetron 8 mg disintegrating 8 mg translingual Q8 PRN Nausea 01/14/22 05/09/22 History tablet potassium chloride 10 mEq 10 meq PO AMHS 01/14/22 05/09/22 History tablet,extended release quetiapine 100 mg tablet 200 mg PO HS 03/01/22 05/09/22 History pen needle, diabetic 31 gauge x #200 ea 04/05/22 04/17/22 Rx 3/16" (BD Ultra-Fine Mini Pen Needle) insulin glargine U-300 conc 300 10 unit subcut QAM 04/09/22 05/09/22 History unit/mL (3 mL) subcutaneous pen (Toujeo Max U-300 SoloStar) albuterol sulfate 90 mcg/actuation 1 - 2 inh inhalation Q6 PRN as 04/17/22 05/09/22 History aerosol inhaler (Ventolin HFA) directed bisacodyl 10 mg rectal suppository 10 mg LA DAILY PRN Constipation 04/17/22 05/09/22 History ceftriaxone 1 gram intravenous 2 g IV DAILY 04/17/22 05/09/22 History solution enalapril maleate 20 mg tablet 20 mg PO DAILY 04/17/22 05/09/22 History fluticasone propionate 50 2 spray intranasal DAILY 04/17/22 05/09/22 History mcg/actuation nasal spray,suspension lidocaine-prilocaine 2.5 %-2.5 % 1 applic topical UD 04/17/22 05/09/22 History topical cream morphine 30 mg immediate release 30 mg PO Q4H PRN Pain 04/17/22 05/09/22 History tablet morphine 30 mg tablet,extended 30 mg PO BID 04/17/22 05/09/22 History release naloxegol 25 mg tablet 25 mg PO HS 04/17/22 05/09/22 History pantoprazole 40 mg tablet,delayed 40 mg PO BID 04/17/22 05/09/22 History release pegfilgrastim-bmez 6 mg/0.6 mL 6 mg subcut UD 04/17/22 05/09/22 History subcutaneous syringe polyethylene glycol 3350 17 17 g PO QAM 04/17/22 05/09/22 History gram/dose oral powder (Miralax) prochlorperazine maleate 10 mg 10 mg PO Q6H PRN Nausea 04/17/22 05/09/22 History tablet sennosides 8.6 mg tablet (senna) 17.2 mg PO HS 04/17/22 05/09/22 History insulin lispro 100 unit/mL 2 unit (0.02 mL) subcut TIDM #15 mL 05/05/22 05/09/22 Rx subcutaneous pen (Humalog KwikPen (U-100) Insulin) aspirin 81 mg tablet,delayed 81 mg PO DAILY 05/09/22 05/09/22 History release olanzapine 5 mg tablet 5 mg PO HS 05/09/22 05/09/22 History Personal History Beliefs That Will Affect Care: None Patient History Medical History Allergy-induced asthma rare inhaler use Depression with anxiety Diabetes mellitus, type 2 IDDM Dyslipidemia Hypertension Hypothyroidism Lumbosacral pain Obesity Pancreatic cancer + current chemo, follows with [facility] heme/onc PCOS (polycystic ovarian syndrome) Therapeutic opioid-induced constipation (OIC) Surgical History History of ERCP ERCP (06/2021) & EUS/ERCP (04/28/21): Good view with glidescope #3, ETT 7.0 at [facility] History of tonsillectomy History of umbilical hernia repair History of vascular access device A PORT INSERTION History of wisdom tooth extraction Nausea and vomiting after administration of anesthetic agent Family History Brother Diabetes Hypertension Father Hypertension Aunt Diabetes Grandmother (Maternal) Diabetes Other No family history of adverse response to anesthesia Social History Smoking Status: Current some day smoker Tobacco Type: Cigarettes packs per day: 1; Cigarettes Per Day: 20; Second Hand Exposure: No; Hx Alcohol Use: No Hx Substance Use: No Preferred Language: British Communication Ability: Effective Engraver Tender Required: No Beliefs That Will Affect Care: None marital status: Single Current Living Situation: Alone Current Living Situation Comment: Lives with Daughter and Dog. Feels Safe at Home: Yes Safety Concerns: Feels Safe At This Time Assistive Devices: Cane Physical Exam Psychiatric: Orientation: alert Eye Contact: good eye contact Speech: normal rate/rhythm/volume of speech Affect: + depressed affect Thought Process: goal directed thought process Thought Content: reality based without delusions Suicidal Thoughts: denies suicidal thoughts Homicidal Thoughts: denies homicidal thoughts Hallucinations: no auditory hallucinations and no visual hallucinations Cognition: attention grossly intact and language grossly intact Vital Signs (Past 24 Hours): Last Vital Signs Temp 36.9 C 05/14/22 11:27 Pulse 93 H 05/14/22 11:27 Resp 17 05/14/22 11:27 BP 131/88 05/14/22 11:27 Pulse Ox 97 05/14/22 11:27 O2 Del Method 05/14/22 11:27 Review of Systems All systems reviewed & are unremarkable except as noted in HPI & below Results & Data (PSY) Laboratory Results 05/14/22 05/14/22 05/14/22 Range/Units 11:49 10:35 08:00 Sodium (136-145) mmol/L Potassium (3.5-5.1) mmol/L Chloride (98-107) mmol/L Carbon Dioxide (21-32) mmol/L Anion Gap (3-11) BUN (6-23) mg/dl Creatinine (0.6-1.2) mg/dl Est Cr Clr Drug Dosing ml/min Est GFR ( Amer) ml/min Est GFR (Non-Af Amer) ml/min BUN/Creatinine Ratio (10-20) Glucose (70-99(Fasting)) mg/dl POC Glucose 135 H 191 H 223 H (70-99) mg/dl Calcium (8.5-10.1) mg/dl 05/13/22 05/13/22 05/13/22 Range/Units 20:34 20:15 18:30 Sodium 135 L (136-145) mmol/L Potassium 4.4 (3.5-5.1) mmol/L Chloride 102 (98-107) mmol/L Carbon Dioxide 25 (21-32) mmol/L Anion Gap 8 (3-11) BUN 4 L (6-23) mg/dl Creatinine 0.45 L (0.6-1.2) mg/dl Est Cr Clr Drug Dosing 176.6 ml/min Est GFR ( Amer) 141.2 ml/min Est GFR (Non-Af Amer) 121.9 ml/min BUN/Creatinine Ratio 8.9 L (10-20) Glucose 228 H (70-99(Fasting)) mg/dl POC Glucose 230 H 249 H (70-99) mg/dl Calcium 8.7 (8.5-10.1) mg/dl 05/13/22 Range/Units 16:55 Sodium (136-145) mmol/L Potassium (3.5-5.1) mmol/L Chloride (98-107) mmol/L Carbon Dioxide (21-32) mmol/L Anion Gap (3-11) BUN (6-23) mg/dl Creatinine (0.6-1.2) mg/dl Est Cr Clr Drug Dosing ml/min Est GFR ( Amer) ml/min Est GFR (Non-Af Amer) ml/min BUN/Creatinine Ratio (10-20) Glucose (70-99(Fasting)) mg/dl POC Glucose 217 H (70-99) mg/dl Calcium (8.5-10.1) mg/dl Medications Administered Acetaminophen (Acetaminophen 325 Mg Tab) 650 mg PO Q4H PRN PRN Reason: Pain or Fever Stop: 06/08/22 18:38 Last Admin: 05/13/22 16:52 Dose: 650 mg Documented By: Admin: 05/09/22 22:16 Dose: 650 mg Documented By: Lipase/Protease/Amylase (Pancreaze (Lipase 16,800u) Cap) 1 cap PO TIDM BRIANNA Stop: 06/08/22 19:59 Last Admin: 05/14/22 11:57 Dose: 1 cap Documented By: Admin: 05/14/22 08:39 Dose: 1 cap Documented By: Admin: 05/13/22 16:52 Dose: Not Given Documented By: Admin: 05/13/22 12:14 Dose: 1 cap Documented By: Admin: 05/13/22 08:15 Dose: 1 cap Documented By: Admin: 05/12/22 17:04 Dose: Not Given Documented By: Admin: 05/12/22 13:00 Dose: 1 cap Documented By: Admin: 05/12/22 08:44 Dose: 1 cap Documented By: Admin: 05/11/22 17:13 Dose: 1 cap Documented By: Admin: 05/11/22 12:11 Dose: Not Given Documented By: Admin: 05/11/22 08:29 Dose: 1 cap Documented By: Admin: 05/10/22 16:16 Dose: Not Given Documented By: Admin: 05/10/22 11:59 Dose: Not Given Documented By: Admin: 05/10/22 08:11 Dose: Not Given Documented By: Admin: 05/09/22 20:38 Dose: 1 cap Documented By: ANDRZEJ Aspirin (Aspirin 81 Mg Ectab) 81 mg PO DAILY BRIANNA Stop: 06/09/22 08:59 Last Admin: 05/14/22 08:42 Dose: Not Given Documented By: Admin: 05/13/22 08:18 Dose: Not Given Documented By: Admin: 05/12/22 08:41 Dose: Not Given Documented By: Admin: 05/11/22 08:29 Dose: Not Given Documented By: Admin: 05/10/22 08:16 Dose: Not Given Documented By: CHASE Duloxetine HCl (Duloxetine Hcl 60 Mg Cap) 120 mg PO DAILY BRIANNA Stop: 06/09/22 08:59 Last Admin: 05/14/22 08:39 Dose: 120 mg Documented By: Admin: 05/13/22 08:16 Dose: 120 mg Documented By: Admin: 05/12/22 08:45 Dose: 120 mg Documented By: Admin: 05/11/22 08:29 Dose: 120 mg Documented By: Admin: 05/10/22 08:20 Dose: 120 mg Documented By: CHASE Enalapril Maleate (Enalapril Maleate 10 Mg Tab) 20 mg PO DAILY BRIANNA Stop: 06/09/22 08:59 Last Admin: 05/13/22 19:58 Dose: 20 mg Documented By: Admin: 05/13/22 08:10 Dose: 20 mg Documented By: Admin: 05/12/22 08:45 Dose: 20 mg Documented By: Admin: 05/11/22 08:29 Dose: 20 mg Documented By: Admin: 05/10/22 08:20 Dose: 20 mg Documented By: CHASE Fluticasone Propionate (Fluticasone Propionate Na Spr 16 Gm Btl) 2 sprays NA DAILY BRIANNA Stop: 06/09/22 08:59 Last Admin: 05/14/22 08:40 Dose: Not Given Documented By: Admin: 05/13/22 08:19 Dose: Not Given Documented By: Admin: 05/12/22 08:41 Dose: Not Given Documented By: Admin: 05/11/22 08:29 Dose: Not Given Documented By: Admin: 05/10/22 08:16 Dose: Not Given Documented By: CHASE Hydromorphone HCl (Hydromorphone Hcl 2 Mg Tab) 2 mg PO Q2H PRN PRN Reason: Severe Pain Stop: 05/26/22 09:43 Last Admin: 05/14/22 07:48 Dose: 2 mg Documented By: Admin: 05/13/22 19:57 Dose: 2 mg Documented By: Admin: 05/13/22 07:29 Dose: 2 mg Documented By: Admin: 05/13/22 02:11 Dose: 2 mg Documented By: Admin: 05/12/22 23:42 Dose: 2 mg Documented By: Admin: 05/12/22 18:41 Dose: 2 mg Documented By: Admin: 05/12/22 14:31 Dose: 2 mg Documented By: Admin: 05/12/22 11:08 Dose: 2 mg Documented By: LUCIAN Hydromorphone HCl (Hydromorphone Inj 1 Mg/Ml Syringe) 1 mg IV Q2H PRN PRN Reason: Pain Stop: 05/28/22 09:27 Last Admin: 05/14/22 11:57 Dose: 1 mg Documented By: SOM Ceftriaxone Sodium 2,000 mg/ (Dextrose) 70 mls @ 140 mls/hr IV DAILY BRIANNA Stop: 05/20/22 17:59 Last Infusion: 05/14/22 09:22 Dose: 0 mls/hr Documented By: Admin: 05/14/22 08:52 Dose: 140 mls/hr Documented By: Infusion: 05/13/22 09:00 Dose: 0 mls/hr Documented By: Admin: 05/13/22 08:28 Dose: 140 mls/hr Documented By: Infusion: 05/12/22 09:36 Dose: 0 mls/hr Documented By: Admin: 05/12/22 08:54 Dose: 140 mls/hr Documented By: Infusion: 05/11/22 09:33 Dose: 0 mls/hr Documented By: Admin: 05/11/22 08:51 Dose: 140 mls/hr Documented By: Infusion: 05/10/22 19:19 Dose: 0 mls/hr Documented By: Admin: 05/10/22 18:49 Dose: 140 mls/hr Documented By: CHASE Promethazine HCl 25 mg/ Sodium (Chloride) 51 mls @ 204 mls/hr IV Q6H PRN PRN Reason: Nausea And Vomiting Stop: 06/13/22 09:31 Last Infusion: 05/14/22 10:37 Dose: 0 mls/hr Documented By: Admin: 05/14/22 10:22 Dose: 204 mls/hr Documented By: SOM Insulin Aspart (Insulin Aspart Per Unit) 0 units SC ACHS BRIANNA Stop: 06/08/22 18:38 Last Admin: 05/14/22 12:55 Dose: 3 units Documented By: SOM Co-signed By: REHAN Admin: 05/14/22 08:52 Dose: 6 units Documented By: SOM Co-signed By: REHAN Admin: 05/13/22 20:41 Dose: 3 units Documented By: Co-signed By: VERO Admin: 05/13/22 16:59 Dose: Not Given Documented By: Admin: 05/13/22 12:14 Dose: Not Given Documented By: Admin: 05/13/22 08:11 Dose: Not Given Documented By: Admin: 05/12/22 21:16 Dose: Not Given Documented By: DIRECTOR OF SECURITIES AND REAL ESTATE Admin: 05/12/22 17:04 Dose: Not Given Documented By: Admin: 05/12/22 12:56 Dose: Not Given Documented By: Admin: 05/12/22 08:37 Dose: Not Given Documented By: Admin: 05/11/22 21:05 Dose: Not Given Documented By: DIRECTOR OF SECURITIES AND REAL ESTATE Admin: 05/11/22 17:13 Dose: Not Given Documented By: Admin: 05/11/22 12:16 Dose: 2 units Documented By: CHEYENNE Co-signed By: MARIVEL Admin: 05/11/22 08:42 Dose: Not Given Documented By: Admin: 05/10/22 20:31 Dose: Not Given Documented By: Admin: 05/10/22 16:47 Dose: Not Given Documented By: Admin: 05/10/22 11:30 Dose: Not Given Documented By: Admin: 05/10/22 08:13 Dose: Not Given Documented By: Admin: 05/09/22 21:23 Dose: 5 units Documented By: ANDRZEJ Co-signed By: AM Admin: 05/09/22 21:00 Dose: Not Given Documented By: ANDRZEJ Insulin Glargine (Lantus Per Unit Charge) 0 - 10 units SQ BID BRIANNA Stop: 06/08/22 20:59 Last Admin: 05/14/22 08:53 Dose: 10 units Documented By: LANETTEM Co-signed By: REHAN Admin: 05/13/22 20:42 Dose: 10 units Documented By: ANDRZEJ Co-signed By: VERO Admin: 05/13/22 08:24 Dose: 5 units Documented By: LUCIAN Co-signed By: HARDEEP Admin: 05/12/22 21:22 Dose: 10 units Documented By: HILLARY Co-signed By: VERO Admin: 05/12/22 09:01 Dose: 10 units Documented By: LUCIAN Co-signed By: HARDEEP Admin: 05/11/22 21:05 Dose: Not Given Documented By: DIRECTOR OF SECURITIES AND REAL ESTATE Admin: 05/11/22 08:42 Dose: 5 units Documented By: CHEYENNE Co-signed By: JASON Admin: 05/11/22 00:18 Dose: 5 units Documented By: SCOTTY Co-signed By: PETRONA Admin: 05/10/22 08:12 Dose: 10 units Documented By: CHASE Co-signed By: ANJALI Admin: 05/09/22 21:25 Dose: 10 units Documented By: ANDRZEJ Co-signed By: BRITTNEY Ketorolac Tromethamine (Ketorolac Tromethamine 15 Mg/Ml Vial) 15 mg IV Q6H PRN PRN Reason: Pain Stop: 05/17/22 05:20 Last Admin: 05/14/22 05:17 Dose: 15 mg Documented By: Admin: 05/13/22 23:17 Dose: 15 mg Documented By: Admin: 05/13/22 18:12 Dose: 15 mg Documented By: Admin: 05/13/22 09:56 Dose: 15 mg Documented By: Admin: 05/13/22 03:35 Dose: 15 mg Documented By: DIRECTOR OF SECURITIES AND REAL ESTATE Admin: 05/12/22 21:27 Dose: 15 mg Documented By: DIRECTOR OF SECURITIES AND REAL ESTATE Admin: 05/12/22 16:13 Dose: 15 mg Documented By: Admin: 05/12/22 06:33 Dose: 15 mg Documented By: DIRECTOR OF SECURITIES AND REAL ESTATE Lamotrigine (Lamotrigine 100 Mg Tab) 200 mg PO HS BRIANNA Stop: 06/08/22 20:59 Last Admin: 05/13/22 19:58 Dose: 200 mg Documented By: Admin: 05/12/22 21:16 Dose: 200 mg Documented By: Admin: 05/11/22 21:06 Dose: 200 mg Documented By: DIRECTOR OF SECURITIES AND REAL ESTATE Admin: 05/10/22 20:26 Dose: 200 mg Documented By: Admin: 05/09/22 20:36 Dose: 200 mg Documented By: ANDRZEJ Levothyroxine Sodium (Levothyroxine Sodium 50 Mcg Tablet) [facility] Stop: 06/12/22 06:29 Last Admin: 05/14/22 05:36 Dose: 50 mcg Documented By: Admin: 05/13/22 06:54 Dose: 50 mcg Documented By: HILLARY Lidocaine (Lidocaine 5% 1 Patch) 1 patch TD QAM [facility] Stop: 06/08/22 18:38 Last Admin: 05/14/22 08:41 Dose: 1 patch Documented By: Admin: 05/13/22 08:14 Dose: 1 patch Documented By: Admin: 05/12/22 08:43 Dose: 1 patch Documented By: Admin: 05/11/22 08:26 Dose: 1 patch Documented By: Admin: 05/10/22 08:19 Dose: 1 patch Documented By: Admin: 05/09/22 20:31 Dose: 1 patch Documented By: ANDRZEJ Loratadine (Loratadine 10 Mg Tab) 10 mg PO DAILY [facility] Stop: 06/09/22 08:59 Last Admin: 05/14/22 08:42 Dose: Not Given Documented By: Admin: 05/13/22 08:16 Dose: 10 mg Documented By: Admin: 05/12/22 08:42 Dose: 10 mg Documented By: Admin: 05/11/22 08:29 Dose: Not Given Documented By: Admin: 05/10/22 08:16 Dose: Not Given Documented By: CHASE Lorazepam (Lorazepam 1 Mg Tab) 1 mg PO Q8 PRN PRN Reason: anxiety or sleep Stop: 06/08/22 18:38 Last Admin: 05/14/22 12:58 Dose: 1 mg Documented By: Admin: 05/14/22 05:36 Dose: 1 mg Documented By: Admin: 05/13/22 23:17 Dose: 1 mg Documented By: Admin: 05/13/22 11:48 Dose: 1 mg Documented By: Admin: 05/12/22 21:12 Dose: 1 mg Documented By: Admin: 05/12/22 11:12 Dose: 1 mg Documented By: Admin: 05/11/22 23:04 Dose: 1 mg Documented By: Admin: 05/11/22 14:28 Dose: 1 mg Documented By: Admin: 05/10/22 19:34 Dose: 1 mg Documented By: Admin: 05/10/22 09:46 Dose: 1 mg Documented By: NAUN Magnesium Hydroxide (Magnesium Hydroxide Susp 30 Ml Udc) 30 ml PO Q12H PRN PRN Reason: Constipation Stop: 06/08/22 18:38 Last Admin: 05/10/22 08:29 Dose: 30 ml Documented By: CHASE Metoclopramide HCl (Metoclopramide Hcl Inj 5 Mg/Ml 2 Ml Vial) 10 mg IV Q6H PRN PRN Reason: Nausea Stop: 06/12/22 17:46 Last Admin: 05/14/22 05:17 Dose: 10 mg Documented By: Admin: 05/13/22 23:18 Dose: 10 mg Documented By: ANDRZEJ Metoprolol Tartrate (Metoprolol Tartrate 25 Mg Tab) 25 mg PO BID [facility] Stop: 06/09/22 09:29 Last Admin: 05/14/22 08:38 Dose: 25 mg Documented By: Admin: 05/13/22 20:00 Dose: 25 mg Documented By: Admin: 05/13/22 08:19 Dose: 25 mg Documented By: Admin: 05/12/22 21:14 Dose: 25 mg Documented By: Admin: 05/12/22 08:44 Dose: 25 mg Documented By: Admin: 05/11/22 21:06 Dose: 25 mg Documented By: Admin: 05/11/22 08:29 Dose: 25 mg Documented By: Admin: 05/10/22 20:27 Dose: 25 mg Documented By: Admin: 05/10/22 10:51 Dose: 25 mg Documented By: CHASE Miscellaneous (Remove Lidoderm Patch) 1 each N/A DAILY@2100 [facility] Stop: 06/08/22 20:59 Last Admin: 05/13/22 20:05 Dose: 1 each Documented By: Admin: 05/12/22 21:15 Dose: 1 each Documented By: Admin: 05/11/22 21:13 Dose: 1 each Documented By: Admin: 05/10/22 20:29 Dose: 1 each Documented By: Admin: 05/09/22 21:01 Dose: Not Given Documented By: ANDRZEJ Miscellaneous (Fentanyl Patch Remove & Waste) 1 each N/A Q3D BRIANNA Stop: 06/10/22 08:58 Last Admin: 05/14/22 08:40 Dose: 1 each Documented By: SOM Co-signed By: REHAN Admin: 05/11/22 09:56 Dose: 1 each Documented By: CHEYENNE Co-signed By: JASON [place] (Check Fentanyl Patch Placement) 1 each N/A QS BRIANNA Stop: 06/10/22 15:59 Last Admin: 05/14/22 07:49 Dose: 1 each Documented By: Admin: 05/13/22 23:47 Dose: 1 each Documented By: Admin: 05/13/22 15:52 Dose: 1 each Documented By: Admin: 05/13/22 07:34 Dose: 1 each Documented By: Admin: 05/13/22 00:00 Dose: 1 each Documented By: Admin: 05/12/22 15:45 Dose: 1 each Documented By: Admin: 05/12/22 08:41 Dose: 1 each Documented By: Admin: 05/11/22 23:57 Dose: 1 each Documented By: Admin: 05/11/22 16:18 Dose: 1 each Documented By: CHEYNENE Morphine Sulfate (Morphine Sulfate Ir 15 Mg Tab (Immediate Release)) 30 mg PO Q4H PRN PRN Reason: Claribel 1-6 Stop: 05/23/22 18:38 Last Admin: 05/10/22 15:33 Dose: 30 mg Documented By: Admin: 05/10/22 11:06 Dose: 30 mg Documented By: Admin: 05/10/22 03:49 Dose: 30 mg Documented By: ANDRZEJ Olanzapine (Olanzapine 5 Mg Tablet) 5 mg PO HS BRIANNA Stop: 06/08/22 20:59 Last Admin: 05/13/22 20:42 Dose: 5 mg Documented By: Admin: 05/12/22 21:15 Dose: 5 mg Documented By: Admin: 05/11/22 21:07 Dose: 5 mg Documented By: Admin: 05/10/22 20:28 Dose: 5 mg Documented By: Admin: 05/09/22 20:35 Dose: 5 mg Documented By: ANDRZEJ Pantoprazole Sodium (Pantoprazole 40 Mg Tab) 40 mg PO BID BRIANNA Stop: 06/08/22 20:59 Last Admin: 05/14/22 08:41 Dose: 40 mg Documented By: Admin: 05/13/22 19:59 Dose: 40 mg Documented By: Admin: 05/13/22 08:19 Dose: 40 mg Documented By: Admin: 05/12/22 21:13 Dose: 40 mg Documented By: Admin: 05/12/22 08:44 Dose: 40 mg Documented By: Admin: 05/11/22 21:07 Dose: 40 mg Documented By: Admin: 05/11/22 08:30 Dose: 40 mg Documented By: Admin: 05/10/22 20:28 Dose: 40 mg Documented By: Admin: 05/10/22 08:16 Dose: Not Given Documented By: Admin: 05/09/22 20:35 Dose: 40 mg Documented By: ANDRZEJ Polyethylene Glycol (Polyethylene (Miralax) 17 Gm Pack) 17 gm PO QAM BRIANNA Stop: 06/09/22 08:59 Last Admin: 05/14/22 08:41 Dose: Not Given Documented By: Admin: 05/13/22 08:17 Dose: Not Given Documented By: Admin: 05/12/22 08:42 Dose: Not Given Documented By: Admin: 05/11/22 08:28 Dose: 17 gm Documented By: Admin: 05/10/22 08:27 Dose: 17 gm Documented By: CHASE Potassium Chloride (Potassium Chloride Crtab 20 Meq Tabcr) 40 meq PO BID BRIANNA Stop: 06/10/22 09:14 Last Admin: 05/13/22 08:18 Dose: 40 meq Documented By: Admin: 05/12/22 21:14 Dose: 40 meq Documented By: Admin: 05/12/22 09:37 Dose: 40 meq Documented By: Admin: 05/11/22 21:08 Dose: 40 meq Documented By: DIRECTOR OF SECURITIES AND REAL ESTATE Admin: 05/11/22 09:54 Dose: 40 meq Documented By: CHEYENNE Quetiapine Fumarate (Quetiapine Fumarate 200 Mg Tab) 200 mg PO HS BRIANNA Stop: 06/08/22 20:59 Last Admin: 05/13/22 20:01 Dose: 200 mg Documented By: Admin: 05/12/22 21:14 Dose: 200 mg Documented By: DIRECTOR OF SECURITIES AND REAL ESTATE Admin: 05/11/22 21:09 Dose: 200 mg Documented By: DIRECTOR OF SECURITIES AND REAL ESTATE Admin: 05/10/22 20:29 Dose: 200 mg Documented By: Admin: 05/09/22 20:33 Dose: 200 mg Documented By: ANDRZEJ Ropinirole HCl (Ropinirole Hcl 2 Mg Tablet) 4 mg PO TID BRIANNA Stop: 06/08/22 20:59 Last Admin: 05/14/22 08:41 Dose: 4 mg Documented By: Admin: 05/13/22 19:59 Dose: 4 mg Documented By: Admin: 05/13/22 14:50 Dose: 4 mg Documented By: Admin: 05/13/22 08:17 Dose: 4 mg Documented By: Admin: 05/12/22 21:15 Dose: 4 mg Documented By: DIRECTOR OF SECURITIES AND REAL ESTATE Admin: 05/12/22 13:07 Dose: 4 mg Documented By: Admin: 05/12/22 08:43 Dose: 4 mg Documented By: Admin: 05/11/22 21:09 Dose: 4 mg Documented By: DIRECTOR OF SECURITIES AND REAL ESTATE Admin: 05/11/22 13:34 Dose: 4 mg Documented By: Admin: 05/11/22 08:29 Dose: 4 mg Documented By: Admin: 05/10/22 20:30 Dose: 4 mg Documented By: Admin: 05/10/22 15:34 Dose: 4 mg Documented By: Admin: 05/10/22 08:21 Dose: 4 mg Documented By: Admin: 05/09/22 20:36 Dose: 4 mg Documented By: Sennosides (Senna 8.6 Mg Tab) 17.2 mg PO HS BRIANNA Stop: 06/08/22 20:59 Last Admin: 05/13/22 20:02 Dose: Not Given Documented By: Admin: 05/12/22 21:15 Dose: Not Given Documented By: Admin: 05/11/22 21:11 Dose: 17.2 mg Documented By: DIRECTOR OF SECURITIES AND REAL ESTATE Admin: 05/10/22 20:30 Dose: 17.2 mg Documented By: Admin: 05/09/22 20:34 Dose: 17.2 mg Documented By: ANDRZEJ Coding Level of Care Code 24008 [facility] Intl Hosp Care Lvl 2 Diagnoses Depression with anxiety F41.8
[2022-05-14] MEDS: fentaNYL 50 MCG/HR TDSY TD SCH (13:24)
--- NOTE | 2022-05-14 15:00 | Hospitalist Progress Note ---
Date of Service May 14, 2022 Assessment & Plan (1) Metastatic adenocarcinoma to pancreas: (2) Intractable pain: Plan: This is a 42-year-old female who has a significant past medical history of metastatic adenocarcinoma of pancreas currently on chemotherapy with mets to liver, Complex hepatic abscess currently on IV antibiotics, insulin-dependent T2DM, HTN, HLD, chronic pain in setting of malignancy, PCM who presents to ED secondary to significant pain to her right back. (1) Intractable pain secondary to pancreatic cancer with liver mets Multiple Rib Fx, R posterior 10-12, with small pleural effusion, possible hemothorax, status post fall Had dizziness episode while in the bathroom, which resulted to fall cxr in a.m.-confirmed acute fractures of the right 10th, 11th and 12th ribs No pneumothorax, pleural effusion, airspace consolidation or overt pulmonary edema. Pain management on board Gradually improving Fentanyl being uptitrated, to be increased to 50 mg daily Morphine IR 30 mg p.o. every 4 hours as needed IV Dilaudid 1 mg p.o. every 3 hours as needed Hepatic catheter for intrahepatic abscess also removed, which has contributed to her pain Lidoderm patch Incentive spirometry (2) Metastatic adenocarcinoma to pancreas: Plan: Metastatic adenocarcinoma of pancreas with mets to Liver follows [facility] oncology last tx 04/02 due to recent medical issues (3) Intractable pain: Plan: Management per above (4) Nausea and vomiting: Plan: Likely secondary to chronic pancreatitis, pain medications KUB 05/13: Nonobstructive pattern As needed Reglan, Phenergan Monitor QT Management per above (5) Hepatic abscess: IR drain placed on 04/18, cultures grew Klebsiella and E. coli currently treating with 2 g of IV Rocephin daily until 05/17 05/14 Okay with [employer] IR to remove hepatic drain, hepatic drain removed today by Dr. Julian Casanova Continue IV ceftriaxone until 05/17/2022 per ID (6) Hepatic metastases: (7) Uncontrolled type 2 diabetes mellitus, with long-term current use of insulin: Plan: Uncontrolled T2DM, insulin dependent Hyperglycemia place on insulin per protocol a1c 6.2 HTN continue enalapril Depression On Zyprexa, Seroquel, Cymbalta Psychiatry service consulted next Hypothyroidism Continue supplement Hyperlipidemia DVT Prophylaxis SCDS due to rib fx and possible hemothorax Full Code plan of care discussed with patient in detail and at length all questions answered she is understanding, agreeable, comfortable with the plan of care Admission and Anticipated Discharge Date Admission Date: May 09, 2022 Subjective Follow-up for pancreatic cancer with liver mets, intractable pain, etc. Seen sitting up in bed, tearful, frustrated due to having uncontrolled pain over She states she was reluctant to request for pain medications as she was made to feel like she is a drug seeker States her right upper quadrant pain is worse today Nausea improved compared to yesterday, able to tolerate breakfast Had 1 loose bowel movement today No shortness of breath, chest pain No other symptoms Review of Systems Review of Systems: all noted and negative except for above Physical Exam Physical Exam: General- oriented x 3, not in distress, speaks in sentences with no effort or accessory muscle use Eyes- anicteric Neck- no JVD Lungs- clear BS bilaterally, no rales/wheezes Heart- normal rate, regular rhythm; no murmurs Abdomen- normal bowel sounds, nondistended, soft, nontender Hepatic catheter removal site: Healing well Extremities- no pretibial edema, no calf tenderness Neuro- alert, oriented x 3; no gross focal neurologic deficits Skin- warm & dry Results & Data Results & Data ([facility]) Vital Signs (Past 12 Hours) Vital Signs Temp Pulse Pulse Resp BP Pulse Ox O2 Del Method 05/14/22 11:27 36.9 C 93 H 17 131/88 97 Room Air 05/14/22 08:00 80 05/14/22 08:00 Room Air 05/14/22 07:35 36.8 C 97 H 18 127/80 98 Room Air 05/14/22 03:24 36.3 C L 81 18 135/86 98 Room Air all noted and reviewed including below
--- NOTE | 2022-05-14 15:35 | Electrocardiogram Report ---
Test Reason : Blood Pressure : / mmHG Vent. Rate : 086 BPM Atrial Rate : 086 BPM P-R Int : 150 ms QRS Dur : 086 ms QT Int : 362 ms P-R-T Axes : 021 017 067 degrees QTc Int : 433 ms Normal sinus rhythm Normal ECG When compared with ECG of 09-MAY-2022 11:46, T wave inversion no longer evident in Lateral leads Confirmed by Travon Newsome ([id number]) on 05/14/2022 3:35:32 PM Referred By: REFERRED SELF Confirmed By:Travon Newsome
[2022-05-14] MEDS: MoRPHine SULFATE IR 15 MG TAB (IMMEDIATE RELEASE) PO PRN (16:15)
[2022-05-14 16:46] LABS: Vitamin D 1,25 34 pg/mL (18-72); Vitamin D3,1,25 25 pg/mL
[2022-05-14] MEDS: SENNA 8.6 MG TAB PO SCH (19:45)
[2022-05-14] MEDS: QUEtiapine FUMARATE 200 MG TAB PO SCH (19:46)
[2022-05-14] MEDS: OLANZapine 5 MG TABLET PO SCH (19:47)
[2022-05-14] MEDS: lamoTRIgine 100 MG TAB PO SCH (19:48)
[2022-05-15] MEDS: fentaNYL 50 MCG/HR TDSY TD SCH
[2022-05-15] MEDS: CHECK fentaNYL PATCH PLACEMENT SCH ×6 (00:27→23:05)
[2022-05-15] MEDS: HYDROmorphone INJ 1 MG/ML SYRINGE IV PRN ×9 (01:30→22:14)
[2022-05-15] MEDS: LEVOTHYROXINE SODIUM 50 MCG TABLET PO SCH (05:30)
[2022-05-15] MEDS: KETOROLAC TROMETHAMINE 15 MG/ML VIAL IV PRN ×2 (05:30→21:57)
[2022-05-15] MEDS: INSULIN ASPART PER UNIT SC SCH ×4 (08:27→20:26)
[2022-05-15] MEDS: rOPINIRole HCL 2 MG TABLET PO SCH ×3 (08:29→20:19)
[2022-05-15] MEDS: PANCREAZE (LIPASE 16,800U) CAP PO SCH ×3 (08:29→18:09)
[2022-05-15] MEDS: DULoxetine HCL 60 MG CAP PO SCH (08:29)
[2022-05-15] MEDS: PANTOprazole 40 MG TAB PO SCH ×2 (08:30→20:18)
[2022-05-15] MEDS: FLUTICASONE PROPIONATE NA SPR 16 GM BTL SCH (08:30)
[2022-05-15] MEDS: METOPROLOL TARTRATE 25 MG TAB PO SCH ×2 (08:30→20:17)
[2022-05-15] MEDS: ENALAPRIL MALEATE 10 MG TAB PO SCH (08:30)
[2022-05-15] MEDS: LANTUS PER UNIT CHARGE SQ SCH ×2 (08:31→20:27)
[2022-05-15] MEDS: ASPIRIN 81 MG ECTAB PO SCH (08:32)
[2022-05-15] MEDS: LORATADINE 10 MG TAB PO SCH (08:33)
[2022-05-15] MEDS: LIDOCAINE 5% 1 PATCH TD SCH (08:33)
[2022-05-15] MEDS: POLYETHYLENE (MIRALAX) 17 GM PACK PO SCH (08:33)
[2022-05-15] MEDS: cefTRIAXone SODIUM 2,000 MG in DEXTROSE 5% 50 ML IV SCH (09:00)
[2022-05-15] MEDS ORDERED: HYDROmorphone HCL 2 MG TAB PO PRN (09:19)
--- NOTE | 2022-05-15 10:00 | Pain Management Progress Note ---
Date of Service May 15, 2022 Assessment & Plan (1) Closed rib fracture: (2) Adenocarcinoma of head of pancreas: (3) Hepatic abscess: (4) Hemothorax: (5) Fall: (6) Dizziness: (7) Hepatic metastases: (8) Metastatic adenocarcinoma to pancreas: Plan 1. Continue Fentanyl at 50 mcg. 2. She did take MS IR once yesterday and it was reportedly not effective. She would like to try PO Dilaudid. Dilaudid 2mg x 4 hours PRN. Order placed. 3. Patient may reserve IV hydromorphone for breakthrough pain if not well controlled with PO Dilaudid. 4. Continue Lidocaine patches. Continue to follow Admission and Anticipated Discharge Date Admission Date: May 09, 2022 Subjective Mrs. Ceballos is a 42-year-old white female who is known to the pain service with history of liver metastatic disease with history of primary adenocarcinoma of the pancreas with persisting complaints of right upper quadrant abdominal pain. Patient also suffered a recent fall and has closed rib fracture on the right of the 10 through 12th ribs. Patient had been chronically on MS Contin 30 mg every 12 hours and MS IR 30 mg every 4 hours. She has been transitioned onto Fentanyl patch 50mcg and MS IR 30mg x 6 hours PRN. She does report mild improvement with Fentanyl patch. The MS IR was not helpful yesterday so she relied on Dilaudid IV primarily. Yesterday she stated that oral Dilaudid only helped for about an hour or 2 at a time. Today she states that she would like to try the oral Dilaudid again as it did not make her lightheaded like Morphine previously has. Physical Exam Physical Exam: GENERAL: This is a 42 year old female that does not appear in any acute distress. Sitting int he hospital bed eating breakfast. HEAD/FACE: Normocephalic and atraumatic. EYES: No drainage or conjunctival injection. ENT: Nose without bleeding or discharge. Oral mucosa moist. NECK: Full ROM without apparent pain. No swelling or masses noted. RESPIRATORY: Patient with unlabored breathing. No signs of respiratory distress. CHEST/AXILLA: Chest movement symmetrical. No deformities noted. ABDOMEN/GI: No distension BACK: Moves without difficulty SKIN: [place], warm and dry. No rash noted. MS/EXTREMITY: No swelling, no deformities. Moving extremities appropriately. NEURO: Alert and appears oriented. Speech is fluent. Cranial Nerves are grossly intact. PSYCH: Alert, pleasant, affect is calm
--- NOTE | 2022-05-15 12:47 | Communication Note ---
Date of Service: May 15, 2022 case was reviewed with Dr. Felder last pm, he was not aware patient had stopped clonidine due to hypotension but is totally fine with that. Reported that Zyprexa was for chemo induced N by another provider and patient and Dr. Felder but prefer she stay on Seroquel. We are exploring re-referral to Judit Beyer, PhD vs. internal referral to [email or web address] for tele therapy.
[2022-05-15] MEDS: PROMETHAZINE HCL 25 MG in SODIUM CHLORIDE 0.9% 50 ML IV PRN (13:14)
[2022-05-15] MEDS: LORazepam 1 MG TAB PO PRN ×2 (13:15→20:20)
--- NOTE | 2022-05-15 13:34 | Palliative Care Consultation ---
Date of Consultation May 15, 2022 Assessment & Plan (1) Palliative care encounter: (2) Advanced care planning/counseling discussion: (3) Cancer related pain: (4) Cancer-related breakthrough pain: (5) Adenocarcinoma of head of pancreas: (6) Closed rib fracture: Plan * for cancer related pain: TF has been started and IV Dilaudid + PO Dilaudid for BTP. She is not having good relief with either. I recommend increasing TDF to 75mcg (to be more aligned with her RELAY RECORD CLERK equivalents and with a modest increase for uncontrolled cancer related pain) and increased oral Dilaudid to 6mg PO q4h prn/hold for somnolence or resp rate below 14/min. * for cancer related nausea: no signif relief with Zyprexa or with Reglan IV. * She had prior good relief with medical marijuana. I told her that there is good preclinical animal data and a large body of observational evidence point to the potential efficacy of cannabinoids for cancer pain management. However, there are relatively weak data pointing to clinical efficacy from clinical trial data to date. Additionally, the growing cannabis industry drove the public to embrace a medicine before clinical evidence. We also reviewed a multicenter RCT (Kusum STONE, et al. Nabiximols for opioid-treated cancer patients with poorly-controlled chronic pain: a randomized, placebo- controlled, graded-dose trial. J Pain. 2012; 13(5):438-449), involving 360 patients, showed oral cannabis to have analgesic efficacy to treat breakthrough cancer pain in subjects who were started on a long-acting opioid. It was also well-tolerated. She has her medical marijuana card, so I have asked her to contact her preferred dispensary to review options. A tincture vs edible may be helpful for her and reduce overall opioid need. * Adv care: a brief discussion began with pt but was cut short by arrival of family. Rebecca shared she has been asking about her prognosis but has not had a straight answer. And she admits she does not necessarily want an explicit answer as much as she is hoping to get a better sense of averages/what to w [facility] for and a clear "when will I really know things are coming to a close?" I will return tomorrow to resume this discussion, as her family arrived at this point i our conversation. Jonna Hays [facility] Clinical Director, Palliative Medicine History of Present Illness Reason for Consultation: [facility], cancer related Attending Physician: Glynn Kaba MD History of Present Illness [place] Ceballos is a 42yo female admitted from home with severe right upper to mid back pain. She has a known hx of Stage IV metastatic adenocarcinoma of pancreas dx May 2021. She is on chemotherapy. She had a recent admission to [facility] for a complex hepatic abscess: recently hospitalized at [facility] on 04/17- 04/23/22 for which she underwent a hepatic percutaneous drain placement on 04/18 and began IV ceftriaxone 2 g daily until 05/17/22. PMH includes IDDM, HTN, HLD, severe cancer pain for which she was taking MS Conin 15mg q12h and MSIR 15mg q4h prn BTP at home. She notes the MS formulations were not helping, added to her nausea and made her even more dizzy. She attributes her falls to the MS, as they always happen within 30 min of taking MS. She wears a Dexcom monitor and notes that at the time of each fall, her BS w as not abnormally low or high. This admission, imaging confirms "Mildly displaced acute right posterior 10th through 12th rib fracture with Interval resolution of the fluid collections within the right upper quadrant within an indwelling percutaneous drainage catheter. There are residual soft tissue densities at these locations as described above measuring up to 3 cm. Therefore, this could represent phlegmon or possibly metastatic disease." Ct Chest reports Acute fractures of the posterior right 10th, 11th and 12th ribs. No pneumothorax. Trace right pleural effusion which may reflect a small hemothorax. Since admission, MS Contin has been stopped. She has been transitioned to TDF 50mcg/hr. At home she was using MS Contin 30 q12h + MSIR 30mg PO q4h prn BTP, average 5 tabs per day: MS Contin 60mg/day + MSIR 150mg/day = MS 210mg / day PO = MS 70mg IV equivalent/day prior to admission She has been requiring IV Dilaudid for BTP. Her MS Contin was stopped and TDF 50mcg/hr was started, this is day 1 of new patch. She notes relief with dilaudid has been notable. she is less sure TDF is helping. Allergies Allergy/AdvReac Type Severity Reaction Status Date / Time cephalexin [From Keflex] Allergy Mild Rash, Verified 05/09/22 15:02 urticaria Penicillins Allergy Mild Rash Verified 05/09/22 15:02 Fish Containing Products Allergy Unknown Unknown Verified 05/09/22 15:02 fish oil Allergy Unknown Unknown Verified 05/09/22 15:02 dulaglutide [From [employer]] AdvReac Severe Pancreatiti Verified 05/09/22 15:02 s clarithromycin AdvReac Unknown Vomiting Verified 05/09/22 15:02 Home Medications Medication Instructions Recorded Confirmed Type duloxetine 60 mg capsule,delayed 120 mg PO DAILY 04/14/21 05/09/22 History release (Cymbalta) flash glucose scanning reader 04/14/21 04/17/22 History (FreeStyle Tanmay 14 Day [place]) lamotrigine 200 mg tablet 200 mg PO HS 04/14/21 05/09/22 History (Lamictal) levothyroxine 50 mcg tablet 50 mcg PO QAM 04/14/21 05/09/22 History ropinirole 4 mg tablet 4 mg PO TID 04/14/21 05/09/22 History valacyclovir 1 gram tablet 2,000 mg PO BID PRN Cold Sores 04/14/21 05/09/22 History blood sugar diagnostic (OneTouch #600 ea 05/26/21 04/17/22 Rx Verio test strips) flash glucose sensor (FreeStyle #7 ea 05/26/21 04/17/22 Rx Tanmay 14 Day Sensor kit) flash glucose sensor (FreeStyle #2 ea 01/02/22 04/17/22 Rx Tanmay 2 Sensor kit) acetaminophen 500 mg tablet 500 mg PO Q4 PRN Pain 01/14/22 05/09/22 History lipase 16,800-protease 1 cap PO TIDM 01/14/22 05/09/22 History 56,800-amylase 98,400 unit capsule, delayed rel (Pancreaze) loratadine 10 mg tablet (Claritin) 10 mg PO DAILY 01/14/22 05/09/22 History lorazepam 1 mg tablet 1 mg PO Q8 PRN anxiety or sleep 01/14/22 05/09/22 History ondansetron 8 mg disintegrating 8 mg translingual Q8 PRN Nausea 01/14/22 05/09/22 History tablet potassium chloride 10 mEq 10 meq PO AMHS 01/14/22 05/09/22 History tablet,extended release quetiapine 100 mg tablet 200 mg PO HS 03/01/22 05/09/22 History pen needle, diabetic 31 gauge x #200 ea 04/05/22 04/17/22 Rx 3/16" (BD Ultra-Fine Mini Pen Needle) insulin glargine U-300 conc 300 10 unit subcut QAM 04/09/22 05/09/22 History unit/mL (3 mL) subcutaneous pen (Toujeo Max U-300 SoloStar) albuterol sulfate 90 mcg/actuation 1 - 2 inh inhalation Q6 PRN as 04/17/22 05/09/22 History aerosol inhaler (Ventolin HFA) directed bisacodyl 10 mg rectal suppository 10 mg MD DAILY PRN Constipation 04/17/22 05/09/22 History ceftriaxone 1 gram intravenous 2 g IV DAILY 04/17/22 05/09/22 History solution enalapril maleate 20 mg tablet 20 mg PO DAILY 04/17/22 05/09/22 History fluticasone propionate 50 2 spray intranasal DAILY 04/17/22 05/09/22 History mcg/actuation nasal spray,suspension lidocaine-prilocaine 2.5 %-2.5 % 1 applic topical UD 04/17/22 05/09/22 History topical cream morphine 30 mg immediate release 30 mg PO Q4H PRN Pain 04/17/22 05/09/22 History tablet morphine 30 mg tablet,extended 30 mg PO BID 04/17/22 05/09/22 History release naloxegol 25 mg tablet 25 mg PO HS 04/17/22 05/09/22 History pantoprazole 40 mg tablet,delayed 40 mg PO BID 04/17/22 05/09/22 History release pegfilgrastim-bmez 6 mg/0.6 mL 6 mg subcut UD 04/17/22 05/09/22 History subcutaneous syringe polyethylene glycol 3350 17 17 g PO QAM 04/17/22 05/09/22 History gram/dose oral powder (Miralax) prochlorperazine maleate 10 mg 10 mg PO Q6H PRN Nausea 04/17/22 05/09/22 History tablet sennosides 8.6 mg tablet (senna) 17.2 mg PO HS 04/17/22 05/09/22 History insulin lispro 100 unit/mL 2 unit (0.02 mL) subcut TIDM #15 mL 05/05/22 05/09/22 Rx subcutaneous pen (Humalog KwikPen (U-100) Insulin) aspirin 81 mg tablet,delayed 81 mg PO DAILY 05/09/22 05/09/22 History release olanzapine 5 mg tablet 5 mg PO HS 05/09/22 05/09/22 History Patient History Medical History Allergy-induced asthma rare inhaler use Depression with anxiety Diabetes mellitus, type 2 IDDM Dyslipidemia Hypertension Hypothyroidism Lumbosacral pain Obesity Pancreatic cancer + current chemo, follows with [facility] heme/onc PCOS (polycystic ovarian syndrome) Therapeutic opioid-induced constipation (OIC) Surgical History History of ERCP ERCP (06/2021) & EUS/ERCP (04/28/21): Good view with glidescope #3, ETT 7.0 at [facility] History of tonsillectomy History of umbilical hernia repair History of vascular access device A PORT INSERTION History of wisdom tooth extraction Nausea and vomiting after administration of anesthetic agent Family History Brother Diabetes Hypertension Father Hypertension Aunt Diabetes Grandmother (Maternal) Diabetes Other No family history of adverse response to anesthesia Social History Smoking Status: Current some day smoker Tobacco Type: Cigarettes packs per day: 1; Cigarettes Per Day: 20; Second Hand Exposure: No; Hx Alcohol Use: No Hx Substance Use: No Preferred Language: Armenian Communication Ability: Effective Due Diligence Coordinator Required: No Beliefs That Will Affect Care: None marital status: Single Current Living Situation: Alone Current Living Situation Comment: Lives with Daughter and Dog. Feels Safe at Home: Yes Safety Concerns: Feels Safe At This Time Assistive Devices: Cane Review of Systems Review of Systems: All systems reviewed & are unremarkable except as noted in HPI & below Constitutional: + weight loss Respiratory: + pain on inspiration Cardiovascular: + dyspnea on exertion Gastrointestinal: + early satiety, + nausea and + constipation Physical Exam Physical Exam: Limited, pt awaiting arrival of family for visit. resting in bed, seated, no acute distress. normal resp efort without conversational dyspnea. Skin pale, warm, no cyanosis. Psychiatric: Suicidal Thoughts: denies suicidal thoughts Homicidal Thoughts: denies homicidal thoughts Cognition: recent memory grossly intact, remote memory grossly intact, attention grossly intact and language grossly intact Insight: excellent insight Judgement: excellent judgement Results & Data ([facility]) Vital Signs (Past 12 Hours) Vital Signs Temp Pulse Resp BP Pulse Ox O2 Del Method 05/15/22 12:04 Room Air 05/15/22 07:18 36.8 C 86 18 105/70 98 Room Air 05/15/22 04:00 36.7 C 91 H 16 132/92 98 Room Air PG Care Time/CCT Total # of Minutes Spent Total Time Spent with Patient: Total time spent is greater than 50% in coordination of care (as documented) at patient's floor/unit and/or counseling patient: [place] [address] Inpt Consult Level 5 Patient Type New History Expanded Problem Focused Exam Expanded Problem Focused Medical Decision Making Low Complexity Diagnoses Palliative care encounter Z51.5 Advanced care planning/counseling discussion Z71.89 Cancer related pain G89.3 Cancer-related breakthrough pain G89.3 Adenocarcinoma of head of pancreas C25.0 Closed rib fracture S22.39XA Time Spent (min) 60
--- NOTE | 2022-05-15 13:41 | Hospitalist Progress Note ---
Date of Service May 15, 2022 Assessment & Plan (1) Metastatic adenocarcinoma to pancreas: (2) Intractable pain: Plan: This is a 42-year-old female who has a significant past medical history of metastatic adenocarcinoma of pancreas currently on chemotherapy with mets to liver, Complex hepatic abscess currently on IV antibiotics, insulin-dependent T2DM, HTN, HLD, chronic pain in setting of malignancy, PCM who presents to ED secondary to significant pain to her right back. (1) Intractable pain secondary to pancreatic cancer with liver mets Multiple Rib Fx, R posterior 10-12, with small pleural effusion, possible hemothorax, status post fall Had dizziness episode while in the bathroom, which resulted to fall cxr-confirmed acute fractures of the right 10th, 11th and 12th ribs No pneumothorax, pleural effusion, airspace consolidation or overt pulmonary edema. Pain management on board Gradually improving Fentanyl being uptitrated, increased to 50 mg daily Morphine IR 30 mg p.o. every 4 hours as needed IV Dilaudid 1 mg p.o. every 3 hours as needed Hepatic catheter for intrahepatic abscess also removed, which has contributed to her pain Lidoderm patch Incentive spirometry (2) Metastatic adenocarcinoma to pancreas: Plan: Metastatic adenocarcinoma of pancreas with mets to Liver follows [facility] oncology last tx 04/02 due to recent medical issues (3) Intractable pain: Plan: Management per above (4) Nausea and vomiting: Plan: Likely secondary to chronic pancreatitis, pain medications KUB 05/13: Nonobstructive pattern As needed Reglan, Phenergan Monitor QT while on Reglan Management per above (5) Hepatic abscess: IR drain placed on 04/18, cultures grew Klebsiella and E. coli currently treating with 2 g of IV Rocephin daily until 05/17 05/14 [facility] hepatic drain, hepatic drain removed by Dr. Julian Casanova over the weekend Continue IV ceftriaxone until 05/17/2022 per ID (6) Hepatic metastases: (7) Uncontrolled type 2 diabetes mellitus, with long-term current use of insulin: Plan: Uncontrolled T2DM, insulin dependent Hyperglycemia place on insulin per protocol a1c 6.2 HTN continue enalapril Depression On Zyprexa, Seroquel, Cymbalta Psychiatry service consulted next Recommend discontinuation of Zyprexa as patient already on Seroquel Hypothyroidism Continue supplement Hyperlipidemia DVT Prophylaxis Lovenox subcu daily Full Code plan of care discussed with patient in detail and at length all questions answered she is understanding, agreeable, comfortable with the plan of care Admission and Anticipated Discharge Date Admission Date: May 09, 2022 Subjective Follow-up for intractable pain, primary cancer with liver mets, etc. Seen resting in bed, comfortable, in good spirits, smiling States he feels good overall today Pain well controlled No nausea or vomiting Tolerating diet well No other symptoms Review of Systems Review of Systems: all noted and negative except for above Physical Exam Physical Exam: General- oriented x 3, not in distress, speaks in sentences with no effort or accessory muscle use Eyes- anicteric Neck- no JVD Lungs- clear breath sounds bilaterally, no crackles Heart- normal rate, regular rhythm; no murmurs Abdomen- normal bowel sounds, nondistended, soft, nontender Extremities- no pretibial edema, no calf tenderness Neuro- alert, oriented x 3; no gross focal neurologic deficits Skin- warm & dry Results & Data Results & Data ([facility]) Vital Signs (Past 12 Hours) Vital Signs Temp Pulse Resp BP Pulse Ox O2 Del Method 05/15/22 12:04 Room Air 05/15/22 07:18 36.8 C 86 18 105/70 98 Room Air 05/15/22 04:00 36.7 C 91 H 16 132/92 98 Room Air all noted and reviewed including below
[2022-05-15] MEDS: ENOXAPARIN INJ 40 MG/0.4 ML SYR SQ SCH (18:09)
[2022-05-15] MEDS: METOCLOPRAMIDE HCL INJ 5 MG/ML 2 ML VIAL IV PRN (20:11)
[2022-05-15] MEDS: lamoTRIgine 100 MG TAB PO SCH (20:16)
[2022-05-15] MEDS: QUEtiapine FUMARATE 200 MG TAB PO SCH (20:18)
[2022-05-15] MEDS: SENNA 8.6 MG TAB PO SCH (20:19)
[2022-05-16] MEDS: HYDROmorphone INJ 1 MG/ML SYRINGE IV PRN ×6 (02:06→19:37)
[2022-05-16] MEDS: KETOROLAC TROMETHAMINE 15 MG/ML VIAL IV PRN ×2 (03:15→23:09)
[2022-05-16] MEDS: LEVOTHYROXINE SODIUM 50 MCG TABLET PO SCH (05:21)
[2022-05-16] MEDS: INSULIN ASPART PER UNIT SC SCH ×4 (08:20→20:59)
[2022-05-16] MEDS: LANTUS PER UNIT CHARGE SQ SCH ×2 (08:24→21:02)
[2022-05-16] MEDS ORDERED: HYDROmorphone HCL 2 MG TAB PO PRN ×2 (08:26→08:35)
[2022-05-16] MEDS: DULoxetine HCL 60 MG CAP PO SCH (08:33)
[2022-05-16] MEDS: PANCREAZE (LIPASE 16,800U) CAP PO SCH ×3 (08:33→16:32)
[2022-05-16] MEDS: LORATADINE 10 MG TAB PO SCH (08:33)
[2022-05-16] MEDS: ENALAPRIL MALEATE 10 MG TAB PO SCH (08:33)
[2022-05-16] MEDS: rOPINIRole HCL 2 MG TABLET PO SCH ×3 (08:33→20:42)
[2022-05-16] MEDS: ASPIRIN 81 MG ECTAB PO SCH (08:34)
[2022-05-16] MEDS: LIDOCAINE 5% 1 PATCH TD SCH (08:34)
[2022-05-16] MEDS: CHECK fentaNYL PATCH PLACEMENT SCH ×2 (08:34→16:30)
[2022-05-16] MEDS: METOPROLOL TARTRATE 25 MG TAB PO SCH ×2 (08:34→20:40)
[2022-05-16] MEDS: POLYETHYLENE (MIRALAX) 17 GM PACK PO SCH (08:35)
[2022-05-16] MEDS: PANTOprazole 40 MG TAB PO SCH ×2 (08:35→20:41)
[2022-05-16] MEDS: FLUTICASONE PROPIONATE NA SPR 16 GM BTL SCH (08:35)
[2022-05-16] MEDS: cefTRIAXone SODIUM 2,000 MG in DEXTROSE 5% 50 ML IV SCH (08:43)
--- NOTE | 2022-05-16 08:43 | Pain Management Progress Note ---
Date of Service May 16, 2022 Assessment & Plan (1) Closed rib fracture: (2) Adenocarcinoma of head of pancreas: (3) Hepatic abscess: (4) Hemothorax: (5) Fall: (6) Dizziness: (7) Hepatic metastases: (8) Metastatic adenocarcinoma to pancreas: Plan 1. Fentanyl increased to 75mcg/hr. 2. Dilaudid PO was increased to 6mg x 4 hours PRN pain 3. Patient may reserve IV hydromorphone for breakthrough pain if not well controlled with PO Dilaudid. 4. Continue Lidocaine patches. Palliative care now involved. Will sign off on the patient. Please contact with any questions or concerns. Admission and Anticipated Discharge Date Admission Date: May 09, 2022 Subjective Mrs. Ceballos is a 42-year-old white female who is known to the pain service with history of liver metastatic disease with history of primary adenocarcinoma of the pancreas with persisting complaints of right upper quadrant abdominal pain. Patient also suffered a recent fall and has closed rib fracture on the right of the 10 through 12th ribs. Patient had been chronically on MS Contin 30 mg every 12 hours and MS IR 30 mg every 4 hours. She has been transitioned onto Fentanyl patch 50mcg and MS IR 30mg was switched to Dilaudid 2mg x 4hr. She does report mild improvement with Fentanyl patch. The oral Dilaudid did not provide enough relief so she relied on Dilaudid IV primarily. Physical Exam Physical Exam: GENERAL: This is a 42 year old female that does not appear in any acute distress. Sitting in the hospital bed. HEAD/FACE: Normocephalic and atraumatic. EYES: No drainage or conjunctival injection. ENT: Nose without bleeding or discharge. Oral mucosa moist. NECK: Full ROM without apparent pain. No swelling or masses noted. RESPIRATORY: Patient with unlabored breathing. No signs of respiratory distress. CHEST/AXILLA: Chest movement symmetrical. No deformities noted. ABDOMEN/GI: No distension BACK: Moves without difficulty SKIN: [place], warm and dry. No rash noted. MS/EXTREMITY: No swelling, no deformities. Moving extremities appropriately. NEURO: Alert and appears oriented. Speech is fluent. Cranial Nerves are grossly intact. PSYCH: Alert, pleasant, affect is calm
[2022-05-16] MEDS: LORazepam 1 MG TAB PO PRN (10:42)
--- NOTE | 2022-05-16 10:59 | Palliative Care Progress Note ---
Date of Service May 16, 2022 Assessment & Plan (1) Palliative care encounter: (2) Cancer related pain: (3) Cancer-related breakthrough pain: (4) Metastatic adenocarcinoma to pancreas: (5) Nausea: Plan * For cancer pain: continue TDF 75mcg patch and will increased Dilaudid to 8mg PO q4h prn BTP/hold for somnolence or resp rate below 14/min. New order written and reviewed with pharmacy, time order to starts 1230 given that she just had Dilaudid 6mg at 1030am approx. * would not make adjustments to TDF any sooner than q72hr * ACP discussion: pt has made arrangements to transfer custody/guardianship of her daughter upon her . This has brought a large measure of peace of mind for her but she states she wants to continue doing anything and everything she can to live as long as possible to have whatever time she can with daughter. She wants every aggressive intervention, therapy, medication/chemo etc. She is not seeking a comfort/QOL or hospice focused plan of care. * She is followed by [facility] Palliative med/Dr.Nikki Alvarado and will follow up with her when dc. * pt will follow up with [facility] for medical marijuana options Jonna Hays DNP Clinical Director, Palliative Medicine Admission and Anticipated Discharge Date Admission Date: May 09, 2022 Subjective Pt is hoping to be dc home tomorrow. She states she was supposed to have a repeat brain Mri for staging and ?research trial eval; this is scheduled at [facility] and she is currently admitted - asking if we can have this done for her here while admitted. Pain remains an issue. TDF dose increased per our reccs yesterday and she feels it is starting to help "but it is still not great." Oral Dilaudid dose is not adequate. She enjoyed her family visit yesterday. She shares that dtr is going away for long weekend at [facility] with the family who will be taking over guardianship and custody hen pt dies. They are another local family who also foster, well known to pt and she is very happy with their plans for dtr's future. Nausea remains an issue, Zyprexa stopped per psych reccs, pt is planning to seek medical marijuana for additional relief and already has her state issued MM card. Review of Systems Review of Systems: Persisting abd pain, right upper to mid quadrants, radiates into lower pelvis. Mood subdued, depressed but managing. Follows with psychiatry Physical Exam Physical Exam: Defers exam. Lying supine in bed, absently massaging right mid to lower quadrants and pelvic region. no gross bloating noted. Resp effort is WAL. Skin pale but warm. no cyanosis. Results & Data ([facility]) Vital Signs (Past 12 Hours) Vital Signs Temp Pulse Resp BP Pulse Ox O2 Del Method 05/16/22 08:00 36.8 C 84 18 101/67 97 Room Air 05/16/22 07:21 Room Air 05/16/22 03:10 36.8 C 100 H 16 109/72 97 Room Air 05/15/22 23:35 36.7 C 96 H 16 114/77 96 Room Air PG Care Time/CCT Total # of Minutes Spent Total Time Spent with Patient: Total time spent is greater than 50% in coordination of care (as documented) at patient's floor/unit and/or counseling patient: Coding Level of Care Code 04998 Subseq Hosp Care Lvl 3 Diagnoses Palliative care encounter Z51.5 Cancer related pain G89.3 Cancer-related breakthrough pain G89.3 Metastatic adenocarcinoma to pancreas C78.89 Nausea R11.0
[2022-05-16] MEDS ORDERED: fentaNYL 75 MCG/HR TDSY TD SCH (11:00)
--- NOTE | 2022-05-16 14:35 | Communication Note ---
Date of Service: May 16, 2022 Seroquel decreased to 100 mg following liaison discussion with patient. Request 1 set of orthostatic vitals. Patient desires to limit polypharm and is here s/p fall. Can contribute to sedation/orthostasis, particularly in combo with pain meds. Will follow.
--- NOTE | 2022-05-16 15:40 | Hospitalist Progress Note ---
Date of Service May 16, 2022 Assessment & Plan (1) Metastatic adenocarcinoma to pancreas: (2) Intractable pain: Plan: This is a 42-year-old female who has a significant past medical history of metastatic adenocarcinoma of pancreas currently on chemotherapy with mets to liver, Complex hepatic abscess currently on IV antibiotics, insulin-dependent T2DM, HTN, HLD, chronic pain in setting of malignancy, PCM who presents to ED secondary to significant pain to her right back. (1) Intractable pain secondary to pancreatic cancer with liver mets Multiple Rib Fx, R posterior 10-12, with small pleural effusion, possible hemothorax, status post fall Had dizziness episode while in the bathroom, which resulted to fall cxr-confirmed acute fractures of the right 10th, 11th and 12th ribs No pneumothorax, pleural effusion, airspace consolidation or overt pulmonary edema. Pain management on board Gradually improving Fentanyl being uptitrated, increased to 75 mg daily Morphine IR 30 mg p.o. every 4 hours as needed IV Dilaudid 1 mg p.o. every 3 hours as needed Oral Dilaudid added; asked the patient to prefer Oral Dilaudid to iv. Hepatic catheter for intrahepatic abscess also removed, which has contributed to her pain Lidoderm patch Incentive spirometry (2) Metastatic adenocarcinoma to pancreas: Plan: Metastatic adenocarcinoma of pancreas with mets to Liver [facility] last tx 04/02 due to recent medical issues (3) Intractable pain: Plan: Management per above (4) Nausea and vomiting: Plan: Likely secondary to chronic pancreatitis, pain medications KUB 05/13: Nonobstructive pattern As needed Reglan, Phenergan Monitor QT while on Reglan Management per above (5) Hepatic abscess: IR drain placed on 04/18, cultures grew Klebsiella and E. coli currently treating with 2 g of IV Rocephin daily until 05/17. on 05/14: Hepatic drain removed. (6) Hepatic metastases: (7) Uncontrolled type 2 diabetes mellitus, with long-term current use of insulin: Plan: Uncontrolled T2DM, insulin dependent Hyperglycemia place on insulin per protocol a1c 6.2 HTN continue enalapril Depression On Zyprexa, Seroquel, Cymbalta Psychiatry service consulted next Recommend discontinuation of Zyprexa as patient already on Seroquel Hypothyroidism Continue supplement Hyperlipidemia DVT Prophylaxis Lovenox subcu daily Full Code Admission and Anticipated Discharge Date Admission Date: May 09, 2022 Subjective Patient seen and examined at bedside. Her pain is well controlled on current regimen. She says she has been trying to avoid IV Dilaudid as much as possible referring to oral. Her MRI is rescheduled for Saturday. Review of Systems Review of Systems: All systems reviewed & are unremarkable except as noted in Subjective Physical Exam Physical Exam: General- oriented x 3, not in distress, speaks in sentences with no effort or accessory muscle use Eyes- anicteric Neck- no JVD Lungs- clear breath sounds bilaterally, no crackles Heart- normal rate, regular rhythm; no murmurs Abdomen- normal bowel sounds, nondistended, soft, nontender. Site of drainno swelling, erythema. No discharge. Extremities- no pretibial edema, no calf tenderness Neuro- alert, oriented x 3; no gross focal neurologic deficits Skin- warm & dry Results & Data Results & Data ([facility]) Vital Signs (Past 12 Hours) Vital Signs Temp Pulse Resp BP Pulse Ox O2 Del Method 05/16/22 15:30 36.9 C 96 H 20 129/79 96 Room Air 05/16/22 11:51 36.8 C 84 18 126/82 98 Room Air 05/16/22 08:00 36.8 C 84 18 101/67 97 Room Air 05/16/22 07:21 Room Air Laboratory Results Laboratory Results WBC 6.54 K/ul (4.8-10.8) 05/11/22 04:26 RBC 3.69 M/uL (3.93-5.22) L 05/11/22 04:26 Hgb 11.7 g/dl (12.0-16.0) L 05/11/22 04:26 Hct 36.2 % (34.1-44.9) 05/11/22 04:26 MCV 98.1 fL (80.0-100.0) 05/11/22 04:26 MCH 31.7 pg (25.0-34.0) 05/11/22 04:26 MCHC 32.3 g/dL (32.0-36.0) 05/11/22 04:26 RDW Std Deviation 58.1 fL (36.4-46.3) H 05/11/22 04:26 RDW Coeff of Yang 15.9 % (11.5-14.5) H 05/11/22 04:26 Plt Count 169 K/uL (130-400) 05/11/22 04:26 MPV 11.2 fL (9.4-12.3) 05/11/22 04:26 Immature Gran % (Auto) 0.3 % 05/11/22 04:26 Neut % (Auto) 52.3 % 05/11/22 04:26 Lymph % (Auto) 29.8 % 05/11/22 04:26 [place] % (Auto) 10.7 % 05/11/22 04:26 Eos % (Auto) 6.3 % 05/11/22 04:26 Baso % (Auto) 0.6 % 05/11/22 04:26 Neut # (Auto) 3.42 K/uL (1.4-6.5) 05/11/22 04:26 Lymph # (Auto) 1.95 K/uL (1.2-3.4) 05/11/22 04:26 [place] # (Auto) 0.70 K/uL (0.24-0.82) 05/11/22 04:26 Eos # (Auto) 0.41 K/uL (0-0.50) 05/11/22 04:26 Baso # (Auto) 0.04 K/uL (0-0.2) 05/11/22 04:26 Immature Gran # (Auto) 0.02 K/uL (0.00-0.02) 05/11/22 04:26 PT 11.7 Seconds (9.0-12.0) 05/09/22 11:45 INR 1.1 (0.9-1.1) 05/09/22 11:45 APTT 27.3 Seconds (21.0-31.0) 05/09/22 11:45 PTT Ratio 1.0 05/09/22 11:45 Sodium 135 mmol/L (136-145) L 05/13/22 18:30 Potassium 4.4 mmol/L (3.5-5.1) 05/13/22 18:30 Chloride 102 mmol/L (98-107) 05/13/22 18:30 Carbon Dioxide 25 mmol/L (21-32) 05/13/22 18:30 Anion Gap 8 (3-11) 05/13/22 18:30 BUN 4 mg/dl (6-23) L 05/13/22 18:30 Creatinine 0.45 mg/dl (0.6-1.2) L 05/13/22 18:30 Est Cr Clr Drug Dosing 176.6 ml/min 05/13/22 18:30 Est GFR ( Amer) 141.2 ml/min 05/13/22 18:30 Est GFR (Non-Af Amer) 121.9 ml/min 05/13/22 18:30 BUN/Creatinine Ratio 8.9 (10-20) L 05/13/22 18:30 Glucose 228 mg/dl (70-99(Fasting)) H 05/13/22 18:30 POC Glucose 134 mg/dl (70-99) H 05/16/22 11:13 Estimat Average Glucose 131 mg/dl 05/10/22 05:24 Hemoglobin A1c 6.2 % (4.5-5.6) H 05/10/22 05:24 Calcium 8.7 mg/dl (8.5-10.1) 05/13/22 18:30 Phosphorus 4.0 mg/dl (2.5-4.9) 05/11/22 04:26 Magnesium 1.8 mg/dl (1.7-2.4) 05/11/22 04:26 Total Bilirubin 0.7 mg/dl (0.2-1.0) 05/11/22 04:26 AST 34 U/L (13-39) 05/11/22 04:26 ALT 12 U/L (7-52) 05/11/22 04:26 Alkaline Phosphatase 223 U/L (34-104) H 05/11/22 04:26 Troponin I High Sens 8.6 pg/ml (0-14) 05/09/22 11:45 Total Protein 5.6 gm/dl (6.0-8.3) L 05/11/22 04:26 Albumin 2.6 gm/dl (3.4-5.0) L 05/11/22 04:26 Globulin 3.0 gm/dl (2.5-4.0) 05/11/22 04:26 Albumin/Globulin Ratio 0.9 (0.9-2) 05/11/22 04:26 Vit D 1,25-Dihyd Total 34 pg/mL (18-72) 05/10/22 05:24 1,25 Dihydroxy Vit D2 9 pg/mL 05/10/22 05:24 1,25 Dihydroxy Vit D3 25 pg/mL 05/10/22 05:24 Urine Color Dark Yellow 05/09/22 16:00 Urine Appearance Clear (Clear) 05/09/22 16:00 Urine pH 7.0 (4.5-7.5) 05/09/22 16:00 Ur Specific [place] 1.028 (1.000-1.030) 05/09/22 16:00 Urine Protein 1+ (Negative) H 05/09/22 16:00 Urine Glucose (UA) Trace (Negative) H 05/09/22 16:00 Urine Ketones 1+ (Negative) H 05/09/22 16:00 Urine Blood Negative (Negative) 05/09/22 16:00 Urine Nitrite Negative (Negative) 05/09/22 16:00 Urine Bilirubin 1+ (Negative) H 05/09/22 16:00 Urine Urobilinogen Negative (Negative) 05/09/22 16:00 Ur Leukocyte Esterase Trace (Negative) H 05/09/22 16:00 Urine WBC (Auto) 1-5 /hpf (0-5) 05/09/22 16:00 Urine RBC (Auto) 0-4 /hpf (0-4) 05/09/22 16:00 U Hyaline Cast (Auto) 5-10 /lpf (0-5) H 05/09/22 16:00 U Epithel Cells (Auto) >30 /lpf (0-5) H 05/09/22 16:00 Urine Bacteria (Auto) Negative (Negative) 05/09/22 16:00 Stl C. diff Tox B Gene Negative Cdiff Gene (Neg) 05/12/22 07:36 SARS-CoV-2, RNA, NAAT NEGATIVE (NEGATIVE) 05/09/22 12:49 Impressions Abdomen/Pelvis CT 05/09/22 12:[address] WITH IV CONTRAST CT DOSE: 2199.87 mGy.cm HISTORY: Right-sided abdominal pain. Fall. TECHNIQUE: Multiaxial CT images of the abdomen and pelvis were performed fo llowing the use of intravenous contrast. A dose lowering technique was utilized adhering to the principles of ALARA. COMPARISON STUDY: Abdomen and pelvis CT 04/17/2022. FINDINGS: Please refer to the same day chest CT for further evaluation of the lung bases. No pneumoperitoneum. No pneumatosis. There are mildly displaced right posterior 10th through 12th rib fractures. Trace pericardial effusion. The tip of the Port-A-Cath is partially visualized. There is right upper quadrant percutaneous drainage catheter. There is been interval resolution of the right upper quadrant fluid collection compared to prior study. There is a small residual soft tissue focus at the catheter measuring 1.9 cm. The right upper quadrant subcapsular fluid collection has almost completely resolved in the interval. There is residual 3 cm soft tissue density at this location best seen on image 150. These areas of soft tissue could represent phlegmon or possibly metastatic deposits. There is a diffusely heterogeneous liver, unchanged. A metallic common bile duct stent is again noted with associated pneumobilia suggesting stent patency. The necrotic pancreatic head mass is again noted measuring approximately 2.7 cm. This accounts for the main pancreatic duct dilatation. No significant gallbladder wall thickening. Gas within the gallbladder is again noted. The spleen, adrenal glands, and kidneys remain unc hanged. The main portal vein is patent. Mild peripancreatic lymphadenopathy persists. Normal caliber abdominal aorta. The bladder is decompressed. There are a few small calcified and noncalcified uterine fibroids. No evidence for bowel obstruction. Normal appendix. IMPRESSION: 1. Mildly displaced acute right posterior 10th through 12th rib fractures. 2. Interval resolution of the fluid collections within the right upper quadrant within an indwelling percutaneous drainage catheter. There are residual soft tissue densities at these locations as described above measuring up to 3 cm. Therefore, this could represent phlegmon or possibly metastatic disease. 3. Diffusely heterogeneous liver again noted with several hypodense foci. This may represent areas of focal fat or underlying metastatic disease. 4. Redemonstration of the necrotic pancreatic head mass. 5. Patent metallic common bile duct stent. 6. Additional findings as described above. ACT 112: Negative or not required by law. Electronically signed by: Ru Arce M.D. 05/09/2022 2:[address] 05/09/22 12:45 CT OF THE CHEST WITH IV CONTRAST CLINICAL HISTORY: Right chest pain following fall. COMPARISON STUDY: Chest radiograph February 09, 2022. TECHNIQUE: Following IV administration of 94 mL of Optiray, helical axial images of the chest were obtained. Sagittal and coronal reconstructions were viewed as well as maximal intensity projections on an independent 3-D workstation. Automated exposure control was utilized for the study. A dose lowering technique was utilized adhering to the principles of ALARA. FINDINGS: A right internal jugular [id number] is in place. There is stranding and gas adjacent to the port. A left PICC is in place. No enlarged thoracic ly mph nodes are present. Size of the heart is normal. There is no pericardial effusion. No pneumothorax or pleural effusion is present. There is no consolidation. Linear opacities reflect atelectasis. Note is made of an acute mildly displaced fracture pf the posterior right 10th rib. There is an acute minimally displaced fracture pf the posterior right 11th rib and acute mildly displaced fracture of the posterior right 12th rib. Old right-sided rib fractures are present. No acute thoracic spine fracture is present. The abdomen and pelvis CT will be reported separately. Hypodense hepatic foci are better depicted on that exam. There is hepatic steatosis. Biliary stent is in place. IMPRESSION: 1. Acute fractures of the posterior right 10th, 11th and 12th ribs. No pneumothorax. Trace right pleural effusion which may reflect a small hemothorax. 2. Infiltration and gas adjacent to the right [id number]. This is nonspecific and could be due to recent access. However, an infectious process is also within the differential. ACT 112: Negative or not required by law. Electronically signed by: Morales Story M.D. 05/09/2022 2:[address] 05/09/22 12:45 CT head/brain wo con CLINICAL HISTORY: 42 years-old Female with fall. Acute head trauma status post fall TECHNIQUE: Multiple axial CT images of the head were obtained without contrast. A dose lowering technique was utilized adhering to the principles of ALARA. COMPARISON: None. FINDINGS: No acute intracranial hemorrhage, midline shift, intracranial mass, hydrocephalus, territorial ischemia or abnormal extra-axial collection. Mild involutional changes. Calcifications of the falx cerebri. The calvarium is intact. The paranasal sinuses, mastoid air cells, and middle ear cavities are clear. IMPRESSION: No acute intracranial abnormality or calvarial fracture. ACT 112: Negative or not required by law. The above report was generated using voice recognition software. It may contain grammatical, syntax or spelling errors. Electronically signed by: Mahendra Alvarez M.D. 05/09/2022 2:15 PM Chest X-Ray 05/10/22 09:00 XR chest 1V portable HISTORY: 42 years-old Female repeat for pleural effusion/fx STUDY in a patient with acute fractures of the right 10th, 11th and 12th ribs. COMPARISON: CT abdomen and pelvis 05/09/2022 TECHNIQUE: AP view of the chest FINDINGS: Cardiac mediastinal and hilar silhouettes are within normal limits. A left-sided PICC is present with distal tip in the expected location of the brachiocephalic SVC confluence. Right IJ [id number]-[id number] catheter distal tip is noted in the expected location of the SVC. There is unchanged mild blunting of the costophrenic angles. No pneumothorax, pleural effusion, airspace consolidation or overt pulmonary edema. Degenerative changes of the shoulders and spine. Healed chronic right-sided rib fractures. Acute mildly displaced fractures of the right 10th, 11th and 12th ribs are not well visualized. IMPRESSION: 1. The acute fractures of the right 10th, 11th and 12th ribs are better visualized on the comparison CT study. 2. No pneumothorax. ACT 112: Negative or not required by law. The above report was generated using voice recognition software. It may contain grammatical, syntax or spelling errors. Electronically signed by: Mahendra Alvarez M.D. 05/10/2022 7:56 AM KUB X-Ray 05/13/22 14:29 KUB HISTORY: Acute nausea with abdominal pain nausea COMPARISON: CT abdomen and pelvis 02/12/2022. FINDINGS: Nonobstructive bowel gas pattern. Metallic stent is noted within the distribution of the common bile duct with adjacent surgical clips. No renal calculi. No ureteral calculi. No pneumoperitoneum or pneumatosis. Degenerative changes of the spine, pelvis and hips. No fracture. IMPRESSION: Nonobstructive bowel gas pattern. ACT 112: Negative or not required by law. The above report was generated using voice recognition software. It may contain grammatical, syntax or spelling errors. Electronically signed by: Mahendra Alvarez M.D. 05/13/2022 2:58 PM
[2022-05-16] MEDS: ENOXAPARIN INJ 40 MG/0.4 ML SYR SQ SCH (16:31)
[2022-05-16] MEDS: ALUMINUM/MAGNESIUM SUSP 30 ML UDC PO PRN (20:35)
[2022-05-16] MEDS: lamoTRIgine 100 MG TAB PO SCH (20:40)
[2022-05-16] MEDS: QUEtiapine FUMARATE 100 MG TABLET PO SCH (20:41)
[2022-05-16] MEDS: SENNA 8.6 MG TAB PO SCH (20:42)
[2022-05-16] MEDS: HYDROmorphone HCL 2 MG TAB PO PRN (22:00)
[2022-05-17] MEDS: CHECK fentaNYL PATCH PLACEMENT SCH ×4 (01:26→23:22)
[2022-05-17] MEDS: HYDROmorphone INJ 1 MG/ML SYRINGE IV PRN ×7 (01:54→22:58)
[2022-05-17] MEDS: fentaNYL 75 MCG/HR TDSY TD SCH (02:08)
[2022-05-17] MEDS: LEVOTHYROXINE SODIUM 50 MCG TABLET PO SCH (05:45)
[2022-05-17] MEDS: PANCREAZE (LIPASE 16,800U) CAP PO SCH ×3 (07:29→16:47)
[2022-05-17] MEDS: INSULIN ASPART PER UNIT SC SCH ×4 (08:27→21:31)
[2022-05-17] MEDS: LANTUS PER UNIT CHARGE SQ SCH ×3 (08:28→21:39)
[2022-05-17] MEDS: HYDROmorphone HCL 2 MG TAB PO PRN (08:32)
[2022-05-17] MEDS: HYDROmorphone HCL 2 MG TAB PO SCH ×3 (08:33→21:40)
[2022-05-17] MEDS: cefTRIAXone SODIUM 2,000 MG in DEXTROSE 5% 50 ML IV SCH (08:33)
[2022-05-17] MEDS: FLUTICASONE PROPIONATE NA SPR 16 GM BTL SCH (08:34)
[2022-05-17] MEDS: POLYETHYLENE (MIRALAX) 17 GM PACK PO SCH (08:34)
[2022-05-17] MEDS: ENALAPRIL MALEATE 10 MG TAB PO SCH (08:35)
[2022-05-17] MEDS: DULoxetine HCL 60 MG CAP PO SCH (08:35)
[2022-05-17] MEDS: LORATADINE 10 MG TAB PO SCH (08:35)
[2022-05-17] MEDS: ASPIRIN 81 MG ECTAB PO SCH (08:35)
[2022-05-17] MEDS: METOPROLOL TARTRATE 25 MG TAB PO SCH ×2 (08:35→20:24)
[2022-05-17] MEDS: rOPINIRole HCL 2 MG TABLET PO SCH ×3 (08:36→20:24)
[2022-05-17] MEDS: PANTOprazole 40 MG TAB PO SCH ×2 (08:36→20:23)
[2022-05-17] MEDS: LORazepam 1 MG TAB PO PRN ×2 (08:43→21:38)
[2022-05-17] MEDS: LIDOCAINE 5% 1 PATCH TD SCH (10:09)
--- NOTE | 2022-05-17 13:39 | Hospitalist Progress Note ---
Date of Service May 17, 2022 Assessment & Plan (1) Metastatic adenocarcinoma to pancreas: (2) Intractable pain: Plan: This is a 42-year-old female who has a significant past medical history of metastatic adenocarcinoma of pancreas currently on chemotherapy with mets to liver, Complex hepatic abscess currently on IV antibiotics, insulin-dependent T2DM, HTN, HLD, chronic pain in setting of malignancy, PCM who presents to ED secondary to significant pain to her right back. (1) Intractable pain secondary to pancreatic cancer with liver mets Multiple Rib Fx, R posterior 10-12, with small pleural effusion, possible hemothorax, status post fall Had dizziness episode while in the bathroom, which resulted to fall cxr-confirmed acute fractures of the right 10th, 11th and 12th ribs No pneumothorax, pleural effusion, airspace consolidation or overt pulmonary edema. Pain management on board Gradually improving Fentanyl being uptitrated, increased to 75 mg daily On oral Dilaudid 8 mg every 4 hours scheduled. Medication to be hold off if patient is lethargic and has decreased respiratory rate IV Dilaudid for breakthrough pain. Hepatic catheter for intrahepatic abscess also removed on 05/14 which has contributed to her pain Lidoderm patch Incentive spirometry (2) Metastatic adenocarcinoma to pancreas: Plan: Metastatic adenocarcinoma of pancreas with mets to Liver follows [facility] oncology last tx 04/02 due to recent medical issues She is a scheduled for MRI brain on Saturday. (3) Intractable pain: Plan: Management per above (4) Nausea and vomiting: Plan: Likely secondary to chronic pancreatitis, pain medications KUB 05/13: Nonobstructive pattern As needed Reglan, Phenergan Monitor QT while on Reglan Management per above (5) Hepatic abscess: IR drain placed on 04/18, cultures grew Klebsiella and E. coli currently treating with 2 g of IV Rocephin daily until 05/17. will remove the PICC line. (6) Hepatic metastases: (7) Uncontrolled type 2 diabetes mellitus, with long-term current use of insulin: Plan: Uncontrolled T2DM, insulin dependent Hyperglycemia place on insulin per protocol a1c 6.2 HTN continue enalapril Depression On Zyprexa, Seroquel, Cymbalta Psychiatry service consulted next Recommend discontinuation of Zyprexa as patient already on Seroquel Hypothyroidism Continue supplement Hyperlipidemia DVT Prophylaxis Lovenox subcu daily DispoHome after patient is not requiring IV Dilaudid for pain control. Patient continues to be hospitalized due to intractable cancer pain. Full Code Admission and Anticipated Discharge Date Admission Date: May 09, 2022 Subjective Patient seen and examined at bedside. Reports that she had severe pain in her abdomen and back last night requiring frequent IV Dilaudid. She also reported that her fentanyl patch fell off sometime last evening. She does not feel comfortable getting discharged from the hospital due to severe pain. Review of Systems Review of Systems: All systems reviewed & are unremarkable except as noted in Subjective Physical Exam Physical Exam: General- oriented x 3, not in distress, speaks in sentences wit h no effort or accessory muscle use Eyes- anicteric Neck- no JVD Lungs- clear breath sounds bilaterally, no crackles Heart- normal rate, regular rhythm; no murmurs Abdomen- normal bowel sounds, nondistended, soft, nontender. Site of drainno swelling, erythema. No discharge. Extremities- no pretibial edema, no calf tenderness Neuro- alert, oriented x 3; no gross focal neurologic deficits Skin- warm & dry Results & Data Results & Data ([facility]) Vital Signs (Past 12 Hours) Vital Signs Temp Pulse Resp BP Pulse Ox O2 Del Method 05/17/22 11:49 36.7 C 78 18 130/83 96 Room Air 05/17/22 08:07 36.7 C 88 20 145/95 H 96 Room Air 05/17/22 04:21 37.0 C 90 18 117/81 95 Room Air 05/17/22 01:51 92 H 18 131/88 Laboratory Results Laboratory Results WBC 6.54 K/ul (4.8-10.8) 05/11/22 04:26 RBC 3.69 M/uL (3.93-5.22) L 05/11/22 04:26 Hgb 11.7 g/dl (12.0-16.0) L 05/11/22 04:26 Hct 36.2 % (34.1-44.9) 05/11/22 04:26 MCV 98.1 fL (80.0-100.0) 05/11/22 04:26 MCH 31.7 pg (25.0-34.0) 05/11/22 04:26 MCHC 32.3 g/dL (32.0-36.0) 05/11/22 04:26 RDW Std Deviation 58.1 fL (36.4-46.3) H 05/11/22 04:26 RDW Coeff of Yang 15.9 % (11.5-14.5) H 05/11/22 04:26 Plt Count 169 K/uL (130-400) 05/11/22 04:26 MPV 11.2 fL (9.4-12.3) 05/11/22 04:26 Immature Gran % (Auto) 0.3 % 05/11/22 04:26 Neut % (Auto) 52.3 % 05/11/22 04:26 Lymph % (Auto) 29.8 % 05/11/22 04:26 [place] % (Auto) 10.7 % 05/11/22 04:26 Eos % (Auto) 6.3 % 05/11/22 04:26 Baso % (Auto) 0.6 % 05/11/22 04:26 Neut # (Auto) 3.42 K/uL (1.4-6.5) 05/11/22 04:26 Lymph # (Auto) 1.95 K/uL (1.2-3.4) 05/11/22 04:26 [place] # (Auto) 0.70 K/uL (0.24-0.82) 05/11/22 04:26 Eos # (Auto) 0.41 K/uL (0-0.50) 05/11/22 04:26 Baso # (Auto) 0.04 K/uL (0-0.2) 05/11/22 04:26 Immature Gran # (Auto) 0.02 K/uL (0.00-0.02) 05/11/22 04:26 PT 11.7 Seconds (9.0-12.0) 05/09/22 11:45 INR 1.1 (0.9-1.1) 05/09/22 11:45 APTT 27.3 Seconds (21.0-31.0) 05/09/22 11:45 PTT Ratio 1.0 05/09/22 11:45 Sodium 135 mmol/L (136-145) L 05/13/22 18:30 Potassium 4.4 mmol/L (3.5-5.1) 05/13/22 18:30 Chloride 102 mmol/L (98-107) 05/13/22 18:30 Carbon Dioxide 25 mmol/L (21-32) 05/13/22 18:30 Anion Gap 8 (3-11) 05/13/22 18:30 BUN 4 mg/dl (6-23) L 05/13/22 18:30 Creatinine 0.45 mg/dl (0.6-1.2) L 05/13/22 18:30 Est Cr Clr Drug Dosing 176.6 ml/min 05/13/22 18:30 Est GFR ( Amer) 141.2 ml/min 05/13/22 18:30 Est GFR (Non-Af Amer) 121.9 ml/min 05/13/22 18:30 BUN/Creatinine Ratio 8.9 (10-20) L 05/13/22 18:30 Glucose 228 mg/dl (70-99(Fasting)) H 05/13/22 18:30 POC Glucose 226 mg/dl (70-99) H 05/17/22 11:17 Estimat Average Glucose 131 mg/dl 05/10/22 05:24 Hemoglobin A1c 6.2 % (4.5-5.6) H 05/10/22 05:24 Calcium 8.7 mg/dl (8.5-10.1) 05/13/22 18:30 Phosphorus 4.0 mg/dl (2.5-4.9) 05/11/22 04:26 Magnesium 1.8 mg/dl (1.7-2.4) 05/11/22 04:26 Total Bilirubin 0.7 mg/dl (0.2-1.0) 05/11/22 04:26 AST 34 U/L (13-39) 05/11/22 04:26 ALT 12 U/L (7-52) 05/11/22 04:26 Alkaline Phosphatase 223 U/L (34-104) H 05/11/22 04:26 Troponin I High Sens 8.6 pg/ml (0-14) 05/09/22 11:45 Total Protein 5.6 gm/dl (6.0-8.3) L 05/11/22 04:26 Albumin 2.6 gm/dl (3.4-5.0) L 05/11/22 04:26 Globulin 3.0 gm/dl (2.5-4.0) 05/11/22 04:26 Albumin/Globulin Ratio 0.9 (0.9-2) 05/11/22 04:26 Vit D 1,25-Dihyd Total 34 pg/mL (18-72) 05/10/22 05:24 1,25 Dihydroxy Vit D2 9 pg/mL 05/10/22 05:24 1,25 Dihydroxy Vit D3 25 pg/mL 05/10/22 05:24 Urine Color Dark Yellow 05/09/22 16:00 Urine Appearance Clear (Clear) 05/09/22 16:00 Urine pH 7.0 (4.5-7.5) 05/09/22 16:00 Ur Specific [place] 1.028 (1.000-1.030) 05/09/22 16:00 Urine Protein 1+ (Negative) H 05/09/22 16:00 Urine Glucose (UA) Trace (Negative) H 05/09/22 16:00 Urine Ketones 1+ (Negative) H 05/09/22 16:00 Urine Blood Negative (Negative) 05/09/22 16:00 Urine Nitrite Negative (Negative) 05/09/22 16:00 Urine Bilirubin 1+ (Negative) H 05/09/22 16:00 Urine Urobilinogen Negative (Negative) 05/09/22 16:00 Ur Leukocyte Esterase Trace (Negative) H 05/09/22 16:00 Urine WBC (Auto) 1-5 /hpf (0-5) 05/09/22 16:00 Urine RBC (Auto) 0-4 /hpf (0-4) 05/09/22 16:00 U Hyaline Cast (Auto) 5-10 /lpf (0-5) H 05/09/22 16:00 U Epithel Cells (Auto) >30 /lpf (0-5) H 05/09/22 16:00 Urine Bacteria (Auto) Negative (Negative) 05/09/22 16:00 Stl C. diff Tox B Gene Negative Cdiff Gene (Neg) 05/12/22 07:36 SARS-CoV-2, RNA, NAAT NEGATIVE (NEGATIVE) 05/09/22 12:49 Impressions Abdomen/Pelvis CT 05/09/22 12:[address] WITH IV CONTRAST CT DOSE: 2199.87 mGy.cm HISTORY: Right-sided abdominal pain. Fall. TECHNIQUE: Multiaxial CT images of the abdomen and pelvis were performed following the use of intravenous contrast. A dose lowering technique was utilized adhering to the principles of ALARA. COMPARISON STUDY: Abdomen and pelvis CT 04/17/2022. FINDINGS: Please refer to the same day chest CT for further evaluation of the lung bases. No pneumoperitoneum. No pneumatosis. There are mildly displaced right posterior 10th through 12th rib fractures. Trace pericardial effusion. The tip of the Port-A-Cath is partially visualized. There is right upper quadrant percutaneous drainage catheter. There is been interval resolution of the right upper quadrant fluid collection compared to prior study. There is a small residual soft tissue focus at the catheter measuring 1.9 cm. The right upper quadrant subcapsular fluid collection has almost completely resolved in the interval. There is residual 3 cm soft tissue density at this location best seen on image 150. These areas of soft tissue could represent phlegmon or possibly metastatic deposits. There is a diffusely heterogeneous liver, unchanged. A metallic common bile duct stent is again noted with associated pneumobilia suggesting stent patency. The necrotic pancreatic head mass is again noted measuring approximately 2.7 cm. This accounts for the main pancreatic duct dilatation. No significant gallbladder wall thickening. Gas within the gallbladder is again noted. The spleen, adrenal glands, and kidneys remain unchanged. The main portal vein is patent. Mild peripancreatic lymphadenopathy persists. Normal caliber abdominal aorta. The bladder is decompressed. There are a few small calcified and noncalcified uterine fibroids. No evidence for bowel obstruction. Normal appendix. IMPRESSION: 1. Mildly displaced acute right posterior 10th through 12th rib fractures. 2. Interval resolution of the fluid collections within the right upper quadrant within an indwelling percutaneous drainage catheter. There are residual soft tissue densities at these locations as described above measuring up to 3 cm. Therefore, this could represent phlegmon or possibly metastatic disease. 3. Diffusely heterogeneous liver again noted with several hypodense foci. This may represent areas of focal fat or underlying metastatic disease. 4. Redemonstration of the necrotic pancreatic head mass. 5. Patent metallic common bile duct stent. 6. Additional findings as described above. ACT 112: Negative or not required by law. Electronically signed by: Ru Arce M.D. 05/09/2022 2:[address] 05/09/22 12:45 CT OF THE CHEST WITH IV CONTRAST CLINICAL HISTORY: Right chest pain following fall. COMPARISON STUDY: Chest radiograph February 09, 2022. TECHNIQUE: Following IV administration of 94 mL of Optiray, helical axial images of the chest were obtained. Sagittal and coronal reconstructions were viewed as well as maximal intensity projections on an independent 3-D workstation. Automated exposure control was utilized for the study. A dose lowering technique was utilized adhering to the principles of ALARA. FINDINGS: A right internal jugular [id number] is in place. There is stranding and gas adjacent to the port. A left PICC is in place. No enlarged thoracic lymph nodes are present. Size of the heart is normal. There is no pericardial effusion. No pneumothorax or pleural effusion is present. There is no consolidation. Linear opacities reflect atelectasis. Note is made of an acute mildly displaced fracture pf the posterior right 10th rib. There is an acute minimally displaced fracture pf the posterior right 11th rib and acute mildly displaced fracture of the posterior right 12th rib. Old right-sided rib fractures are present. No acute thoracic spine fracture is present. The abdomen and pelvis CT will be reported separately. Hypodense hepatic foci are better depicted on that exam. There is hepatic steatosis. Biliary stent is in place. IMPRESSION: 1. Acute fractures of the posterior right 10th, 11th and 12th ribs. No pneumothorax. Trace right pleural effusion which may reflect a small hemothorax. 2. Infiltration and gas adjacent to the right [id number]. This is nonspecific and could be due to recent access. However, an infectious process is also within the differential. ACT 112: Negative or not required by law. Electronically signed by: Morlaes Story M.D. 05/09/2022 2:[address] 05/09/22 12:45 CT head/brain wo con CLINICAL HISTORY: 42 years-old Female with fall. Acute head trauma status post fall TECHNIQUE: Multiple axial CT images of the head were obtained without contrast. A dose lowering technique was utilized adhering to the principles of ALARA. COMPARISON: None. FINDINGS: No acute intracranial hemorrhage, midline shift, intracranial mass, hydrocephalus, territorial ischemia or abnormal extra-axial collection. Mild involutional changes. Calcifications of the falx cerebri. The calvarium is intact. The paranasal sinuses, mastoid air cells, and middle ear cavities are clear. IMPRESSION: No acute intracranial abnormality or calvarial fracture. ACT 112: Negative or not required by law. The above report was generated using voice recognition software. It may contain grammatical, syntax or spelling errors. Electronically signed by: Mahendra Alvarez M.D. 05/09/2022 2:15 PM Chest X-Ray 05/10/22 09:00 XR chest 1V portable HISTORY: 42 years-old Female repeat for pleural effusion/fx STUDY in a patient with acute fractures of the right 10th, 11th and 12th ribs. COMPARISON: CT abdomen and pelvis 05/09/2022 TECHNIQUE: AP view of the chest FINDINGS: Cardiac mediastinal and hilar silhouettes are within normal limits. A left-sided PICC is present with distal tip in the expected location of the brachiocephalic SVC confluence. Right IJ [id number] catheter distal tip is noted in the expected location of the SVC. There is unchanged mild blunting of the costophrenic angles. No pneumothorax, pleural effusion, airspace consolidation or overt pulmonary edema. Degenerative changes of the shoulders and spine. Healed chronic right-sided rib fractures. Acute mildly displaced fractures of the right 10th, 11th and 12th ribs are not well visualized. IMPRESSION: 1. The acute fractures of the right 10th, 11th and 12th ribs are better visualized on the comparison CT study. 2. No pneumothorax. ACT 112: Negative or not required by law. The above report was generated using voice recognition software. It may contain grammatical, syntax or spelling errors. Electronically signed by: Mahendra Alvarez M.D. 05/10/2022 7:56 AM KUB X-Ray 05/13/22 14:29 KUB HISTORY: Acute nausea with abdominal pain nausea COMPARISON: CT abdomen and pelvis 02/12/2022. FINDINGS: Nonobstructive bowel gas pattern. Metallic stent is noted within the distribution of the common bile duct with adjacent surgical clips. No renal calculi. No ureteral calculi. No pneumoperitoneum or pneumatosis. Degenerative changes of the spine, pelvis and hips. No fracture. IMPRESSION: Nonobstructive bowel gas pattern. ACT 112: Negative or not required by law. The above report was generated using voice recognition software. It may contain grammatical, syntax or spelling errors. Electronically signed by: Mahendra Alvarez M.D. 05/13/2022 2:58 PM
[2022-05-17] MEDS: ENOXAPARIN INJ 40 MG/0.4 ML SYR SQ SCH (16:46)
[2022-05-17] MEDS: SENNA 8.6 MG TAB PO SCH (20:24)
[2022-05-17] MEDS: lamoTRIgine 100 MG TAB PO SCH (20:24)
[2022-05-17] MEDS: QUEtiapine FUMARATE 100 MG TABLET PO SCH (20:26)
[2022-05-17] MEDS ORDERED: Nursing to Pharmacy Communication ONE (21:20)
[2022-05-18] MEDS: LEVOTHYROXINE SODIUM 50 MCG TABLET PO SCH (06:11)
[2022-05-18 06:17] LABS: Basophils # (auto) 0.09 K/uL (0-0.2); Basophils % (auto) 1.1 %; Eosinophils # (auto) 2.01 K/uL (0-0.50); Eosinophils % (auto) 24.6 %; Hematocrit (blood only) 37.9 % (34.1-44.9); Hemoglobin 12.3 g/dl (12.0-16.0); Immature Granulocytes # (auto) 0.02 K/uL (0.00-0.02); Immature Granulocytes % (auto) 0.2 %; Lymphocytes # (auto) 1.74 K/uL (1.2-3.4); Lymphocytes % (auto) 21.3 %; Mean Corpuscular Hemoglobin 31.8 pg (25.0-34.0); Mean Corpuscular Hgb Conc 32.5 g/dL (32.0-36.0); Mean Corpuscular Volume 97.9 fL (80.0-100.0); Mean Platelet Volume 11.1 fL (9.4-12.3); Monocytes # (auto) 0.91 K/uL (0.24-0.82); Monocytes % (auto) 11.1 %; Neutrophils % (auto) 41.7 %; Platelet Count 219 K/uL (130-400); RDW Coefficient of Variation 14.3 % (11.5-14.5); RDW Standard Deviation 51.8 fL (36.4-46.3); Red Blood Count 3.87 M/uL (3.93-5.22); White Blood Count 8.17 K/ul (4.8-10.8)
[2022-05-18 06:39] LABS: Albumin Globulin Ratio 0.9 (0.9-2); BUN Creatinine Ratio 13.3 (10-20); Bilirubin,Total 0.6 mg/dl (0.2-1.0); Calcium 9.1 mg/dl (8.5-10.1); Creatinine Clr Calc Pharmacy 176.5 ml/min; Est GFR (African American) 141.2 ml/min; Est GFR (Non-African American) 121.9 ml/min; Globulin 3.4 gm/dl (2.5-4.0); Total Protein 6.4 gm/dl (6.0-8.3)
[2022-05-18] MEDS: INSULIN ASPART PER UNIT SC SCH ×4 (08:43→20:31)
[2022-05-18] MEDS: HYDROmorphone INJ 1 MG/ML SYRINGE IV PRN ×6 (08:44→22:46)
[2022-05-18] MEDS: SENNA 8.6 MG TAB PO SCH (08:50)
[2022-05-18] MEDS: ASPIRIN 81 MG ECTAB PO SCH (08:50)
[2022-05-18] MEDS: PANTOprazole 40 MG TAB PO SCH ×2 (08:50→19:37)
[2022-05-18] MEDS: PANCREAZE (LIPASE 16,800U) CAP PO SCH ×3 (08:50→18:03)
[2022-05-18] MEDS: LORATADINE 10 MG TAB PO SCH (08:54)
[2022-05-18] MEDS: ENALAPRIL MALEATE 10 MG TAB PO SCH (08:54)
[2022-05-18] MEDS: rOPINIRole HCL 2 MG TABLET PO SCH ×3 (08:54→19:36)
[2022-05-18] MEDS: DULoxetine HCL 60 MG CAP PO SCH (08:54)
[2022-05-18] MEDS: METOPROLOL TARTRATE 25 MG TAB PO SCH ×2 (08:54→19:36)
[2022-05-18] MEDS: POLYETHYLENE (MIRALAX) 17 GM PACK PO SCH (08:55)
[2022-05-18] MEDS: LIDOCAINE 5% 1 PATCH TD SCH (08:55)
[2022-05-18] MEDS: FLUTICASONE PROPIONATE NA SPR 16 GM BTL SCH (08:55)
[2022-05-18] MEDS: LANTUS PER UNIT CHARGE SQ SCH (08:56)
[2022-05-18] MEDS: CHECK fentaNYL PATCH PLACEMENT SCH ×3 (08:57→23:17)
[2022-05-18] MEDS ORDERED: PHARMACY GLYCEMIC MGMT CONSULT PRN (12:23)
[2022-05-18] MEDS: PROMETHAZINE HCL 25 MG in SODIUM CHLORIDE 0.9% 50 ML IV PRN ×2 (12:47→20:45)
--- NOTE | 2022-05-18 14:34 | Pharmacy Report ---
Pharmacy Glycemic Short Note 2 - Date of Service May 18, 2022 - Glycemic Short BSG Results (Last 24 hours): 05/17/22 05/17/22 05/18/22 16:20 21:19 05:37 Glucose 283 H POC Glucose 168 H 228 H 05/18/22 05/18/22 07:48 11:29 Glucose POC Glucose 265 H 246 H OUTPATIENT ANTIDIABETIC REGIMEN: * Toujeo 10 units daily * Humalog 2 units TIDM * HbA1C = 6.2% ASSESSMENT: * Ms Ceballos is a 42 y/o F with a PMH of diabetes who presents with worsening pancreatic cancer pain. * Patient's BSGs on 05/16 were [phone] mg/dL and then yesterday were [phone] mg/dL. * Patient was previously received 15 units of Lantus. The past two days she received 10 units. Will increase basal to 15 units (10 units in AM and 5 units in PM). * Continue current Novolog at this time as patient does trend downwards appropriately through the day. Patient only wanted 3 units with breakfast instead of the 8 per the scale therefore lunch was elevated. PLAN FOR INPATIENT GLYCEMIC CONTROL: * Basal insulin * Lantus 10 units SQ qAM + 5 units SQ qPM * Bolus insulin * NovoLog per scale ACHS or Q6hrs while NPO * Goal Range: Low 110 mg/dL - High 140 mg/dL * Correction Factor: 35 mg/dL/unit * Nutritional / Prandial insulin per carb ratio of 1 unit per 11 grams CHO consumed
--- NOTE | 2022-05-18 14:41 | Palliative Care Progress Note ---
Date of Service May 18, 2022 Assessment & Plan Admission and Anticipated Discharge Date Admission Date: May 09, 2022 Subjective Attempted to see pt who was resting/trying to nap/deferred. will try again later. no charge submitted. Jonna Hays DNP Clinical Director, Palliative Medicine Results & Data ([facility]) Vital Signs (Past 12 Hours) Vital Signs Temp Pulse Pulse Resp BP Pulse Ox O2 Del Method 05/18/22 12:07 36.5 C 88 17 117/79 95 Room Air 05/18/22 08:00 86 05/18/22 08:00 Room Air 05/18/22 07:35 36.7 C 91 H 16 122/77 90 Room Air 05/18/22 02:55 36.5 C 89 16 104/72 96 Room Air
--- NOTE | 2022-05-18 15:08 | Hospitalist Progress Note ---
Date of Service May 18, 2022 Assessment & Plan (1) Metastatic adenocarcinoma to pancreas: (2) Intractable pain: Plan: This is a 42-year-old female who has a significant past medical history of metastatic adenocarcinoma of pancreas currently on chemotherapy with mets to liver, Complex hepatic abscess currently on IV antibiotics, insulin-dependent T2DM, HTN, HLD, chronic pain in setting of malignancy, PCM who presents to ED secondary to significant pain to her right back. (1) Intractable pain secondary to pancreatic cancer with liver mets Multiple Rib Fx, R posterior 10-12, with small pleural effusion, possible hemothorax, status post fall Had dizziness episode while in the bathroom, which resulted to fall cxr-confirmed acute fractures of the right 10th, 11th and 12th ribs No pneumothorax, pleural effusion, airspace consolidation or overt pulmonary edema. Pain management on board Gradually improving Fentanyl being uptitrated, increased to 75 mg daily On oral Dilaudid 8 mg every 4 hours scheduled. Medication to be hold off if patient is lethargic and has decreased respiratory rate IV Dilaudid for breakthrough pain. Hepatic catheter for intrahepatic abscess also removed on 05/14/2022 which has contributed to her pain Incentive spirometry (2) Metastatic adenocarcinoma of pancreas with mets to Liver follows [facility] oncology last tx 04/02 due to recent medical issues She is a scheduled for MRI brain on Saturday.( 05/21/2022) (3) Intractable pain: Plan: Management per above (4) Nausea and vomiting: Plan: Likely secondary to chronic pancreatitis, pain medications KUB 10/: Nonobstructive pattern As needed Reglan, Phenergan Monitor QT while on Reglan Management per above (5) Hepatic abscess: IR drain placed on 04/18, cultures grew Klebsiella and E. coli. Finished course with 2 g of IV Rocephin daily until 05/17. will remove the PICC line on discharge. (6) Hepatic metastases: (7) Uncontrolled type 2 diabetes mellitus, with long-term current use of insulin: Plan: Uncontrolled T2DM, insulin dependent Hyperglycemia place on insulin per protocol a1c 6.2 HTN continue enalapril Depression On Zyprexa, Seroquel, Cymbalta Psychiatry service consulted next Recommend discontinuation of Zyprexa as patient already on Seroquel Hypothyroidism Continue supplement Hyperlipidemia DVT Prophylaxis Lovenox subcu daily DispoHome after patient is not requiring IV Dilaudid for pain control. Patient continues to be hospitalized due to intractable cancer pain. Full Code Admission and Anticipated Discharge Date Admission Date: May 09, 2022 Subjective Patient seen and examined at bedside. She is concerned that her pain is not controlled on oral medication and she is requiring IV medication. Review of Systems Review of Systems: All systems reviewed & are unremarkable except as noted in Subjective Physical Exam Physical Exam: General- oriented x 3, not in distress, speaks in sentences with no effort or accessory muscle use Eyes- anicteric Neck- no JVD Lungs- clear breath sounds bilaterally, no crackles Heart- normal rate, regular rhythm; no murmurs Abdomen- normal bowel sounds, nondistended, soft, nontender. Site of drainno swelling, erythema. No discharge. Extremities- no pretibial edema, no calf tenderness Neuro- alert, oriented x 3; no gross focal neurologic deficits Skin- warm & dry Results & Data Results & Data ([facility]) Vital Signs (Past 12 Hours) Vital Signs Temp Pulse Pulse Resp BP Pulse Ox O2 Del Method 05/18/22 12:07 36.5 C 88 17 117/79 95 Room Air 05/18/22 08:00 86 05/18/22 08:00 Room Air 05/18/22 07:35 36.7 C 91 H 16 122/77 90 Room Air Laboratory Results Laboratory Results WBC 8.17 K/ul (4.8-10.8) 05/18/22 05:37 RBC 3.87 M/uL (3.93-5.22) L 05/18/22 05:37 Hgb 12.3 g/dl (12.0-16.0) 05/18/22 05:37 Hct 37.9 % (34.1-44.9) 05/18/22 05:37 MCV 97.9 fL (80.0-100.0) 05/18/22 05:37 MCH 31.8 pg (25.0-34.0) 05/18/22 05:37 MCHC 32.5 g/dL (32.0-36.0) 05/18/22 05:37 RDW Std Deviation 51.8 fL (36.4-46.3) H 05/18/22 05:37 RDW Coeff of Yang 14.3 % (11.5-14.5) 05/18/22 05:37 Plt Count 219 K/uL (130-400) 05/18/22 05:37 MPV 11.1 fL (9.4-12.3) 05/18/22 05:37 Immature Gran % (Auto) 0.2 % 05/18/22 05:37 Neut % (Auto) 41.7 % 05/18/22 05:37 Lymph % (Auto) 21.3 % 05/18/22 05:37 [place] % (Auto) 11.1 % 05/18/22 05:37 Eos % (Auto) 24.6 % 05/18/22 05:37 Baso % (Auto) 1.1 % 05/18/22 05:37 Neut # (Auto) 3.40 K/uL (1.4-6.5) 05/18/22 05:37 Lymph # (Auto) 1.74 K/uL (1.2-3.4) 05/18/22 05:37 [place] # (Auto) 0.91 K/uL (0.24-0.82) H 05/18/22 05:37 Eos # (Auto) 2.01 K/uL (0-0.50) H 05/18/22 05:37 Baso # (Auto) 0.09 K/uL (0-0.2) 05/18/22 05:37 Immature Gran # (Auto) 0.02 K/uL (0.00-0.02) 05/18/22 05:37 PT 11.7 Seconds (9.0-12.0) 05/09/22 11:45 INR 1.1 (0.9-1.1) 05/09/22 11:45 APTT 27.3 Seconds (21.0-31.0) 05/09/22 11:45 PTT Ratio 1.0 05/09/22 11:45 Sodium 136 mmol/L (136-145) 05/18/22 05:37 Potassium 4.0 mmol/L (3.5-5.1) 05/18/22 05:37 Chloride 100 mmol/L (98-107) 05/18/22 05:37 Carbon Dioxide 30 mmol/L (21-32) 05/18/22 05:37 Anion Gap 6 (3-11) 05/18/22 05:37 BUN 6 mg/dl (6-23) 05/18/22 05:37 Creatinine 0.45 mg/dl (0.6-1.2) L 05/18/22 05:37 Est Cr Clr Drug Dosing 176.5 ml/min 05/18/22 05:37 Est GFR ( Amer) 141.2 ml/min 05/18/22 05:37 Est GFR (Non-Af Amer) 121.9 ml/min 05/18/22 05:37 BUN/Creatinine Ratio 13.3 (10-20) 05/18/22 05:37 Glucose 283 mg/dl (70-99(Fasting)) H 05/18/22 05:37 POC Glucose 246 mg/dl (70-99) H 05/18/22 11:29 Estimat Average Glucose 131 mg/dl 05/10/22 05:24 Hemoglobin A1c 6.2 % (4.5-5.6) H 05/10/22 05:24 Calcium 9.1 mg/dl (8.5-10.1) 05/18/22 05:37 Phosphorus 4.0 mg/dl (2.5-4.9) 05/11/22 04:26 Magnesium 1.8 mg/dl (1.7-2.4) 05/11/22 04:26 Total Bilirubin 0.6 mg/dl (0.2-1.0) 05/18/22 05:37 AST 19 U/L (13-39) 05/18/22 05:37 ALT 10 U/L (7-52) 05/18/22 05:37 Alkaline Phosphatase 192 U/L (34-104) H 05/18/22 05:37 Troponin I High Sens 8.6 pg/ml (0-14) 05/09/22 11:45 Total Protein 6.4 gm/dl (6.0-8.3) 05/18/22 05:37 Albumin 3.0 gm/dl (3.4-5.0) L 05/18/22 05:37 Globulin 3.4 gm/dl (2.5-4.0) 05/18/22 05:37 Albumin/Globulin Ratio 0.9 (0.9-2) 05/18/22 05:37 Vit D 1,25-Dihyd Total 34 pg/mL (18-72) 05/10/22 05:24 1,25 Dihydroxy Vit D2 9 pg/mL 05/10/22 05:24 1,25 Dihydroxy Vit D3 25 pg/mL 05/10/22 05:24 Urine Color Dark Yellow 05/09/22 16:00 Urine Appearance Clear (Clear) 05/09/22 16:00 Urine pH 7.0 (4.5-7.5) 05/09/22 16:00 Ur Specific [place] 1.028 (1.000-1.030) 05/09/22 16:00 Urine Protein 1+ (Negative) H 05/09/22 16:00 Urine Glucose (UA) Trace (Negative) H 05/09/22 16:00 Urine Ketones 1+ (Negative) H 05/09/22 16:00 Urine Blood Negative (Negative) 05/09/22 16:00 Urine Nitrite Negative (Negative) 05/09/22 16:00 Urine Bilirubin 1+ (Negative) H 05/09/22 16:00 Urine Urobilinogen Negative (Negative) 05/09/22 16:00 Ur Leukocyte Esterase Trace (Negative) H 05/09/22 16:00 Urine WBC (Auto) 1-5 /hpf (0-5) 05/09/22 16:00 Urine RBC (Auto) 0-4 /hpf (0-4) 05/09/22 16:00 U Hyaline Cast (Auto) 5-10 /lpf (0-5) H 05/09/22 16:00 U Epithel Cells (Auto) >30 /lpf (0-5) H 05/09/22 16:00 Urine Bacteria (Auto) Negative (Negative) 05/09/22 16:00 Stl C. diff Tox B Gene Negative Cdiff Gene (Neg) 05/12/22 07:36 SARS-CoV-2, RNA, NAAT NEGATIVE (NEGATIVE) 05/09/22 12:49 Impressions Abdomen/Pelvis CT 05/09/22 12:[address] WITH IV CONTRAST CT DOSE: 2199.87 mGy.cm HISTORY: Right-sided abdominal pain. Fall. TECHNIQUE: Multiaxial CT images of the abdomen and pelvis were performed following the use of intravenous contrast. A dose lowering technique was utilized adhering to the principles of ALARA. COMPARISON STUDY: Abdomen and pelvis CT 04/17/2022. FINDINGS: Please refer to the same day chest CT for further evaluation of the lung bases. No pneumoperitoneum. No pneumatosis. There are mildly displaced right posterior 10th through 12th rib fractures. Trace pericardial effusion. The tip of the Port-A-Cath is partially visualized. There is right upper quadrant percutaneous drainage catheter. There is been interval resolution of the right upper quadrant fluid collection compared to prior study. There is a small residual soft tissue focus at the catheter measuring 1.9 cm. The right upper quadrant subcapsular fluid collection has almost completely resolved in the interval. There is residual 3 cm soft tissue density at this location best seen on image 150. These areas of soft tissue could represent phlegmon or possibly metastatic deposits. There is a diffusely heterogeneous liver, unchanged. A metallic common bile duct stent is again noted with associated pneumobilia suggesting stent patency. The necrotic pancreatic head mass is again noted measuring approximately 2.7 cm. This accounts for the main pancreatic duct dilatation. No significant gallbladder wall thickening. Gas within the gallbladder is again noted. The spleen, adrenal glands, and kidneys remain unchanged. The main portal vein is patent. Mild peripancreatic lymphadenopathy persists. Normal caliber abdominal aorta. The bladder is decompressed. There are a few small calcified and noncalcified uterine fibroids. No evidence for bowel obstruction. Normal appendix. IMPRESSION: 1. Mildly displaced acute right posterior 10th through 12th rib fractures. 2. Interval resolution of the fluid collections within the right upper quadrant within an indwelling percutaneous drainage catheter. There are residual soft tissue densities at these locations as described above measuring up to 3 cm. Therefore, this could represent phlegmon or possibly metastatic disease. 3. Diffusely heterogeneous liver again noted with several hypodense foci. This may represent areas of focal fat or underlying metastatic disease. 4. Redemonstration of the necrotic pancreatic head mass. 5. Patent metallic common bile duct stent. 6. Additional findings as described above. ACT 112: Negative or not required by law. Electronically signed by: Ru Arce M.D. 05/09/2022 2:[address] 05/09/22 12:45 CT OF THE CHEST WITH IV CONTRAST CLINICAL HISTORY: Right chest pain following fall. COMPARISON STUDY: Chest radiograph February 09, 2022. TECHNIQUE: Following IV administration of 94 mL of Optiray, helical axial images of the chest were obtained. Sagittal and coronal reconstructions were viewed as well as maximal intensity projections on an independent 3-D workstation. Automated exposure control was utilized for the study. A dose lowering technique was utilized adhering to the principles of ALARA. FINDINGS: A right internal jugular Asuiax-v-Eelr is in place. There is stranding and gas adjacent to the port. A left PICC is in place. No enlarged thoracic lymph nodes are present. Size of the heart is normal. There is no pericardial effusion. No pneumothorax or pleural effusion is present. There is no consoli dation. Linear opacities reflect atelectasis. Note is made of an acute mildly displaced fracture pf the posterior right 10th rib. There is an acute minimally displaced fracture pf the posterior right 11th rib and acute mildly displaced fracture of the posterior right 12th rib. Old right-sided rib fractures are present. No acute thoracic spine fracture is present. The abdomen and pelvis CT will be reported separately. Hypodense hepatic foci are better depicted on that exam. There is hepatic steatosis. Biliary stent is in place. IMPRESSION: 1. Acute fractures of the posterior right 10th, 11th and 12th ribs. No pneumothorax. Trace right pleural effusion which may reflect a small hemothorax. 2. Infiltration and gas adjacent to the right [id number]. This is nonspecific and could be due to recent access. However, an infectious process is also within the differential. ACT 112: Negative or not required by law. Electronically signed by: Morales Story M.D. 05/09/2022 2:[address] 05/09/22 12:45 CT head/brain wo con CLINICAL HISTORY: 42 years-old Female with fall. Acute head trauma status post fall TECHNIQUE: Multiple axial CT images of the head were obtained without contrast. A dose lowering technique was utilized adhering to the principles of ALARA. COMPARISON: None. FINDINGS: No acute intracranial hemorrhage, midline shift, intracranial mass, hydrocephalus, territorial ischemia or abnormal extra-axial collection. Mild involutional changes. Calcifications of the falx cerebri. The calvarium is intact. The paranasal sinuses, mastoid air cells, and middle ear cavities are clear. IMPRESSION: No acute intracranial abnormality or calvarial fracture. ACT 112: Negative or not required by law. The above report was generated using voice recognition software. It may contain grammatical, syntax or spelling errors. Electronically signed by: Mahendra Alvarez M.D. 05/09/2022 2:15 PM Chest X-Ray 05/10/22 09:00 XR chest 1V portable HISTORY: 42 years-old Female repeat for pleural effusion/fx STUDY in a patient with acute fractures of the right 10th, 11th and 12th ribs. COMPARISON: CT abdomen and pelvis 05/09/2022 TECHNIQUE: AP view of the chest FINDINGS: Cardiac mediastinal and hilar silhouettes are within normal limits. A left-sided PICC is present with distal tip in the expected location of the brachiocephalic SVC confluence. Right IJ [id number] catheter distal tip is noted in the expected location of the SVC. There is unchanged mild blunting of the costophrenic angles. No pneumothorax, pleural effusion, airspace consolidation or overt pulmonary edema. Degenerative changes of the shoulders and spine. Healed chronic right-sided rib fractures. Acute mildly displaced fractures of the right 10th, 11th and 12th ribs are not well visualized. IMPRESSION: 1. The acute fractures of the right 10th, 11th and 12th ribs are better visualized on the comparison CT study. 2. No pneumothorax. ACT 112: Negative or not required by law. The above report was generated using voice recognition software. It may contain grammatical, syntax or spelling errors. Electronically signed by: Mahendra Alvarez M.D. 05/10/2022 7:56 AM KUB X-Ray 05/13/22 14:29 KUB HISTORY: Acute nausea with abdominal pain nausea COMPARISON: CT abdomen and pelvis 02/12/2022. FINDINGS: Nonobstructive bowel gas pattern. Metallic stent is noted within the distribution of the common bile duct with adjacent surgical clips. No renal calculi. No ureteral calculi. No pneumoperitoneum or pneumatosis. Degenerative changes of the spine, pelvis and hips. No fracture. IMPRESSION: Nonobstructive bowel gas pattern. ACT 112: Negative or not required by law. The above report was generated using voice recognition software. It may contain grammatical, syntax or spelling errors. Electronically signed by: Mahendra Alvarez M.D. 05/13/2022 2:58 PM
[2022-05-18] MEDS: ENOXAPARIN INJ 40 MG/0.4 ML SYR SQ SCH (18:04)
[2022-05-18] MEDS: METOCLOPRAMIDE HCL INJ 5 MG/ML 2 ML VIAL IV PRN (18:15)
[2022-05-18] MEDS: QUEtiapine FUMARATE 100 MG TABLET PO SCH (19:37)
[2022-05-18] MEDS: lamoTRIgine 100 MG TAB PO SCH (19:37)
[2022-05-18] MEDS: LORazepam 1 MG TAB PO PRN (19:40)
[2022-05-18] MEDS: ALUMINUM/MAGNESIUM SUSP 30 ML UDC PO PRN (20:05)
[2022-05-18] MEDS: LOPERAMIDE HCL 2 MG CAP PO PRN (20:31)
[2022-05-18] MEDS ORDERED: LANTUS PER UNIT CHARGE SQ SCH (21:00)
[2022-05-19] MEDS: LOPERAMIDE HCL 2 MG CAP PO PRN ×4 (00:30→19:52)
[2022-05-19] MEDS: ALUMINUM/MAGNESIUM SUSP 30 ML UDC PO PRN (02:31)
[2022-05-19] MEDS: METOCLOPRAMIDE HCL INJ 5 MG/ML 2 ML VIAL IV PRN ×2 (02:32→09:49)
[2022-05-19] MEDS: HYDROmorphone INJ 1 MG/ML SYRINGE IV PRN ×5 (04:55→19:53)
[2022-05-19] MEDS: LEVOTHYROXINE SODIUM 50 MCG TABLET PO SCH (06:12)
[2022-05-19] MEDS: LORazepam 1 MG TAB PO PRN ×3 (07:29→16:46)
[2022-05-19] MEDS: rOPINIRole HCL 2 MG TABLET PO SCH ×3 (09:34→19:50)
[2022-05-19] MEDS: PANCREAZE (LIPASE 16,800U) CAP PO SCH ×3 (09:34→18:22)
[2022-05-19] MEDS: PANTOprazole 40 MG TAB PO SCH ×2 (09:35→19:51)
[2022-05-19] MEDS: DULoxetine HCL 60 MG CAP PO SCH (09:35)
[2022-05-19] MEDS: ENALAPRIL MALEATE 10 MG TAB PO SCH (09:35)
[2022-05-19] MEDS: METOPROLOL TARTRATE 25 MG TAB PO SCH ×2 (09:35→19:50)
[2022-05-19] MEDS: LIDOCAINE 5% 1 PATCH TD SCH (09:35)
[2022-05-19] MEDS: ASPIRIN 81 MG ECTAB PO SCH (09:35)
[2022-05-19] MEDS: POLYETHYLENE (MIRALAX) 17 GM PACK PO SCH (09:36)
[2022-05-19] MEDS: LORATADINE 10 MG TAB PO SCH (09:36)
[2022-05-19] MEDS: INSULIN ASPART PER UNIT SC SCH ×4 (09:37→20:42)
[2022-05-19] MEDS: FLUTICASONE PROPIONATE NA SPR 16 GM BTL SCH (09:38)
[2022-05-19] MEDS: CHECK fentaNYL PATCH PLACEMENT SCH ×3 (09:38→23:10)
[2022-05-19] MEDS ORDERED: LANTUS PER UNIT CHARGE SQ ONE (10:00)
--- NOTE | 2022-05-19 15:43 | Hospitalist Progress Note ---
Date of Service May 19, 2022 Assessment & Plan (1) Metastatic adenocarcinoma to pancreas: (2) Intractable pain: Plan: This is a 42-year-old female who has a significant past medical history of metastatic adenocarcinoma of pancreas currently on chemotherapy with mets to liver, Complex hepatic abscess currently on IV antibiotics, insulin-dependent T2DM, HTN, HLD, chronic pain in setting of malignancy, PCM who presents to ED secondary to significant pain to her right back. (1) Intractable pain secondary to pancreatic cancer with liver mets Multiple Rib Fx, R posterior 10-12, with small pleural effusion, possible hemothorax, status post fall Had dizziness episode while in the bathroom, which resulted to fall cxr-confirmed acute fractures of the right 10th, 11th and 12th ribs No pneumothorax, pleural effusion, airspace consolidation or overt pulmonary edema. Pain management on board Gradually improving Fentanyl being uptitrated, increased to 75 mg daily On oral Dilaudid 8 mg every 4 hours scheduled. Medication to be hold off if patient is lethargic and has decreased respiratory rate IV Dilaudid for breakthrough pain. Hepatic catheter for intrahepatic abscess also removed on 05/14/2022 which has contributed to her pain Incentive spirometry (2) Metastatic adenocarcinoma of pancreas with mets to Liver follows [facility] oncology last tx 04/02 due to recent medical issues She is a scheduled for MRI brain on Saturday.( 05/21/2022) (3) Intractable pain: Plan: Management per above (4) Nausea and vomiting: Plan: Likely secondary to chronic pancreatitis, pain medications KUB 10/: Nonobstructive pattern As needed Reglan, Phenergan Monitor QT while on Reglan Management per above (5) Hepatic abscess: IR drain placed on 04/18, cultures grew Klebsiella and E. coli. Finished course with 2 g of IV Rocephin daily until 05/17. will remove the PICC line on discharge. (6) Hepatic metastases: (7) Uncontrolled type 2 diabetes mellitus, with long-term current use of insulin: Plan: Uncontrolled T2DM, insulin dependent Hyperglycemia place on insulin per protocol a1c 6.2 HTN continue enalapril Depression On Zyprexa, Seroquel, Cymbalta Recommend discontinuation of Zyprexa as patient already on Seroquel Hypothyroidism Continue supplement Hyperlipidemia DVT Prophylaxis Lovenox subcu daily DispoHome after patient is not requiring IV Dilaudid for pain control. Patient continues to be hospitalized due to intractable cancer pain. Full Code Admission and Anticipated Discharge Date Admission Date: May 09, 2022 Subjective Patient seen and examined at bedside. She continues to require IV Dilaudid. Review of Systems Review of Systems: All systems reviewed & are unremarkable except as noted in Subjective Physical Exam Physical Exam: General- oriented x 3, not in distress, speaks in sentences with no effort or accessory muscle use Eyes- anicteric Neck- no JVD Lungs- clear breath sounds bilaterally, no crackles Heart- normal rate, regular rhythm; no murmurs Abdomen- normal bowel sounds, nondistended, soft, nontender. Site of drainno swelling, erythema. No discharge. Extremities- no pretibial edema, no calf tenderness Neuro- alert, oriented x 3; no gross focal neurologic deficits Skin- warm & dry Results & Data Results & Data ([facility]) Vital Signs (Past 12 Hours) Vital Signs Temp Pulse Pulse Resp BP Pulse Ox O2 Del Method 05/19/22 11:49 36.7 C 116 H 18 111/80 98 Room Air 05/19/22 08:00 100 H 05/19/22 08:00 Room Air 05/19/22 04:00 36.8 C 97 H 18 103/69 96 Room Air Laboratory Results Laboratory Results WBC 8.17 K/ul (4.8-10.8) 05/18/22 05:37 RBC 3.87 M/uL (3.93-5.22) L 05/18/22 05:37 Hgb 12.3 g/dl (12.0-16.0) 05/18/22 05:37 Hct 37.9 % (34.1-44.9) 05/18/22 05:37 MCV 97.9 fL (80.0-100.0) 05/18/22 05:37 MCH 31.8 pg (25.0-34.0) 05/18/22 05:37 MCHC 32.5 g/dL (32.0-36.0) 05/18/22 05:37 RDW Std Deviation 51.8 fL (36.4-46.3) H 05/18/22 05:37 RDW Coeff of Yang 14.3 % (11.5-14.5) 05/18/22 05:37 Plt Count 219 K/uL (130-400) 05/18/22 05:37 MPV 11.1 fL (9.4-12.3) 05/18/22 05:37 Immature Gran % (Auto) 0.2 % 05/18/22 05:37 Neut % (Auto) 41.7 % 05/18/22 05:37 Lymph % (Auto) 21.3 % 05/18/22 05:37 Lea % (Auto) 11.1 % 05/18/22 05:37 Eos % (Auto) 24.6 % 05/18/22 05:37 Baso % (Auto) 1.1 % 05/18/22 05:37 Neut # (Auto) 3.40 K/uL (1.4-6.5) 05/18/22 05:37 Lymph # (Auto) 1.74 K/uL (1.2-3.4) 05/18/22 05:37 Lea # (Auto) 0.91 K/uL (0.24-0.82) H 05/18/22 05:37 Eos # (Auto) 2.01 K/uL (0-0.50) H 05/18/22 05:37 Baso # (Auto) 0.09 K/uL (0-0.2) 05/18/22 05:37 Immature Gran # (Auto) 0.02 K/uL (0.00-0.02) 05/18/22 05:37 PT 11.7 Seconds (9.0-12.0) 05/09/22 11:45 INR 1.1 (0.9-1.1) 05/09/22 11:45 APTT 27.3 Seconds (21.0-31.0) 05/09/22 11:45 PTT Ratio 1.0 05/09/22 11:45 Sodium 136 mmol/L (136-145) 05/18/22 05:37 Potassium 4.0 mmol/L (3.5-5.1) 05/18/22 05:37 Chloride 100 mmol/L (98-107) 05/18/22 05:37 Carbon Dioxide 30 mmol/L (21-32) 05/18/22 05:37 Anion Gap 6 (3-11) 05/18/22 05:37 BUN 6 mg/dl (6-23) 05/18/22 05:37 Creatinine 0.45 mg/dl (0.6-1.2) L 05/18/22 05:37 Est Cr Clr Drug Dosing 176.5 ml/min 05/18/22 05:37 Est GFR ( Amer) 141.2 ml/min 05/18/22 05:37 Est GFR (Non-Af Amer) 121.9 ml/min 05/18/22 05:37 BUN/Creatinine Ratio 13.3 (10-20) 05/18/22 05:37 Glucose 283 mg/dl (70-99(Fasting)) H 05/18/22 05:37 POC Glucose 176 mg/dl (70-99) H 05/19/22 12:04 Estimat Average Glucose 131 mg/dl 05/10/22 05:24 Hemoglobin A1c 6.2 % (4.5-5.6) H 05/10/22 05:24 Calcium 9.1 mg/dl (8.5-10.1) 05/18/22 05:37 Phosphorus 4.0 mg/dl (2.5-4.9) 05/11/22 04:26 Magnesium 1.8 mg/dl (1.7-2.4) 05/11/22 04:26 Total Bilirubin 0.6 mg/dl (0.2-1.0) 05/18/22 05:37 AST 19 U/L (13-39) 05/18/22 05:37 ALT 10 U/L (7-52) 05/18/22 05:37 Alkaline Phosphatase 192 U/L (34-104) H 05/18/22 05:37 Troponin I High Sens 8.6 pg/ml (0-14) 05/09/22 11:45 Total Protein 6.4 gm/dl (6.0-8.3) 05/18/22 05:37 Albumin 3.0 gm/dl (3.4-5.0) L 05/18/22 05:37 Globulin 3.4 gm/dl (2.5-4.0) 05/18/22 05:37 Albumin/Globulin Ratio 0.9 (0.9-2) 05/18/22 05:37 Vit D 1,25-Dihyd Total 34 pg/mL (18-72) 05/10/22 05:24 1,25 Dihydroxy Vit D2 9 pg/mL 05/10/22 05:24 1,25 Dihydroxy Vit D3 25 pg/mL 05/10/22 05:24 Urine Color Dark Yellow 05/09/22 16:00 Urine Appearance Clear (Clear) 05/09/22 16:00 Urine pH 7.0 (4.5-7.5) 05/09/22 16:00 Ur Specific [place] 1.028 (1.000-1.030) 05/09/22 16:00 Urine Protein 1+ (Negative) H 05/09/22 16:00 Urine Glucose (UA) Trace (Negative) H 05/09/22 16:00 Urine Ketones 1+ (Negative) H 05/09/22 16:00 Urine Blood Negative (Negative) 05/09/22 16:00 Urine Nitrite Negative (Negative) 05/09/22 16:00 Urine Bilirubin 1+ (Negative) H 05/09/22 16:00 Urine Urobilinogen Negative (Negative) 05/09/22 16:00 Ur Leukocyte Esterase Trace (Negative) H 05/09/22 16:00 Urine WBC (Auto) 1-5 /hpf (0-5) 05/09/22 16:00 Urine RBC (Auto) 0-4 /hpf (0-4) 05/09/22 16:00 U Hyaline Cast (Auto) 5-10 /lpf (0-5) H 05/09/22 16:00 U Epithel Cells (Auto) >30 /lpf (0-5) H 05/09/22 16:00 Urine Bacteria (Auto) Negative (Negative) 05/09/22 16:00 Stl C. diff Tox B Gene Negative Cdiff Gene (Neg) 05/18/22 Unknown SARS-CoV-2, RNA, NAAT NEGATIVE (NEGATIVE) 05/09/22 12:49 Impressions Abdomen/Pelvis CT 05/09/22 12:[address] WITH IV CONTRAST CT DOSE: 2199.87 mGy.cm HISTORY: Right-sided abdominal pain. Fall. TECHNIQUE: Multiaxial CT images of the abdomen and pelvis were performed following the use of intravenous contrast. A dose lowering technique was utilized adhering to the principles of ALARA. COMPARISON STUDY: Abdomen and pelvis CT 04/17/2022. FINDINGS: Please refer to the same day chest CT for further evaluation of the lung bases. No pneumoperitoneum. No pneumatosis. There are mildly displaced right posterior 10th through 12th rib fractures. Trace pericardial effusion. The tip of the Port-A-Cath is partially visualized. There is right upper quadrant percutaneous drainage catheter. There is been interval resolution of the right upper quadrant fluid collection compared to prior study. There is a small residual soft tissue focus at the catheter measuring 1.9 cm. The right upper quadrant subcapsular fluid collection has almost completely resolved in the interval. There is residual 3 cm soft tissue density at this location best seen on image 150. These areas of soft tissue could represent phlegmon or possibly metastatic deposits. There is a diffusely heterogeneous liver, unchanged. A metallic common bile duct stent is again noted with associated pneumobilia suggesting stent patency. The necrotic pancreatic head mass is again noted measuring approximately 2.7 cm. This accounts for the main pancreatic duct dilatation. No significant gallbladder wall thickening. Gas within the gallbladder is again noted. The spleen, adrenal glands, and kidneys remain unchanged. The main portal vein is patent. Mild peripancreatic lymphadenopathy persists. Normal caliber abdominal aorta. The bladder is decompressed. There are a few small calcified and noncalcified uterine fibroids. No evidence for bowel obstruction. Normal appendix. IMPRESSION: 1. Mildly displaced acute right posterior 10th through 12th rib fractures. 2. Interval resolution of the fluid collections within the right upper quadrant within an indwelling percutaneous drainage catheter. There are residual soft tissue densities at these locations as described above measuring up to 3 cm. Therefore, this could represent phlegmon or possibly metastatic disease. 3. Diffusely heterogeneous liver again noted with several hypodense foci. This may represent areas of focal fat or underlying metastatic disease. 4. Redemonstration of the necrotic pancreatic head mass. 5. Patent metallic common bile duct stent. 6. Additional findings as described above. ACT 112: Negative or not required by law. Electronically signed by: Ru Arce M.D. 05/09/2022 2:[address] 05/09/22 12:45 CT OF THE CHEST WITH IV CONTRAST CLINICAL HISTORY: Right chest pain following fall. COMPARISON STUDY: Chest radiograph February 09, 2022. TECHNIQUE: Following IV administration of 94 mL of Optiray, helical axial images of the chest were obtained. Sagittal and coronal reconstructions were viewed as well as maximal intensity projections on an independent 3-D workstation. Automated exposure control was utilized for the study. A dose lowering technique was utilized adhering to the principles of ALARA. FINDINGS: A right internal jugular [id number]-[id number] is in place. There is stranding and gas adjacent to the port. A left PICC is in place. No enlarged thoracic lymph nodes are present. Size of the heart is normal. There is no pericardial effusion. No pneumothorax or pleural effusion is present. There is no consolidation. Linear opacities reflect atelectasis. Note is made of an acute mildly displaced fracture pf the posterior right 10th rib. There is an acute minimally displaced fracture pf the posterior right 11th rib and acute mildly displaced fracture of the posterior right 12th rib. Old right-sided rib fractures are present. No acute thoracic spine fracture is present. The abdomen and pelvis CT will be reported separately. Hypodense hepatic foci are better depicted on that exam. There is hepatic steatosis. Biliary stent is in place. IMPRESSION: 1. Acute fractures of the posterior right 10th, 11th and 12th ribs. No pneumothorax. Trace right pleural effusion which may reflect a small hemothorax. 2. Infiltration and gas adjacent to the right [id number]. This is nonspecific and could be due to recent access. However, an infectious process is also within the differential. ACT 112: Negative or not required by law. Electronically signed by: Morales Story M.D. 05/09/2022 2:[address] 05/09/22 12:45 CT head/brain wo con CLINICAL HISTORY: 42 years-old Female with fall. Acute head trauma status post fall TECHNIQUE: Multiple axial CT images of the head were obtained without contrast. A dose lowering technique was utilized adhering to the principles of ALARA. COMPARISON: None. FINDINGS: No acute intracranial hemorrhage, midline shift, intracranial mass, hydrocephalus, territorial ischemia or abnormal extra-axial collection. Mild involutional changes. Calcifications of the falx cerebri. The calvarium is intact. The paranasal sinuses, mastoid air cells, and middle ear cavities are clear. IMPRESSION: No acute intracranial abnormality or calvarial fracture. ACT 112: Negative or not required by law. The above report was generated using voice recognition software. It may contain grammatical, syntax or spelling errors. Electronically signed by: Mahendra Alvarez M.D. 05/09/2022 2:15 PM Chest X-Ray 05/10/22 09:00 XR chest 1V portable HISTORY: 42 years-old Female repeat for pleural effusion/fx STUDY in a patient with acute fractures of the right 10th, 11th and 12th ribs. COMPARISON: CT abdomen and pelvis 05/09/2022 TECHNIQUE: AP view of the chest FINDINGS: Cardiac mediastinal and hilar silhouettes are within normal limits. A left-sided PICC is present with distal tip in the expected location of the brachiocephalic SVC confluence. Right IJ [id number] catheter distal tip is noted in the expected location of the SVC. There is unchanged mild blunting of the costophrenic angles. No pneumothorax, pleural effusion, airspace consolidation or overt pulmonary edema. Degenerative changes of the shoulders and spine. Healed chronic right-sided rib fractures. Acute mildly displaced fractures of the right 10th, 11th and 12th ribs are not well visualized. IMPRESSION: 1. The acute fractures of the right 10th, 11th and 12th ribs are better visualized on the comparison CT study. 2. No pneumothorax. ACT 112: Negative or not required by law. The above report was generated using voice recognition software. It may contain grammatical, syntax or spelling errors. Electronically signed by: Mahendra Alvarez M.D. 05/10/2022 7:56 AM KUB X-Ray 05/13/22 14:29 KUB HISTORY: Acute nausea with abdominal pain nausea COMPARISON: CT abdomen and pelvis 02/12/2022. FINDINGS: Nonobstructive bowel gas pattern. Metallic stent is noted within the distribution of the common bile duct with adjacent surgical clips. No renal calculi. No ureteral calculi. No pneumoperitoneum or pneumatosis. Degenerative changes of the spine, pelvis and hips. No fracture. IMPRESSION: Nonobstructive bowel gas pattern. ACT 112: Negative or not required by law. The above report was generated using voice recognition software. It may contain grammatical, syntax or spelling errors. Electronically signed by: Mahendra Alvarez M.D. 05/13/2022 2:58 PM
[2022-05-19] MEDS: ENOXAPARIN INJ 40 MG/0.4 ML SYR SQ SCH (18:22)
[2022-05-19] MEDS: QUEtiapine FUMARATE 100 MG TABLET PO SCH (19:50)
[2022-05-19] MEDS: lamoTRIgine 100 MG TAB PO SCH (19:50)
[2022-05-19] MEDS: SENNA 8.6 MG TAB PO SCH (19:51)
[2022-05-20 05:27] LABS: Basophils # (auto) 0.05 K/uL (0-0.2); Basophils % (auto) 0.7 %; Eosinophils # (auto) 1.04 K/uL (0-0.50); Eosinophils % (auto) 14.9 %; Hematocrit (blood only) 36.8 % (34.1-44.9); Hemoglobin 11.9 g/dl (12.0-16.0); Immature Granulocytes # (auto) 0.01 K/uL (0.00-0.02); Immature Granulocytes % (auto) 0.1 %; Lymphocytes # (auto) 1.54 K/uL (1.2-3.4); Mean Corpuscular Hemoglobin 31.6 pg (25.0-34.0); Mean Corpuscular Hgb Conc 32.3 g/dL (32.0-36.0); Mean Corpuscular Volume 97.9 fL (80.0-100.0); Mean Platelet Volume 11.1 fL (9.4-12.3); Monocytes # (auto) 0.73 K/uL (0.24-0.82); Monocytes % (auto) 10.4 %; Neutrophils # (auto) 3.62 K/uL (1.4-6.5); Neutrophils % (auto) 51.9 %; Platelet Count 194 K/uL (130-400); RDW Coefficient of Variation 14.1 % (11.5-14.5); RDW Standard Deviation 51.4 fL (36.4-46.3); Red Blood Count 3.76 M/uL (3.93-5.22); White Blood Count 6.99 K/ul (4.8-10.8)
[2022-05-20 05:54] LABS: BUN Creatinine Ratio 19.1 (10-20); Calcium 8.8 mg/dl (8.5-10.1); Creatinine Clr Calc Pharmacy 169.8 ml/min; Est GFR (African American) 139.2 ml/min; Est GFR (Non-African American) 120.1 ml/min; Potassium 3.9 mmol/L (3.5-5.1)
[2022-05-20] MEDS: LEVOTHYROXINE SODIUM 50 MCG TABLET PO SCH (06:19)
[2022-05-20] MEDS: LORATADINE 10 MG TAB PO SCH (09:14)
[2022-05-20] MEDS: LORazepam 1 MG TAB PO PRN ×2 (09:14→15:33)
[2022-05-20] MEDS: LOPERAMIDE HCL 2 MG CAP PO PRN ×2 (09:14→18:21)
[2022-05-20] MEDS: ENALAPRIL MALEATE 10 MG TAB PO SCH (09:14)
[2022-05-20] MEDS: PANTOprazole 40 MG TAB PO SCH ×2 (09:14→19:30)
[2022-05-20] MEDS: METOPROLOL TARTRATE 25 MG TAB PO SCH ×2 (09:15→19:31)
[2022-05-20] MEDS: PANCREAZE (LIPASE 16,800U) CAP PO SCH ×3 (09:15→17:46)
[2022-05-20] MEDS: LIDOCAINE 5% 1 PATCH TD SCH (09:15)
[2022-05-20] MEDS: rOPINIRole HCL 2 MG TABLET PO SCH ×3 (09:15→19:32)
[2022-05-20] MEDS: INSULIN ASPART PER UNIT SC SCH ×4 (09:15→19:40)
[2022-05-20] MEDS: ASPIRIN 81 MG ECTAB PO SCH (09:16)
[2022-05-20] MEDS: DULoxetine HCL 60 MG CAP PO SCH (09:16)
[2022-05-20] MEDS: POLYETHYLENE (MIRALAX) 17 GM PACK PO SCH (09:16)
[2022-05-20] MEDS: LANTUS PER UNIT CHARGE SQ SCH (09:17)
[2022-05-20] MEDS: FLUTICASONE PROPIONATE NA SPR 16 GM BTL SCH (09:17)
[2022-05-20] MEDS: CHECK fentaNYL PATCH PLACEMENT SCH ×3 (09:31→23:59)
[2022-05-20] MEDS: fentaNYL 75 MCG/HR TDSY TD SCH (09:31)
[2022-05-20] MEDS: METOCLOPRAMIDE HCL INJ 5 MG/ML 2 ML VIAL IV PRN (09:41)
[2022-05-20] MEDS: MAGNESIUM SULFATE / D5W 1 GM/100 ML BAG IV SCH ×2 (10:12→12:33)
--- NOTE | 2022-05-20 15:55 | Hospitalist Progress Note ---
Date of Service May 20, 2022 Assessment & Plan (1) Metastatic adenocarcinoma to pancreas: (2) Intractable pain: Plan: This is a 42-year-old female who has a significant past medical history of metastatic adenocarcinoma of pancreas currently on chemotherapy with mets to liver, Complex hepatic abscess currently on IV antibiotics, insulin-dependent T2DM, HTN, HLD, chronic pain in setting of malignancy, PCM who presents to ED secondary to significant pain to her right back. (1) Intractable pain secondary to pancreatic cancer with liver mets Multiple Rib Fx, R posterior 10-12, with small pleural effusion, possible hemothorax, status post fall Had dizziness episode while in the bathroom, which resulted to fall cxr-confirmed acute fractures of the right 10th, 11th and 12th ribs No pneumothorax, pleural effusion, airspace consolidation or overt pulmonary edema. Pain management on board Gradually improving Fentanyl being uptitrated, increased to 75 mg daily On oral Dilaudid 8 mg every 4 hours scheduled. Medication to be hold off if patient is lethargic and has decreased respiratory rate IV Dilaudid for breakthrough pain spaced out. Hepatic catheter for intrahepatic abscess also removed on 05/14/2022 which has contributed to her pain Incentive spirometry (2) Metastatic adenocarcinoma of pancreas with mets to Liver follows [facility] oncology last tx 04/02 due to recent medical issues She is a scheduled for MRI brain on Saturday.( 05/21/2022) (3) Intractable pain: Plan: Management per above (4) Nausea and vomiting: Plan: Likely secondary to chronic pancreatitis, pain medications KUB 10/: Nonobstructive pattern As needed Reglan, Phenergan Monitor QT while on Reglan Management per above (5) Hepatic abscess: IR drain placed on 04/18, cultures grew Klebsiella and E. coli. Finished course with 2 g of IV Rocephin daily until 05/17. will remove the PICC line on discharge. (6) Hepatic metastases: (7) Uncontrolled type 2 diabetes mellitus, with long-term current use of insulin: Plan: Uncontrolled T2DM, insulin dependent Hyperglycemia place on insulin per protocol a1c 6.2 HTN continue enalapril Depression On Zyprexa, Seroquel, Cymbalta Recommend discontinuation of Zyprexa as patient already on Seroquel Hypothyroidism Continue supplement Hyperlipidemia DVT Prophylaxis Lovenox subcu daily DispoHome after patient is not requiring IV Dilaudid for pain control. Patient continues to be hospitalized due to intractable cancer pain. Full Code Admission and Anticipated Discharge Date Admission Date: May 09, 2022 Subjective Comfortable; not in any distress. She is anxious and states that her pain is better controlled compared to yesterday. Review of Systems Review of Systems: All systems reviewed & are unremarkable except as noted in Subjective Physical Exam Physical Exam: General- oriented x 3, not in distress, speaks in sentences with no effort or accessory muscle use Eyes- anicteric Neck- no JVD Lungs- clear breath sounds bilaterally, no crackles Heart- normal rate, regular rhythm; no murmurs Abdomen- normal bowel sounds, nondistended, soft, nontender. Site of drainno swelling, erythema. No discharge. Extremities- no pretibial edema, no calf tenderness Neuro- alert, oriented x 3; no gross focal neurologic deficits Skin- warm & dry Results & Data Results & Data ([facility]) Vital Signs (Past 12 Hours) Vital Signs Temp Pulse Pulse Resp BP Pulse Ox O2 Del Method 05/20/22 15:38 36.5 C 92 H 18 122/85 99 Room Air 05/20/22 12:18 37.6 C H 96 H 18 132/88 99 Room Air 05/20/22 08:00 98 H 05/20/22 07:08 36.7 C 104 H 18 154/90 H 95 Room Air 05/20/22 04:20 36.8 C 101 H 18 118/80 96 Room Air Laboratory Results Laboratory Results WBC 6.99 K/ul (4.8-10.8) 05/20/22 04:38 RBC 3.76 M/uL (3.93-5.22) L 05/20/22 04:38 Hgb 11.9 g/dl (12.0-16.0) L 05/20/22 04:38 Hct 36.8 % (34.1-44.9) 05/20/22 04:38 MCV 97.9 fL (80.0-100.0) 05/20/22 04:38 MCH 31.6 pg (25.0-34.0) 05/20/22 04:38 MCHC 32.3 g/dL (32.0-36.0) 05/20/22 04:38 RDW Std Deviation 51.4 fL (36.4-46.3) H 05/20/22 04:38 RDW Coeff of Yang 14.1 % (11.5-14.5) 05/20/22 04:38 Plt Count 194 K/uL (130-400) 05/20/22 04:38 MPV 11.1 fL (9.4-12.3) 05/20/22 04:38 Immature Gran % (Auto) 0.1 % 05/20/22 04:38 Neut % (Auto) 51.9 % 05/20/22 04:38 Lymph % (Auto) 22.0 % 05/20/22 04:38 [place] % (Auto) 10.4 % 05/20/22 04:38 Eos % (Auto) 14.9 % 05/20/22 04:38 Baso % (Auto) 0.7 % 05/20/22 04:38 Neut # (Auto) 3.62 K/uL (1.4-6.5) 05/20/22 04:38 Lymph # (Auto) 1.54 K/uL (1.2-3.4) 05/20/22 04:38 [place] # (Auto) 0.73 K/uL (0.24-0.82) 05/20/22 04:38 Eos # (Auto) 1.04 K/uL (0-0.50) H 05/20/22 04:38 Baso # (Auto) 0.05 K/uL (0-0.2) 05/20/22 04:38 Immature Gran # (Auto) 0.01 K/uL (0.00-0.02) 05/20/22 04:38 PT 11.7 Seconds (9.0-12.0) 05/09/22 11:45 INR 1.1 (0.9-1.1) 05/09/22 11:45 APTT 27.3 Seconds (21.0-31.0) 05/09/22 11:45 PTT Ratio 1.0 05/09/22 11:45 Sodium 136 mmol/L (136-145) 05/20/22 04:38 Potassium 3.9 mmol/L (3.5-5.1) 05/20/22 04:38 Chloride 103 mmol/L (98-107) 05/20/22 04:38 Carbon Dioxide 27 mmol/L (21-32) 05/20/22 04:38 Anion Gap 6 (3-11) 05/20/22 04:38 BUN 9 mg/dl (6-23) 05/20/22 04:38 Creatinine 0.47 mg/dl (0.6-1.2) L 05/20/22 04:38 Est Cr Clr Drug Dosing 169.8 ml/min 05/20/22 04:38 Est GFR ( Amer) 139.2 ml/min 05/20/22 04:38 Est GFR (Non-Af Amer) 120.1 ml/min 05/20/22 04:38 BUN/Creatinine Ratio 19.1 (10-20) 05/20/22 04:38 Glucose 211 mg/dl (70-99(Fasting)) H 05/20/22 04:38 POC Glucose 202 mg/dl (70-99) H 05/20/22 11:50 Estimat Average Glucose 131 mg/dl 05/10/22 05:24 Hemoglobin A1c 6.2 % (4.5-5.6) H 05/10/22 05:24 Calcium 8.8 mg/dl (8.5-10.1) 05/20/22 04:38 Phosphorus 4.0 mg/dl (2.5-4.9) 05/11/22 04:26 Magnesium 1.6 mg/dl (1.7-2.4) L 05/20/22 04:38 Total Bilirubin 0.6 mg/dl (0.2-1.0) 05/18/22 05:37 AST 19 U/L (13-39) 05/18/22 05:37 ALT 10 U/L (7-52) 05/18/22 05:37 Alkaline Phosphatase 192 U/L (34-104) H 05/18/22 05:37 Troponin I High Sens 8.6 pg/ml (0-14) 05/09/22 11:45 Total Protein 6.4 gm/dl (6.0-8.3) 05/18/22 05:37 Albumin 3.0 gm/dl (3.4-5.0) L 05/18/22 05:37 Globulin 3.4 gm/dl (2.5-4.0) 05/18/22 05:37 Albumin/Globulin Ratio 0.9 (0.9-2) 05/18/22 05:37 Vit D 1,25-Dihyd Total 34 pg/mL (18-72) 05/10/22 05:24 1,25 Dihydroxy Vit D2 9 pg/mL 05/10/22 05:24 1,25 Dihydroxy Vit D3 25 pg/mL 05/10/22 05:24 Urine Color Dark Yellow 05/09/22 16:00 Urine Appearance Clear (Clear) 05/09/22 16:00 Urine pH 7.0 (4.5-7.5) 05/09/22 16:00 Ur Specific [place] 1.028 (1.000-1.030) 05/09/22 16:00 Urine Protein 1+ (Negative) H 05/09/22 16:00 Urine Glucose (UA) Trace (Negative) H 05/09/22 16:00 Urine Ketones 1+ (Negative) H 05/09/22 16:00 Urine Blood Negative (Negative) 05/09/22 16:00 Urine Nitrite Negative (Negative) 05/09/22 16:00 Urine Bilirubin 1+ (Negative) H 05/09/22 16:00 Urine Urobilinogen Negative (Negative) 05/09/22 16:00 Ur Leukocyte Esterase Trace (Negative) H 05/09/22 16:00 Urine WBC (Auto) 1-5 /hpf (0-5) 05/09/22 16:00 Urine RBC (Auto) 0-4 /hpf (0-4) 05/09/22 16:00 U Hyaline Cast (Auto) 5-10 /lpf (0-5) H 05/09/22 16:00 U Epithel Cells (Auto) >30 /lpf (0-5) H 05/09/22 16:00 Urine Bacteria (Auto) Negative (Negative) 05/09/22 16:00 Stl C. diff Tox B Gene Negative Cdiff Gene (Neg) 05/18/22 Unknown SARS-CoV-2, RNA, NAAT NEGATIVE (NEGATIVE) 05/09/22 12:49 Impressions Abdomen/Pelvis CT 05/09/22 12:[address] WITH IV CONTRAST CT DOSE: 2199.87 mGy.cm HISTORY: Right-sided abdominal pain. Fall. TECHNIQUE: Multiaxial CT images of the abdomen and pelvis were performed following the use of intravenous contrast. A dose lowering technique was utilized adhering to the principles of ALARA. COMPARISON STUDY: Abdomen and pelvis CT 04/17/2022. FINDINGS: Please refer to the same day chest CT for further evaluation of the lung bases. No pneumoperitoneum. No pneumatosis. There are mildly displaced right posterior 10th through 12th rib fractures. Trace pericardial effusion. The tip of the Port-A-Cath is partially visualized. There is right upper quadrant percutaneous drainage catheter. There is been interval resolution of the right upper quadrant fluid collection compared to prior study. There is a small residual soft tissue focus at the catheter measuring 1.9 cm. The right upper quadrant subcapsular fluid collection has almost completely resolved in the interval. There is residual 3 cm soft tissue density at this location best seen on image 150. These areas of soft tissue could represent phlegmon or possibly metastatic deposits. There is a diffusely heterogeneous liver, unchanged. A metallic common bile duct stent is again noted with associated pneumobilia sug gesting stent patency. The necrotic pancreatic head mass is again noted measuring approximately 2.7 cm. This accounts for the main pancreatic duct dilatation. No significant gallbladder wall thickening. Gas within the gallbladder is again noted. The spleen, adrenal glands, and kidneys remain unchanged. The main portal vein is patent. Mild peripancreatic lymphadenopathy persists. Normal caliber abdominal aorta. The bladder is decompressed. There are a few small calcified and noncalcified uterine fibroids. No evidence for bowel obstruction. Normal appendix. IMPRESSION: 1. Mildly displaced acute right posterior 10th through 12th rib fractures. 2. Interval resolution of the fluid collections within the right upper quadrant within an indwelling percutaneous drainage catheter. There are residual soft tissue densities at these locations as described above measuring up to 3 cm. Therefore, this could represent phlegmon or possibly metastatic disease. 3. Diffusely heterogeneous liver again noted with several hypodense foci. This may represent areas of focal fat or underlying metastatic disease. 4. Redemonstration of the necrotic pancreatic head mass. 5. Patent metallic common bile duct stent. 6. Additional findings as described above. ACT 112: Negative or not required by law. Electronically signed by: Ru Arce M.D. 05/09/2022 2:[address] 05/09/22 12:45 CT OF THE CHEST WITH IV CONTRAST CLINICAL HISTORY: Right chest pain following fall. COMPARISON STUDY: Chest radiograph February 09, 2022. TECHNIQUE: Following IV administration of 94 mL of Optiray, helical axial images of the chest were obtained. Sagittal and coronal reconstructions were viewed as well as maximal intensity projections on an independent 3-D workstation. Automated exposure control was utilized for the study. A dose lowering technique was utilized adhering to the principles of ALARA. FINDINGS: A right internal jugular [id number] is in place. There is stranding and gas adjacent to the port. A left PICC is in place. No enlarged thoracic lymph nodes are present. Size of the heart is normal. There is no pericardial effusion. No pneumothorax or pleural effusion is present. There is no consolidation. Linear opacities reflect atelectasis. Note is made of an acute mildly displaced fracture pf the posterior right 10th rib. There is an acute min imally displaced fracture pf the posterior right 11th rib and acute mildly displaced fracture of the posterior right 12th rib. Old right-sided rib fractures are present. No acute thoracic spine fracture is present. The abdomen and pelvis CT will be reported separately. Hypodense hepatic foci are better depicted on that exam. There is hepatic steatosis. Biliary stent is in place. IMPRESSION: 1. Acute fractures of the posterior right 10th, 11th and 12th ribs. No pneumothorax. Trace right pleural effusion which may reflect a small hemothorax. 2. Infiltration and gas adjacent to the right [id number]. This is nonspecific and could be due to recent access. However, an infectious process is also within the differential. ACT 112: Negative or not required by law. Electronically signed by: Morales Story M.D. 05/09/2022 2:[address] 05/09/22 12:45 CT head/brain wo con CLINICAL HISTORY: 42 years-old Female with fall. Acute head trauma status post fall TECHNIQUE: Multiple axial CT images of the head were obtained without contrast. A dose lowering technique was utilized adhering to the principles of ALARA. COMPARISON: None. FINDINGS: No acute intracranial hemorrhage, midline shift, intracranial mass, hydrocephalus, territorial ischemia or abnormal extra-axial collection. Mild involutional changes. Calcifications of the falx cerebri. The calvarium is intact. The paranasal sinuses, mastoid air cells, and middle ear cavities are clear. IMPRESSION: No acute intracranial abnormality or calvarial fracture. ACT 112: Negative or not required by law. The above report was generated using voice recognition software. It may contain grammatical, syntax or spelling errors. Electronically signed by: Mahendra Alvarez M.D. 05/09/2022 2:15 PM Chest X-Ray 05/10/22 09:00 XR chest 1V portable HISTORY: 42 years-old Female repeat for pleural effusion/fx STUDY in a patient with acute fractures of the right 10th, 11th and 12th ribs. COMPARISON: CT abdomen and pelvis 05/09/2022 TECHNIQUE: AP view of the chest FINDINGS: Cardiac mediastinal and hilar silhouettes are within normal limits. A left-sided PICC is present with distal tip in the expected location of the brachiocephalic SVC confluence. Right IJ Uctxjx-n-Vota catheter distal tip is noted in the expected location of the SVC. There is unchanged mild blunting of the costophrenic angles. No pneumothorax, pleural effusion, airspace consolidation or overt pulmonary edema. Degenerative changes of the shoulders and spine. Healed chronic right-sided rib fractures. Acute mildly displaced fractures of the right 10th, 11th and 12th ribs are not well visualized. IMPRESSION: 1. The acute fractures of the right 10th, 11th and 12th ribs are better visualized on the comparison CT study. 2. No pneumothorax. ACT 112: Negative or not required by law. The above report was generated using voice recognition software. It may contain grammatical, syntax or spelling errors. Electronically signed by: Mahendra Alvarez M.D. 05/10/2022 7:56 AM KUB X-Ray 05/13/22 14:29 KUB HISTORY: Acute nausea with abdominal pain nausea COMPARISON: CT abdomen and pelvis 02/12/2022. FINDINGS: Nonobstructive bowel gas pattern. Metallic stent is noted within the distribution of the common bile duct with adjacent surgical clips. No renal calculi. No ureteral calculi. No pneumoperitoneum or pneumatosis. Degenerative changes of the spine, pelvis and hips. No fracture. IMPRESSION: Nonobstructive bowel gas pattern. ACT 112: Negative or not required by law. The above report was generated using voice recognition software. It may contain grammatical, syntax or spelling errors. Electronically signed by: Mahendra Alvarez M.D. 05/13/2022 2:58 PM
[2022-05-20] MEDS: ENOXAPARIN INJ 40 MG/0.4 ML SYR SQ SCH (17:45)
[2022-05-20] MEDS: SENNA 8.6 MG TAB PO SCH (19:30)
[2022-05-20] MEDS: QUEtiapine FUMARATE 100 MG TABLET PO SCH (19:30)
[2022-05-20] MEDS: lamoTRIgine 100 MG TAB PO SCH (19:31)
[2022-05-20] MEDS: HYDROmorphone INJ 1 MG/ML SYRINGE IV PRN (19:35)
[2022-05-21] MEDS: LEVOTHYROXINE SODIUM 50 MCG TABLET PO SCH (06:23)
[2022-05-21] MEDS: PANTOprazole 40 MG TAB PO SCH (08:10)
[2022-05-21] MEDS: DULoxetine HCL 60 MG CAP PO SCH (08:10)
[2022-05-21] MEDS: LORazepam 1 MG TAB PO PRN (08:10)
[2022-05-21] MEDS: LIDOCAINE 5% 1 PATCH TD SCH (08:10)
[2022-05-21] MEDS: PANCREAZE (LIPASE 16,800U) CAP PO SCH (08:10)
[2022-05-21] MEDS: LORATADINE 10 MG TAB PO SCH (08:10)
[2022-05-21] MEDS: CHECK fentaNYL PATCH PLACEMENT SCH (08:10)
[2022-05-21] MEDS: ENALAPRIL MALEATE 10 MG TAB PO SCH (08:10)
[2022-05-21] MEDS: rOPINIRole HCL 2 MG TABLET PO SCH (08:10)
[2022-05-21] MEDS: METOPROLOL TARTRATE 25 MG TAB PO SCH (08:10)
[2022-05-21] MEDS: ASPIRIN 81 MG ECTAB PO SCH (08:11)
[2022-05-21] MEDS: INSULIN ASPART PER UNIT SC SCH (08:11)
[2022-05-21] MEDS: FLUTICASONE PROPIONATE NA SPR 16 GM BTL SCH (08:11)
[2022-05-21] MEDS: POLYETHYLENE (MIRALAX) 17 GM PACK PO SCH (08:14)
[2022-05-21] MEDS: LANTUS PER UNIT CHARGE SQ SCH (08:14)
[2022-05-21] MEDS ORDERED: LANTUS PER UNIT CHARGE SQ SCH (09:00)
--- NOTE | 2022-05-21 16:38 | Discharge Summary ---
Date of Service May 21, 2022 Admission HPI Per Admitting Provider This is a 42-year-old female who has a significant past medical history of metastatic adenocarcinoma of pancreas currently on chemotherapy with mets to liver, Complex hepatic abscess currently on IV antibiotics, insulin-dependent T2DM, HTN, HLD, chronic pain in setting of malignancy, PCM who presents to ED secondary to significant pain to her right back. Currently she lives by herself and occasionally her daughter to stay with her. On Saturday she was trying to walk to the bathroom. She is generally very weak and her legs shake when she walks. She ramped her right side and back into the toilet. Since then she developed significant pain. Pain has continued despite taking prescribed narcotics. Today she woke up with nausea and vomiting and inability to tolerate oral intake and therefore came to ED. Of significance patient was recently hospitalized at [facility] on 04/17-04/23 secondary to complex hepatic abscess. She required hepatic percutaneous drain placement on 04/18. She was seen and evaluated by infectious disease. She was placed on IV ceftriaxone 2 g daily until 05/17. She did have antibiotic today. She continues to have a hepatic drain in place and continues to have chronic right upper quadrant pain. She states she has been fever free for several weeks and has not had any drainage output for at least 2 weeks as well. In regards to her metastatic pancreatic cancer she does follow with [facility] oncology. Due to her recent medical issues her last chemotherapy was on 04/02. In ED she underwent CT chest which revealed acute fx of post right 10th-12 rib, no pneumothorax, trace right pleural effusion which may reflect a small hemothorax. Admission Exam Per Admitting Provider She is in pain but hemodynamically stable Chest-decreased breath sound bilaterally, more pain with respiration Abdomen-soft, very tender right quadrants with intra-abdominal drain in situ with localized tenderness Heart-S1-S2, regular Extremities-trace edema bilaterally [employer]-alert, 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 Generally weak and lethargy Principal Diagnosis Intractable pain secondary to pancreatic cancer with liver mets Multiple Rib Fx, R posterior 10-12, with small pleural effusion, possible hemothorax, status post fall Metastatic adenocarcinoma of pancreas with mets to Liver Discharge Exam General- oriented x 3, not in distress, speaks in sentences with no effort or accessory muscle use Eyes- anicteric Neck- no JVD Lungs- clear breath sounds bilaterally, no crackles Heart- normal rate, regular rhythm; no murmurs Abdomen- normal bowel sounds, nondistended, soft, nontender. Site of drainno swelling, erythema. No discharge. Extremities- no pretibial edema, no calf tenderness Neuro- alert, oriented x 3; no gross focal neurologic deficits Skin- warm & dry Discharge Data Allergies Allergy/AdvReac Type Severity Reaction Status Date / Time cephalexin [From Keflex] Allergy Mild Rash, Verified 05/09/22 15:02 urticaria Penicillins Allergy Mild Rash Verified 05/09/22 15:02 Fish Containing Products Allergy Unknown Unknown Verified 05/09/22 15:02 fish oil Allergy Unknown Unknown Verified 05/09/22 15:02 dulaglutide [From Trulicity] AdvReac Severe Pancreatiti Verified 05/09/22 15:02 s clarithromycin AdvReac Unknown Vomiting Verified 05/09/22 15:02 Consultations 05/09/22 14:54 ED Decision to Admit Stat 05/10/22 13:41 Consult Pain Management Routine 05/11/22 17:41 Consult General Surgery Routine 05/13/22 15:02 Consult Psychiatry Routine 05/14/22 09:40 Consult Palliative Care Routine Ordered Studies 05/09/22 12:45 CT Abd and Pelvis [CT abd pelvis IV con only] Stat CT chest diagnostic w con Stat CT head/brain wo con Stat Hospital Course (1) Metastatic adenocarcinoma to pancreas: (2) Intractable pain: Plan This is a 42-year-old female who has a significant past medical history of metastatic adenocarcinoma of pancreas currently on chemotherapy with mets to liver, Complex hepatic abscess currently on IV antibiotics, insulin-dependent T2DM, HTN, HLD, chronic pain in setting of malignancy, PCM who presents to ED secondary to significant pain to her right back. She had dizziness which resulted in a fall at her home. She was found to have fracture of right 10th- 12th rib. Patient was admitted to the medical floor for further care. Pain management and palliative care was consulted. Patient's home regimen of short and long-acting morphine were discontinued; she was started on fentanyl patch increased to 75 mcg every 72 hours and oral and IV Dilaudid for breakthrough pain. Hepatic abscess drain was discontinued on 05/14 by surgery ceftriaxone was continued until 05/17 to complete the course. She continued to be hospitalized due to intractable pain due to her cancer and fractured ribs requiring multiple doses of IV medication for pain control. Patient was discharged on fentanyl patch which was placed a day prior to discharge. She was also provided prescription for Dilaudid for pain control. She has a MRI brain is scheduled on 05/21 for follow-up for assessment for metastatic cancer. She has a follow-up with palliative care on 05/22. Her PICC line was removed on discharge. Total Time Total Time Spent Total Time Spent (In Minutes): 35 Total Time Includes: Examination of the Patient, Discharge Planning, Medication Reconciliation, Communication With Other Providers and Other Discharge Plan Discharge Items Patient Disposition: Home - Self-Care Reason For Visit: FALL, RIB FRACTURES Discharge Diagnosis: Intractable pain secondary to pancreatic cancer with liver mets Multiple Rib Fx, R posterior 10-12, with small pleural effusion, possible hemothorax, status post fall Metastatic adenocarcinoma of pancreas with mets to Liver Activity: Resume your previous activity Non-emergency contact: Primary Care Provider Call non-emergency contact if: you have any medication questions and your symptoms worsen Follow-up/Referrals: Radiology [facility] [Other] (Date & Time 05/21/2022 2:30 PM Provider MR1 [facility] Department Radiology [facility] [place] ) Dhruv Hawley MD [Primary Care Provider] - (Date & Time 05/25/2022 2:00 PM Provider Dhruv Hawley MD Department [facility] ) Demi Alvarado MD [Outside Practitioners] - (Date & Time 05/22/2022 2:00 PM Provider Demi Alvarado MD Department Palliative Medicine, [facility] ) Romina Escalante MD [Physician] - (Date & Time 06/01/2022 11:00 AM Provider Romina Escalante MD Department Infectious Disease [facility] ) Virgie Nolasco CRNP [Outside Practitioners] - (Date & Time 05/24/2022 11:10 AM Provider Lab [facility] Department Laboratory [facility] Date & Time 05/24/2022 11:30 AM Provider ANNETTE Cobb Department Hematology/Oncology [facility] Date & Time 05/24/2022 1:00 PM Provider Chair 5 Hem Onc [facility] Department Hematology/Oncology Treatment, [place] ) Diet: Carb Consistent or DM2 Addtl Attending Provider Instructions: The following changes has been made to your pain regimen: 1) Stop morphine extended release and short acting. 2) You are on fentanyl patch 75 mcg every 72 hours. The patch was placed at 05/20 at 9 AM . Please follow-up with you palliative care doctor tomorrow. The next patch should be placed at 05/23 at 9 AM. Please remove the old patch before placing new 1. 3) you are prescribed Dilaudid 8 mg tablet as needed every 4 hours for breakthrough pain. Other medications prescribed to you are 1) Loperamide 2 mg tablet every 4-6 hours as needed for diarrhea 2) Ativan 1 mg as needed every 6 hours for tremors and anxiety. Please follow-up for your MRI today set up at 2 PM. Follow-up with your primary care doctor and oncology. Pending Studies at Discharge: No Stand-Alone Forms: My [facility] [email or web address], Smoking Cessation Medications and DC Order Prescriptions: New loperamide 2 mg Capsule 2 mg PO Q4H PRN (Reason: loose stool) Qty: 10 0RF lorazepam 1 mg Tablet 1 mg PO Q6H PRN (Reason: anxiety) Qty: 10 0RF hydromorphone 4 mg tablet 8 mg PO Q4H PRN (Reason: pain) Qty: 50 0RF Continued (DME) OneTouch Verio test strips Strip See Rx Instructions .Route Qty: 600 3RF Rx Instructions: Test six times daily (DME) FreeStyle Tanmay 14 Day Sensor Kit See Rx Instructions .Route Qty: 7 3RF Rx Instructions: Change every 14 days (DME) pen needle, diabetic [BD Ultra-Fine Mini Pen Needle] 31 gauge x 3/16" needle See Rx Instructions .Route Qty: 200 5RF Rx Instructions: use 4 needles daily insulin lispro [Humalog KwikPen Insulin] 100 unit/mL insulin pen 2 unit subcut TIDM Qty: 15 2RF Rx Instructions: plus sliding scale please give an additional 2 units of insulin for every 50 grams of carbs eaten with meals; 50 gr carb=2 units,100 gr carb=4 units,150 gr carb=6 units (DME) FreeStyle Tanmay 2 Sensor Kit See Rx Instructions .Route Qty: 2 11RF Rx Instructions: Change every 14 days levothyroxine 50 mcg tablet 50 mcg PO QAM ropinirole 4 mg tablet 4 mg PO TID (DME) Brenda Donato 14 Day [place] [facility] See Rx Instructions .Route Rx Instructions: As directed valacyclovir 1 gram tablet 2,000 mg PO BID PRN (Reason: Cold Sores) lamotrigine [Lamictal] 200 mg tablet 200 mg PO HS duloxetine [Cymbalta] 60 mg capsule,delayed release(DR/EC) 120 mg PO DAILY sennosides [senna] 8.6 mg tablet 17.2 mg PO HS polyethylene glycol 3350 [Miralax] 17 gram/dose Powder 17 g PO QAM bisacodyl 10 mg Suppository 10 mg [place] DAILY MDD dont use morne than 1 a week PRN (Reason: Constipation) prochlorperazine maleate 10 mg Tablet 10 mg PO Q6H PRN (Reason: Nausea) enalapril maleate 20 mg tablet 20 mg PO DAILY pantoprazole 40 mg tablet,delayed release (DR/EC) 40 mg PO BID fluticasone propionate 50 mcg/actuation Sullivan,Suspension 2 spray INTRANASAL DAILY Rx Instructions: administer into each nostril pegfilgrastim-bmez 6 mg/0.6 mL Syringe 6 mg SUBCUT UD Rx Instructions: 6 mg under skin 24 hours after chemotherapy every 14 days albuterol sulfate [Ventolin HFA] 90 mcg/actuation Hfa Aerosol Inhaler 1 - 2 inh INHALATION Q6 PRN (Reason: as directed) lidocaine-prilocaine 2.5-2.5 % cream 1 applic topical UD Rx Instructions: apply to affectd area as needed for pain. appyl to skin over mediport & cover 1 hour prior to accessing aspirin 81 mg Tablet,Delayed Release (Dr/Ec) 81 mg PO DAILY Pancreaze [phone]- 98,400 unit capsule,delayed release(DR/EC) 1 cap PO TIDM acetaminophen 500 mg Tablet 500 mg PO Q4 MDD 3g PRN (Reason: Pain) Rx Instructions: take 2 caps every 8 hour for 3 days ,then 1 cap every 4 hours as needed for pain. do not exceed 3000mg every 24 hours ordered 01/12/22 loratadine [Claritin] 10 mg Tablet 10 mg PO DAILY ondansetron 8 mg tablet,disintegrating 8 mg translingual Q8 PRN (Reason: Nausea) quetiapine 100 mg tablet 200 mg PO HS Toujeo Max U-300 SoloStar 300 unit/mL (3 mL) insulin pen 10 unit SUBCUT QAM Discontinued ceftriaxone 1 gram Recon Soln 2 g IV DAILY Rx Instructions: through 05/17 naloxegol 25 mg Tablet 25 mg PO HS Rx Instructions: must be taken on empty stomach; no food 1 hr after or 2-3 hrs before dose morphine 30 mg Tablet Extended Release 30 mg PO BID morphine 30 mg Tablet 30 mg PO Q4H PRN (Reason: Pain) olanzapine 5 mg Tablet 5 mg PO HS lorazepam 1 mg tablet 1 mg PO Q8 PRN (Reason: anxiety or sleep) potassium chloride 10 mEq tablet extended release 10 meq PO AMHS Discharge Orders: Discharge Order (Routine); Ordered 05/21/22 Ordered By: David Dykes Admission Data Admit Date/Time: 05/09/22 15:14 Attending Provider: David Dykes Admit Provider: Marii Cruz Primary Care Provider: Dhruv Hawley Other Providers: Marii Cruz ; Mary Solis ; Tom Choudhury [facility] ; [place] ; [facility] ; Julian Casanova ; Josephine Snow ; Michelle Bhatia ; Frannie Roland ; Isa Khoury Other Interventions: Discharge Summary Assessment (RN) Last Done: 05/21/22 08:33
== END 2022-05-21 10:09 | disposition home health service (06) | DRG 183 ==
LOC: ED 11:36 → 4W 15:14 → SUATTDRO 15:14 → 4W 18:20

== ENCOUNTER 2022-06-13 08:43 | Inpatient (IN) ==
--- NOTE | 2022-06-13 08:58 | Emergency Department Note ---
Impression & Plan Acute pancreatitis, Pancreatic cancer, Abdominal pain ED Provider Note NAME: MIR GRIMM AGE: 42 SEX: F : 1980 ARRIVES VIA: Walk-In INFORMANT: Patient, ED PROVIDER(S): Jose Stout MD Chief Complaint: Nausea vomiting, abdominal pain HPI: Patient presents due to concern for nausea vomiting and abdominal pain. The patient states that she has been having abdominal pain that she describes as menstrual cramps in the upper abdomen. Patient states that she does take 4 mg of Dilaudid 4 times daily and does trial Zofran at home but this does not greatly improve her symptoms. The patient states that she has not had so much vomiting in the last 3 days and is able to keep liquids down. The patient did have bowel movement yesterday. The patient denies any blood in the vomit or stool. No recent falls or trauma outside of the most recent admission where the patient did have rib fractures but the patient has not had any falls or trauma since then. Patient denies any chest pains or shortness of breath. Patient states that when she feels this way she does not want to continue any chemotherapy. The patient is scheduled for chemo tomorrow but "I do not want to go." She states that she feels this way when she feels unwell. Patient states that other than procedures for the hepatic abscesses the patient was scheduled for a Whipple to where they did open upper abdomen but they were unable to complete it. Patient states that she did not have anything actually removed at the time of this procedure. Patient denies any vaginal bleeding or discharge Per review of prior records a known history of metastatic adenocarcinoma of the pancreas. I did review the patient's discharge summary from May 21 of last month. 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 Patient reportedly had felt very weak and fell striking her right side on the back of the toilet at that time did have a CT which showed that she had a trace right pleural effusion associated 10th and 12th rib fractures. Patient did have her liver abscess drain removed by surgery on May 14. Patient was to be continued through May 17. Patient was in the hospital for additional days due to concern for intractable pain secondary to the patient's rib fractures and associated cancer. Per the patient's last palliative care notes on May 20 patient wants aggressive intervention therapy medication chemo and is not seeking comfort or quality of life or hospice focus plan of care at this time. Patient states in her current state that she does not want to continue things but does want to be comfortable. Patient states she is unsure if she would continue to feel this way depending on how she feels after meds and treatment. ROS: See HPI for pertinent positives and negatives. A total of 10 systems were reviewed and otherwise negative. Past medical history: See below Surgical history: See below Social history: See below Physical Exam: GENERAL: NAD, uncomfortable in appearance, crying. EYE EXAM: Normal conjunctiva. PERRL, no anisocoria and EOM's grossly intact w/o pain. NECK: Supple, no nuchal rigidity, no adenopathy, non-tender. No signs of meningismus. FROM of the neck with good chin to chest and neck extension. No stridor. LUNGS: Clear to auscultation. Normal chest wall mechanics. HEART: Tachycardic and regular, no MRG. ABDOMEN: Abdomen soft, upper abdominal pain worse in the left upper quadrant, no lower abdominal pain, normo-active bowel sounds, no masses, no rebound or guarding. BACK: No CVA TTP. SKIN: No rashes and no bruising. UPPER EXTREMITIES: Upper extremities are grossly normal. LOWER EXTREMITIES: Grossly normal, no edema. NEURO EXAM: A&O x3, cranial nerves II-XII grossly intact, normal speech, moves all 4 extremities. Differential diagnoses: Appendicitis, ovarian cyst, ovarian torsion, ectopic , TOA, PID, infections, diverticulitis, UTI, obstruction, mesenteric ischemia, aortic pathology, inflammatory bowel disease, renal colic, PUD, pancreatitis, biliary pathology, hernia, volvulus, constipation, as well as other pathologies. Course: Patient was seen and evaluated the bedside. Full history physical exam was performed. Imaging Studies: See Below Cardiac monitoring: An order was placed for continuous cardiac monitoring. The monitor shows a rate of 112 with tachycardic and regular rhythm. MDM: Patient was seen due to concern for abdominal pain nausea vomiting the setting of known history of metastatic pancreatic cancer. Blood work was obtained along with CT abdomen pelvis the patient was given IV fluids IV Dilaudid and IV Phenergan. Patient did receive additional Dilaudid and Phenergan as well as IV fluids. The patient's initial blood work showed a normal white count H&H and platelet count. Kidney function grossly unremarkable. Mild elevation in BSG 191. Bilirubin 1.3 and alk phos 233 with normal AST and ALT. Calcium slightly low at 8.3. Lipase is not elevated. Patient's urinalysis does show leuks and nitrite but has numerous epithelial cells no bacteria. The patient does not complain of any dysuria. The patient has more upper abdominal pain. Patient CT of the abdomen pelvis does show acute severe pancreatitis along with the pancreatic mass lesions and interval necrosis. CBD stents in place gas within the stent pneumobilia suggestive of patency. Also patient does have several low- attenuation lesions in the liver. Gallbladder wall is hyperemic with intraluminal gas. The patient was ordered antibiotics blood cultures and Pro- Jaya given the patient's findings on CT. I did speak with the on-call general surgery team recommended speaking with GI. Consult was placed with Dr. Beck. I did speak with Melody Tomlinson PA-C. I subsequently did speak with ANNETTE Bragg spoke with Dr. Delgado and Dr. Katy Boss who recommended HIDA scan and that the patient could be admitted. Past Med/Surg History Medical History Advanced care planning/counseling discussion Allergy-induced asthma rare inhaler use Depression with anxiety Diabetes mellitus, type 2 IDDM Dyslipidemia Fall Hemothorax Hypertension Hypothyroidism Lumbosacral pain Nausea Nausea and vomiting Obesity Palliative care encounter Pancreatic cancer + current chemo, follows with [facility] heme/onc PCOS (polycystic ovarian syndrome) Therapeutic opioid-induced constipation (OIC) Surgical History History of ERCP ERCP (06/2021) & EUS/ERCP (04/28/21): Good view with glidescope #3, ETT 7.0 at [facility] History of tonsillectomy History of umbilical hernia repair History of vascular access device A PORT INSERTION History of wisdom tooth extraction Nausea and vomiting after administration of anesthetic agent Family History Brother Diabetes Hypertension Father Hypertension Aunt Diabetes Grandmother (Maternal) Diabetes Other No family history of adverse response to anesthesia Social History Smoking Status: Current some day smoker Tobacco Type: Cigarettes packs per day: 1; Cigarettes Per Day: 20; Second Hand Exposure: No; Hx Alcohol Use: No Hx Substance Use: No Preferred Language: Ethiopian Communication Ability: Effective Manager Technical Required: No Beliefs That Will Affect Care: None marital status: Single Current Living Situation: Alone Current Living Situation Comment: Lives with Daughter and Dog. Feels Safe at Home: Yes Assistive Devices: Cane Allergies Allergies Allergy/AdvReac Type Severity Reaction Status Date / Time cephalexin [From Keflex] Allergy Mild Rash, Verified 05/09/22 15:02 urticaria Penicillins Allergy Mild Rash Verified 05/09/22 15:02 Fish Containing Products Allergy Unknown Unknown Verified 05/09/22 15:02 fish oil Allergy Unknown Unknown Verified 05/09/22 15:02 dulaglutide [From Trulicity] AdvReac Severe Pancreatiti Verified 05/09/22 15:02 s clarithromycin AdvReac Unknown Vomiting Verified 05/09/22 15:02 Home Meds Home Medications Medication Instructions Recorded Confirmed flash glucose scanning reader 04/14/21 04/17/22 ([employer] Tanmay 14 Day Keno) levothyroxine 50 mcg tablet 50 mcg PO QAM 04/14/21 05/09/22 ropinirole 4 mg tablet 4 mg PO TID 04/14/21 05/09/22 acetaminophen 500 mg tablet 500 mg PO Q4 PRN Pain 01/14/22 05/09/22 lipase 16,800-protease 1 cap PO TIDM 01/14/22 05/09/22 56,800-amylase 98,400 unit capsule, delayed rel (Pancreaze) loratadine 10 mg tablet (Claritin) 10 mg PO DAILY 01/14/22 05/09/22 quetiapine 100 mg tablet 200 mg PO HS 03/01/22 05/09/22 insulin glargine U-300 conc 300 10 unit subcut QAM 04/09/22 05/09/22 unit/mL (3 mL) subcutaneous pen (Toujeo Max U-300 SoloStar) albuterol sulfate 90 mcg/actuation 1 - 2 inh inhalation Q6 PRN as 04/17/22 05/09/22 aerosol inhaler (Ventolin HFA) directed bisacodyl 10 mg rectal suppository 10 mg OK DAILY PRN Constipation 04/17/22 05/09/22 enalapril maleate 20 mg tablet 20 mg PO DAILY 04/17/22 05/09/22 lidocaine-prilocaine 2.5 %-2.5 % 1 applic topical UD 04/17/22 05/09/22 topical cream pantoprazole 40 mg tablet,delayed 40 mg PO BID 04/17/22 05/09/22 release polyethylene glycol 3350 17 17 g PO QAM PRN Constipation 04/17/22 05/09/22 gram/dose oral powder (Miralax) sennosides 8.6 mg tablet (senna) 17.2 mg PO HS 04/17/22 05/09/22 fentanyl 75 mcg/hr transdermal 1 patch transdermal Q72H 06/13/22 06/13/22 patch hydromorphone 4 mg tablet 8 mg PO Q4H PRN Severe Pain (Scale 06/13/22 Score 7-10) lorazepam 1 mg tablet 1 mg PO Q8H PRN anxiety 06/13/22 mirtazapine 15 mg tablet 15 mg PO HS 06/13/22 06/13/22 potassium chloride 10 mEq 10 meq PO BID 06/13/22 06/13/22 tablet,extended release prochlorperazine maleate 10 mg 10 mg PO Q6H PRN Nausea 06/13/22 06/13/22 tablet Previous Rx's Medication Instructions Recorded blood sugar diagnostic (OneTouch #600 ea 05/26/21 Verio test strips) flash glucose sensor (FreeStyle #7 ea 05/26/21 Tanmay 14 Day Sensor kit) flash glucose sensor (FreeStyle #2 ea 01/02/22 Tanmay 2 Sensor kit) pen needle, diabetic 31 gauge x #200 ea 04/05/22 3/16" (BD Ultra-Fine Mini Pen Needle) loperamide 2 mg capsule 2 mg PO Q4H PRN loose stool #10 05/21/22 caps Results & Data (ED) Vital Signs Vital Signs - 24 hr 06/13/22 08:53 06/13/22 09:36 06/13/22 09:50 Temperature 36.5 C Temperature Source Oral Pulse Rate 117 H Pulse Rate [Finger] 91 H Respiratory Rate 18 18 Respiratory Effort / Characteristics Non-Labored Respiratory Depth Normal Blood Pressure 151/94 H Blood Pressure [Right Arm] 128/76 Blood Pressure Mean 113 Blood Pressure Mean [Right Arm] 93 Pulse Oximetry 99 97 99 Oxygen Delivery Method Room Air Room Air Room Air Sepsis Recent Fever Within 48 Hours No Sepsis New/Unexplained Change in Mental Status No Sepsis Action Taken by Nursing No Action Required 06/13/22 10:32 06/13/22 12:24 06/13/22 14:59 Temperature Temperature Source Pulse Rate 72 Pulse Rate [Finger] 81 86 Respiratory Rate 16 14 18 Respiratory Effort / Characteristics Non-Labored Respiratory Depth Normal Normal Blood Pressure Blood Pressure [Right Arm] 118/85 Blood Pressure Mean Blood Pressure Mean [Right Arm] 96 Pulse Oximetry 96 96 99 Oxygen Delivery Method Room Air Room Air Sepsis Recent Fever Within 48 Hours Sepsis New/Unexplained Change in Mental Status Sepsis Action Taken by Long Term Medications Current Medication List: was personally reviewed by me Laboratory Data Attestation: I reviewed the patient's lab results. Result diagrams: 06/13/22 09:36 06/13/22 09:36 Lab Results 06/13/22 06/13/22 06/13/22 Range/Units 09:36 09:36 09:36 WBC 8.89 (4.8-10.8) K/ul RBC 3.88 L (3.93-5.22) M/uL Hgb 12.6 (12.0-16.0) g/dl Hct 38.0 (34.1-44.9) % MCV 97.9 (80.0-100.0) fL MCH 32.5 (25.0-34.0) pg MCHC 33.2 (32.0-36.0) g/dL RDW Std Deviation 50.6 H (36.4-46.3) fL RDW Coeff of Yang 15.4 H (11.5-14.5) % Plt Count 387 (130-400) K/uL MPV 11.1 (9.4-12.3) fL Immature Gran % (Auto) 0.6 % Neut % (Auto) 75.8 % Lymph % (Auto) 10.9 % [place] % (Auto) 12.4 % Eos % (Auto) 0.0 % Baso % (Auto) 0.3 % Neut # (Auto) 6.74 H (1.4-6.5) K/uL Lymph # (Auto) 0.97 L (1.2-3.4) K/uL [place] # (Auto) 1.10 H (0.24-0.82) K/uL Eos # (Auto) 0.00 (0-0.50) K/uL Baso # (Auto) 0.03 (0-0.2) K/uL Immature Gran # (Auto) 0.05 H (0.00-0.02) K/uL Sodium 136 (136-145) mmol/L Potassium 4.1 (3.5-5.1) mmol/L Chloride 97 L (98-107) mmol/L Carbon Dioxide 30 (21-32) mmol/L Anion Gap 9 (3-11) BUN 6 (6-23) mg/dl Creatinine 0.42 L (0.6-1.2) mg/dl Est Cr Clr Drug Dosing 187.9 ml/min Est GFR ( Amer) 144.5 ml/min Est GFR (Non-Af Amer) 124.7 ml/min BUN/Creatinine Ratio 14.3 (10-20) Glucose 191 H (70-99(Fasting)) mg/dl Calcium 8.3 L (8.5-10.1) mg/dl Total Bilirubin 1.3 H (0.2-1.0) mg/dl AST 37 (13-39) U/L ALT 18 (7-52) U/L Alkaline Phosphatase 233 H (34-104) U/L Total Protein 6.5 (6.0-8.3) gm/dl Albumin 2.8 L (3.4-5.0) gm/dl Globulin 3.7 (2.5-4.0) gm/dl Albumin/Globulin Ratio 0.8 L (0.9-2) Lipase < 3 L (11-82) U/L Procalcitonin (0-0.5) ng/ml Urine Color Urine Appearance (Clear) Urine pH (4.5-7.5) Ur Specific [place] (1.000-1.030) Urine Protein (Negative) Urine Glucose (UA) (Negative) Urine Ketones (Negative) Urine Blood (Negative) Urine Nitrite (Negative) Urine Bilirubin (Negative) Urine Urobilinogen (Negative) Ur Leukocyte Esterase (Negative) Urine WBC (Auto) (0-5) /hpf Urine RBC (Auto) (0-4) /hpf U Hyaline Cast (Auto) (0-5) /lpf U Epithel Cells (Auto) (0-5) /lpf Urine Bacteria (Auto) (Negative) Ur Renal Epithelial Cell Urine Mucus (None Prsent) SARS-CoV-2, RNA, NAAT NEGATIVE (NEGATIVE) 06/13/22 06/13/22 Range/Units 09:36 10:35 WBC (4.8-10.8) K/ul RBC (3.93-5.22) M/uL Hgb (12.0-16.0) g/dl Hct (34.1-44.9) % MCV (80.0-100.0) fL MCH (25.0-34.0) pg MCHC (32.0-36.0) g/dL RDW Std Deviation (36.4-46.3) fL RDW Coeff of Yang (11.5-14.5) % Plt Count (130-400) K/uL MPV (9.4-12.3) fL Immature Gran % (Auto) % Neut % (Auto) % Lymph % (Auto) % [place] % (Auto) % Eos % (Auto) % Baso % (Auto) % Neut # (Auto) (1.4-6.5) K/uL Lymph # (Auto) (1.2-3.4) K/uL [place] # (Auto) (0.24-0.82) K/uL Eos # (Auto) (0-0.50) K/uL Baso # (Auto) (0-0.2) K/uL Immature Gran # (Auto) (0.00-0.02) K/uL Sodium (136-145) mmol/L Potassium (3.5-5.1) mmol/L Chloride (98-107) mmol/L Carbon Dioxide (21-32) mmol/L Anion Gap (3-11) BUN (6-23) mg/dl Creatinine (0.6-1.2) mg/dl Est Cr Clr Drug Dosing ml/min Est GFR ( Amer) ml/min Est GFR (Non-Af Amer) ml/min BUN/Creatinine Ratio (10-20) Glucose (70-99(Fasting)) mg/dl Calcium (8.5-10.1) mg/dl Total Bilirubin (0.2-1.0) mg/dl AST (13-39) U/L ALT (7-52) U/L Alkaline Phosphatase (34-104) U/L Total Protein (6.0-8.3) gm/dl Albumin (3.4-5.0) gm/dl Globulin (2.5-4.0) gm/dl Albumin/Globulin Ratio (0.9-2) Lipase (11-82) U/L Procalcitonin 0.56 H (0-0.5) ng/ml Urine Color Dark Yellow Urine Appearance Clear (Clear) Urine pH 8.0 H (4.5-7.5) Ur Specific [place] 1.023 (1.000-1.030) Urine Protein 1+ H (Negative) Urine Glucose (UA) Negative (Negative) Urine Ketones 1+ H (Negative) Urine Blood Negative (Negative) Urine Nitrite Positive A (Negative) Urine Bilirubin 1+ H (Negative) Urine Urobilinogen Negative (Negative) Ur Leukocyte Esterase 1+ H (Negative) Urine WBC (Auto) 1-5 (0-5) /hpf Urine RBC (Auto) 0-4 (0-4) /hpf U Hyaline Cast (Auto) 1-5 (0-5) /lpf U Epithel Cells (Auto) >30 H (0-5) /lpf Urine Bacteria (Auto) Negative (Negative) Ur Renal Epithelial Cell Not Reportable Urine Mucus Present A (None Prsent) SARS-CoV-2, RNA, NAAT (NEGATIVE) Administered Medications Discontinued Medications Diphenhydramine HCl (Diphenhydramine 50 Mg/Ml Vial) 25 mg IV NOW STA Stop: 06/13/22 12:45 Last Admin: 06/13/22 13:06 Dose: 25 mg Documented By: KT Hydromorphone HCl (Hydromorphone Inj 0.5 Mg/0.5 Ml Syr) 1 mg IV NOW STA Stop: 06/13/22 09:18 Last Admin: 06/13/22 09:34 Dose: 1 mg Documented By: JAIRON Hydromorphone HCl (Hydromorphone Inj 1 Mg/Ml Syringe) 1 mg IV NOW STA Stop: 06/13/22 11:43 Last Admin: 06/13/22 12:20 Dose: 1 mg Documented By: CHRISTAL Hydromorphone HCl (Hydromorphone Inj 1 Mg/Ml Syringe) 1 mg IV NOW STA Stop: 06/13/22 12:45 Last Admin: 06/13/22 13:07 Dose: 1 mg Documented By: RAFAEL Sodium Chloride (Nss 1000ml) 1,000 mls @ 999 mls/hr IV .Q1H1M STA Stop: 06/13/22 10:17 Last Infusion: 06/13/22 10:33 Dose: 0 mls/hr Documented By: Admin: 06/13/22 09:34 Dose: 999 mls/hr Documented By: JAIRON Promethazine HCl (Phenergan) 12.5 mg in 50.5 mls @ 202 mls/hr IV NOW STA Stop: 06/13/22 09:31 Last Infusion: 06/13/22 09:50 Dose: 0 mls/hr Documented By: Admin: 06/13/22 09:34 Dose: 202 mls/hr Documented By: JAIRON Sodium Chloride (Nss 1000ml) 1,000 mls @ 999 mls/hr IV .Q1H1M ONE Stop: 06/13/22 12:42 Last Infusion: 06/13/22 13:22 Dose: 0 mls/hr Documented By: Admin: 06/13/22 12:21 Dose: 999 mls/hr Documented By: CHRISTAL Promethazine HCl (Phenergan) 25 mg in 51 mls @ 204 mls/hr IV NOW STA Stop: 06/13/22 11:56 Last Infusion: 06/13/22 12:35 Dose: 0 mls/hr Documented By: Admin: 06/13/22 12:20 Dose: 204 mls/hr Documented By: CHRISTAL Prochlorperazine (Compazine) 2 mls @ 1 mls/min IV ONE ONE Stop: 06/13/22 12:45 Last Admin: 06/13/22 13:06 Dose: 1 mls/min Documented By: RAFAEL Cefepime HCl (Maxipime) 2,000 mg in 20 mls @ 5 mls/min IV NOW STA; Protocol Stop: 06/13/22 12:47 Last Admin: 06/13/22 13:07 Dose: 5 mls/min Documented By: RAFAEL Metronidazole (Flagyl) 500 mg in 100 mls @ 100 mls/hr IV NOW STA Stop: 06/13/22 13:43 Last Admin: 06/13/22 13:59 Dose: 100 mls/hr Documented By: MATT Ioversol (Optiray 350 100ml) 85 ml IV ONCE ONE Stop: 06/13/22 10:50 Last Admin: 06/13/22 10:45 Dose: 85 ml Documented By: ELOISA Imaging Data Radiologist's Impression: Abdomen/Pelvis CT 06/13/22 09:17 CT SCAN OF THE ABDOMEN AND PELVIS WITH IV CONTRAST CLINICAL HISTORY: Upper abdominal pain. Nausea and vomiting. History of pancreatic cancer. COMPARISON STUDY: Abdominal CT dated 05/09/2022. TECHNIQUE: Following the IV administration of 85 cc of Optiray 350, CT scan of the abdomen and pelvis is performed from the lung bases to the proximal femora. Images are reviewed in the axial, sagittal, and coronal planes. IV contrast was administered without complication. A dose lowering technique was utilized adhering to the principles of ALARA. CT DOSE: 509.64 mGy.cm FINDINGS: Lung bases: Degenerative central venous infusion port terminates at the c avoatrial junction. The heart is normal in size there is a small to moderate pericardial effusion. The coronary arteries are densely calcified. The lung bases are clear noting bibasilar scarring/atelectasis. There is a small hiatal hernia. Liver: The contrast-enhanced liver is mildly enlarged, measuring 18.5 cm length. Hepatic attenuation is markedly heterogeneous and diminished indicating steatosis. There is minimal intrahepatic biliary ductal dilatation. Pneumobilia is noted. A 2.4 cm lesion is again seen along the right lobe capsule on image #161. This has decreased in size as compared to 05/09/2022. There are several low attenuation lesions suggested throughout the liver seen on images #73, #118 , #133, and #147. Hepatic and portal vasculature: There is near complete to complete occlusion at the portal splenic confluence. The main portal vein is patent, as are the intrahepatic portal branches. The superior mesenteric vein is patent below the confluence, as is the majority of the splenic vein. Gallbladder: The gallbladder is mildly distended. There is nonspecific bladder wall thickening and hyperemia. Intraluminal gas is observed. A common bile duct stent is in place. Gas within the lumen of the stent indicates patency. Spleen: The spleen is enlarged measuring 16.6 cm in length. Pancreas: An ill-defined/infiltrative pancreatic head mass is again noted. This measures at least 2 cm in maximum dimension as seen on image #178. There is significant peripancreatic inflammation and fluid, which is new from 05/09/2022. The appearance is typical for acute pancreatitis. The distal pancreatic duct is mildly dilated, measuring up to 5 mm in diameter. A 2.5 cm perfusion defect within the pancreatic body is seen on image #165. This likely represents an additional pancreatic mass lesion when compared to previous, possibly with interval necrosis. No organized peripancreatic fluid collection is identified. Adrenal glands: Unremarkable. Kidneys: The contrast enhanced kidneys are normal in size and without hydronephrosis. The kidneys enhance symmetrically. There is significant focal narrowing of the left renal vein posterior to the pancreatic head mass. Abdominal vasculature: The abdominal aorta is normal in course and caliber noting moderate atherosclerotic calcification. Bowel: There is no bowel obstruction. Liquid stool is seen throughout the colon. Wall thickening/inflammation of the duodenum is likely related to adjacent pancreatitis. The appendix is well-visualized and normal. Peritoneum: There is trace perihepatic ascites, status post trace free fluid in the pelvis. No intraperitoneal free air is seen. A 1.5 cm lesion is seen along the falx or ligament on image #143. Lymphadenopathy: There are mildly enlarged peripancreatic lymph nodes which measure up to 1.0 cm in short axis. Pelvic viscera: The bladder is decompressed and appears thick walled. There are calcified uterine fibroids. No adnexal lesion is seen. Skeletal structures: The skeletal structures are osteopenic. There is mild to moderate lumbosacral spondylosis. A large posterior discussed by complex is seen at L5-S1. No lytic or blastic lesions are seen. There are subacute right posterior rib fractures. IMPRESSION: 1. There is evidence of severe acute pancreatitis. Correlate with clinical findings and serum amylase/lipase levels. 2. There are at least 2 pancreatic mass lesions. These appear to show interval necrosis, and this may be treatment related. Clinical correlation will be required. 3. Enlarged, steatotic, and markedly heterogeneous liver. 4. A common bile duct stent is in place. Gas within the stent and pneumobilia suggest patency of the stent. 5. Although not well assessed due to marked hepatic heterogeneity, there are several low-attenuation lesions suggested throughout the liver. These were not clearly seen previously. Additionally, the gallbladder wall is thickened and hyperemic with intraluminal gas. These findings are nonspecific and the hepatic heterogeneity could be related to treated metastatic disease. In the appropriate clinical setting ascending cholangitis would be impossible to exclude. Clinical and laboratory correlation will be essential. 6. There are mildly enlarged perihepatic lymph nodes. 7. A capsular lesion along the right lobe of liver has modestly decreased in size from previous. An implant is also seen along the falciform ligament. 8. There is near-complete to complete occlusion at the portosplenic confluence. This represents a significant change from 05/09/2022. No intraluminal thrombus is identified. 9. There is marked narrowing of the left renal vein as it passes posterior to the pancreas. 10. Trace abdominopelvic ascites. 9. Liquid stool is seen throughout the colon. Correlate clinically for evidence of a diarrheal illness. 10. The bladder is decompressed and appears thick-walled. Correlate with urinalysis. 11. Splenomegaly. 12. Additional findings as above. ACT 112: Negative or not required by law. Electronically signed by: Geoff Ramirez M.D. 06/13/2022 11:18 AM Discharge Plan Visit Data Chief Complaint: Vomiting Stated Complaint: STAGE 4 CANCER, VOMITING, JUST NOT FEELING WELL ED Provider: Jose Stout Discharge Problem: Acute pancreatitis, Pancreatic cancer, Abdominal pain Patient Disposition: Admitted As Inpatient Discharge Instructions Interventions: ED Discharge Assessment Last Done: 06/13/22 14:59 Forms Stand Alone Forms: Fetch It Prescriptions Prescriptions: No Action (DME) OneTouch Verio test strips Strip See Rx Instructions .Route Qty: 600 3RF Rx Instructions: Test six times daily (DME) FreeStyle Tanmay 14 Day Sensor Kit See Rx Instructions .Route Qty: 7 3RF Rx Instructions: Change every 14 days (DME) pen needle, diabetic [BD Ultra-Fine Mini Pen Needle] 31 gauge x 3/16" needle See Rx Instructions .Route Qty: 200 5RF Rx Instructions: use 4 needles daily (DME) FreeStyle Tanmay 2 Sensor Kit See Rx Instructions .Route Qty: 2 11RF Rx Instructions: Change every 14 days levothyroxine 50 mcg tablet 50 mcg PO QAM ropinirole 4 mg tablet 4 mg PO TID (DME) FreeStyle Tanmay 14 Day Keno Misc See Rx Instructions .Route Rx Instructions: As directed sennosides [senna] 8.6 mg tablet 17.2 mg PO HS polyethylene glycol 3350 [Miralax] 17 gram/dose Powder 17 g PO QAM PRN (Reason: Constipation) bisacodyl 10 mg Suppository 10 mg OK DAILY MDD dont use morne than 1 a week PRN (Reason: Constipation) enalapril maleate 20 mg tablet 20 mg PO DAILY pantoprazole 40 mg tablet,delayed release (DR/EC) 40 mg PO BID albuterol sulfate [Ventolin HFA] 90 mcg/actuation Hfa Aerosol Inhaler 1 - 2 inh INHALATION Q6 PRN (Reason: as directed) lidocaine-prilocaine 2.5-2.5 % cream 1 applic topical UD Rx Instructions: apply to affectd area as needed for pain. appyl to skin over mediport & cover 1 hour prior to accessing loperamide 2 mg Capsule 2 mg PO Q4H PRN (Reason: loose stool) Qty: 10 0RF fentanyl 75 mcg/hr Patch 72 Hour 1 patch TRANSDERMAL Q72H lorazepam 1 mg tablet 1 mg PO Q8H PRN (Reason: anxiety) hydromorphone 4 mg tablet 8 mg PO Q4H PRN (Reason: Severe Pain (Scale Score 7-10)) potassium chloride 10 mEq tablet extended release 10 meq PO BID prochlorperazine maleate 10 mg tablet 10 mg PO Q6H PRN (Reason: Nausea) mirtazapine 15 mg tablet 15 mg PO HS Pancreaze 16,800-56,800- 98,400 unit capsule,delayed release(DR/EC) 1 cap PO TIDM acetaminophen 500 mg Tablet 500 mg PO Q4 MDD 3g PRN (Reason: Pain) Rx Instructions: take 2 caps every 8 hour for 3 days ,then 1 cap every 4 hours as needed for p ain. do not exceed 3000mg every 24 hours ordered 01/12/22 loratadine [Claritin] 10 mg Tablet 10 mg PO DAILY quetiapine 100 mg tablet 200 mg PO HS Toujeo Max U-300 SoloStar 300 unit/mL (3 mL) insulin pen 10 unit SUBCUT QAM Referrals Referrals: Dhruv Hawley MD [Primary Care Provider] -
[2022-06-13] MEDS ORDERED: PROMETHAZINE 12.5 MG/50.5 ML BAG IV STA (09:17)
[2022-06-13] MEDS ORDERED: HYDROmorphone INJ 0.5 MG/0.5 ML SYR IV STA ×2 (09:17→20:35)
[2022-06-13] MEDS ORDERED: SODIUM CHLORIDE 0.9% 1000ML 1,000 ML IV STA (09:17)
[2022-06-13 09:52] LABS: Basophils # (auto) 0.03 K/uL (0-0.2); Basophils % (auto) 0.3 %; Hemoglobin 12.6 g/dl (12.0-16.0); Immature Granulocytes # (auto) 0.05 K/uL (0.00-0.02); Immature Granulocytes % (auto) 0.6 %; Lymphocytes # (auto) 0.97 K/uL (1.2-3.4); Lymphocytes % (auto) 10.9 %; Mean Corpuscular Hemoglobin 32.5 pg (25.0-34.0); Mean Corpuscular Hgb Conc 33.2 g/dL (32.0-36.0); Mean Corpuscular Volume 97.9 fL (80.0-100.0); Mean Platelet Volume 11.1 fL (9.4-12.3); Monocytes % (auto) 12.4 %; Neutrophils # (auto) 6.74 K/uL (1.4-6.5); Neutrophils % (auto) 75.8 %; Platelet Count 387 K/uL (130-400); RDW Coefficient of Variation 15.4 % (11.5-14.5); RDW Standard Deviation 50.6 fL (36.4-46.3); Red Blood Count 3.88 M/uL (3.93-5.22); White Blood Count 8.89 K/ul (4.8-10.8)
[2022-06-13 10:10] LABS: Anion Gap 9 (3-11); BUN Creatinine Ratio 14.3 (10-20); Blood Urea Nitrogen 6 mg/dl (6-23); Calcium 8.3 mg/dl (8.5-10.1); Carbon Dioxide 30 mmol/L (21-32); Chloride 97 mmol/L (98-107); Creatinine Clr Calc Pharmacy 187.9 ml/min; Est GFR (African American) 144.5 ml/min; Est GFR (Non-African American) 124.7 ml/min; Glucose 191 mg/dl (70-99(Fasting)); Potassium 4.1 mmol/L (3.5-5.1); Sodium 136 mmol/L (136-145)
[2022-06-13 10:13] LABS: Alanine Aminotransferase 18 U/L (7-52); Albumin Globulin Ratio 0.8 (0.9-2); Albumin Level 2.8 gm/dl (3.4-5.0); Alkaline Phosphatase 233 U/L (34-104); Aspartate Aminotransferase 37 U/L (13-39); Bilirubin,Total 1.3 mg/dl (0.2-1.0); Globulin 3.7 gm/dl (2.5-4.0); Lipase < 3 U/L (11-82); Total Protein 6.5 gm/dl (6.0-8.3)
[2022-06-13] MEDS ORDERED: OPTIRAY 350 100ml IV ONE (10:49)
[2022-06-13 10:55] LABS: Appearance Urine Clear (Clear); Bacteria Urine Automated Negative (Negative); Blood Urine Negative (Negative); Color Urine Dark Yellow; Epithelial Cell Urine Auto >30 /lpf (0-5); Glucose Urine UA Negative (Negative); Ketones Urine 1+ (Negative); Leukocyte Esterase Urine 1+ (Negative); Nitrite Urine Positive (Negative); RBC Urine Automated 0-4 /hpf (0-4); Specific Gravity Urine 1.023 (1.000-1.030); Urobilinogen Urine Negative (Negative)
[2022-06-13 11:16] LABS: Bilirubin Urine 1+ (Negative); Protein Urine 1+ (Negative)
--- NOTE | 2022-06-13 11:20 | CT Scan Report ---
CT SCAN OF THE ABDOMEN AND PELVIS WITH IV CONTRAST CLINICAL HISTORY: Upper abdominal pain. Nausea and vomiting. History of pancreatic cancer. COMPARISON STUDY: Abdominal CT dated 05/09/2022. TECHNIQUE: Following the IV administration of 85 cc of Optiray 350, CT scan of the abdomen and pelvi s is performed from the lung bases to the proximal femora. Images are reviewed in the axial, sagittal , and coronal planes. IV contrast was administered without complication. A dose lowering technique wa s utilized adhering to the principles of ALARA. CT DOSE: 509.64 mGy.cm FINDINGS: Lung bases: Degenerative central venous infusion port terminates at the cavoatrial junction. The hear t is normal in size there is a small to moderate pericardial effusion. The coronary arteries are dens woody calcified. The lung bases are clear noting bibasilar scarring/atelectasis. There is a small hiata l hernia. Liver: The contrast-enhanced liver is mildly enlarged, measuring 18.5 cm length. Hepatic attenuation is markedly heterogeneous and diminished indicating steatosis. There is minimal intrahepatic biliary ductal dilatation. Pneumobilia is noted. A 2.4 cm lesion is again seen along the right lobe capsule o n image #161. This has decreased in size as compared to 05/09/2022. There are several low attenuation lesions suggested throughout the liver seen on images #73, #118 , #133, and #147. Hepatic and portal vasculature: There is near complete to complete occlusion at the portal splenic co nfluence. The main portal vein is patent, as are the intrahepatic portal branches. The superior mesen teric vein is patent below the confluence, as is the majority of the splenic vein. Gallbladder: The gallbladder is mildly distended. There is nonspecific bladder wall thickening and hy peremia. Intraluminal gas is observed. A common bile duct stent is in place. Gas within the lumen of the stent indicates patency. Spleen: The spleen is enlarged measuring 16.6 cm in length. Pancreas: An ill-defined/infiltrative pancreatic head mass is again noted. This measures at least 2 c m in maximum dimension as seen on image #178. There is significant peripancreatic inflammation and fl uid, which is new from 05/09/2022. The appearance is typical for acute pancreatitis. The distal pancre atic duct is mildly dilated, measuring up to 5 mm in diameter. A 2.5 cm perfusion defect within the p ancreatic body is seen on image #165. This likely represents an additional pancreatic mass lesion whe n compared to previous, possibly with interval necrosis. No organized peripancreatic fluid collection is identified. Adrenal glands: Unremarkable. Kidneys: The contrast enhanced kidneys are normal in size and without hydronephrosis. The kidneys enh ance symmetrically. There is significant focal narrowing of the left renal vein posterior to the panc reatic head mass. Abdominal vasculature: The abdominal aorta is normal in course and caliber noting moderate atheroscle rotic calcification. Bowel: There is no bowel obstruction. Liquid stool is seen throughout the colon. Wall thickening/infl ammation of the duodenum is likely related to adjacent pancreatitis. The appendix is well-visualized and normal. Peritoneum: There is trace perihepatic ascites, status post trace free fluid in the pelvis. No intrap eritoneal free air is seen. A 1.5 cm lesion is seen along the falx or ligament on image #143. Lymphadenopathy: There are mildly enlarged peripancreatic lymph nodes which measure up to 1.0 cm in s hort axis. Pelvic viscera: The bladder is decompressed and appears thick walled. There are calcified uterine fib roids. No adnexal lesion is seen. Skeletal structures: The skeletal structures are osteopenic. There is mild to moderate lumbosacral sp ondylosis. A large posterior discussed by complex is seen at L5-S1. No lytic or blastic lesions are s een. There are subacute right posterior rib fractures. IMPRESSION: 1. There is evidence of severe acute pancreatitis. Correlate with clinical findings and serum amylase /lipase levels. 2. There are at least 2 pancreatic mass lesions. These appear to show interval necrosis, and this may be treatment related. Clinical correlation will be required. 3. Enlarged, steatotic, and markedly heterogeneous liver. 4. A common bile duct stent is in place. Gas within the stent and pneumobilia suggest patency of the stent. 5. Although not well assessed due to marked hepatic heterogeneity, there are several low-attenuation lesions suggested throughout the liver. These were not clearly seen previously. Additionally, the gal lbladder wall is thickened and hyperemic with intraluminal gas. These findings are nonspecific and th e hepatic heterogeneity could be related to treated metastatic disease. In the appropriate clinical s etting ascending cholangitis would be impossible to exclude. Clinical and laboratory correlation will be essential. 6. There are mildly enlarged perihepatic lymph nodes. 7. A capsular lesion along the right lobe of liver has modestly decreased in size from previous. An i mplant is also seen along the falciform ligament. 8. There is near-complete to complete occlusion at the portosplenic confluence. This represents a sig nificant change from 05/09/2022. No intraluminal thrombus is identified. 9. There is marked narrowing of the left renal vein as it passes posterior to the pancreas. 10. Trace abdominopelvic ascites. 9. Liquid stool is seen throughout the colon. Correlate clinically for evidence of a diarrheal illnes s. 10. The bladder is decompressed and appears thick-walled. Correlate with urinalysis. 11. Splenomegaly. 12. Additional findings as above. ACT 112: Negative or not required by law. Electronically signed by: Geoff Ramirez M.D. 06/13/2022 11:18 AM
[2022-06-13 11:21] LABS: Mucus Urine Present (None Prsent)
[2022-06-13] MEDS ORDERED: SODIUM CHLORIDE 0.9% 1000ML 1,000 ML IV ONE (11:42)
[2022-06-13] MEDS ORDERED: PROMETHAZINE 25 MG/51 ML BAG IV STA (11:42)
[2022-06-13] MEDS ORDERED: HYDROmorphone INJ 1 MG/ML SYRINGE IV STA ×2 (11:42→12:44)
[2022-06-13] MEDS ORDERED: metroNIDAZOLE 500 MG/100 ML BAG IV STA (12:44)
[2022-06-13] MEDS ORDERED: PROCHLORPERAZINE 2 ML IV ONE (12:44)
[2022-06-13] MEDS ORDERED: CEFEPIME 2,000 MG/20 ML VIAL IV STA (12:44)
[2022-06-13] MEDS ORDERED: diphenhydrAMINE 50 MG/ML VIAL IV STA (12:44)
[2022-06-13] MEDS ORDERED: VANCOMYCIN CONSULT ACTIVE PRN (13:31)
[2022-06-13] MEDS ORDERED: VANCOMYCIN HCL 2,000 MG in SODIUM CHLORIDE 0.9% 500 ML IV ONE (13:31)
--- NOTE | 2022-06-13 13:53 | History & Physical Report ---
Date of Service June 13, 2022 Assessment & Plan (1) Abdominal pain: (2) Acute pancreatitis: Plan: This is a 42-year-old female who has a significant past medical history of metastatic adenocarcinoma of pancreas currently on chemotherapy with mets to liver, complex hepatic abscess currently on IV antibiotics, insulin-dependent T2DM, HTN, HLD, chronic pain in setting of malignancy, PCMpresented to ER with complaint of increased abdominal pain, chronic nausea, vomiting In ER vital stable. No leukocytosis, alk phos: 233, AST and ALT WNL, lipase <3 CT abdomen pelvis: 1. There is evidence of severe acute pancreatitis. Correlate with clinical findings and serum amylase/lipase levels. 2. There are at least 2 pancreatic mass lesions. These appear to show interval necrosis, and this may be treatment related. Clinical correlation will be required. 3. Enlarged, steatotic, and markedly heterogeneous liver. 4. A common bile duct stent is in place. Gas within the stent and pneumobilia suggest patency of the stent. 5. Although not well assessed due to marked hepatic heterogeneity, there are several low-attenuation lesions suggested throughout the liver. These were not clearly seen previously. Additionally, the gallbladder wall is thickened and hyperemic with intraluminal gas. These findings are nonspecific and the hepatic heterogeneity could be related to treated metastatic disease. In the appropriate clinical setting ascending cholangitis would be impossible to exclude. Clinical and laboratory correlation will be essential. 6. There are mildly enlarged perihepatic lymph nodes. 7. A capsular lesion along the right lobe of liver has modestly decreased in size from previous. An implant is also seen along the falciform ligament. 8. There is near-complete to complete occlusion at the portosplenic confluence. This represents a significant change from 05/09/2022. No intraluminal thrombus is identified. 9. There is marked narrowing of the left renal vein as it passes posterior to the pancreas. 10. Trace abdominopelvic ascites. 9. Liquid stool is seen throughout the colon. Correlate clinically for evidence of a diarrheal illness. 10. The bladder is decompressed and appears thick-walled. Correlate with urinalysis. 11. Splenomegaly. ?acute pancreatitis ?cholecystitis, cholangitis Blood cultures pending In ER given cefepime, Flagyl, vancomycin General surgery consult. Had suggested GI consult if there is concern for ascending cholangitis, and recommended HIDA scan to further assess gallbladder. If there is evidence of cholecystitis then she would need percutaneous cholecystostomy tube as she is not a surgical candidate at this facility. GI consult. ER physician spoke to on-call who had recommended HIDA scan. HIDA scan unable to be completed currently Continue cefepime, Flagyl IVF Clear liquid diet Hold home oral Dilaudid and changed to IV Dilaudid. Continue home fentanyl patch Palliative care consult CBC, CMP, lipase in a.m. (3) Metastatic adenocarcinoma to pancreas: Plan: Metastasis to Liver Following with [facility] oncology Last chemo on 05/31/2022 Following with [facility] palliative care. Had Telemedicine appointment on 06/12/2022 and was discussed to stop Compazine, add scopolamine patch, and can use Reglan as needed however patient did not start the new medications yet Hepatic Abscess IR drain placed on 04/18, cultures grew Klebsiella and E. coli. Was treated with IV Rocephin, finished on 05/17/2022 Drain was removed on 05/14/2022 Uncontrolled T2DM, insulin dependent A1c: 6.2 on 05/10/2022 Hold home insulin Basal bolus insulin per protocol HTN continue enalapril Anxiety Continue home meds DVT Prophylaxis Lovenox SQ Full Code as per discussion with pt Follows with Dr Hawley for routine care Pt was seen and care coordinated with Dr Gonzalez. See addendum History of Present Illness Chief Complaint: abdominal pain Primary Care Provider: Dhruv Hawley MD This is a 42-year-old female who has a significant past medical history of metastatic adenocarcinoma of pancreas currently on chemotherapy with mets to liver, complex hepatic abscess currently on IV antibiotics, insulin-dependent T2DM, HTN, HLD, chronic pain in setting of malignancy, PCMpresented to ER with complaint of abdominal pain. Patient with chronic abdominal pain, nausea, vomiting secondary to her underlying cancer. Reports past 9 days upper abdominal pain with some intermittent diffuse abdominal pain. Reports chronic nausea and vomiting but feels more nauseated. Home antiemetics and pain med ications with limited relief. Has chronic loose stool. Had BM today. Denies any increased bowel movements, hematochezia or melena. Denies hematochezia. Chronic lethargy and dizziness with standing. Denies fall since recent discharge. Recent hospitalization at [facility] on 04/17-04/23 secondary to complex hepatic abscess. She required hepatic percutaneous drain placement on 04/18/22 and was evaluated by ID and was placed on IV ceftriaxone 2 g daily until 05/17/22. Admission at [facility] 05/09/2022-05/21/2022 after fall and right 10-12 rib fractures. During that admission her hepatic abscess drain was removed on 05/14/2022 and IV ceftriaxone course was completed. Was having intractable pain and her home morphine was discontinued and she was started on fentanyl patch and Dilaudid for breakthrough pain as well as Ativan as needed for anxiety. Following with [facility] palliative care. Telemedicine appointment on 06/12/2022 and was discussed to stop Compazine, add scopolamine patch, and can use Reglan as needed for nausea, however patient has not started these medications yet. Following with Dr Bahena, [facility] oncology. Last chemo 05/31/2022-gemcitabine. Was due for chemo 06/14/22. She reports had second opinion at [facility] however was told to continue current treatment until it is not helping anymore and then reconsider evaluation there again. Denies fever/chills, diaphoresis, VENTURA, syncope, vision changes, neck pain, CP, SOB, orthopnea, palpitations, cough, sore throat, choking, otalgia, rhinorrhea, extremity edema, rashes, urinary symptoms. Allergies Allergy/AdvReac Type Severity Reaction Status Date / Time cephalexin [From Keflex] Allergy Mild Rash, Verified 05/09/22 15:02 urticaria Penicillins Allergy Mild Rash Verified 05/09/22 15:02 Fish Containing Products Allergy Unknown Unknown Verified 05/09/22 15:02 fish oil Allergy Unknown Unknown Verified 05/09/22 15:02 dulaglutide [facility] AdvReac Severe Pancreatiti Verified 05/09/22 15:02 s clarithromycin AdvReac Unknown Vomiting Verified 05/09/22 15:02 Home Medications Medication Instructions Recorded Confirmed Type flash glucose scanning reader 04/14/21 06/13/22 History (Accruityle Tanmay 14 Day Wesley) levothyroxine 50 mcg tablet 50 mcg PO QAM 04/14/21 06/13/22 History ropinirole 4 mg tablet 4 mg PO TID 04/14/21 06/13/22 History blood sugar diagnostic (freeeTouch #600 ea 05/26/21 06/13/22 Rx Verio test strips) flash glucose sensor (Bestofmedia GroupStyle #7 ea 05/26/21 06/13/22 Rx Tanmay 14 Day Sensor kit) flash glucose sensor (FreeStyle #2 ea 01/02/22 06/13/22 Rx Tanmay 2 Sensor kit) acetaminophen 500 mg tablet 500 mg PO Q4 PRN Pain 01/14/22 06/13/22 History lipase 16,800-protease 1 cap PO TIDM 01/14/22 06/13/22 History 56,800-amylase 98,400 unit capsule, delayed rel (Pancreaze) loratadine 10 mg tablet (Claritin) 10 mg PO DAILY 01/14/22 06/13/22 History pen needle, diabetic 31 gauge x #200 ea 04/05/22 06/13/22 Rx 3/16" (BD Ultra-Fine Mini Pen Needle) insulin glargine U-300 conc 300 10 unit subcut QAM 04/09/22 06/13/22 History unit/mL (3 mL) subcutaneous pen (Toujeo Max U-300 SoloStar) albuterol sulfate 90 mcg/actuation 1 - 2 inh inhalation Q6 PRN as 04/17/22 06/13/22 History aerosol inhaler (Ventolin HFA) directed bisacodyl 10 mg rectal suppository 10 mg MD DAILY PRN Constipation 04/17/22 06/13/22 History enalapril maleate 20 mg tablet 20 mg PO DAILY 04/17/22 06/13/22 History lidocaine-prilocaine 2.5 %-2.5 % 1 applic topical UD 04/17/22 06/13/22 History topical cream pantoprazole 40 mg tablet,delayed 40 mg PO BID 04/17/22 06/13/22 History release polyethylene glycol 3350 17 17 g PO QAM PRN Constipation 04/17/22 06/13/22 History gram/dose oral powder (Miralax) sennosides 8.6 mg tablet (senna) 17.2 mg PO HS 04/17/22 06/13/22 History loperamide 2 mg capsule 2 mg PO Q4H PRN loose stool #10 05/21/22 06/13/22 Rx caps fentanyl 75 mcg/hr transdermal 1 patch transdermal Q72H 06/13/22 06/13/22 History patch hydromorphone 4 mg tablet 8 mg PO Q4H PRN Severe Pain (Scale 06/13/22 06/13/22 History Score 7-10) lorazepam 1 mg tablet 1 mg PO Q8H PRN anxiety 06/13/22 06/13/22 History mirtazapine 15 mg tablet 15 mg PO HS 06/13/22 06/13/22 History potassium chloride 10 mEq 10 meq PO BID 06/13/22 06/13/22 History tablet,extended release prochlorperazine maleate 10 mg 10 mg PO Q6H PRN Nausea 06/13/22 06/13/22 History tablet Past Med/Surg History Medical History Advanced care planning/counseling discussion Allergy-induced asthma rare inhaler use Depression with anxiety Diabetes mellitus, type 2 IDDM Dyslipidemia Fall Hemothorax Hypertension Hypothyroidism Lumbosacral pain Nausea Nausea and vomiting Obesity Palliative care encounter Pancreatic cancer + current chemo, follows with [facility] heme/onc PCOS (polycystic ovarian syndrome) Therapeutic opioid-induced constipation (OIC) Surgical History History of ERCP ERCP (06/2021) & EUS/ERCP (04/28/21): Good view with glidescope #3, ETT 7.0 at [facility] History of tonsillectomy History of umbilical hernia repair History of vascular access device A PORT INSERTION History of wisdom tooth extraction Nausea and vomiting after administration of anesthetic agent Family History Brother Diabetes Hypertension Father Hypertension Aunt Diabetes Grandmother (Maternal) Diabetes Other No family history of adverse response to anesthesia Social History Smoking Status: Current some day smoker Tobacco Type: Cigarettes packs per day: 1; Cigarettes Per Day: 20; Second Hand Exposure: No; Hx Alcohol Use: No Hx Substance Use: Yes (medical marijuana) Last Used Substance: Days (ago) Last Used Substance Other:: 2 days ago Preferred Language: [place]i Communication Ability: Effective 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 Other Information That Helps Us Care for You: No Feels Safe at Home: Yes Safety Concerns: Feels Safe At This Time Assistive Devices: Cane and Glasses Review of Systems Review of Systems: All systems reviewed & are unremarkable except as noted in HPI & below Physical Exam Physical Exam: General: chronic ill appearing, mild distress, WDWN Head: normocephalic, atraumatic Eyes: conjunctiva non-injected, anicteric ENT: normal inspection external ears, nose, mucous membranes moist Neck: supple, trachea midline Lungs: clear, no respiratory distress, no wheezing/rhonchi/rales CV: RRR, no murmur, no pretibial edema Abd: normal BS, healed surgical incision mid abdomen, soft, +tender to palpation diffusely, worse to RUQ, epigastric region Ext: no cyanosis, no calf tenderness Neuro: A&O x 3, no focal deficits noted, normal affect Skin: warm, dry Results & Data Results & Data ([facility]) Vital Signs (Past 12 Hours) Vital Signs Temp Pulse Pulse Resp BP BP Pulse Ox 06/13/22 12:24 86 14 96 06/13/22 10:32 81 16 118/85 96 06/13/22 09:50 91 H 18 128/76 99 06/13/22 09:36 97 06/13/22 08:53 36.5 C 117 H 18 151/94 H 99 O2 Del Method 06/13/22 12:24 06/13/22 10:32 Room Air 06/13/22 09:50 Room Air 06/13/22 09:36 Room Air 06/13/22 08:53 Room Air Laboratory Results Short CBC 06/13/22 Range/Units 09:36 WBC 8.89 (4.8-10.8) K/ul Hgb 12.6 (12.0-16.0) g/dl Hct 38.0 (34.1-44.9) % Plt Count 387 (130-400) K/uL BMP 06/13/22 09:36 Sodium 136 Potassium 4.1 Chloride 97 L Carbon Dioxide 30 BUN 6 Creatinine 0.42 L Glucose 191 H Calcium 8.3 L Liver Function 06/13/22 Range/Units 09:36 Total Bilirubin 1.3 H (0.2-1.0) mg/dl AST 37 (13-39) U/L ALT 18 (7-52) U/L Alkaline Phosphatase 233 H (34-104) U/L Albumin 2.8 L (3.4-5.0) gm/dl Urine 06/13/22 Range/Units 10:35 Urine Color Dark Yellow Urine Appearance Clear (Clear) Urine pH 8.0 H (4.5-7.5) Ur Specific [place] 1.023 (1.000-1.030) Urine Protein 1+ H (Negative) Urine Glucose (UA) Negative (Negative) Diagnostic Findings Abdomen/Pelvis CT 06/13/22 09:17 CT SCAN OF THE ABDOMEN AND PELVIS WITH IV CONTRAST CLINICAL HISTORY: Upper abdominal pain. Nausea and vomiting. History of pancreatic cancer. COMPARISON STUDY: Abdominal CT dated 05/09/2022. TECHNIQUE: Following the IV administration of 85 cc of Optiray 350, CT scan of the abdomen and pelvis is performed from the lung bases to the proximal femora. Images are reviewed in the axial, sagittal, and coronal planes. IV contrast was administered without complication. A dose lowering technique was utilized adhering to the principles of ALARA. CT DOSE: 509.64 mGy.cm FINDINGS: Lung bases: Degenerative central venous infusion port terminates at the cavoatrial junction. The heart is normal in size there is a small to moderate pericardial effusion. The coronary arteries are densely calcified. The lung bases are clear noting bibasilar scarring/atelectasis. There is a small hiatal hernia. Liver: The contrast-enhanced liver is mildly enlarged, measuring 18.5 cm length. Hepatic attenuation is markedly heterogeneous and diminished indicating steatosis. There is minimal intrahepatic biliary ductal dilatation. Pneumobilia is noted. A 2.4 cm lesion is again seen along the right lobe capsule on image #161. This has decreased in size as compared to 05/09/2022. There are several low attenuation lesions suggested throughout the liver seen on images #73, #118 , #133, and #147. Hepatic and portal vasculature: There is near complete to complete occlusion at the portal splenic confluence. The main portal vein is patent, as are the intrahepatic portal branches. The superior mesenteric vein is patent below the confluence, as is the majority of the splenic vein. Gallbladder: The gallbladder is mildly distended. There is nonspecific bladder wall thickening and hyperemia. Intraluminal gas is observed. A common bile duct stent is in place. Gas within the lumen of the stent indicates patency. Spleen: The spleen is enlarged measuring 16.6 cm in length. Pancreas: An ill-defined/infiltrative pancreatic head mass is again noted. This measures at least 2 cm in maximum dimension as seen on image #178. There is significant peripancreatic inflammation and fluid, which is new from 05/09/2022. The appearance is typical for acute pancreatitis. The distal pancreatic duct is mildly dilated, measuring up to 5 mm in diameter. A 2.5 cm perfusion defect within the pancreatic body is seen on image #165. This likely represents an additional pancreatic mass lesion when compared to previous, possibly with interval necrosis. No organized peripancreatic fluid collection is identified. Adrenal glands: Unremarkable. Kidneys: The contrast enhanced kidneys are normal in size and without hydronephrosis. The kidneys enhance symmetrically. There is significant focal narrowing of the left renal vein posterior to the pancreatic head mass. Abdominal vasculature: The abdominal aorta is normal in course and caliber noting moderate atherosclerotic calcification. Bowel: There is no bowel obstruction. Liquid stool is seen throughout the colon. Wall thickening/inflammation of the duodenum is likely related to adjacent pancreatitis. The appendix is well-visualized and normal. Peritoneum: There is trace perihepatic ascites, status post trace free fluid in the pelvis. No intraperitoneal free air is seen. A 1.5 cm lesion is seen along the falx or ligament on image #143. Lymphadenopathy: There are mildly enlarged peripancreatic lymph nodes which measure up to 1.0 cm in short axis. Pelvic viscera: The bladder is decompressed and appears thick walled. There are calcified uterine fibroids. No adnexal lesion is seen. Skeletal structures: The skeletal structures are osteopenic. There is mild to moderate lumbosacral spondylosis. A large posterior discussed by complex is seen at L5-S1. No lytic or blastic lesions are seen. There are subacute right posterior rib fractures. IMPRESSION: 1. There is evidence of severe acute pancreatitis. Correlate with clinical findings and serum amylase/lipase levels. 2. There are at least 2 pancreatic mass lesions. These appear to show interval necrosis, and this may be treatment related. Clinical correlation will be required. 3. Enlarged, steatotic, and markedly heterogeneous liver. 4. A common bile duct stent is in place. Gas within the stent and pneumobilia suggest patency of the stent. 5. Although not well assessed due to marked hepatic heterogeneity, there are several low-attenuation lesions suggested throughout the liver. These were not clearly seen previously. Additionally, the gallbladder wall is thickened and hyperemic with intraluminal gas. These findings are nonspecific and the hepatic heterogeneity could be related to treated metastatic disease. In the appropriate clinical setting ascending cholangitis would be impossible to exclude. Clinical and laboratory correlation will be essential. 6. There are mildly enlarged perihepatic lymph nodes. 7. A capsular lesion along the right lobe of liver has modestly decreased in size from previous. An implant is also seen along the falciform ligament. 8. There is near-complete to complete occlusion at the portosplenic confluence. This represents a significant change from 05/09/2022. No intraluminal thrombus is identified. 9. There is marked narrowing of the left renal vein as it passes posterior to the pancreas. 10. Trace abdominopelvic ascites. 9. Liquid stool is seen throughout the colon. Correlate clinically for evidence of a diarrheal illness. 10. The bladder is decompressed and appears thick-walled. Correlate with urinalysis. 11. Splenomegaly. 12. Additional findings as above. ACT 112: Negative or not required by law. Electronically signed by: Geoff Ramirez M.D. 06/13/2022 11:18 AM Supervising Physician Co-Signing Physician Notes Patient is a 42-year-old female with history of metastatic adenocarcinoma of pancreas, ongoing chemotherapy, diabetes mellitus, tobacco use disorder and other medical problems presents with history of intractable abdominal pain associated with nausea, vomiting and intermittent diarrhea. Patient states her last chemotherapy was about 2 weeks ago. She was recently treated with IV antibiotics for hepatic abscess. Patient required percutaneous drainage of the hepatic abscess at the time. Please review HPI for complete details of presentation. Currently denies any chest pain, dyspnea, dizziness. Blood work reviewed. Glucose elevated at 191, Calcium 8.3, total bilirubin 1.3, alkaline phosphatase 233, albumin 2.8, lipase less than 3, procalcitonin 0.56 otherwise within normal limits. Urine analysis abnormal suggestive of possible UTI. CT scan suggestive of severe acute pancreatitis, noted pancreatic lesions with necrosis. Also noted enlarged steatotic heterogeneous liver, biliary stent patent, findings suggestive of metastatic disease, possible cholangitis. Noted near complete to complete occlusion of the portosplenic confluence. Marked narrowing of the left renal vein, trace ascites and findings suggestive of splenomegaly, possible diarrheal illness. On exam patient is ill-appearing, mild distress secondary to pain, normocephalic atraumatic, EOMI, normal breath sounds, clear to auscultation,+ Chemo-Port, S1-S2, no murmur, no pedal edema, abdomen soft, generalized tenderness, normal bowel sounds, alert, awake, oriented, grossly no focal deficits. Patient is admitted for management of Acute pancreatitis, Possible Cholecystitis/cholangitis. Also to rule out UTI. Will start on broad-spectrum IV antibiotics cefepime, Flagyl. IV fluids. Clear liquid diet for now. Advance diet as tolerated. HIDA scan requested. No surgical intervention as per surgery. GI consulted. Pain management requested as well. Continue insulin per protocol for management of diabetes mellitus. I personally reviewed the record. Patient is interviewed and examined at bedside. Patient's care is coordinated with Jill Mahmood PA-C. Please refer to the documentation above for details of patient's presentation and for discussion of other issues. (1) Abdominal pain Abdominal location: right upper quadrant Qualified Code(s): R10.11 - Right upper quadrant pain (2) Acute pancreatitis Acute pancreatitis complication: uninfected necrosis Pancreatitis type: unspecified pancreatitis type Qualified Code(s): K85.91 - Acute pancreatitis with uninfected necrosis, unspecified
--- NOTE | 2022-06-13 15:41 | Surgery Consultation ---
Date of Consultation June 13, 2022 Assessment & Plan (1) Abdominal pain: This is a 42yF with a PMH of metastatic pancreatic cancer undergoing chemo, DM2, HTN who presents to the [facility] ED on 06/13/22 with complaints of abdominal pain, mostly located in the upper abdomen that she says has been ongoing. Today in the ER a CT a/p was obtained that revealed severe acute pancreatitis. She has 2 pancreatic lesions that show interval necrosis, which may be treatment related. She has a CBD stent in place with pneumobilia noted. In addition there are several lesions throughout the liver noted with a thickened gallbladder wall and cannot rule out cholangitis. Labs show WBC:8.8, Tb:1.3, AST:37, ALT:18, Lipase:<3. Vital signs stable and patient is afebrile. On exam patient's abdomen is soft, non distended, mild discomfort in upper abdomen to palpation. Recommend consultation with GI for their input for any additional workup if concerned for cholangitis. At this time unclear if cholecystitis, however can obtain a HIDA for further evaluation. Discussed with the patient we have no plans for surgical intervention at this hospital. If indicated may be considered for perc vivek at a tertiary center if evidence of cholecystitis. we will follow peripherally, but call with any questions/concerns. (2) Pancreatic cancer: (3) Acute pancreatitis: Supervising Physician Co-Signing Physician Notes Patient seen and examined, labs and imaging reviewed, agree with above. 42-year-old female with metastatic pancreatic cancer on chemotherapy. She has chronic abdominal and back pain from her disease process. She is postop chemotherapy tomorrow but the pain has been unbearable. She did also have a hepatic abscess that was drained percutaneously. On exam she is afebrile stable vitals, abdomen soft, minimally tender, no guarding or rebound. WBC normal. CT with distended gallbladder with some air in it, she has a biliary stent in place. There was concern for a sending cholangitis which should be discussed with GI. There is concern regarding her gallbladder she should have a HIDA scan. If there is evidence of cholecystitis then she would need percutaneous cholecystostomy tube as she is not a surgical candidate at this facility. Surgery will follow peripherally, call with questions or concerns. History of Present Illness History of Present Illness This is a 42yF with a PMH of metastatic pancreatic cancer undergoing chemo, DM2, HTN who presents to the [facility] ED on 06/13/22 with complaints of abdominal pain, nausea/vomiting. Last chemotherapy treatment was 2 weeks ago, slated for another session tomorrow. She reports her upper abdominal pain has been ongoing, it is not acutely new. It has been associated with some nausea/vomiting. She states she cannot keep living like this. She has a history of hepatic abscesses that were drained percutaneously at [facility] in April. She was recently admitted here in May as she had a fall resulting in rib fractures and for pain control. Our service removed the drains during that admission as imaging showed resolution. Today in the ER she underwent a CT a/p that shows evidence of severe acute pancreatitis. She has 2 pancreatic lesions that show interval necrosis, which may be treatment related. She has a CBD stent in place with pneumobilia noted. In addition there are several lesions throughout the liver noted with a thickened gallbladder wall and cannot rule out cholangitis. Patient denies fevers/chills. Did undergo an aborted Whipple procedure due to lesion seen on liver intraop. Allergies Allergy/AdvReac Type Severity Reaction Status Date / Time cephalexin [From Keflex] Allergy Mild Rash, Verified 05/09/22 15:02 urticaria Penicillins Allergy Mild Rash Verified 05/09/22 15:02 Fish Containing Products Allergy Unknown Unknown Verified 05/09/22 15:02 fish oil Allergy Unknown Unknown Verified 05/09/22 15:02 dulaglutide [[facility] AdvReac Severe Pancreatiti Verified 05/09/22 15:02 s clarithromycin AdvReac Unknown Vomiting Verified 05/09/22 15:02 Home Medications Medication Instructions Recorded Confirmed Type flash glucose scanning reader 04/14/21 06/13/22 History (FreeStyle [facility]) levothyroxine 50 mcg tablet 50 mcg PO QAM 04/14/21 06/13/22 History ropinirole 4 mg tablet 4 mg PO TID 04/14/21 06/13/22 History blood sugar diagnostic (OneTouch #600 ea 05/26/21 06/13/22 Rx Verio test strips) flash glucose sensor (FreeStyle #7 ea 05/26/21 06/13/22 Rx Tanmay 14 Day Sensor kit) flash glucose sensor (FreeStyle #2 ea 01/02/22 06/13/22 Rx Tanmay 2 Sensor kit) acetaminophen 500 mg tablet 500 mg PO Q4 PRN Pain 01/14/22 06/13/22 History lipase 16,800-protease 1 cap PO TIDM 01/14/22 06/13/22 History 56,800-amylase 98,400 unit capsule, delayed rel (Pancreaze) loratadine 10 mg tablet (Claritin) 10 mg PO DAILY 01/14/22 06/13/22 History pen needle, diabetic 31 gauge x #200 ea 04/05/22 06/13/22 Rx 3/16" (BD Ultra-Fine Mini Pen Needle) insulin glargine U-300 conc 300 10 unit subcut QAM 04/09/22 06/13/22 History unit/mL (3 mL) subcutaneous pen (Toujeo Max U-300 SoloStar) albuterol sulfate 90 mcg/actuation 1 - 2 inh inhalation Q6 PRN as 04/17/22 06/13/22 History aerosol inhaler (Ventolin HFA) directed bisacodyl 10 mg rectal suppository 10 mg HI DAILY PRN Constipation 04/17/22 06/13/22 History enalapril maleate 20 mg tablet 20 mg PO DAILY 04/17/22 06/13/22 History lidocaine-prilocaine 2.5 %-2.5 % 1 applic topical UD 04/17/22 06/13/22 History topical cream pantoprazole 40 mg tablet,delayed 40 mg PO BID 04/17/22 06/13/22 History release polyethylene glycol 3350 17 17 g PO QAM PRN Constipation 04/17/22 06/13/22 History gram/dose oral powder (Miralax) sennosides 8.6 mg tablet (senna) 17.2 mg PO HS 04/17/22 06/13/22 History loperamide 2 mg capsule 2 mg PO Q4H PRN loose stool #10 05/21/22 06/13/22 Rx caps fentanyl 75 mcg/hr transdermal 1 patch transdermal Q72H 06/13/22 06/13/22 History patch hydromorphone 4 mg tablet 8 mg PO Q4H PRN Severe Pain (Scale 06/13/22 06/13/22 History Score 7-10) lorazepam 1 mg tablet 1 mg PO Q8H PRN anxiety 06/13/22 06/13/22 History mirtazapine 15 mg tablet 15 mg PO HS 06/13/22 06/13/22 History potassium chloride 10 mEq 10 meq PO BID 06/13/22 06/13/22 History tablet,extended release prochlorperazine maleate 10 mg 10 mg PO Q6H PRN Nausea 06/13/22 06/13/22 History tablet Patient History Medical History Advanced care planning/counseling discussion Allergy-induced asthma rare inhaler use Depression with anxiety Diabetes mellitus, type 2 IDDM Dyslipidemia Fall Hemothorax Hypertension Hypothyroidism Lumbosacral pain Nausea Nausea and vomiting Obesity Palliative care encounter Pancreatic cancer + current chemo, follows with [facility] heme/onc PCOS (polycystic ovarian syndrome) Therapeutic opioid-induced constipation (OIC) Surgical History History of ERCP ERCP (06/2021) & EUS/ERCP (04/28/21): Good view with glidescope #3, ETT 7.0 at [facility] History of tonsillectomy History of umbilical hernia repair History of vascular access device A PORT INSERTION History of wisdom tooth extraction Nausea and vomiting after administration of anesthetic agent Family History Brother Diabetes Hypertension Father Hypertension Aunt Diabetes Grandmother (Maternal) Diabetes Other No family history of adverse response to anesthesia Social History Smoking Status: Current some day smoker Tobacco Type: Cigarettes packs per day: 1; Cigarettes Per Day: 20; Second Hand Exposure: No; Hx Alcohol Use: No Hx Substance Use: No Preferred Language: Dutch Communication Ability: Effective Loan Assistant Required: No Beliefs That Will Affect Care: None marital status: Single Current Living Situation: Alone Current Living Situation Comment: Lives with Daughter and Dog. Feels Safe at Home: Yes Assistive Devices: Cane Review of Systems Constitutional: no fever and no chills Gastrointestinal: + abdominal pain, + nausea and + vomiting Physical Exam Physical Exam: awake/alert Respiratory: normal respiratory effort Gastrointestinal (Abdomen): Inspection/Auscultation: + abdominal surgical scar (midline scar well healed); abdomen not distended Percussion/Palpation: + abdomen tender (some discomfort elicited in upper abdomen ) and abdomen soft Results & Data ([facility]) Vital Signs (Past 12 Hours) Vital Signs Temp Pulse Pulse Resp BP BP Pulse Ox 06/13/22 14:59 72 18 99 06/13/22 12:24 86 14 96 06/13/22 10:32 81 16 118/85 96 06/13/22 09:50 91 H 18 128/76 99 06/13/22 09:36 97 06/13/22 08:53 36.5 C 117 H 18 151/94 H 99 O2 Del Method 06/13/22 14:59 Room Air 06/13/22 12:24 06/13/22 10:32 Room Air 06/13/22 09:50 Room Air 06/13/22 09:36 Room Air 06/13/22 08:53 Room Air Diagnostic Findings CT SCAN OF THE ABDOMEN AND PELVIS WITH IV CONTRAST CLINICAL HISTORY: Upper abdominal pain. Nausea and vomiting. History of pancreatic cancer. COMPARISON STUDY: Abdominal CT dated 05/09/2022. TECHNIQUE: Following the IV administration of 85 cc of Optiray 350, CT scan of the abdomen and pelvis is performed from the lung bases to the proximal femora. Images are reviewed in the axial, sagittal, and coronal planes. IV contrast was administered without complication. A dose lowering technique was utilized adhering to the principles of ALARA. CT DOSE: 509.64 mGy.cm FINDINGS: Lung bases: Degenerative central venous infusion port terminates at the cavoatrial junction. The heart is normal in size there is a small to moderate pericardial effusion. The coronary arteries are densely calcified. The lung bases are clear noting bibasilar scarring/atelectasis. There is a small hiatal hernia. Liver: The contrast-enhanced liver is mildly enlarged, measuring 18.5 cm length. Hepatic attenuation is markedly heterogeneous and diminished indicating steatosis. There is minimal intrahepatic biliary ductal dilatation. Pneumobilia is noted. A 2.4 cm lesion is again seen along the right lobe capsule on image #161. This has decreased in size as compared to 05/09/2022. There are several low attenuation lesions suggested throughout the liver seen on images #73, #118 , #133, and #147. Hepatic and portal vasculature: There is near complete to complete occlusion at the portal splenic confluence. The main portal vein is patent, as are the intrahepatic portal branches. The superior mesenteric vein is patent below the confluence, as is the majority of the splenic vein. Gallbladder: The gallbladder is mildly distended. There is nonspecific bladder wall thickening and hyperemia. Intraluminal gas is observed. A common bile duct stent is in place. Gas within the lumen of the stent indicates patency. Spleen: The spleen is enlarged measuring 16.6 cm in length. Pancreas: An ill-defined/infiltrative pancreatic head mass is again noted. This measures at least 2 cm in maximum dimension as seen on image #178. There is significant peripancreatic inflammation and fluid, which is new from 05/09/2022. The appearance is typical for acute pancreatitis. The distal pancreatic duct is mildly dilated, measuring up to 5 mm in diameter. A 2.5 cm perfusion defect within the pancreatic body is seen on image #165. This likely represents an additional pancreatic mass lesion when compared to previous, possibly with interval necrosis. No organized peripancreatic fluid collection is identified. Adrenal glands: Unremarkable. Kidneys: The contrast enhanced kidneys are normal in size and without hydronephrosis. The kidneys enhance symmetrically. There is significant focal narrowing of the left renal vein posterior to the pancreatic head mass. Abdominal vasculature: The abdominal aorta is normal in course and caliber noting moderate atherosclerotic calcification. Bowel: There is no bowel obstruction. Liquid stool is seen throughout the colon. Wall thickening/inflammation of the duodenum is likely related to adjacent pancreatitis. The appendix is well-visualized and normal. Peritoneum: There is trace perihepatic ascites, status post trace free fluid in the pelvis. No intraperitoneal free air is seen. A 1.5 cm lesion is seen along the falx or ligament on image #143. Lymphadenopathy: There are mildly enlarged peripancreatic lymph nodes which measure up to 1.0 cm in short axis. Pelvic viscera: The bladder is decompressed and appears thick walled. There are calcified uterine fibroids. No adnexal lesion is seen. Skeletal structures: The skeletal structures are osteopenic. There is mild to moderate lumbosacral spondylosis. A large posterior discussed by complex is seen at L5-S1. No lytic or blastic lesions are seen. There are subacute right posterior rib fractures. IMPRESSION: 1. There is evidence of severe acute pancreatitis. Correlate with clinical findings and serum amylase/lipase levels. 2. There are at least 2 pancreatic mass lesions. These appear to show interval necrosis, and this may be treatment related. Clinical correlation will be required. 3. Enlarged, steatotic, and markedly heterogeneous liver. 4. A common bile duct stent is in place. Gas within the stent and pneumobilia suggest patency of the stent. 5. Although not well assessed due to marked hepatic heterogeneity, there are several low-attenuation lesions suggested throughout the liver. These were not clearly seen previously. Additionally, the gallbladder wall is thickened and hyperemic with intraluminal gas. These findings are nonspecific and the hepatic heterogeneity could be related to treated metastatic disease. In the appropriate clinical setting ascending cholangitis would be impossible to exclude. Clinical and laboratory correlation will be essential. 6. There are mildly enlarged perihepatic lymph nodes. 7. A capsular lesion along the right lobe of liver has modestly decreased in size from previous. An implant is also seen along the falciform ligament. 8. There is near-complete to complete occlusion at the portosplenic confluence. This represents a significant change from 05/09/2022. No intraluminal thrombus is identified. 9. There is marked narrowing of the left renal vein as it passes posterior to the pancreas. 10. Trace abdominopelvic ascites. 9. Liquid stool is seen throughout the colon. Correlate clinically for evidence of a diarrheal illness. 10. The bladder is decompressed and appears thick-walled. Correlate with urinalysis. 11. Splenomegaly. 12. Additional findings as above. ACT 112: Negative or not required by law. Electronically signed by: Geoff Ramirez M.D. 06/13/2022 11:18 AM PG Care Time/CCT Total # of Minutes Spent Total Time Spent with Patient: Total time spent is greater than 50% in coordination of care (as documented) at patient's floor/unit and/or counseling patient: Coding Level of Care Code 78249 Inpt Consult Level 2 Diagnoses Abdominal pain R10.11 Abdominal location: right upper quadrant Pancreatic cancer C25.9 Pancreatic malignancy location: unspecified Acute pancreatitis K85.91 Acute pancreatitis complication: uninfected necrosis Pancreatitis type: unspecified pancreatitis type (1) Pancreatic cancer Pancreatic malignancy location: unspecified Qualified Code(s): C25.9 - Malignant neoplasm of pancreas, unspecified (2) Abdominal pain Abdominal location: right upper quadrant Qualified Code(s): R10.11 - Right upper quadrant pain (3) Acute pancreatitis Acute pancreatitis complication: uninfected necrosis Pancreatitis type: unspecified pancreatitis type Qualified Code(s): K85.91 - Acute pancreatitis with uninfected necrosis, unspecified
[2022-06-13] MEDS ORDERED: ACETAMINOPHEN 325 MG TAB PO PRN (16:28)
[2022-06-13] MEDS ORDERED: GLUCAGON FOR INJ 1 MG VIAL SQ PRN (16:28)
[2022-06-13] MEDS ORDERED: GLUCOSE 40% GEL 15 GM TUBE PO PRN (16:28)
[2022-06-13] MEDS ORDERED: GLUCOSE 10 TAB/TUBE PO PRN (16:28)
[2022-06-13] MEDS ORDERED: DEXTROSE 50% 50 ML SYRINGE IV PRN (16:28)
[2022-06-13] MEDS ORDERED: POLYETHYLENE (MIRALAX) 17 GM PACK PO PRN (16:28)
[2022-06-13] MEDS ORDERED: CARBOHYDRATES FOR HYPOGLYCEMIA PO PRN (16:28)
[2022-06-13] MEDS ORDERED: ALBUTEROL HFA 8 GM INHALER INH PRN (16:28)
[2022-06-13] MEDS: CHECK fentaNYL PATCH PLACEMENT SCH ×2 (16:54→23:29)
[2022-06-13] MEDS: SODIUM CHLORIDE 0.9% 1000ML 1,000 ML IV SCH (17:00)
[2022-06-13] MEDS: LORazepam 1 MG TAB PO PRN (17:00)
[2022-06-13] MEDS: HYDROmorphone INJ 2 MG/ML SYR/VIAL IV PRN ×3 (17:00→21:57)
[2022-06-13] MEDS: ENOXAPARIN INJ 40 MG/0.4 ML SYR SQ SCH (17:43)
[2022-06-13] MEDS: PANCREAZE (LIPASE 16,800U) CAP PO SCH (17:43)
[2022-06-13] MEDS: NICOTINE 14 MG/24 HR PATCH TD SCH (17:43)
[2022-06-13] MEDS: INSULIN ASPART PER UNIT SC SCH ×2 (18:02→20:09)
[2022-06-13] MEDS: PROMETHAZINE HCL 12.5 MG in SODIUM CHLORIDE 0.9% 50 ML IV PRN (18:11)
[2022-06-13] MEDS: CEFEPIME 2,000 MG in SYRINGE 0 ML IV SCH (19:55)
[2022-06-13] MEDS: MIRTAZAPINE TAB 15 MG TAB PO SCH (19:56)
[2022-06-13] MEDS: rOPINIRole HCL 2 MG TABLET PO SCH (19:56)
[2022-06-13] MEDS: PANTOprazole 40 MG TAB PO SCH (19:57)
[2022-06-13] MEDS: LANTUS PER UNIT CHARGE SQ SCH (20:09)
[2022-06-13] MEDS: metroNIDAZOLE 500 MG/100 ML BAG IV SCH (20:56)
[2022-06-13] MEDS ORDERED: LANTUS PER UNIT CHARGE SQ SCH (21:00)
[2022-06-13] MEDS ORDERED: oxyCODONE HCL IR 5 MG TAB (IMMEDIATE RELEASE) PO PRN (22:06)
[2022-06-14] MEDS: HYDROmorphone INJ 2 MG/ML SYR/VIAL IV PRN ×4 (00:01→10:13)
[2022-06-14] MEDS: PROMETHAZINE HCL 12.5 MG in SODIUM CHLORIDE 0.9% 50 ML IV PRN ×2 (00:01→20:39)
[2022-06-14] MEDS: SODIUM CHLORIDE 0.9% 1000ML 1,000 ML IV SCH ×3 (00:02→12:07)
[2022-06-14] MEDS ORDERED: VANCOMYCIN HCL 1,500 MG in SODIUM CHLORIDE 0.9% 500 ML IV SCH (02:00)
[2022-06-14] MEDS ORDERED: HYDROmorphone INJ 1 MG/ML SYRINGE IV STA (02:03)
[2022-06-14] MEDS ORDERED: ALUMINUM/MAGNESIUM SUSP 18 ML, LIDOCAINE VISCOUS 2% SOLN 6 ML, BARCODE IDENTIFIER 1 EACH PO ONE (02:45)
[2022-06-14] MEDS ORDERED: LORazepam 1 MG TAB SL STA (04:38)
[2022-06-14] MEDS: CEFEPIME 2,000 MG in SYRINGE 0 ML IV SCH (04:55)
[2022-06-14] MEDS: metroNIDAZOLE 500 MG/100 ML BAG IV SCH (05:00)
[2022-06-14] MEDS: LEVOTHYROXINE SODIUM 50 MCG TABLET PO SCH (05:02)
[2022-06-14 06:39] LABS: Hematocrit (blood only) 31.6 % (34.1-44.9); Hemoglobin 10.4 g/dl (12.0-16.0); Mean Corpuscular Hemoglobin 32.5 pg (25.0-34.0); Mean Corpuscular Hgb Conc 32.9 g/dL (32.0-36.0); Mean Corpuscular Volume 98.8 fL (80.0-100.0); Mean Platelet Volume 10.9 fL (9.4-12.3); Platelet Count 279 K/uL (130-400); RDW Coefficient of Variation 15.4 % (11.5-14.5); RDW Standard Deviation 53.2 fL (36.4-46.3); White Blood Count 7.16 K/ul (4.8-10.8)
[2022-06-14 06:58] LABS: Anion Gap 5 (3-11); BUN Creatinine Ratio 16.1 (10-20); Blood Urea Nitrogen 5 mg/dl (6-23); Calcium 7.4 mg/dl (8.5-10.1); Carbon Dioxide 26 mmol/L (21-32); Chloride 106 mmol/L (98-107); Creatinine Clr Calc Pharmacy 260.5 ml/min; Est GFR (African American) > 150.0 ml/min; Est GFR (Non-African American) 137.8 ml/min; Glucose 90 mg/dl (70-99(Fasting)); Potassium 3.5 mmol/L (3.5-5.1); Sodium 137 mmol/L (136-145)
[2022-06-14 07:05] LABS: Alanine Aminotransferase 17 U/L (7-52); Albumin Globulin Ratio 0.7 (0.9-2); Albumin Level 2.4 gm/dl (3.4-5.0); Alkaline Phosphatase 191 U/L (34-104); Aspartate Aminotransferase 38 U/L (13-39); Globulin 3.5 gm/dl (2.5-4.0); Lipase < 3 U/L (11-82); Total Protein 5.9 gm/dl (6.0-8.3)
[2022-06-14] MEDS ORDERED: ERTAPENEM SODIUM 1,000 MG in SYRINGE 0 ML IV SCH ×2 (08:00→13:30)
[2022-06-14] MEDS ORDERED: fentaNYL 75 MCG/HR TDSY TD SCH (09:00)
[2022-06-14] MEDS: INSULIN ASPART PER UNIT SC SCH ×4 (09:15→21:22)
[2022-06-14] MEDS: LANTUS PER UNIT CHARGE SQ SCH ×2 (09:16→21:22)
--- NOTE | 2022-06-14 09:33 | Palliative Care Consultation ---
Date of Consultation June 14, 2022 Assessment & Plan (1) Palliative care encounter: [place] has begun to think about the potentials of stopping chemotherapy. She does not feel she is getting meaningful benefit from these therapies and there are toxicities and side effects are becoming overwhelming and her overall quality of life has sharply declined. She notes in addition to the pain, refractory nausea and vomiting she has been struggling with an increase in depression, overwhelming fatigue and weakness, and a generalized sense weariness. She has been working with a family therapist to keep her daughter informed and does note that her daughter who is currently 11 years old, has an emotional maturity of a younger child. Conversations have been directing concrete however her daughter has directly stated that she does not wish to think of anything other than patient surviving this cancer. Additional health with child psychology would be helpful at this time. Nidia is also struggling with how she feels that she is becoming a burden to her friends and family. She feels at this point she is or cancer is a person all her needs centered around her cancer related issues including pain, medical appointments or medication. She feels that she is no longer the person she used to be and she has lost many facets of her self-identity including her work which was her passion, her ability to be a full-time mother, and and engaged family member. We discussed CODE STATUS. Up until today, [place] wanted to have full CODE STATUS because she wants every opportunity to get better. Instead of asking her what she wanted in terms of CPR, today I asked her what she would want if she was in an end-of-life situation, specifically I asked her "where do you see yourself at the end of your life?" and she replied that if she was in an end-of-life situation, she wants to be in her home, in her own bed with the ability to remain interactive with friends and family and especially to have what ever final moment she can with her daughter. We discussed that CPR is a very helpful intervention when the reason you need to do something potentially reversible or fixable. More is nearing a window now further complications that would lead to cardiac arrest are likely going to be cancer related.I advised her that at this junction if she were to end up on life support, that her chances of survival to discharge would be at a significantly lower performance status and would not regain her current level of functionality. There is also the chance she may on life support and the discussions will be held with her family in the hospital with regards to end-of-life care. She is unsure if she would want her daughter to see her this way as the final memory. She wants some time to contemplate all of this. Extensive psychosocial support and reassurance provided. (2) Cancer related pain: [place] is currently using 86 mg IV morphine equivalents per day on current regimen of TDF 75 mcg and Dilaudid 60 mg p.o. daily; She continues to have uncontrolled severe cancer-related pain. Due to her persistent nausea and vomiting, very severe cancer related pain that is refractory to current treatments, I am going to put her on a PLASTER MODEL AND MOLD MAKER for a few days to see if we can optimize her pain more rapidly. I have stopped transdermal fentanyl patch. I have ordered a Dilaudid PLASTER MODEL AND MOLD MAKER as follows: * 86 mg IV morphine equivalents is roughly equivalent to 0.7 mg/h of IV Di laudid. * I have ordered a Dilaudid PLASTER MODEL AND MOLD MAKER 0.3 mg/h with 0.3 mg as needed bolus every 15 minutes as needed. * This is a total of 1.5 mg/h maximum, an approximate 50% dose increase from her current routine. (3) Abdominal pain: See above Abdominal location: right upper quadrant Qualified Code(s): R10.11 - Right upper quadrant pain (4) Pancreatic cancer: Pancreatic malignancy location: unspecified Qualified Code(s): C25.9 - Malignant neoplasm of pancreas, unspecified (5) Acute pancreatitis: Acute pancreatitis complication: uninfected necrosis Pancreatitis type: unspecified pancreatitis type Qualified Code(s): K85.91 - Acute pancreatitis with uninfected necrosis, unspecified (6) Metastatic adenocarcinoma to pancreas: Plan * Pain management recommendations as noted above. I will continue to follow. * For refractory nausea: currently Phenergan with some relief. No prior relief with Zofran and Compazine. I have added low dose Haldol intensol to trial for nausea relief. * for anxiety: I have added IV Ativan and stopped PO. * [place] remains consistent in her desire to continue the course of aggressive cancer directed treatment as she identifies a very clear goal of staying alive for as long as she can to be here for her daughter. She has already made arrangements for transfer of care home guardianship after her and is at peace with the plan she has. She has also been having relatively direct conversations with her child about her mortality. * [place] would like some clarity with regards to her prognosis. She does not want to hear this information pouched in statistical averages but rather wants to know when when she know that time is running out or things are kind of heading towards an end-of-life situation. We discussed some of the changes she may experience and some of the complications that would tell us that the disease progression is heading towards a terminal stage. We also discussed that at some point she may reach a junction where the therapies are more toxic than helpful and the burden of the toxicities and side effects may be declining her quality of life to where stopping those therapies and transitioning to focus to be more about alleviating the symptom burden, improving comfort and promoting better quality of life for as long as she may have is the preferred option. She was reassured that regardless of what she chooses, the medical teams are committed to advocating for her choice and providing the support she needs to continue along the course of care she desires to receive, provided that it is safe to continue along said course. She is hoping to hear from Dr. Bahena soon with results from her scans earlier this week and then wants to ask him if there as any reason to stay on chemo at this junction. * She is unsure about staying a full code, and she recognizes if an acute event happened in the hospital then the decline could be rapid and she may not have the chance to say goodbye in the manner she wants to her daughter. She is beginning to consider the likely traumatic potential of being on life support and is clear that she wants to have some meaningful interaction with her child. Jonna Hays [facility] Clinical Director, Palliative Medicine History of Present Illness Reason for Consultation: "pancreatic ca, chronic pain" Requesting Physician: Jill Mahmood Attending Physician: Raf Peterson MD History of Present Illness [place] is well-known to me from prior admission. She is a 42-year-old female with a stage IV metastatic adenocarcinoma of the pancreas who is currently on chemotherapy and has progressive metastatic disease to her liver which has been complicated by recurrent/persistent hepatic abscess. Her additional medical history includes insulin-dependent diabetes, hypertension, hyperlipidemia, chronic severe cancer related pain. She presented to our emergency room with a complaint of worsening severe abdominal pain, worsening nausea and vomiting. Her alk phos was noted to be 233, with a normal AST and ALT. CAT scan of the abdomen revealed a severe acute pancreatitis, 2 pancreatic mass lesions which appear to show some interval necrosis which are likely treatment related. An enlarged steatotic and markedly heterogeneous liver. Common bile duct stent in place, gas within the stent and pneumobilia suggesting patency of stent. There are several low attenuated lesions throughout the liver that were not seen clearly on previous imaging. Additionally, the gallbladder wall is noted to be thickened and hyperemic with intraluminal gas and these were felt to be nonspecific findings and possibly related to her treated metastatic disease. There are some enlarged perihepatic lymph nodes. There is a near to complete occlusion at the eugenia splenic confluence which is a significant change from the imaging done 05/09/2020. Of note, no intraluminal thrombus is identified. There is narrowing of the left renal vein as it passes posteriorly to the pancreas. There is trace abdominopelvic ascites. Surgery was consulted and recommended consultation with GI for further work-up of possible cholangitis. HIDA scan has been ordered. No surgical intervention is planned at this time. If she needs a percutaneous cholecystectomy she will need to be transferred to a tertiary center. When patient came to the emergency room she reported that she had been using Dilaudid 4 mg tablets 4 times a day without any relief at home. Zofran did not quell her nausea. She advised that she was scheduled for chemotherapy 06/14/2022 but felt so unwell she would not be able to attend. At the time I followed patient during her May 2022 admission, she was using transdermal fentanyl 75 mcg patch every 3 days and I had increased her Dilaudid to 8 mg by mouth every 4 hours as needed for breakthrough pain with a hold parameter hold for somnolence or respiratory rate below 14/min. At that time, we had discussed her resuming her medical marijuana therapy which in the past had provided significant relief.She had been seen in the medical marijuana clinic and unfortunately did not have the same relief this time with the tincture that was prescribed.She has not had success with Zofran. Compazine also did not help. She does feel some relief with Phenergan. [place] states she is beginning to feel the life with cancer is feeling too hard. She feels that she is becoming very weak, depressed, and reaching a point where she does not feel that therapies are helping her anymore. She had repeat imaging done earlier this week and is awaiting a call from Dr. Bahena with the update and for some further conversation and guidance on whether or not chemo should be continued. [place] feels that her chemo is likely not helping anymore. She has begun thinking about stopping therapy.She has several questions today about timing, prognosis, survival. She is tearful and she admits that she does not want to but then also understands that she is going to . Opioid review includes the following TDF 75 mcg = 180 OME Dilaudid 16 mg p.o. per day = 80 OME Total OME = 260 260 OME = 86 mg IV morphine equivalents. Allergies Allergy/AdvReac Type Severity Reaction Status Date / Time cephalexin [From [employer]] Allergy Mild Rash, Verified 05/09/22 15:02 urticaria Penicillins Allergy Mild Rash Verified 05/09/22 15:02 Fish Containing Products Allergy Unknown Unknown Verified 05/09/22 15:02 fish oil Allergy Unknown Unknown Verified 05/09/22 15:02 dulaglutide [facility] AdvReac Severe Pancreatiti Verified 05/09/22 15:02 s clarithromycin AdvReac Unknown Vomiting Verified 05/09/22 15:02 Home Medications Medication Instructions Recorded Confirmed Type flash glucose scanning reader 04/14/21 06/13/22 History (FreeStyle Tanmay 14 Day [place]) levothyroxine 50 mcg tablet 50 mcg PO QAM 04/14/21 06/13/22 History ropinirole 4 mg tablet 4 mg PO TID 04/14/21 06/13/22 History blood sugar diagnostic (OneTouch #600 ea 05/26/21 06/13/22 Rx Verio test strips) flash glucose sensor (FreeStyle #7 ea 05/26/21 06/13/22 Rx Tanmay 14 Day Sensor kit) flash glucose sensor (FreeStyle #2 ea 01/02/22 06/13/22 Rx Tanmay 2 Sensor kit) acetaminophen 500 mg tablet 500 mg PO Q4 PRN Pain 01/14/22 06/13/22 History lipase 16,800-protease 1 cap PO TIDM 01/14/22 06/13/22 History 56,800-amylase 98,400 unit capsule, delayed rel (Pancreaze) loratadine 10 mg tablet (Claritin) 10 mg PO DAILY 01/14/22 06/13/22 History pen needle, diabetic 31 gauge x #200 ea 04/05/22 06/13/22 Rx 3/16" (BD Ultra-Fine Mini Pen Needle) insulin glargine U-300 conc 300 10 unit subcut QAM 04/09/22 06/13/22 History unit/mL (3 mL) subcutaneous pen (Toujeo Max U-300 SoloStar) albuterol sulfate 90 mcg/actuation 1 - 2 inh inhalation Q6 PRN as 04/17/22 06/13/22 History aerosol inhaler (Ventolin HFA) directed bisacodyl 10 mg rectal suppository 10 mg AR DAILY PRN Constipation 04/17/22 06/13/22 History enalapril maleate 20 mg tablet 20 mg PO DAILY 04/17/22 06/13/22 History lidocaine-prilocaine 2.5 %-2.5 % 1 applic topical UD 04/17/22 06/13/22 History topical cream pantoprazole 40 mg tablet,delayed 40 mg PO BID 04/17/22 06/13/22 History release polyethylene glycol 3350 17 17 g PO QAM PRN Constipation 04/17/22 06/13/22 History gram/dose oral powder (Miralax) sennosides 8.6 mg tablet (senna) 17.2 mg PO HS 04/17/22 06/13/22 History loperamide 2 mg capsule 2 mg PO Q4H PRN loose stool #10 05/21/22 06/13/22 Rx caps fentanyl 75 mcg/hr transdermal 1 patch transdermal Q72H 06/13/22 06/13/22 History patch hydromorphone 4 mg tablet 8 mg PO Q4H PRN Severe Pain (Scale 06/13/22 06/13/22 History Score 7-10) lorazepam 1 mg tablet 1 mg PO Q8H PRN anxiety 06/13/22 06/13/22 History mirtazapine 15 mg tablet 15 mg PO HS 06/13/22 06/13/22 History potassium chloride 10 mEq 10 meq PO BID 06/13/22 06/13/22 History tablet,extended release prochlorperazine maleate 10 mg 10 mg PO Q6H PRN Nausea 06/13/22 06/13/22 History tablet Patient History Medical History Advanced care planning/counseling discussion Allergy-induced asthma rare inhaler use Depression with anxiety Diabetes mellitus, type 2 IDDM Dyslipidemia Fall Hemothorax Hypertension Hypothyroidism Lumbosacral pain Nausea Nausea and vomiting Obesity Palliative care encounter Pancreatic cancer + current chemo, follows with [facility] heme/onc PCOS (polycystic ovarian syndrome) Therapeutic opioid-induced constipation (OIC) Surgical History History of ERCP ERCP (06/2021) & EUS/ERCP (04/28/21): Good view with glidescope #3, ETT 7.0 at [facility] History of tonsillectomy History of umbilical hernia repair History of vascular access device A PORT INSERTION History of wisdom tooth extraction Nausea and vomiting after administration of anesthetic agent Family History Brother Diabetes Hypertension Father Hypertension Aunt Diabetes Grandmother (Maternal) Diabetes Other No family history of adverse response to anesthesia Social History Smoking Status: Current some day smoker Tobacco Type: Cigarettes packs per day: 1; Cigarettes Per Day: 20; Second Hand Exposure: No; Hx Alcohol Use: No Hx Substance Use: Yes (medical marijuana) Last Used Substance: Days (ago) Last Used Substance Other:: 2 days ago Preferred Language: Cypriot Communication Ability: Effective Shipper Required: No Beliefs That Will Affect Care: None marital status: Single Current Living Situation: Alone Current Living Situation Comment: Lives with Daughter and Dog. Other Information That Helps Us Care for You: No Feels Safe at Home: Yes Safety Concerns: Feels Safe At This Time Assistive Devices: Cane and Glasses Review of Systems Review of Systems: All systems reviewed & are unremarkable except as noted in Subjective Physical Exam Physical Exam: Tearful affect. Skin pale. Strength WAL Constitutional: + ill appearing and + in distress Eyes: PERRL and EOM intact bilaterally Neck: normal visual inspection and trachea midline Respiratory: normal respiratory effort Cardiovascular: Rate/Rhythm: regular rate and regular rhythm Chest (Breasts): Additional Comments: +port, accessed Gastrointestinal (Abdomen): RUQ TTP, BS diminished, softly distended Skin: + turgor decreased Psychiatric: Orientation: oriented x 3 Eye Contact: good eye contact Affect: + depressed affect Mood: + depressed mood Suicidal Thoughts: denies suicidal thoughts Homicidal Thoughts: denies homicidal thoughts Cognition: recent memory grossly intact, remote memory grossly intact, attention grossly intact and language grossly intact Insight: excellent insight Judgement: excellent judgement Results & Data ([facility]) Vital Signs (Past 12 Hours) Vital Signs Temp Pulse Resp BP Pulse Ox O2 Del Method 06/14/22 02:52 36.8 C 98 H 20 153/91 H 97 Room Air 06/13/22 22:29 36.9 C 101 H 18 144/83 H 93 Room Air Laboratory Results Labs and imaging reviewed, see HPI Diagnostic Findings Labs and imaging reviewed, see HPI PG Care Time/CCT Total # of Minutes Spent Total Time Spent: 90 Total Time Spent with Patient: Total time spent is greater than 50% in coordination of care (as documented) at patient's floor/unit and/or counseling patient: I spent 90 minutes overall addressing this case: 15 in medical data review/discussion with referring provider(s) and/or preparation for the visit 30 in direct interaction with the patient 25 Advance Care Planning/Goals of Care discussions as detailed above in note (must be >16min) 10 in subsequent review and synthesis of assessment and plan 10 in communicating with other providers regarding the patient's case: [] [place] [address] Inpt Consult Level 5 (25 - SIGNIFICANT, SEPARATELY IDENTIFIABLE ) Patient Type New Medical Decision Making High Complexity Diagnoses Palliative care encounter Z51.5 Cancer related pain G89.3 Abdominal pain R10.11 Abdominal location: right upper quadrant Pancreatic cancer C25.9 Pancreatic malignancy location: unspecified Acute pancreatitis K85.91 Acute pancreatitis complication: uninfected necrosis Pancreatitis type: unspecified pancreatitis type Metastatic adenocarcinoma to pancreas C78.89
[2022-06-14] MEDS: LORATADINE 10 MG TAB PO SCH (09:34)
[2022-06-14] MEDS: NICOTINE 14 MG/24 HR PATCH TD SCH (09:51)
[2022-06-14] MEDS: ENALAPRIL MALEATE 10 MG TAB PO SCH (09:54)
[2022-06-14] MEDS: rOPINIRole HCL 2 MG TABLET PO SCH ×3 (09:54→20:39)
[2022-06-14] MEDS: PANCREAZE (LIPASE 16,800U) CAP PO SCH ×3 (09:55→16:58)
[2022-06-14] MEDS: PANTOprazole 40 MG TAB PO SCH ×2 (09:56→20:39)
[2022-06-14] MEDS: CHECK fentaNYL PATCH PLACEMENT SCH (09:56)
[2022-06-14] MEDS ORDERED: metroNIDAZOLE 500 MG/100 ML BAG IV SCH (10:00)
--- NOTE | 2022-06-14 10:28 | Gastrointestinal Consultation ---
Date of Consultation June 14, 2022 Assessment & Plan (1) Pancreatic cancer: (2) Acute pancreatitis: (3) Abdominal pain: (4) Nausea & vomiting: Patient is a 42 years old female with metastatic pancreatic adenocarcinoma, on chemotherapy, liver abscesses status post IR drainage who presented with symptoms of unrelenting abdominal pain, nausea and vomiting. CT abdomen pelvis yesterday showed signs of acute pancreatitis,? Cholecystitis versus cholangitis is not able to be excluded. Her CBD uncovered metal stent is in place, + pneumobilia suggesting patency. LFTs unremarkable except alk phos elevation. Lipase <3 Was planning to obtain HIDA scan to r/o cholecystitis and if present, she may be a candidate for Axios stent placement for gallbladder drainage given that she's not a surgical candidate. However, unable to obtain HIDA this AM as she had narcotic for abd pain. I spoke w [employer] - unable to guarantee if HIDA will be able to be done at a later time today, given shortage of radioactive isotope. Will cancel HIDA scan and continue IVF support, IV antibx. Palliative care consulted to help manage her pain and n/v symptoms. Supervising Physician Co-Signing Physician Notes Attg add: I interviewed and examined pt, reviewed chart and labs. Pt with complex med history, panc CA with s/p biliary stent, hepatic abscess, PVT now admit for worsening pain, n/v. - No clear evidence of heptaobiliary infection. Can defer further imaging, consider d/c abx. - Emend and Relistor for nausea. Palliative care trialling Haldol. History of Present Illness Reason for Consultation: History of pancreatic cancer Requesting Physician: Dr. Raf Peterson Attending Physician: Dr. Melquiades Delgado History of Present Illness Patient is a 42 years old female with medical history of metastatic adenocarcinoma of the pancreas on chemotherapy (last dose 05/31), hepatic abscesses status post IR perc drain placement (removed 05/14), diabetes mellitus type 2, hypertension, hyperlipidemia who presented to the ED yesterday with complaints of abdominal pain. She does have chronic abdominal pain, nausea and vomiting secondary to her cancer. However over the last few days, her abdominal pain seems to be more severe along with her nausea. Home medications without much relief. No bowel habit changes. Work-up with CT abdomen pelvis showed signs of severe acute pancreatitis. Lipase levels are low. To pancreatic mass lesion showed interval necrosis, liver is enlarged and steatotic with low attenuation lesion, common bile duct stent in place with pneumobilia suggesting patency. Her gallbladder was thickened with hyperemic intraluminal gas, unable to exclude cholangitis or cholecystitis. We had recommended the patient undergo a HIDA scan to rule out cholecystitis. However she was unable to get the test done yesterday, and this morning the test was canceled due to her receiving narcotics. Currently her main issues include persistent abdominal pain and nausea. Allergies Allergy/AdvReac Type Severity Reaction Status Date / Time cephalexin [From [employer] [facility] love and you] Allergy Mild Rash, Verified 05/09/22 15:02 urticaria Penicillins Allergy Mild Rash Verified 05/09/22 15:02 Fish Containing Products Allergy Unknown Unknown Verified 05/09/22 15:02 fish oil Allergy Unknown Unknown Verified 05/09/22 15:02 dulaglutide [From [employer]] AdvReac Severe Pancreatiti Verified 05/09/22 15:02 s clarithromycin AdvReac Unknown Vomiting Verified 05/09/22 15:02 Home Medications Medication Instructions Recorded Confirmed Type flash glucose scanning reader 04/14/21 06/13/22 History (FreeStyle Tanmay 14 Day Buckeye) levothyroxine 50 mcg tablet 50 mcg PO QAM 04/14/21 06/13/22 History ropinirole 4 mg tablet 4 mg PO TID 04/14/21 06/13/22 History blood sugar diagnostic (OneTouch #600 ea 05/26/21 06/13/22 Rx Verio test strips) flash glucose sensor (FreeStyle #7 ea 05/26/21 06/13/22 Rx Tanmay 14 Day Sensor kit) flash glucose sensor (FreeStyle #2 ea 01/02/22 06/13/22 Rx Tanmay 2 Sensor kit) acetaminophen 500 mg tablet 500 mg PO Q4 PRN Pain 01/14/22 06/13/22 History lipase 16,800-protease 1 cap PO TIDM 01/14/22 06/13/22 History 56,800-amylase 98,400 unit capsule, delayed rel (Pancreaze) loratadine 10 mg tablet (Claritin) 10 mg PO DAILY 01/14/22 06/13/22 History pen needle, diabetic 31 gauge x #200 ea 04/05/22 06/13/22 Rx 3/16" (BD Ultra-Fine Mini Pen Needle) insulin glargine U-300 conc 300 10 unit subcut QAM 04/09/22 06/13/22 History unit/mL (3 mL) subcutaneous pen (Toujeo Max U-300 SoloStar) albuterol sulfate 90 mcg/actuation 1 - 2 inh inhalation Q6 PRN as 04/17/22 06/13/22 History aerosol inhaler (Ventolin HFA) directed bisacodyl 10 mg rectal suppository 10 mg PA DAILY PRN Constipation 04/17/22 06/13/22 History enalapril maleate 20 mg tablet 20 mg PO DAILY 04/17/22 06/13/22 History lidocaine-prilocaine 2.5 %-2.5 % 1 applic topical UD 04/17/22 06/13/22 History topical cream pantoprazole 40 mg tablet,delayed 40 mg PO BID 04/17/22 06/13/22 History release polyethylene glycol 3350 17 17 g PO QAM PRN Constipation 04/17/22 06/13/22 History gram/dose oral powder (Miralax) sennosides 8.6 mg tablet (senna) 17.2 mg PO HS 04/17/22 06/13/22 History loperamide 2 mg capsule 2 mg PO Q4H PRN loose stool #10 05/21/22 06/13/22 Rx caps fentanyl 75 mcg/hr transdermal 1 patch transdermal Q72H 06/13/22 06/13/22 History patch hydromorphone 4 mg tablet 8 mg PO Q4H PRN Severe Pain (Scale 06/13/22 06/13/22 History Score 7-10) lorazepam 1 mg tablet 1 mg PO Q8H PRN anxiety 06/13/22 06/13/22 History mirtazapine 15 mg tablet 15 mg PO HS 06/13/22 06/13/22 History potassium chloride 10 mEq 10 meq PO BID 06/13/22 06/13/22 History tablet,extended release prochlorperazine maleate 10 mg 10 mg PO Q6H PRN Nausea 06/13/22 06/13/22 History tablet Patient History Medical History Advanced care planning/counseling discussion Allergy-induced asthma rare inhaler use Depression with anxiety Diabetes mellitus, type 2 IDDM Dyslipidemia Fall Hemothorax Hypertension Hypothyroidism Lumbosacral pain Nausea Nausea and vomiting Obesity Palliative care encounter Pancreatic cancer + current chemo, follows with [facility] heme/onc PCOS (polycystic ovarian syndrome) Therapeutic opioid-induced constipation (OIC) Surgical History History of ERCP ERCP (06/2021) & EUS/ERCP (04/28/21): Good view with glidescope #3, ETT [address] [facility] History of tonsillectomy History of umbilical hernia repair History of vascular access device A PORT INSERTION History of wisdom tooth extraction Nausea and vomiting after administration of anesthetic agent Family History Brother Diabetes Hypertension Father Hypertension Aunt Diabetes Grandmother (Maternal) Diabetes Other No family history of adverse response to anesthesia Social History Smoking Status: Current some day smoker Tobacco Type: Cigarettes packs per day: 1; Cigarettes Per Day: 20; Second Hand Exposure: No; Hx Alcohol Use: No Hx Substance Use: Yes (medical marijuana) Last Used Substance: Days (ago) Last Used Substance Other:: 2 days ago Preferred Language: Cameroonian Communication Ability: Effective Splitting Machine Feeder Required: No Beliefs That Will Affect Care: None marital status: Single Current Living Situation: Alone Current Living Situation Comment: Lives with Daughter and Dog. Other Information That Helps Us Care for You: No Feels Safe at Home: Yes Safety Concerns: Feels Safe At This Time Assistive Devices: Cane and Glasses Review of Systems Review of Systems: All systems reviewed & are unremarkable except as noted in HPI & below Physical Exam Constitutional: well groomed and cooperative; + uncomfortable Eyes: PERRL, conjunctivae normal, anicteric sclerae ENMT: external ear and nose normal, oropharynx normal Respiratory: normal respiratory effort, lungs clear to auscultation Cardiovascular: RRR, no murmur, no edema Gastrointestinal (Abdomen): Soft, BS hypoactive, TTP epigastric and RUQ areas Skin: no rashes, warm and dry no jaundice Psychiatric: A+Ox3, euthymic affect Lymphatic: no lymphedema Results & Data ([facility]) Vital Signs (Past 12 Hours) Vital Signs Temp Pulse Resp BP Pulse Ox O2 Del Method 06/14/22 02:52 36.8 C 98 H 20 153/91 H 97 Room Air 06/13/22 22:29 36.9 C 101 H 18 144/83 H 93 Room Air (1) Pancreatic cancer Pancreatic malignancy location: unspecified Qualified Code(s): C25.9 - Malignant neoplasm of pancreas, unspecified (2) Nausea & vomiting Vomiting type: unspecified Qualified Code(s): R11.2 - Nausea with vomiting, unspecified (3) Abdominal pain Abdominal location: right upper quadrant Qualified Code(s): R10.11 - Right upper quadrant pain (4) Acute pancreatitis Acute pancreatitis complication: uninfected necrosis Pancreatitis type: unspecified pancreatitis type Qualified Code(s): K85.91 - Acute pancreatitis with uninfected necrosis, unspecified
--- NOTE | 2022-06-14 10:50 | Hospitalist Progress Note ---
Date of Service June 14, 2022 Assessment & Plan (1) Abdominal pain: (2) Acute pancreatitis: Plan: Patient is a 42 yr female with H/O metastatic adenocarcinoma of pancreas currently on chemotherapy with mets to liver, complex hepatic abscess currently on IV antibiotics, insulin-dependent T2DM, HTN, HLD, chronic pain in setting of malignancy, PCMpresented to ER with complaint of increased abdominal pain, chronic nausea, vomiting Acute pancreatitis Cannot rule out cholecystitis/Cholangitis --CT ABD: There is evidence of severe acute pancreatitis. Correlate with clinical findings and serum amylase/lipase levels. There are at least 2 pancreatic mass lesions. These appear to show interval necrosis, and this may be treatment related. Clinical correlation will be required. Enlarged, steatotic, and markedly heterogeneous liver. A common bile duct stent is in place. Gas within the stent and pneumobilia suggest patency of the stent. Although not well assessed due to marked hepatic heterogeneity, there are several low-attenuation lesions suggested throughout the liver. These were not clearly seen previously. Additionally, the gallbladder wall is thickened and hyperemic with intraluminal gas. These findings are nonspecific and the hepatic heterogeneity could be related to treated metastatic disease. In the appropriate clinical setting ascending cholangitis would be impossible to exclude. Clinical and laboratory correlation will be essential. There are mildly enlarged perihepatic lymph nodes. A capsular lesion along the right lobe of liver has modestly decreased in size from previous. An implant is also seen along the falciform ligament. There is near-complete to complete occlusion at the portosplenic confluence. This represents a significant change from 05/09/2022. No intraluminal thrombus is identified. There is marked narrowing of the left renal vein as it passes posterior to the pancreas. Trace abdominopelvic ascites. Liquid stool is seen throughout the colon. Correlate clinically for evidence of a diarrheal illness. The bladder is decompressed and appears thick-walled. Correlate with urinalysis. Splenomegaly. --Will need HIDA scan -- May need Axios stent placement for gallbladder drainage if HIDA is positive for cholecystitis as patient is a poor candidate for surgery. --Blood cultures pending --Continue cefepime, Flagyl --Appreciate surgery, GI input --Continue IV fluids --Advance diet as tolerated --Pain control (3) Metastatic adenocarcinoma to pancreas: Plan: Metastatic adenocarcinoma pancreas Ongoing Chemotherapy Not a candidate for surgery Metastasis to Liver Following with [facility] oncology Last chemo on 05/31/2022 Following with [facility] palliative care. Had Telemedicine appointment on 06/12/2022 and was discussed to stop Compazine, add scopolamine patch, and can use Reglan as needed Palliative care consulted to address goals of care Hepatic Abscess IR drain placed on 04/18, cultures grew Klebsiella and E. coli. Was treated with IV Rocephin, finished on 05/17/2022 Drain was removed on 05/14/2022 DM II, insulin dependent HbA1c: 6.2 on 05/10/2022 Continue Insulin per Protocol Monitor BGs HTN continue Enalapril Anxiety Continue home meds DVT Px Lovenox SQ Code Status Full Code Admission and Anticipated Discharge Date Admission Date: June 13, 2022 Subjective Patient is seen and examined at bedside States having nausea and abdominal pain Tearful during my encounter Discussed with gastroenterology Denies any chest pain, dyspnea, dizziness Also discussed with patient's family at bedside Review of Systems Review of Systems: All systems reviewed & are unremarkable except as noted in Subjective Physical Exam Physical Exam: Physical Exam: Vitals signs as noted above General Appearance:Moderately built and nourished, Ill appearing, no apparent distress Head: normocephalic, Atraumatic Eyes: normal inspection, EOMI Neck: supple, Trachea midline Respiratory/Chest: Normal breath sounds, +Port, CTA, No accessory muscle use Cardiovascular: S1, S2, No murmur Abdomen/GI:Soft, Epigastric and RUQ tender, Bowel sounds present Extremities/Musculoskeletal:normal inspection, no edema Neurologic/Psych:AAOX3, grossly no focal neurological deficits Skin: normal color, warm Results & Data Results & Data ([facility]) Vital Signs (Past 12 Hours) Vital Signs Temp Pulse Pulse Resp BP Pulse Ox O2 Del Method 06/14/22 08:00 88 06/14/22 02:52 36.8 C 98 H 20 153/91 H 97 Room Air Laboratory Results Short CBC 06/14/22 Range/Units 06:17 WBC 7.16 (4.8-10.8) K/ul Hgb 10.4 L (12.0-16.0) g/dl Hct 31.6 L (34.1-44.9) % Plt Count 279 (130-400) K/uL BMP 06/14/22 06:17 Sodium 137 Potassium 3.5 Chloride 106 Carbon Dioxide 26 BUN 5 L Creatinine 0.31 L Glucose 90 Calcium 7.4 L Liver Function 06/14/22 Range/Units 06:17 Total Bilirubin 1.0 (0.2-1.0) mg/dl AST 38 (13-39) U/L ALT 17 (7-52) U/L Alkaline Phosphatase 191 H (34-104) U/L Albumin 2.4 L (3.4-5.0) gm/dl Urine 06/13/22 Range/Units 10:35 Urine Color Dark Yellow Urine Appearance Clear (Clear) Urine pH 8.0 H (4.5-7.5) Ur Specific [place] 1.023 (1.000-1.030) Urine Protein 1+ H (Negative) Urine Glucose (UA) Negative (Negative) (1) Abdominal pain Abdominal location: right upper quadrant Qualified Code(s): R10.11 - Right upper quadrant pain (2) Acute pancreatitis Acute pancreatitis complication: uninfected necrosis Pancreatitis type: unspecified pancreatitis type Qualified Code(s): K85.91 - Acute pancreatitis with uninfected necrosis, unspecified
[2022-06-14] MEDS ORDERED: NALOXONE HCL 0.4 MG/1 ML VIAL/CARP IV PRN (11:00)
[2022-06-14] MEDS: HYDROmorphone PCA 30 MG/30 ML IV PRN ×2 (11:58→19:16)
[2022-06-14] MEDS: LORazepam 1 MG TAB PO PRN ×2 (12:11→23:28)
[2022-06-14] MEDS: HALOPERIDOL ORAL SOLN 2 MG/ML PO PRN (12:12)
[2022-06-14] MEDS ORDERED: CEFEPIME 2,000 MG in SYRINGE 0 ML IV SCH (13:00)
[2022-06-14] MEDS ORDERED: METHYLNALTREXONE BROMIDE 12 MG/0.6 ML VIAL SQ ONE (14:00)
[2022-06-14] MEDS ORDERED: FOSAPREPITANT DIMEGLUMINE 150 MG in SODIUM CHLORIDE 0.9% 145 ML IV ONE (14:00)
[2022-06-14] MEDS: ENOXAPARIN INJ 40 MG/0.4 ML SYR SQ SCH (17:40)
[2022-06-14] MEDS: MIRTAZAPINE TAB 15 MG TAB PO SCH (20:38)
[2022-06-14] MEDS ORDERED: CALCIUM CARBONATE 500 MG CHEWABLE TAB PO PRN (20:41)
[2022-06-14] MEDS ORDERED: PROCHLORPERAZINE 5 MG in SYRINGE 4 ML IV ONE (23:15)
[2022-06-15] MEDS ORDERED: HEPARIN 100 UNIT/ML 5ML FLUSH FLUSH PRN (01:46)
[2022-06-15] MEDS ORDERED: ALUMINUM/MAGNESIUM SUSP 18 ML, LIDOCAINE VISCOUS 2% SOLN 6 ML, BARCODE IDENTIFIER 1 EACH PO ONE (02:00)
[2022-06-15] MEDS: HALOPERIDOL ORAL SOLN 2 MG/ML PO PRN (06:08)
[2022-06-15] MEDS: LEVOTHYROXINE SODIUM 50 MCG TABLET PO SCH (06:12)
[2022-06-15 06:58] LABS: Hematocrit (blood only) 31.1 % (34.1-44.9); Hemoglobin 10.5 g/dl (12.0-16.0); Mean Corpuscular Hemoglobin 32.4 pg (25.0-34.0); Mean Corpuscular Hgb Conc 33.8 g/dL (32.0-36.0); Mean Platelet Volume 10.9 fL (9.4-12.3); Platelet Count 357 K/uL (130-400); RDW Coefficient of Variation 15.6 % (11.5-14.5); Red Blood Count 3.24 M/uL (3.93-5.22); White Blood Count 7.32 K/ul (4.8-10.8)
[2022-06-15] MEDS: HYDROmorphone PCA 30 MG/30 ML IV PRN ×3 (07:17→19:16)
[2022-06-15 07:24] LABS: Alanine Aminotransferase 13 U/L (7-52); Albumin Globulin Ratio 0.7 (0.9-2); Albumin Level 2.3 gm/dl (3.4-5.0); Alkaline Phosphatase 178 U/L (34-104); Anion Gap 5 (3-11); Aspartate Aminotransferase 32 U/L (13-39); Bilirubin,Total 0.9 mg/dl (0.2-1.0); Blood Urea Nitrogen 3 mg/dl (6-23); Calcium 7.5 mg/dl (8.5-10.1); Carbon Dioxide 28 mmol/L (21-32); Chloride 105 mmol/L (98-107); Creatinine Clr Calc Pharmacy 264.7 ml/min; Est GFR (African American) > 150.0 ml/min; Est GFR (Non-African American) 139.3 ml/min; Globulin 3.3 gm/dl (2.5-4.0); Glucose 103 mg/dl (70-99(Fasting)); Potassium 3.5 mmol/L (3.5-5.1); Sodium 138 mmol/L (136-145); Total Protein 5.6 gm/dl (6.0-8.3)
[2022-06-15] MEDS: LORazepam 1 MG TAB PO PRN (08:58)
[2022-06-15] MEDS ORDERED: ONDANSETRON 4 MG OD TAB PO PRN (09:05)
[2022-06-15] MEDS: INSULIN ASPART PER UNIT SC SCH ×4 (09:08→20:42)
[2022-06-15] MEDS: LANTUS PER UNIT CHARGE SQ SCH ×2 (09:09→20:43)
[2022-06-15] MEDS: PROMETHAZINE HCL 12.5 MG in SODIUM CHLORIDE 0.9% 50 ML IV PRN ×2 (09:13→17:12)
--- NOTE | 2022-06-15 09:28 | Palliative Care Progress Note ---
Date of Service June 15, 2022 Assessment & Plan (1) Palliative care encounter: Plan: * [place] had a very direct discussion with Dr Bahena earlier this morning. He agreed with her instincts that chemo is no longer helping. It is hurting and causing more side effects and complications. She is not deriving a meaningful benefit. She is exhausted, nauseated, vomiting and in severe pain. The FELT CHECKER is helping more than anything else in the past. She is afraid what will come if she cannot continue the Dilaudid FELT CHECKER. * Her sister is coming at 11am and [place] asked that we meet together at that time to discuss home hospice and plans for home dc. I have notified Dr. Peterson and Ms Trujillo from [facility] re [facility]. * [place] and I revisited the code status discussion. She has been thinking about our conversation from yesterday and has decided at this junction she does not want CPR. She does not want to on machines, in the hospital, etc. She wants every chance she can have to remain interactive with her family, bandar daughter, and wishes to have her EOL journey at home, where her friends and family can easily come to visit and be comfortable. [place] notes that she loves her home, she worked hard to achieve her dream home and it is sad for her to think about how she now will be leaving. * We spoke about her courage in facing this cancer head on, pursuing the therapies offered so long as they gave her a benefit. She has survived longer than anticipated with this cancer. She made guardianship transfer arrangements for her daughter and has her legal/financial matters in order. her father has management of her financial issues and has been handling them all without concerns. I told [place] it took a lot of courage to make these big decisions and plans for the future, knowing that there was an inevitable ending coming. She was prepared for those decisions but feels less so in the face of actual end of life. I assured her she is not alone. Hope is all around her, even if it is the focus of the hope that changes -from hoping for a cure/more time etc to now hoping for comfort, improved symptom mgt/pain relief and returning home to make the most of her time with the people she loves the most. We spoke about how life is jerome when time is short. She has lived this to capacity in the past few years. We spoke about the dying process and what changes she may feel and see. We specifically spoke about the fatigue may increase, her ability to do things independently will decline and she may end up spending more time in bed or in a resting position. I told her she will spend more time resting then sleeping, to where she eventually may not be too arousable. At this junction she will lapse into more of an end of life coma. Her family will see the changes pt may move through in the dying process including but not limited to sleeping more, disorientation when awake, restlessness, diminished senses/inability to respond to stimulus although ability to be aware of them remains intact longer, changes in body temperatures, skin changes/mottling/cyanosis, respiratory pattern changes, oral secretions. I reiterated that the goal is to assure a peaceful , [place] is in agreement. * I have updated Dr Peterson and Ghazala/Care mgt. (2) Cancer related pain: Plan: Excellent relief with Dilaudid FELT CHECKER but feeling foggy. Will decrease dosing slightly to see if we can improve this, as follows: Dilaudid basal rate will be reduced to 0.2mg per hour with FELT CHECKER demand dose of 0.2mg q15min prn. Orders written. (3) Refractory nausea and vomiting: Plan: I asked pt to try Haldol for nausea relief. (4) Pancreatic cancer: (5) Abdominal pain: (6) Metastatic adenocarcinoma to pancreas: Plan As outlined above. Orders written to modify FELT CHECKER I have changed Code to DNR/DNI per my discussion with pt as noted above Family meeting at 11ma, primary team, nursing and care mgt aware. Jonna Hays DNP Clinical Director, Palliative Medicine Admission and Anticipated Discharge Date Admission Date: June 13, 2022 Subjective Pt is seen today for ongoing cancer related pain and symptom mgt. She had a conversation earlier this morning with Dr Bahena/oncology. He agreed with her chemo is no longer helping and advised her she has been having disease progression in spite of therapy. The burdens of treatment are now outweighing the benefits. Pain is much better with the FELT CHECKER. It does make her feel foggy however and she feels like she is processing information a little slower. Severe, refractory nausea persists. GI gave a dose of Emend yesterday, she does not feel this helped either. She has not tried the Haldol intensol but is willing. She has had no relief with Zofran, compazine or reglan in the past. She has some relief with phenergan but not significant. Her appetite is poor,. she is feeling weak and exhausted. mood becoming more depressed. Review of Systems Review of Systems: All systems reviewed & are unremarkable except as noted in Subjective Physical Exam Physical Exam: Tearful affect. Skin pale. Strength diminished but equal. Constitutional: + ill appearing and + in distress Eyes: PERRL and EOM intact bilaterally Neck: normal visual inspection and trachea midline Respiratory: normal respiratory effort Cardiovascular: Rate/Rhythm: regular rate and regular rhythm Chest (Breasts): Additional Comments: +port, accessed Gastrointestinal (Abdomen): RUQ TTP, BS diminished, softly distended Skin: + turgor decreased Psychiatric: Orientation: oriented x 3 Eye Contact: good eye contact Affect: + depressed affect Mood: + depressed mood Suicidal Thoughts: denies suicidal thoughts Homicidal Thoughts: denies homicidal thoughts Cognition: recent memory grossly intact, remote memory grossly intact, attention grossly intact and language grossly intact Insight: excellent insight Judgement: excellent judgement Results & Data ([facility]) Vital Signs (Past 12 Hours) Vital Signs Temp Pulse Resp BP Pulse Ox O2 Del Method 06/15/22 08:05 36.9 C 91 H 18 148/83 H 97 Room Air 06/15/22 02:46 37.1 C 102 H 18 152/97 H 93 Room Air 06/14/22 23:25 36.7 C 97 H 17 165/97 H 95 Room Air Laboratory Results Labs and imaging reviewed PG Care Time/CCT Total # of Minutes Spent Total Time Spent: 70 Total Time Spent with Patient: Total time spent is greater than 50% in coordination of care (as documented) at patient's floor/unit and/or counseling patient: I spent 70 minutes overall addressing this case: 10 in medical data review/discussion with referring provider(s) and/or preparation for the visit 40 in direct interaction with the patient 25 of the above 40 min Advance Care Planning/Goals of Care discussions as detailed above in note (must be >16min) 5 in subsequent review and synthesis of assessment and plan 10 in communicating with other providers regarding the patient's case: [] Prolonged Care Time Prolonged Care Time: Yes [place] [id number] Subseq Hosp Care Lvl 3 Patient Type Established History Detailed Exam Detailed Medical Decision Making High Complexity Diagnoses Palliative care encounter Z51.5 Cancer related pain G89.3 Refractory nausea and vomiting R11.2 Pancreatic cancer C25.9 Pancreatic malignancy location: unspecified Abdominal pain R10.11 Abdominal location: right upper quadrant Metastatic adenocarcinoma to pancreas C78.89 Additional Codes Prolonged Care Time - Prolonged Care Time: Yes ([id number]) (1) Pancreatic cancer Pancreatic malignancy location: unspecified Qualified Code(s): C25.9 - Malignant neoplasm of pancreas, unspecified (2) Abdominal pain Abdominal location: right upper quadrant Qualified Code(s): R10.11 - Right upper quadrant pain
[2022-06-15] MEDS: LACTATED RINGER'S 1,000 ML IV SCH ×2 (09:42→22:40)
--- NOTE | 2022-06-15 09:42 | Communication Note ---
Date of Service: June 15, 2022 GI note: Saw pt in room today. She reports abd pain is controlled but not having improvement of her nausea despite trial of Emend IV. Did not try Haldol. She is teary, wants to be left alone. States found out her chemo is not working and expressed that she may go home on hospice. Will touch base with Palliative Care.
[2022-06-15] MEDS: PANCREAZE (LIPASE 16,800U) CAP PO SCH ×3 (09:51→17:45)
[2022-06-15] MEDS: PANTOprazole 40 MG TAB PO SCH ×2 (09:52→20:37)
[2022-06-15] MEDS: LORATADINE 10 MG TAB PO SCH (09:52)
[2022-06-15] MEDS: rOPINIRole HCL 2 MG TABLET PO SCH ×3 (09:52→20:38)
[2022-06-15] MEDS: ENALAPRIL MALEATE 10 MG TAB PO SCH (09:52)
[2022-06-15] MEDS: NICOTINE 14 MG/24 HR PATCH TD SCH (10:12)
[2022-06-15] MEDS ORDERED: LORazepam 1 MG in SYRINGE 0 ML IV PRN ×2 (12:14→12:27)
[2022-06-15] MEDS ORDERED: LORazepam 0.5 MG in SYRINGE 0 ML IV PRN (12:17)
[2022-06-15] MEDS ORDERED: ONDANSETRON INJ 2 MG/ML 2 ML VIAL IV PRN (12:17)
[2022-06-15 12:39] LABS: C.diff Toxin B, Qual RT-PCR DETECTED (NOT DETECTED)
[2022-06-15] MEDS: HALOPERIDOL LACTATE 5 MG/ML 1 ML VIAL IV PRN ×3 (12:49→20:36)
--- NOTE | 2022-06-15 16:06 | Palliative Family Discussion ---
Date of Service June 15, 2022 Patient Directed Conference Time of [id number] Participants: Jonna Hyas DNP Patient participation: yes Patient Support System: sister, nii Other Healthcare Provider Participation: None Meeting Location: bedside Advanced Directive available: yes, pt has made her wishes known The patient's surrogate medical decision maker participated: yes, Nii A family meeting was held for MIR GRIMM. This meeting was necessary for determining the appropriate course of treatment. Topics of Discussion Topics of Discussion: 1. Terminal pancreatic adenoca. 2. Pt would like home with hospice 3. family supportive Other Content of Meetin. Opportunity given for participants to speak and ask questions. 2. Participants were assured of attention to patient comfort. 3. Reassurance provided. 4. Support was provided for informed, good-lashawn decisions. 5. Emotions expressed by family were acknowledged and addressed. 6. Pt expressed some wishful thinking about her fractured relationship with mother, who has not been able to support pt in the way she needs or has asked. Pt also indicated she wants to go to her parents' home for EOL care ut her parents are not emotionally able to handle this/would not be willing. Pt states that her home, while [place] and she is proud of it, serves only as a reminder of life with cancer, broken dreams and the many heartaches she is feeling as the end is nearing. She asked me about prognosis. I told her that given her overall declining PS, weakness, recurrent complication and increasing pain/symptoms, it is weeks to a month or two. I told her I am always happy to be proven wrong and that sometimes, when we do a little less to patients, they settle down, calm down and feel better which in turn leads to them living longer due to improved QOL. I shared with her that there is strong evidence supporting the initiation of Palliative Care into the management of this patient with advanced met lung cancer; palliative care, when provided alongside oncologic care, leads to improved QOL, fewer depressive symptoms, better prognosis understanding and longer median survival bandar when given the overall poor prognosis and QOL issues at hand. (Kemal et al. (2010). Early palliative care for patients with metastatic fgy-yapie-xaqs lung cancer. [employer] J of Med 363(1), 733-742. Doi: 10.1056/[id number].) In addition we reviewed the following: * Dying patients fear dyspnea and pain, therefore, symptom control is one cornerstone of pulmonary palliative care. Dyspnea is a prominent symptom of the patient with advanced respiratory disease of any cause: nearly all patients with COPD had dyspnea during the last 3 days of their lives. Providers routinely care for patients with chronic or advanced respiratory diseases and critical illnesses. The ATS recognizes: the growing importance and complexity of palliative care for patients with life-threatening and life- limiting diseases and disorders and the need for improving professional competence and teamwork in providing such care. The statement strongly endorses the concept that palliative care should be available to patients at all stages of illness and should be individualized based on the needs and preferences of the patient and the patients family. Clinicians should consult with palliative care specialists as appropriate for managing palliative care situations beyond the clinicians level of competence. (ATS Clinical Policy Statement: Palliative Care for Patients with Respiratory Diseases and Critical Illnesses; Khang Morris, et al., for the [employer], the [place] [employer], the [place] [employer], and the Respiratory Society* Diagnosis and Management of Stable Chronic Obstructive Pulmonary Disease: A Clinical Practice Guideline Update from the [employer], [employer] [employer], [place] [employer], and Respiratory Society . Fe Room Manager Med. 2011;155:179-191.) * Dying process: Discussed changes pt may move through in the dying process including but not limited to sleeping more, disorientation when awake, restlessness, diminished senses/inability to respond to stimulus although ability to be aware of them remains intact longer, and changes in body temperatures, skin changes/mottling/cyanosis, respiratory pattern changes, and oral secretions. Family verbalized understanding. The goal is to assure a peaceful . * EOL Rally: When a person facing the end of life rallies, they seem to become "more stable" - may want to talk or even begin taking PO; this phenomenon is usually seen as a sudden burst of energy before . This period of perking up can be accompanied by such a notable change in mental clarity that is often referred to as terminal lucidity. This change in cognition and behavior goes against everything families learn about the physical signs that the end of life is near. It is important to note that evidence-based data is elusive, if nonexistent. Theories support that it may be a search for a final, strong connection. Also, as organs shut down, they can release a steroid like compound that briefly rouses the body - in the specific case of brain tumors, swelling occurs in the confined space of the skull. The edema shrinks as EOL care patients are weaned off food and drink, waking up the brain a bit. Families and caregivers may grasp at what seems to be a turnaround in a loved ones health, however, the EOL Rally is a hallmark pre- sign. It is not uncommon for patients to show improvement before : they may want to talk while others may become restless or act as if they need to start preparing for a trip. Some patients will become more relaxed yet remain tuned in to what is going on around them, others will show signs of physical stability when, seconds before, they seemed on the verge of letting go. A rally can last for a few moments or even days. Short or long, these temporary improvements can have a profound effect on loved ones who are keeping nathan. Like a moment of clarity for someone who has dementia, a rally is one last opportunity to connect with a loved one. Each persons experience is unique and impossible to predict with total accuracy. Life is full of questions, and some of them simply are not meant to be answered. Read more: [email or web address]/xks-zsidceb-qt-en [email or web address]-ei-frlj-rallies.html * Oxygen at EOL: For patients at the end of life, oxygen delivered by a nasal cannula provides no additional symptomatic benefit for relief of refractory dyspnea in patients with life-limiting illness compared with room air: there's a point at which that the oxygen level gets so low that it's no longer compatible with life. By providing supplemental oxygen, the dying process will be unnecessarily prolonged. Please use less burdensome but more effective strategies such as comfort care meds, oscillating fan, massage, repositioning, etc. (Patrizia AP, Chet CF, Isadora PA, et al. Effect of palliative oxygen versus room air in relief of breathlessness in patients with refractory dyspnoea: a double-blind, randomised controlled trial. Lancet. 2010;376(7490):4-793. doi:10.1016/[id number](67)42866-4) * Secretions at EOL/management: I discussed with family that as the level of consciousness decreases in the dying process, patients lose their ability to swallow and clear oral secretions. As air moves over the secretions, which have pooled in the oropharynx and bronchi, the resulting turbulence produces noisy ventilation with each breath, described as gurgling or rattling noises. While there is no evidence that patients find this rattle disturbing, evidence from bereaved surveys suggests the noises can be disturbing to the patients visitors and caregivers who may fear that the patient is choking to . We recommend a combination of Non- Pharmacological and Pharmacological Treatments: * 1. Position the patient on their side or in a semi-prone position to facilitate postural drainage * 2. Communication with family and caregivers to reaffirm commitment to their loves ones care, reduce anxiety and fears. * 3. Gentle oropharyngeal suctioning is used although this can be ineffective when fluids are beyond the reach of the catheter. Avoid deep suctioning as it is very irritating. Note that frequent suctioning is disturbing to both the patient and the visitors. * 4. Reduction of fluid intake. * 5. Consider a 1-2 min Trendelenburg positioning, to move fluids up into the oropharynx for easier removal BUT note that ASPIRATION RISK WILL INCREASE. * 6. Muscarinic receptor blockers (anti-cholinergic drugs) are most often used: glycopyrrolate (Robinul), scopolamine (Transderm Scop), hyoscyamine and atropine. Of these, I prefer to using glycopyrrolate as first line treatment, because it is a quaternary amine (therefore does not cross the blood-brain barrier) which reduces the potential anti cholinergic agent associated SURVEY RODMAN toxicity (sedation, delirium). * 7. Glycopyrrolate has five times the anti-secretory potency compared to atropine, while scopolamine dries/thickens secretions and causes dry mouth, which may be more distressing to the patient and detract from comfort. Time Involved in Meeting: I spent 5minutes overall addressing this case: 5 in medical data review/discussion with referring provider(s) and/or preparation for the visit 45 in direct interaction with the patient and sister as above Advance Care Planning/Goals of Care discussions as detailed above in note (must be >16min) 5 in subsequent review and synthesis of assessment and plan 10 in communicating with other providers regarding the patient's case: []
--- NOTE | 2022-06-15 16:27 | Hospitalist Progress Note ---
Date of Service June 15, 2022 Assessment & Plan (1) Abdominal pain: (2) Acute pancreatitis: Plan: Patient is a 42 yr female with H/O metastatic adenocarcinoma of pancreas currently on chemotherapy with mets to liver, complex hepatic abscess currently on IV antibiotics, insulin-dependent T2DM, HTN, HLD, chronic pain in setting of malignancy, PCMpresented to ER with complaint of increased abdominal pain, chronic nausea, vomiting Acute pancreatitis Cannot rule out cholecystitis/Cholangitis --CT ABD: There is evidence of severe acute pancreatitis. Correlate with clinical findings and serum amylase/lipase levels. There are at least 2 pancreatic mass lesions. These appear to show interval necrosis, and this may be treatment related. Clinical correlation will be required. Enlarged, steatotic, and markedly heterogeneous liver. A common bile duct stent is in place. Gas within the stent and pneumobilia suggest patency of the stent. Although not well assessed due to marked hepatic heterogeneity, there are several low-attenuation lesions suggested throughout the liver. These were not clearly seen previously. Additionally, the gallbladder wall is thickened and hyperemic with intraluminal gas. These findings are nonspecific and the hepatic heterogeneity could be related to treated metastatic disease. In the appropriate clinical setting ascending cholangitis would be impossible to exclude. Clinical and laboratory correlation will be essential. There are mildly enlarged perihepatic lymph nodes. A capsular lesion along the right lobe of liver has modestly decreased in size from previous. An implant is also seen along the falciform ligament. There is near-complete to complete occlusion at the portosplenic confluence. This represents a significant change from 05/09/2022. No intraluminal thrombus is identified. There is marked narrowing of the left renal vein as it passes posterior to the pancreas. Trace abdominopelvic ascites. Liquid stool is seen throughout the colon. Correlate clinically for evidence of a diarrheal illness. The bladder is decompressed and appears thick-walled. Correlate with urinalysis. Splenomegaly. --Will ideally need HIDA scan to rule out Cholecystis. Currently isotope unavailable for HIDA scan, patient unable to be off narcotics for the scan -- May need Axios stent placement for gallbladder drainage if HIDA is positive for cholecystitis as patient is a poor candidate for surgery. --Less likely cholecystitis as per GI. --Blood cultures pending --Empiric cefepime, Flagyl DCed as less likely cholecystitis as per GI --Appreciate surgery, GI input --Continue IV fluids --Advance diet as tolerated --Pain control with CHOIRMASTER Pump -- Appreciate palliative care input C. difficile colitis Started on PO vancomycin Isolation precautions (3) Metastatic adenocarcinoma to pancreas: Plan: Metastatic adenocarcinoma pancreas Ongoing Chemotherapy Not a candidate for surgery Metastasis to Liver Following with [facility] oncology Last chemo on 05/31/2022 Following with [facility] palliative care. Had Telemedicine appointment on 06/12/2022 and was discussed to stop Compazine, add scopolamine patch, and can use Reglan as needed Palliative care consulted to address goals of care Patient leaning towards transition to home hospice Hepatic Abscess IR drain placed on 04/18, cultures grew Klebsiella and E. coli. Was treated with IV Rocephin, finished on 05/17/2022 Drain was removed on 05/14/2022 DM II, insulin dependent HbA1c: 6.2 on 05/10/2022 Continue Insulin per Protocol Monitor BGs HTN continue Enalapril Anxiety Continue home meds DVT Px Lovenox SQ Code Status DNI/DNR Admission and Anticipated Discharge Date Admission Date: June 13, 2022 Subjective Patient is seen and examined at bedside Reports persistent intractable abdominal pain associate with nausea, vomiting Denies any diarrhea today Stool studies positive for C. difficile Discussed with palliative care Denies any chest pain, dyspnea, dizziness Review of Systems Review of Systems: All systems reviewed & are unremarkable except as noted in Subjective Physical Exam Physical Exam: Physical Exam: Vitals signs as noted above General Appearance:Moderately built and nourished, Ill appearing, no apparent distress Head: normocephalic, Atraumatic Eyes: normal inspection, EOMI Neck: supple, Trachea midline Respiratory/Chest: Normal breath sounds, +Port, CTA, No accessory muscle use Cardiovascular: S1, S2, No murmur Abdomen/GI:Soft, Epigastric and RUQ tender, Bowel sounds present Extremities/Musculoskeletal:normal inspection, no edema Neurologic/Psych:AAOX3, grossly no focal neurological deficits Skin: normal color, warm Results & Data Results & Data ([facility]) Vital Signs (Past 12 Hours) Vital Signs Temp Pulse Pulse Resp BP Pulse Ox O2 Del Method 06/15/22 12:39 36.7 C 87 17 159/84 H 97 Room Air 06/15/22 11:22 92 H 06/15/22 08:05 36.9 C 91 H 18 148/83 H 97 Room Air Laboratory Results Short CBC 06/15/22 Range/Units 06:34 WBC 7.32 (4.8-10.8) K/ul Hgb 10.5 L (12.0-16.0) g/dl Hct 31.1 L (34.1-44.9) % Plt Count 357 (130-400) K/uL BMP 06/15/22 06:34 Sodium 138 Potassium 3.5 Chloride 105 Carbon Dioxide 28 BUN 3 L Creatinine 0.30 L Glucose 103 H Calcium 7.5 L Liver Function 06/15/22 Range/Units 06:34 Total Bilirubin 0.9 (0.2-1.0) mg/dl AST 32 (13-39) U/L ALT 13 (7-52) U/L Alkaline Phosphatase 178 H (34-104) U/L Albumin 2.3 L (3.4-5.0) gm/dl (1) Abdominal pain Abdominal location: right upper quadrant Qualified Code(s): R10.11 - Right upper quadrant pain (2) Acute pancreatitis Acute pancreatitis complication: uninfected necrosis Pancreatitis type: unspecified pancreatitis type Qualified Code(s): K85.91 - Acute pancreatitis with uninfected necrosis, unspecified
[2022-06-15] MEDS: SODIUM CHLORIDE 0.9% 1000ML 1,000 ML IV SCH (17:44)
[2022-06-15] MEDS: LORazepam 0.5 MG in SYRINGE 0 ML IV PRN ×2 (18:13→22:39)
[2022-06-15] MEDS: VANCOMYCIN HCL 125 MG/2.5ML SOLN PO SCH (18:14)
[2022-06-15] MEDS: RASPBERRY SYRUP 5 ML UDP PO SCH (18:14)
[2022-06-15] MEDS: MIRTAZAPINE TAB 15 MG TAB PO SCH (20:43)
[2022-06-15] MEDS ORDERED: LORazepam 0.5 MG in SYRINGE 0 ML IV STA (23:04)
[2022-06-16] MEDS: VANCOMYCIN HCL 125 MG/2.5ML SOLN PO SCH ×4 (01:37→17:11)
[2022-06-16] MEDS: RASPBERRY SYRUP 5 ML UDP PO SCH ×4 (01:37→17:11)
[2022-06-16] MEDS: LORazepam 0.5 MG in SYRINGE 0 ML IV PRN ×5 (02:55→23:44)
[2022-06-16] MEDS: HALOPERIDOL LACTATE 5 MG/ML 1 ML VIAL IV PRN ×3 (02:55→11:34)
[2022-06-16] MEDS: LEVOTHYROXINE SODIUM 50 MCG TABLET PO SCH (05:54)
[2022-06-16] MEDS: PANCREAZE (LIPASE 16,800U) CAP PO SCH ×3 (07:40→17:11)
[2022-06-16] MEDS: INSULIN ASPART PER UNIT SC SCH ×4 (07:41→22:02)
[2022-06-16] MEDS: LANTUS PER UNIT CHARGE SQ SCH ×2 (08:34→22:03)
[2022-06-16] MEDS: LORATADINE 10 MG TAB PO SCH (08:42)
[2022-06-16] MEDS: ENALAPRIL MALEATE 10 MG TAB PO SCH (08:42)
[2022-06-16] MEDS: PANTOprazole 40 MG TAB PO SCH ×2 (08:42→21:48)
[2022-06-16] MEDS: LACTATED RINGER'S 1,000 ML IV SCH ×2 (11:03→23:37)
[2022-06-16] MEDS: NICOTINE 14 MG/24 HR PATCH TD SCH (11:12)
[2022-06-16] MEDS: SODIUM CHLORIDE 0.9% 1000ML 1,000 ML IV SCH (11:13)
[2022-06-16] MEDS: rOPINIRole HCL 2 MG TABLET PO SCH ×3 (11:16→21:47)
--- NOTE | 2022-06-16 14:43 | Hospitalist Progress Note ---
Date of Service June 16, 2022 Assessment & Plan (1) Abdominal pain: (2) Acute pancreatitis: Plan: Patient is a 42 yr female with H/O metastatic adenocarcinoma of pancreas currently on chemotherapy with mets to liver, complex hepatic abscess currently on IV antibiotics, insulin-dependent T2DM, HTN, HLD, chronic pain in setting of malignancy, PCMpresented to ER with complaint of increased abdominal pain, chronic nausea, vomiting Acute pancreatitis Cannot rule out cholecystitis/Cholangitis --CT ABD: There is evidence of severe acute pancreatitis. Correlate with clinical findings and serum amylase/lipase levels. There are at least 2 pancreatic mass lesions. These appear to show interval necrosis, and this may be treatment related. Clinical correlation will be required. Enlarged, steatotic, and markedly heterogeneous liver. A common bile duct stent is in place. Gas within the stent and pneumobilia suggest patency of the stent. Although not well assessed due to marked hepatic heterogeneity, there are several low-attenuation lesions suggested throughout the liver. These were not clearly seen previously. Additionally, the gallbladder wall is thickened and hyperemic with intraluminal gas. These findings are nonspecific and the hepatic heterogeneity could be related to treated metastatic disease. In the appropriate clinical setting ascending cholangitis would be impossible to exclude. Clinical and laboratory correlation will be essential. There are mildly enlarged perihepatic lymph nodes. A capsular lesion along the right lobe of liver has modestly decreased in size from previous. An implant is also seen along the falciform ligament. There is near-complete to complete occlusion at the portosplenic confluence. This represents a significant change from 05/09/2022. No intraluminal thrombus is identified. There is marked narrowing of the left renal vein as it passes posterior to the pancreas. Trace abdominopelvic ascites. Liquid stool is seen throughout the colon. Correlate clinically for evidence of a diarrheal illness. The bladder is decompressed and appears thick-walled. Correlate with urinalysis. Splenomegaly. --Will ideally need HIDA scan to rule out Cholecystis. Currently isotope unavailable for HIDA scan, patient unable to be off narcotics for the scan -- May need Axios stent placement for gallbladder drainage if HIDA is positive for cholecystitis as patient is a poor candidate for surgery. --Less likely cholecystitis as per GI. --Blood cultures-negative --Empiric cefepime, Flagyl DCed as less likely cholecystitis as per GI --Appreciate surgery, GI input --Continue IV fluids --Advance diet as tolerated --Pain control with [employer]LECT[employer]IC WARFARE OFFICER Pump -- Appreciate palliative care input and recommendation -Has been on comfort care Severe anxiety with depression Fear of dying Has been getting Ativan as needed May need to increase the dose to control anxiety C. difficile colitis Started on PO vancomycin Isolation precautions (3) Metastatic adenocarcinoma to pancreas: Plan: Metastatic adenocarcinoma pancreas Ongoing Chemotherapy Not a candidate for surgery Metastasis to Liver Following with [facility] oncology Last chemo on 05/31/2022 Following with [facility] palliative care. Had Telemedicine appointment on 06/12/2022 and was discussed to stop Compazine, add scopolamine patch, and can use Reglan as needed Palliative care consulted to address goals of care Patient leaning towards transition to home hospice Awaiting home hospice on Saturday Hepatic Abscess IR drain placed on 04/18, cultures grew Klebsiella and E. coli. Was treated with IV Rocephin, finished on 05/17/2022 Drain was removed on 05/14/2022 No fever and no chills DM II, insulin dependent HbA1c: 6.2 on 05/10/2022 Continue Insulin per Protocol Monitor BGs HTN continue Enalapril Anxiety Continue home meds DVT Px Lovenox SQ Code Status DNI/DNR Admission and Anticipated Discharge Date Admission Date: June 13, 2022 Subjective 06/16/2022 The patient was seen and examined in telemetry unit She is very anxious after knowing that she does not have much time left Her pain is controlled but remains very anxious Review of Systems Review of Systems: All systems reviewed and are unremarkable except as noted Neurologic: Generally weak and lethargic but remains very very anxious Physical Exam Physical Exam: Lying in bed crying Constitutional: well developed, well nourished, + ill appearing and + obese Eyes: PERRL, conjunctivae normal, anicteric sclerae ENMT: external ear and nose normal, oropharynx normal Neck: trachea midline, no thyromegaly Respiratory: normal respiratory effort, lungs clear to auscultation Cardiovascular: Rate/Rhythm: regular rate and regular rhythm; not tachycardic Heart Sounds: normal S1 and normal S2; no murmur Gastrointestinal (Abdomen): Inspection/Auscultation: + abdomen distended and normal bowel sounds Percussion/Palpation: + abdomen tender and abdomen soft Musculoskeletal: No acute arthritis in any joint Neurologic: Alert, 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 Generally very weak and lethargic and is very anxious Psychiatric: Mood: + depressed mood and + anxious mood Lymphatic: no cervical or axillary lymphadenopathy Results & Data Results & Data ([facility]) Medications Administered Current Inpatient Medications Albuterol (Albuterol Hfa 8 Gm Inhaler) 2 puffs INH Q6R PRN PRN Reason: Shortness Of Breath Or Wheezing Stop: 07/13/22 16:27 Lipase/Protease/Amylase (Pancreaze (Lipase 16,800u) Cap) 1 cap PO TIDM BRIANNA Stop: 07/13/22 16:59 Last Admin: 06/16/22 12:09 Dose: Not Given Calcium Carbonate (Calcium Carbonate 500 Mg Chewable Tab) 500 mg PO BID PRN PRN Reason: Indigestion Stop: 07/14/22 20:40 Last Admin: 06/14/22 23:34 Dose: 500 mg Dextrose (Dextrose 50% 50 Ml Syringe) 25 - 50 ml IV UD PRN; Protocol PRN Reason: Hypoglycemia Protocol Stop: 07/13/22 16:27 Enalapril Maleate (Enalapril Maleate 10 Mg Tab) 20 mg PO DAILY BRIANNA Stop: 07/14/22 08:59 Last Admin: 06/16/22 08:42 Dose: Not Given Glucagon (Glucagon For Inj 1 Mg Vial) 1 mg SQ UD PRN; Protocol PRN Reason: Hypoglycemia Protocol Stop: 07/13/22 16:27 Glucose (Glucose 40% Gel 15 Gm Tube) 15 - 30 gm PO UD PRN; Protocol PRN Reason: Hypoglycemia Protocol Stop: 07/13/22 16:27 Glucose (Glucose 10 Tab/Tube) 4 - 8 tab PO UD PRN; Protocol PRN Reason: Hypoglycemia Treatment Stop: 07/13/22 16:27 Haloperidol Lactate (Haloperidol Lactate 5 Mg/Ml 1 Ml Vial) 1 mg IV Q4H PRN PRN Reason: Nausea Stop: 07/15/22 12:09 Last Admin: 06/16/22 11:34 Dose: 1 mg Heparin Sodium (Porcine) (Heparin 100 Unit/Ml 5ml Flush) 5 ml FLUSH PRN PRN PRN Reason: Flush Stop: 07/15/22 01:45 Hydromorphone HCl (Hydromorphone Care Program Director 30 Mg/30 Ml) 30 mg IV PRN PRN; Protocol PRN Reason: [employer] OFFICER Pain Titration Stop: 06/28/22 10:59 Last Admin: 06/15/22 19:16 Dose: 30 mg Promethazine HCl 12.5 mg/ (Sodium Chloride) 50.5 mls @ 202 mls/hr IV Q6H PRN PRN Reason: Nausea And Vomiting Stop: 07/13/22 16:27 Last Infusion: 06/15/22 18:07 Dose: Infused Sodium Chloride (Nss 1000ml) 1,000 mls @ 15 mls/hr IV .Q24H BRIANNA Stop: 06/28/22 11:01 Last Admin: 06/16/22 11:13 Dose: 15 mls/hr Lactated Ringer's (Lr) 1,000 mls @ 80 mls/hr IV .[id number] [facility] Stop: 07/15/22 08:59 Last Admin: 06/16/22 11:03 Dose: 80 mls/hr Lorazepam 0.5 mg/ Syringe 0.5 mls @ 2 mls/min IV Q3H PRN PRN Reason: Anxiety Stop: 07/15/22 16:45 Last Admin: 06/16/22 14:10 Dose: 2 mls/min Insulin Aspart (Insulin Aspart Per Unit) 0 units SC ACHS [facility] Stop: 07/13/22 16:29 Last Admin: 06/16/22 12:08 Dose: Not Given Insulin Glargine (Lantus Per Unit Charge) 0 - 5 units SQ BID [facility] Stop: 07/13/22 20:59 Last Admin: 06/16/22 08:34 Dose: Not Given Levothyroxine Sodium (Levothyroxine Sodium 50 Mcg Tablet) 50 mcg PO DAILYBB [facility] Stop: 07/14/22 06:29 Last Admin: 06/16/22 05:54 Dose: 50 mcg Loratadine (Loratadine 10 Mg Tab) 10 mg PO DAILY [facility] Stop: 07/14/22 08:59 Last Admin: 06/16/22 08:42 Dose: Not Given Mirtazapine (Mirtazapine Tab 15 Mg Tab) 15 mg PO HS [facility] Stop: 07/13/22 20:59 Last Admin: 06/15/22 20:43 Dose: Not Given Miscellaneous (Carbohydrates For Hypoglycemia ) 15 - 30 gm PO UD PRN PRN Reason: Hypoglycemia Protocol Stop: 07/13/22 16:27 Miscellaneous (Remove Nicoderm Patch) 1 each N/A DAILY@0859 [facility] Stop: 07/14/22 08:58 Last Admin: 06/16/22 07:41 Dose: 1 each Nicotine (Nicotine 14 Mg/24 Hr Patch) 14 mg TD QAM B[facility]ANNA Stop: 07/13/22 16:59 Last Admin: 06/16/22 11:12 Dose: 14 mg Ondansetron HCl (Ondansetron Inj 2 Mg/Ml 2 Ml Vial) 4 mg IV Q4H PRN PRN Reason: Nausea &/or Vomiting Stop: 07/15/22 12:16 Pantoprazole Sodium (Pantoprazole 40 Mg Tab) 40 mg PO BID B[facility]ANNA Stop: 07/13/22 20:59 Last Admin: 06/16/22 08:42 Dose: Not Given Polyethylene Glycol (Polyethylene (Miralax) 17 Gm Pack) 17 gm PO QAM PRN PRN Reason: Constipation Stop: 07/13/22 16:27 Quetiapine Fumarate (Quetiapine Fumarate 25 Mg Tablet) 25 mg PO HS [facility] Stop: 07/16/22 20:59 Raspberry (Raspberry Syrup 5 Ml Udp) 5 ml PO Q6 [facility] Stop: 06/25/22 17:59 Last Admin: 06/16/22 13:00 Dose: 5 ml Ropinirole HCl (Ropinirole Hcl 2 Mg Tablet) 4 mg PO TID [facility]AN[facility] Stop: 07/13/22 20:59 Last Admin: 06/16/22 14:10 Dose: Not Given Vancomycin HCl (Vancomycin Hcl 125 Mg/2.5ml Soln) 125 mg PO Q6 [facility] Stop: 06/25/22 17:59 Last Admin: 06/16/22 13:00 Dose: 125 mg (1) Abdominal pain Abdominal location: right upper quadrant Qualified Code(s): R10.11 - Right upper quadrant pain (2) Acute pancreatitis Acute pancreatitis complication: uninfected necrosis Pancreatitis type: unspecified pancreatitis type Qualified Code(s): K85.91 - Acute pancreatitis with uninfected necrosis, unspecified
[2022-06-16] MEDS: QUEtiapine FUMARATE 25 MG TABLET PO SCH (21:47)
[2022-06-16] MEDS: MIRTAZAPINE TAB 15 MG TAB PO SCH (21:48)
[2022-06-17] MEDS: VANCOMYCIN HCL 125 MG/2.5ML SOLN PO SCH ×4 (00:02→18:10)
[2022-06-17] MEDS: RASPBERRY SYRUP 5 ML UDP PO SCH ×4 (00:02→18:10)
[2022-06-17] MEDS: LORazepam 0.5 MG in SYRINGE 0 ML IV PRN ×4 (04:07→19:38)
[2022-06-17] MEDS: LEVOTHYROXINE SODIUM 50 MCG TABLET PO SCH (06:01)
[2022-06-17] MEDS: HYDROmorphone PCA 30 MG/30 ML IV PRN ×3 (06:58→14:24)
[2022-06-17] MEDS: HALOPERIDOL LACTATE 5 MG/ML 1 ML VIAL IV PRN (09:10)
[2022-06-17] MEDS: LANTUS PER UNIT CHARGE SQ SCH ×2 (09:37→20:33)
[2022-06-17] MEDS: INSULIN ASPART PER UNIT SC SCH ×4 (09:37→20:33)
[2022-06-17] MEDS: NICOTINE 14 MG/24 HR PATCH TD SCH (10:45)
[2022-06-17] MEDS ORDERED: LORazepam 0.5 MG in SYRINGE 0 ML IV STA (11:16)
[2022-06-17] MEDS: SODIUM CHLORIDE 0.9% 1000ML 1,000 ML IV SCH (11:41)
[2022-06-17] MEDS: LACTATED RINGER'S 1,000 ML IV SCH (11:41)
[2022-06-17] MEDS: rOPINIRole HCL 2 MG TABLET PO SCH ×3 (11:58→20:34)
[2022-06-17] MEDS: ENALAPRIL MALEATE 10 MG TAB PO SCH (11:58)
[2022-06-17] MEDS: PANCREAZE (LIPASE 16,800U) CAP PO SCH ×3 (11:58→18:10)
[2022-06-17] MEDS: PANTOprazole 40 MG TAB PO SCH ×2 (11:58→20:35)
[2022-06-17] MEDS: LORATADINE 10 MG TAB PO SCH (11:58)
--- NOTE | 2022-06-17 12:41 | Hospitalist Progress Note ---
Date of Service June 17, 2022 Assessment & Plan (1) Abdominal pain: (2) Acute pancreatitis: Plan: Patient is a 42 yr female with H/O metastatic adenocarcinoma of pancreas currently on chemotherapy with mets to liver, complex hepatic abscess currently on IV antibiotics, insulin-dependent T2DM, HTN, HLD, chronic pain in setting of malignancy, PCMpresented to ER with complaint of increased abdominal pain, chronic nausea, vomiting Acute pancreatitis Cannot rule out cholecystitis/Cholangitis --CT ABD: There is evidence of severe acute pancreatitis. Correlate with clinical findings and serum amylase/lipase levels. There are at least 2 pancreatic mass lesions. These appear to show interval necrosis, and this may be treatment related. Clinical correlation will be required. Enlarged, steatotic, and markedly heterogeneous liver. A common bile duct stent is in place. Gas within the stent and pneumobilia suggest patency of the stent. Although not well assessed due to marked hepatic heterogeneity, there are several low-attenuation lesions suggested throughout the liver. These were not clearly seen previously. Additionally, the gallbladder wall is thickened and hyperemic with intraluminal gas. These findings are nonspecific and the hepatic heterogeneity could be related to treated metastatic disease. In the appropriate clinical setting ascending cholangitis would be impossible to exclude. Clinical and laboratory correlation will be essential. There are mildly enlarged perihepatic lymph nodes. A capsular lesion along the right lobe of liver has modestly decreased in size from previous. An implant is also seen along the falciform ligament. There is near-complete to complete occlusion at the portosplenic confluence. This represents a significant change from 05/09/2022. No intraluminal thrombus is identified. There is marked narrowing of the left renal vein as it passes posterior to the pancreas. Trace abdominopelvic ascites. Liquid stool is seen throughout the colon. Correlate clinically for evidence of a diarrheal illness. The bladder is decompressed and appears thick-walled. Correlate with urinalysis. Splenomegaly. --Will ideally need HIDA scan to rule out Cholecystis. Currently isotope unavailable for HIDA scan, patient unable to be off narcotics for the scan -- May need Axios stent placement for gallbladder drainage if HIDA is positive for cholecystitis as patient is a poor candidate for surgery. --Less likely cholecystitis as per GI. --Blood cultures-negative --Empiric cefepime, Flagyl DCed as less likely cholecystitis as per GI --Appreciate surgery, GI input --Continue IV fluids --Advance diet as tolerated --Pain control with [employer]ANCE CUST[employer]ER SERVICE SPECIALIST Pump -- Appreciate palliative care input and recommendation -Has been on comfort care -Remains stable Severe anxiety with depression Fear of dying Has been getting Ativan as needed May need to increase the dose to control anxiety Remains very anxious and has been requiring frequent doses of Ativan intravenously C. difficile colitis Started on PO vancomycin Isolation precautions (3) Metastatic adenocarcinoma to pancreas: Plan: Metastatic adenocarcinoma pancreas Ongoing Chemotherapy Not a candidate for surgery Metastasis to Liver Following with [facility] oncology Last chemo on 05/31/2022 Following with [facility] palliative care. Had Telemedicine appointment on 06/12/2022 and was discussed to stop Compazine, add scopolamine patch, and can use Reglan as needed Palliative care consulted to address goals of care Patient leaning towards transition to home hospice Awaiting home hospice on Saturday Hepatic Abscess IR drain placed on 04/18, cultures grew Klebsiella and E. coli. Was treated with IV Rocephin, finished on 05/17/2022 Drain was removed on 05/14/2022 No fever and no chills DM II, insulin dependent HbA1c: 6.2 on 05/10/2022 Continue Insulin per Protocol Monitor BGs HTN continue Enalapril Anxiety Continue home meds DVT Px Lovenox SQ Code Status DNI/DNR Admission and Anticipated Discharge Date Admission Date: June 13, 2022 Subjective 06/16/2022 The patient was seen and examined in telemetry unit She is very anxious after knowing that she does not have much time left Her pain is controlled but remains very anxious 06/17/2022 The patient was seen and examined in telemetry unit She has been resting and did not want to be disturbed Remains very anxious Review of Systems Review of Systems: All systems reviewed and are unremarkable except as noted Neurologic: Generally weak and lethargic but remains very very anxious Physical Exam Physical Exam: Lying in bed without any acute distress Constitutional: well developed, well nourished, + ill appearing and + obese Eyes: PERRL, conjunctivae normal, anicteric sclerae ENMT: external ear and nose normal, oropharynx normal Neck: trachea midline, no thyromegaly Respiratory: normal respiratory effort, lungs clear to auscultation Cardiovascular: Rate/Rhythm: regular rate and regular rhythm; not tachycardic Heart Sounds: normal S1 and normal S2; no murmur Gastrointestinal (Abdomen): Inspection/Auscultation: + abdomen distended and normal bowel sounds Percussion/Palpation: + abdomen tender and abdomen soft Psychiatric: Mood: + depressed mood and + anxious mood Lymphatic: no cervical or axillary lymphadenopathy Results & Data Results & Data ([facility]) Medications Administered Current Inpatient Medications Albuterol (Albuterol Hfa 8 Gm Inhaler) 2 puffs INH Q6R PRN PRN Reason: Shortness Of Breath Or Wheezing Stop: 07/13/22 16:27 Lipase/Protease/Amylase (Pancreaze (Lipase 16,800u) Cap) 1 cap PO TIDM BRIANNA Stop: 07/13/22 16:59 Last Admin: 06/17/22 11:58 Dose: Not Given Calcium Carbonate (Calcium Carbonate 500 Mg Chewable Tab) 500 mg PO BID PRN PRN Reason: Indigestion Stop: 07/14/22 20:40 Last Admin: 06/14/22 23:34 Dose: 500 mg Dextrose (Dextrose 50% 50 Ml Syringe) 25 - 50 ml IV UD PRN; Protocol PRN Reason: Hypoglycemia Protocol Stop: 07/13/22 16:27 Enalapril Maleate (Enalapril Maleate 10 Mg Tab) 20 mg PO DAILY BRIANNA Stop: 07/14/22 08:59 Last Admin: 06/17/22 11:58 Dose: Not Given Glucagon (Glucagon For Inj 1 Mg Vial) 1 mg SQ UD PRN; Protocol PRN Reason: Hypoglycemia Protocol Stop: 07/13/22 16:27 Glucose (Glucose 40% Gel 15 Gm Tube) 15 - 30 gm PO UD PRN; Protocol PRN Reason: Hypoglycemia Protocol Stop: 07/13/22 16:27 Glucose (Glucose 10 Tab/Tube) 4 - 8 tab PO UD PRN; Protocol PRN Reason: Hypoglycemia Treatment Stop: 07/13/22 16:27 Haloperidol Lactate (Haloperidol Lactate 5 Mg/Ml 1 Ml Vial) 1 mg IV Q4H PRN PRN Reason: Nausea Stop: 07/15/22 12:09 Last Admin: 06/17/22 09:10 Dose: 1 mg Heparin Sodium (Porcine) (Heparin 100 Unit/Ml 5ml Flush) 5 ml FLUSH PRN PRN PRN Reason: Flush Stop: 07/15/22 01:45 Hydromorphone HCl (Hydromorphone Train Reservation Clerk 30 Mg/30 Ml) 30 mg IV PRN PRN; Protocol PRN Reason: INSURANCE CUST[employer]ER SERVICE SPECIALIST Pain Titration Stop: 06/28/22 10:59 Last Admin: 06/17/22 12:10 Dose: 30 mg Promethazine HCl 12.5 mg/ (Sodium Chloride) 50.5 mls @ 202 mls/hr IV Q6H PRN PRN Reason: Nausea And Vomiting Stop: 07/13/22 16:27 Last Infusion: 06/15/22 18:07 Dose: Infused Sodium Chloride (Nss 1000ml) 1,000 mls @ 15 mls/hr IV .Q24H [facility]ANNA Stop: 06/28/22 11:01 Last Admin: 06/17/22 11:41 Dose: 15 mls/hr Lactated Ringer's (Lr) 1,000 mls @ 80 mls/hr IV .[id number] [facility] Stop: 07/15/22 08:59 Last Admin: 06/17/22 11:41 Dose: 80 mls/hr Lorazepam 0.5 mg/ Syringe 0.5 mls @ 2 mls/min IV Q3H PRN PRN Reason: Anxiety Stop: 07/15/22 16:45 Last Admin: 06/17/22 09:09 Dose: 2 mls/min Insulin Aspart (Insulin Aspart Per Unit) 0 units SC ACHS [facility] Stop: 07/13/22 16:29 Last Admin: 06/17/22 09:37 Dose: Not Given Insulin Glargine (Lantus Per Unit Charge) 0 - 5 units SQ BID [facility]AN[facility] Stop: 07/13/22 20:59 Last Admin: 06/17/22 09:37 Dose: Not Given Levothyroxine Sodium (Levothyroxine Sodium 50 Mcg Tablet) 50 mcg PO DAILYBB [facility]ANAN Stop: 07/14/22 06:29 Last Admin: 06/17/22 06:01 Dose: 50 mcg Loratadine (Loratadine 10 Mg Tab) 10 mg PO DAILY BRIANNA Stop: 07/14/22 08:59 Last Admin: 06/17/22 11:58 Dose: Not Given Mirtazapine (Mirtazapine Tab 15 Mg Tab) 15 mg PO HS BRIANNA Stop: 07/13/22 20:59 Last Admin: 06/16/22 21:48 Dose: 15 mg Miscellaneous (Carbohydrates For Hypoglycemia ) 15 - 30 gm PO UD PRN PRN Reason: Hypoglycemia Protocol Stop: 07/13/22 16:27 Miscellaneous (Remove Nicoderm Patch) 1 each N/A DAILY@0859 [facility] Stop: 07/14/22 08:58 Last Admin: 06/17/22 10:46 Dose: 1 each Nicotine (Nicotine 14 Mg/24 Hr Patch) 14 mg TD QAM BRIANNA Stop: 07/13/22 16:59 Last Admin: 06/17/22 10:45 Dose: 14 mg Ondansetron HCl (Ondansetron Inj 2 Mg/Ml 2 Ml Vial) 4 mg IV Q4H PRN PRN Reason: Nausea &/or Vomiting Stop: 07/15/22 12:16 Pantoprazole Sodium (Pantoprazole 40 Mg Tab) 40 mg PO BID [facility] Stop: 07/13/22 20:59 Last Admin: 06/17/22 11:58 Dose: Not Given Polyethylene Glycol (Polyethylene (Miralax) 17 Gm Pack) 17 gm PO QAM PRN PRN Reason: Constipation Stop: 07/13/22 16:27 Quetiapine Fumarate (Quetiapine Fumarate 25 Mg Tablet) 25 mg PO HS BRIANNA Stop: 07/16/22 20:59 Last Admin: 06/16/22 21:47 Dose: 25 mg Raspberry (Raspberry Syrup 5 Ml Udp) 5 ml PO Q6 [facility] Stop: 06/25/22 17:59 Last Admin: 06/17/22 06:01 Dose: 5 ml Ropinirole HCl (Ropinirole Hcl 2 Mg Tablet) 4 mg PO TID BRIANNA Stop: 07/13/22 20:59 Last Admin: 06/17/22 11:58 Dose: Not Given Vancomycin HCl (Vancomycin Hcl 125 Mg/2.5ml Soln) 125 mg PO Q6 BRIANNA Stop: 06/25/22 17:59 Last Admin: 06/17/22 06:01 Dose: 125 mg (1) Abdominal pain Abdominal location: right upper quadrant Qualified Code(s): R10.11 - Right upper quadrant pain (2) Acute pancreatitis Acute pancreatitis complication: uninfected necrosis Pancreatitis type: unspecified pancreatitis type Qualified Code(s): K85.91 - Acute pancreatitis with uninfected necrosis, unspecified
[2022-06-17] MEDS: PROMETHAZINE HCL 12.5 MG in SODIUM CHLORIDE 0.9% 50 ML IV PRN (13:24)
[2022-06-17] MEDS ORDERED: HYDROmorphone INJ 0.5 MG/0.5 ML SYR IV STA (14:55)
[2022-06-17] MEDS: HYDROmorphone INJ 0.5 MG/0.5 ML SYR IV PRN ×2 (19:08→22:13)
[2022-06-17] MEDS ORDERED: HALOPERIDOL 2 MG/1 ML UDP PO PRN (20:06)
[2022-06-17] MEDS: QUEtiapine FUMARATE 25 MG TABLET PO SCH (20:35)
[2022-06-17] MEDS: MIRTAZAPINE TAB 15 MG TAB PO SCH (20:35)
[2022-06-17] MEDS ORDERED: HYDROmorphone HCL 2 MG TAB PO PRN (20:39)
[2022-06-18] MEDS: LORazepam 0.5 MG in SYRINGE 0 ML IV PRN (00:53)
[2022-06-18] MEDS ORDERED: HYDROmorphone HCL 2 MG TAB PO PRN (01:04)
[2022-06-18] MEDS: HYDROmorphone INJ 0.5 MG/0.5 ML SYR IV PRN ×2 (01:15→04:18)
[2022-06-18] MEDS: LACTATED RINGER'S 1,000 ML IV SCH ×2 (01:20→09:22)
[2022-06-18] MEDS: VANCOMYCIN HCL 125 MG/2.5ML SOLN PO SCH ×3 (01:21→11:06)
[2022-06-18] MEDS: RASPBERRY SYRUP 5 ML UDP PO SCH ×3 (01:22→11:06)
[2022-06-18] MEDS: HALOPERIDOL LACTATE 5 MG/ML 1 ML VIAL IV PRN ×2 (03:49→08:09)
[2022-06-18] MEDS ORDERED: HYDROmorphone INJ 0.5 MG/0.5 ML SYR IV STA (04:19)
[2022-06-18] MEDS ORDERED: HYDROmorphone INJ 1 MG/ML SYRINGE IV PRN ×2 (04:55→10:38)
[2022-06-18] MEDS: LEVOTHYROXINE SODIUM 50 MCG TABLET PO SCH (05:25)
[2022-06-18] MEDS: INSULIN ASPART PER UNIT SC SCH ×3 (07:32→11:07)
[2022-06-18] MEDS: SODIUM CHLORIDE 0.9% 1000ML 1,000 ML IV SCH (07:33)
[2022-06-18] MEDS: LANTUS PER UNIT CHARGE SQ SCH (07:33)
[2022-06-18] MEDS ORDERED: LORazepam 1 MG in SYRINGE 0 ML IV PRN (09:05)
--- NOTE | 2022-06-18 09:07 | Palliative Care Progress Note ---
Date of Service June 18, 2022 Assessment & Plan (1) Palliative care encounter: (2) Cancer related pain: Plan: See plan (3) Cancer-related breakthrough pain: Plan: See plan below (4) Pancreatic cancer: (5) Abdominal pain: (6) Refractory nausea and vomiting: Plan: Haldol scheduled routinely (7) Suffering: Plan: See discussion below Plan For home hospice dc, please order: * Continue Dilaudid [employer] PAYABLE PROFESSIONAL at increased dose of Dilaudid 0.3mg per hour and use 0.4mg Q15min prn * Ativan 2mg PO q4h prn anxiety, insomnia, nausea, myoclonus * Haldol intensol elixir 1mg PO q6h prn delirium, nausea, restlessness, agitation * continue maintenance meds for now including antidepressant, hypothyroid and HTN meds, pt can take these as long as she is able to or for as long as she wishes. * reviewed with Dr Cruz and Gerhard Dickinson/ZACK I met with pt at bedside and continued dialogue from Saturday about and dying. I advised her that estimates are not guarantees. Sometimes you do less toxic therapies to a person and they feel better/more comfortable and can certainly live longer than originally anticipated. Palliative prognostics support a survival beyond 30 days, this may certainly change with further cancer related complications such as disease progression, infection, obstruction, etc. Logotherapy and emotional reassurance provided. We did a legacy review and discussed some ways to leave legacy projects for her daughter, several of which she can do now while still relatively functional. She is heartbroken to have to do these tasks, feeling very much cheated by life however she is coming to terms with the circumstances. She notes with continued sadness the inability to bring about change in relationship with her mother. I encouraged her to use a perspective of forgiveness - forgive those who cannot rise to where she feels they should at this time, forgive them for their limitations and take this time to focus on what matters the most to her, not lingering on memories fo what should have been, etc. She verbalized agreement. We also spoke about how she can communicate with some of the more "difficult" personalities she has in her family: I shared with her recommendations from Dr. Juana Barreto at [facility]: there are four simple phrases: Please forgive me, I forgive you, Thank you, and I love you which carry enormous power to mend, nurture relationships and inner lives. These four phrases and the sentiments they convey can help resolve interpersonal difficulties with integrity and dominique, providing a path to emotional wellbeing, allows patients/families to live lives with integrity/dominique, help reconcile the rifts that divide people, and cut through "old history." Per Dr. Barreto, if we in healthcare attend only to the physiologic, without intending to we are inadvertently abandoning people to figure out how to live through these difficult times of life by themselves. I referred pt to some pediatric support resources. She has shared that her daughter who is 11yo chronologically is emotionally more along the lines of a toddler/young child. I have suggested she get the book, "Wherever You Go, My Love Will Find You" for her daughter, which she can inscribe with a message; other books that may help are "The Jester Who Lost His Jingle" and "Arnold the [place]." I have spoken with CM to assist home disposition. She will have her [employer] PROFESSIONAL order sent to [facility]. Gerhard from will clarify if [facility] will come to hospital and connect pt to their [employer]OUNT[employer] PAYABLE PROFESSIONAL. if they will not do this, then the timing of their arrival at pt home to admit her must coincide with when she will arrive home, otherwise she will be without reliable pain control. If [facility] hospice decides to meet pt at her home when she arrives and start [employer]ABLE PROFESSIONAL, please make sure she is dc from [facility] with Dilaudid 1mg IV prior to transport to assure comfort. Jonna Hays DNP Clinical Director, Palliative Medicine Admission and Anticipated Discharge Date Admission Date: June 13, 2022 Ivelisse Berumen is on comfort care. She is struggling with accepting the dying process. She would like all communication to be thru her sister, Whitney. She reports a "miserable weekend of pain" and would like her [employer] PROFESSIONAL restarted. She states she asked for it to be stopped this weekend because she thought that was required for her to have prn IV dose which lasts about an hour then wears off but she can't have another dose till a few hours later. Her nausea feels better with Haldol, agreeable to having this scheduled as a routine order. not eating much solids, feels better with cooler liquids and occ dry carbohydrate like toast. Appetite overall diminished, feels this is about the expected for what she is dealing with and the nature of her illness. Feeling more at peace from discussions Saturday with regards to chemo. Still struggling with end of life transition and feels overly focused on timeline for anticipated survival. Review of Systems Review of Systems: All systems reviewed & are unremarkable except as noted in Subjective Physical Exam Physical Exam: Subdued affect. Skin pale. Strength diminished but equal. For Oncology Patients: Patient's Palliative Prognostic Score (PaP) Score = 6.5 points/Interpretation: 30-day survival probability 30-70% Source: https://www.[employer]/nusyhthsvx-aknfyshdxe-xvmjb-qtd-dbijgvyoth-[email or web address]/ Patient's Palliative Prognostic Index (PPI) Score = 6 points/Note: If the PPI is greater than 6.0, survival is less than three weeks (Sensitivity - 80%; Specificity - 85%). Source: https://www.[employer]/lohneuuosc-wpapigtptu-sfqww-xuz-wobnvknwhx-300/ Constitutional: + ill appearing (mild distress, appears less nasueated/grimacing from saturday) Eyes: PERRL and EOM intact bilaterally Neck: normal visual inspection and trachea midline Respiratory: normal respiratory effort Cardiovascular: Rate/Rhythm: regular rate and regular rhythm Chest (Breasts): Additional Comments: +port, accessed Gastrointestinal (Abdomen): RUQ TTP, BS diminished, softly distended Skin: + turgor decreased Psychiatric: Orientation: oriented x 3 Eye Contact: good eye contact Af fect: + depressed affect Mood: + depressed mood Suicidal Thoughts: denies suicidal thoughts Homicidal Thoughts: denies homicidal thoughts Cognition: recent memory grossly intact, remote memory grossly intact, attention grossly intact and language grossly intact Insight: excellent insight Judgement: excellent judgement PG Care Time/CCT Total # of Minutes Spent Total Time Spent: 75 Total Time Spent with Patient: Total time spent is greater than 50% in coordination of care (as documented) at patient's floor/unit and/or counseling patient: I spent 85 minutes overall addressing this case: 15 in medical data review/discussion with referring provider(s) and/or preparation for the visit 45 in direct interaction with the patient (20 of the 45min) Advance Care Planning/Goals of Care discussions as detailed above in note (must be >16min) 10 in subsequent review and synthesis of assessment and plan 15 in communicating with other providers regarding the patient's case: nursing, care mgt, Dr Cruz [place] [id number] Subseq Hosp Care Lvl 3 Patient Type Established History Detailed Exam Detailed Medical Decision Making High Complexity Diagnoses Palliative care encounter Z51.5 Cancer related pain G89.3 Cancer-related breakthrough pain G89.3 Pancreatic cancer C25.9 Pancreatic malignancy location: unspecified Abdominal pain R10.11 Abdominal location: right upper quadrant Refractory nausea and vomiting R11.2 Suffering (1) Pancreatic cancer Pancreatic malignancy location: unspecified Qualified Code(s): C25.9 - Malignant neoplasm of pancreas, unspecified (2) Abdominal pain Abdominal location: right upper quadrant Qualified Code(s): R10.11 - Right upper quadrant pain
--- NOTE | 2022-06-18 09:10 | Pain Management Consultation ---
Date of Consultation June 18, 2022 Assessment & Plan (1) Metastatic adenocarcinoma to pancreas: (2) Intractable nausea and vomiting: (3) Controlled type 2 diabetes mellitus, with long-term current use of insulin: (4) Depression with anxiety: (5) Cancer related pain: (6) Acute pancreatitis: Acute pancreatitis complication: uninfected necrosis Pancreatitis type: unspecified pancreatitis type Qualified Code(s): K85.91 - Acute pancreatitis with uninfected necrosis, unspecified Plan 1. 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 This was discussed with hospitalist-Dr. Cruz. 2. After further discussion with Dr. Solis, at this time we have nothing interventional to offer the patient regarding her chronic pain 3. Would recommend she remain involved with palliative/comfort care at this time Thank you for allowing us to participate in the care of Mrs. Ceballos History of Present Illness Reason for Consultation: Abdominal pain Requesting Physician: Arie Hutchins MD Attending Physician: Marii Cruz MD History of Present Illness Mrs. Ceballos is a 42-year-old white female with past medical history significant for metastatic adenocarcinoma of the pancreas with metastasis to the liver, complex hepatic abscess currently on IV antibiotics, insulin-dependent type 2 diabetes mellitus, recent rib fractures right 10th, 11th and 12th status post fall on 05/21/2022, chronic abdominal pain secondary to above recently admitted with increased abdominal pain and acute pancreatitis. Patient's most recent chemotherapy was completed on 05/31/2022 and continues to follow with [facility] oncology. She does continue to follow with [facility] palliative care in the outpatient setting and has been evaluated by palliative care upon this inpatient admission. Patient was on fentanyl transdermal 75 mcg every 72 hours at the time of this admission along with hydromorphone 4 mg every 4 hours. 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 She was reporting poor pain control over the past 24 hours but does report slight improvement in pain control over the past 6-8 hours with adjustment of hydromorphone [employer]SEM[employer] LINE ROBOT OPERATOR. Her current pain is a 4-5/10 in the midepigastric and right upper quadrant region. 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 She describes the pain as a deep, boring aching characteristic discomfort. She is upset that her pain control has been poor given her situation with cancer and limited life expectancy and currently on palliative care expecting to be "comfortable". She continues with difficulty with nausea and poor dietary intake. She denies constipation. She has not had bowel movement in 2 days but reports poor dietary intake. She is experiencing some right posterior lateral chest wall pain and does have history of rib fracture upon her last admission. She is experiencing no significant pain with deep breathing, coughing or sneezing at this time. Patient reports no further constitutional complaints. Plan of care discussed with Dr. Mary Solis Pain Assessment Full Body Front + Back: 1. Midepigastric/right upper quadrant abdomen Pain scale - at its best (0-10): 4 Pain scale - at its worst (0-10): 10 Allergies Allergy/AdvReac Type Severity Reaction Status Date / Time cephalexin [From Keflex] Allergy Mild Rash, Verified 05/09/22 15:02 urticaria Penicillins Allergy Mild Rash Verified 05/09/22 15:02 Fish Containing Products Allergy Unknown Unknown Verified 05/09/22 15:02 fish oil Allergy Unknown Unknown Verified 05/09/22 15:02 dulaglutide [[facility] AdvReac Severe Pancreatiti Verified 05/09/22 15:02 s clarithromycin AdvReac Unknown Vomiting Verified 05/09/22 15:02 Home Medications Medication Instructions Recorded Confirmed Type flash glucose scanning reader 04/14/21 06/13/22 History (FreeStyle Tanmay 14 Day [facility]) levothyroxine 50 mcg tablet 50 mcg PO QAM 04/14/21 06/13/22 History ropinirole 4 mg tablet 4 mg PO TID 04/14/21 06/13/22 History blood sugar diagnostic (OneTouch #600 ea 05/26/21 06/13/22 Rx Verio test strips) flash glucose sensor (FreeStyle #7 ea 05/26/21 06/13/22 Rx Tanmay 14 Day Sensor kit) flash glucose sensor (FreeStyle #2 ea 01/02/22 06/13/22 Rx Tanmay 2 Sensor kit) acetaminophen 500 mg tablet 500 mg PO Q4 PRN Pain 01/14/22 06/13/22 History lipase 16,800-protease 1 cap PO TIDM 01/14/22 06/13/22 History 56,800-amylase 98,400 unit capsule, delayed rel (Pancreaze) loratadine 10 mg tablet (Claritin) 10 mg PO DAILY 01/14/22 06/13/22 History pen needle, diabetic 31 gauge x #200 ea 04/05/22 06/13/22 Rx 3/16" (BD Ultra-Fine Mini Pen Needle) insulin glargine U-300 conc 300 10 unit subcut QAM 04/09/22 06/13/22 History unit/mL (3 mL) subcutaneous pen (Toujeo Max U-300 SoloStar) albuterol sulfate 90 mcg/actuation 1 - 2 inh inhalation Q6 PRN as 04/17/22 06/13/22 History aerosol inhaler (Ventolin HFA) directed bisacodyl 10 mg rectal suppository 10 mg MN DAILY PRN Constipation 04/17/22 06/13/22 History enalapril maleate 20 mg tablet 20 mg PO DAILY 04/17/22 06/13/22 History lidocaine-prilocaine 2.5 %-2.5 % 1 applic topical UD 04/17/22 06/13/22 History topical cream pantoprazole 40 mg tablet,delayed 40 mg PO BID 04/17/22 06/13/22 History release polyethylene glycol 3350 17 17 g PO QAM PRN Constipation 04/17/22 06/13/22 History gram/dose oral powder (Miralax) sennosides 8.6 mg tablet (senna) 17.2 mg PO HS 04/17/22 06/13/22 History loperamide 2 mg capsule 2 mg PO Q4H PRN loose stool #10 05/21/22 06/13/22 Rx caps fentanyl 75 mcg/hr transdermal 1 patch transdermal Q72H 06/13/22 06/13/22 History patch hydromorphone 4 mg tablet 8 mg PO Q4H PRN Severe Pain (Scale 06/13/22 06/13/22 History Score 7-10) lorazepam 1 mg tablet 1 mg PO Q8H PRN anxiety 06/13/22 06/13/22 History mirtazapine 15 mg tablet 15 mg PO HS 06/13/22 06/13/22 History potassium chloride 10 mEq 10 meq PO BID 06/13/22 06/13/22 History tablet,extended release prochlorperazine maleate 10 mg 10 mg PO Q6H PRN Nausea 06/13/22 06/13/22 History tablet Pain History Pain Intensity Pain scale - at its best (0-10): 4 Pain scale - at its worst (0-10): 10 Patient History Medical History Advanced care planning/counseling discussion Allergy-induced asthma rare inhaler use Depression with anxiety Diabetes mellitus, type 2 IDDM Dyslipidemia Fall Hemothorax Hypertension Hypothyroidism Lumbosacral pain Nausea Nausea and vomiting Obesity Palliative care encounter Pancreatic cancer + current chemo, follows with [facility] heme/onc PCOS (polycystic ovarian syndrome) Therapeutic opioid-induced constipation (OIC) Surgical History History of ERCP ERCP (06/2021) & EUS/ERCP (04/28/21): Good view with glidescope #3, ETT 7.0 at [facility] History of tonsillectomy History of umbilical hernia repair History of vascular access device A PORT INSERTION History of wisdom tooth extraction Nausea and vomiting after administration of anesthetic agent Family History Brother Diabetes Hypertension Father Hypertension Aunt Diabetes Grandmother (Maternal) Diabetes Other No family history of adverse response to anesthesia Social History Smoking Status: Current some day smoker Tobacco Type: Cigarettes packs per day: 1; Cigarettes Per Day: 20; Second Hand Exposure: No; Hx Alcohol Use: No Hx Substance Use: Yes (medical marijuana) Last Used Substance: Days (ago) Last Used Substance Other:: 2 days ago Preferred Language: Yoruba Communication Ability: Effective Manager Php Required: No Beliefs That Will Affect Care: None marital status: Single Current Living Situation: Alone Current Living Situation Comment: Lives with Daughter and Dog. Feels Safe at Home: Yes Assistive Devices: None Physical Exam Physical Exam: General: Patient lying quietly in exam room in no acute distres s. Speech and thought process appropriate. Mood and affect appropriate. Cognition intact. Head: Normocephalic and atraumatic. ENT: No evidence of nasal or oral mucosal lesions. Mucous membranes are moist. Eyes: Pupils equal round reactive to light. Neck: Supple without adenopathy and full range of motion. Chest: Nontender to palpation of the costosternal junction. Patient is tender over the right lateral and anterior chest wall to direct palpation as well as AP and lateral compression. Abdomen: Soft and nondistended. No organomegaly. Bowel sounds active. Moderately tender in the midepigastric and right upper quadrant region without rebound or guarding. No palpable mass was appreciated. Back/spine: Patient able to logroll without obvious discomfort. Nontender to palpation or percussion over the lumbar region. Lower extremities: Sensation intact without deficit. No appreciable edema. Strength testing 5/5 throughout. Neurologic: Cranial nerves grossly intact. Ambulatory function not witnessed.
[2022-06-18] MEDS: ENALAPRIL MALEATE 10 MG TAB PO SCH (09:21)
[2022-06-18] MEDS: PANCREAZE (LIPASE 16,800U) CAP PO SCH ×2 (09:21→11:07)
[2022-06-18] MEDS: LORATADINE 10 MG TAB PO SCH (09:21)
[2022-06-18] MEDS: PANTOprazole 40 MG TAB PO SCH (09:21)
[2022-06-18] MEDS: rOPINIRole HCL 2 MG TABLET PO SCH ×2 (09:22→11:07)
[2022-06-18] MEDS: HYDROmorphone PCA 30 MG/30 ML IV PRN (11:01)
[2022-06-18] MEDS: HALOPERIDOL LACTATE 5 MG/ML 1 ML VIAL IV SCH ×2 (11:06→15:50)
[2022-06-18] MEDS: NICOTINE 14 MG/24 HR PATCH TD SCH (11:07)
--- NOTE | 2022-06-18 11:38 | Hospitalist Progress Note ---
Date of Service June 18, 2022 Assessment & Plan (1) Abdominal pain: (2) Acute pancreatitis: Plan: Patient is a 42 yr female with H/O metastatic adenocarcinoma of pancreas currently on chemotherapy with mets to liver, complex hepatic abscess currently on IV antibiotics, insulin-dependent T2DM, HTN, HLD, chronic pain in setting of malignancy, PCMpresented to ER with complaint of increased abdominal pain, chronic nausea, vomiting Acute pancreatitis Cannot rule out cholecystitis/Cholangitis --CT ABD: There is evidence of severe acute pancreatitis. Correlate with clinical findings and serum amylase/lipase levels. There are at least 2 pancreatic mass lesions. These appear to show interval necrosis, and this may be treatment related. Clinical correlation will be required. Enlarged, steatotic, and markedly heterogeneous liver. A common bile duct stent is in place. Gas within the stent and pneumobilia suggest patency of the stent. Although not well assessed due to marked hepatic heterogeneity, there are several low-attenuation lesions suggested throughout the liver. These were not clearly seen previously. Additionally, the gallbladder wall is thickened and hyperemic with intraluminal gas. These findings are nonspecific and the hepatic heterogeneity could be related to treated metastatic disease. In the appropriate clinical setting ascending cholangitis would be impossible to exclude. Clinical and laboratory correlation will be essential. There are mildly enlarged perihepatic lymph nodes. A capsular lesion along the right lobe of liver has modestly decreased in size from previous. An implant is also seen along the falciform ligament. There is near-complete to complete occlusion at the portosplenic confluence. This represents a significant change from 05/09/2022. No intraluminal thrombus is identified. There is marked narrowing of the left renal vein as it passes posterior to the pancreas. Trace abdominopelvic ascites. Liquid stool is seen throughout the colon. Correlate clinically for evidence of a diarrheal illness. The bladder is decompressed and appears thick-walled. Correlate with urinalysis. Splenomegaly. --Will ideally need HIDA scan to rule out Cholecystis. Currently isotope unavailable for HIDA scan, patient unable to be off narcotics for the scan -- May need Axios stent placement for gallbladder drainage if HIDA is positive for cholecystitis as patient is a poor candidate for surgery. --Less likely cholecystitis as per GI. --Blood cultures-negative --Empiric cefepime, Flagyl DCed as less likely cholecystitis as per GI --Appreciate surgery, GI input --Continue IV fluids --Advance diet as tolerated --Pain control with PLUCK SEPARATOR Pump -- Appreciate palliative care input and recommendation -Has been on comfort care -Increasing pain overnight-appreciate palliative care input and recommendation this morning -She will be discharged this afternoon with home hospice Severe anxiety with depression Fear of dying Has been getting Ativan as needed May need to increase the dose to control anxiety Remains very anxious and has been requiring frequent doses of Ativan intravenously Adequate medications will be given C. difficile colitis Started on PO vancomycin Isolation precautions . Oral vancomycin (3) Metastatic adenocarcinoma to pancreas: Plan: Metastatic adenocarcinoma pancreas Ongoing Chemotherapy Not a candidate for surgery Metastasis to Liver Following with [facility] oncology Last chemo on 05/31/2022 Following with [facility] palliative care. Had Telemedicine appointment on 06/12/2022 and was discussed to stop Compazine, add scopolamine patch, and can use Reglan as needed Palliative care consulted to address goals of care Patient leaning towards transition to home hospice Awaiting home hospice on Saturday As above Hepatic Abscess IR drain placed on 04/18, cultures grew Klebsiella and E. coli. Was treated with IV Rocephin, finished on 05/17/2022 Drain was removed on 05/14/2022 No fever and no chills DM II, insulin dependent HbA1c: 6.2 on 05/10/2022 Continue Insulin per Protocol Monitor BGs HTN continue Enalapril Anxiety Continue home meds DVT Px Lovenox SQ Code Status DNI/DNR Admission and Anticipated Discharge Date Admission Date: June 13, 2022 Subjective 06/16/2022 The patient was seen and examined in telemetry unit She is very anxious after knowing that she does not have much time left Her pain is controlled but remains very anxious 06/17/2022 The patient was seen and examined in telemetry unit She has been resting and did not want to be disturbed Remains very anxious 06/18/2022 The patient was seen and examined in telemetry unit She has had a rough night with increasing pain She was seen by palliative care this morning and is back on pain pump and seems to be better Waiting to be discharged this afternoon Review of Systems Review of Systems: All systems reviewed and are unremarkable except as noted Neurologic: Generally weak and lethargic but remains very very anxious Physical Exam Physical Exam: Lying in bed without any acute distress Constitutional: well developed, well nourished, + ill appearing and + obese Eyes: PERRL, conjunctivae normal, anicteric sclerae ENMT: external ear and nose normal, oropharynx normal Neck: trachea midline, no thyromegaly Respiratory: normal respiratory effort, lungs clear to auscultation Cardiovascular: Rate/Rhythm: regular rate and regular rhythm; not tachycardic Heart Sounds: normal S1 and normal S2; no murmur Gastrointestinal (Abdomen): Inspection/Auscultation: + abdomen distended and normal bowel sounds Percussion/Palpation: + abdomen tender and abdomen soft Musculoskeletal: No acute arthritis in any joint Psychiatric: Mood: + depressed mood and + anxious mood Lymphatic: no cervical or axillary lymphadenopathy (1) Abdominal pain Abdominal location: right upper quadrant Qualified Code(s): R10.11 - Right upper quadrant pain (2) Acute pancreatitis Acute pancreatitis complication: uninfected necrosis Pancreatitis type: unspecified pancreatitis type Qualified Code(s): K85.91 - Acute pancreatitis wi th uninfected necrosis, unspecified
--- NOTE | 2022-06-19 07:24 | Discharge Summary ---
Date of Service June 18, 2022 Admission HPI Per Admitting Provider This is a 42-year-old female who has a significant past medical history of metastatic adenocarcinoma of pancreas currently on chemotherapy with mets to liver, complex hepatic abscess currently on IV antibiotics, insulin-dependent T2DM, HTN, HLD, chronic pain in setting of malignancy, PCMpresented to ER with complaint of abdominal pain. Patient with chronic abdominal pain, nausea, vomiting secondary to her underlying cancer. Reports past 9 days upper abdominal pain with some intermittent diffuse abdominal pain. Reports chronic nausea and vomiting but feels more nauseated. Home antiemetics and pain medications with limited relief. Has chronic loose stool. Had BM today. Denies any increased bowel movements, hematochezia or melena. Denies hematochezia. Chronic lethargy and dizziness with standing. Denies fall since recent discharge. Recent hospitalization at [facility] on 04/17-04/23 secondary to complex hepatic abscess. She required hepatic percutaneous drain placement on 04/18/22 and was evaluated by ID and was placed on IV ceftriaxone 2 g daily until 05/17/22. Admission at [facility] 05/09/2022-05/21/2022 after fall and right 10-12 rib fractures. During that admission her hepatic abscess drain was removed on 05/14/2022 and IV ceftriaxone course was completed. Was having intractable pain and her home morphine was discontinued and she was started on fentanyl patch and Dilaudid for breakthrough pain as well as Ativan as needed for anxiety. Following with [facility] palliative care. Telemedicine appointment on 06/12/2022 and was discussed to stop Compazine, add scopolamine patch, and can use Reglan as needed for nausea, however patient has not started these medications yet. Following with Dr Bahena, [facility] oncology. Last chemo 05/31/2022-gemcitabine. Was due for chemo 06/14/22. She reports had second opinion at [facility] however was told to continue current treatment until it is not helping anymore and then reconsider evaluation there again. Denies fever/chills, diaphoresis, VETNURA, syncope, vision changes, neck pain, CP, SOB, orthopnea, palpitations, cough, sore throat, choking, otalgia, rhinorrhea, extremity edema, rashes, urinary symptoms. Admission Exam Per Admitting Provider Physical Exam: General: chronic ill appearing, mild distress, WDWN Head: normocephalic, atraumatic Eyes: conjunctiva non-injected, anicteric ENT: normal inspection external ears, nose, mucous membranes moist Neck: supple, trachea midline Lungs: clear, no respiratory distress, no wheezing/rhonchi/rales CV: RRR, no murmur, no pretibial edema Abd: normal BS, healed surgical incision mid abdomen, soft, +tender to palpation diffusely, worse to RUQ, epigastric region Ext: no cyanosis, no calf tenderness Neuro: A&O x 3, no focal deficits noted, normal affect Skin: warm, dry Principal Diagnosis Metastatic pancreatic cancer Discharge Exam Lying in bed without any acute distress Constitutional well developed, well nourished, + ill appearing and + obese Eyes PERRL, conjunctivae normal, anicteric sclerae ENMT external ear and nose normal, oropharynx normal Neck trachea midline, no thyromegaly Respiratory normal respiratory effort, lungs clear to auscultation Cardiovascular Rate/Rhythm: regular rate and regular rhythm; not tachycardic Heart Sounds: normal S1 and normal S2; no murmur Gastrointestinal (Abdomen) Inspection/Auscultation: + abdomen distended and normal bowel sounds Percussion/Palpation: + abdomen tender and abdomen soft Psychiatric Mood: + depressed mood and + anxious mood Lymphatic no cervical or axillary lymphadenopathy Discharge Data Allergies Allergy/AdvReac Type Severity Reaction Status Date / Time cephalexin [From Keflex] Allergy Mild Rash, Verified 05/09/22 15:02 urticaria Penicillins Allergy Mild Rash Verified 05/09/22 15:02 Fish Containing Products Allergy Unknown Unknown Verified 05/09/22 15:02 fish oil Allergy Unknown Unknown Verified 05/09/22 15:02 dulaglutide [From Trulicity] AdvReac Severe Pancreatiti Verified 05/09/22 15:02 s clarithromycin AdvReac Unknown Vomiting Verified 05/09/22 15:02 Consultations 06/13/22 11:58 Consult General Surgery Routine 06/13/22 13:52 ED Decision to Admit Stat 06/13/22 16:28 Consult Gastroenterology Routine Consult Palliative Care Routine 06/18/22 08:00 Consult Pain Management Routine Ordered Studies 06/13/22 09:17 CT abd pelvis IV con only Stat Hospital Course (1) Abdominal pain: (2) Acute pancreatitis: Patient is a 42 yr female with H/O metastatic adenocarcinoma of pancreas currently on chemotherapy with mets to liver, complex hepatic abscess currently on IV antibiotics, insulin-dependent T2DM, HTN, HLD, chronic pain in setting of malignancy, PCMpresented to ER with complaint of increased abdominal pain, chronic nausea, vomiting Acute pancreatitis Cannot rule out cholecystitis/Cholangitis --CT ABD: There is evidence of severe acute pancreatitis. Correlate with clinical findings and serum amylase/lipase levels. There are at least 2 pancreatic mass lesions. These appear to show interval necrosis, and this may be treatment related. Clinical correlation will be required. Enlarged, steatotic, and markedly heterogeneous liver. A common bile duct stent is in place. Gas within the stent and pneumobilia suggest patency of the stent. Although not well assessed due to marked hepatic heterogeneity, there are several low-attenuation lesions suggested throughout the liver. These were not clearly seen previously. Additionally, the gallbladder wall is thickened and hyperemic with intraluminal gas. These findings are nonspecific and the hepatic heterogeneity could be related to treated metastatic disease. In the appropriate clinical setting ascending cholangitis would be impossible to exclude. Clinical and laboratory correlation will be essential. There are mildly enlarged perihepatic lymph nodes. A capsular lesion along the right lobe of liver has modestly decreased in size from previous. An implant is also seen along the falciform ligament. There is near-complete to complete occlusion at the portosplenic confluence. This represents a significant change from 05/09/2022. No intraluminal thrombus is identified. There is marked narrowing of the left renal vein as it passes posterior to the pancreas. Trace abdominopelvic ascites. Liquid stool is seen throughout the colon. Correlate clinically for evidence of a diarrheal illness. The bladder is decompressed and appears thick-walled. Correlate with urinalysis. Splenomegaly. --Will ideally need HIDA scan to rule out Cholecystis. Currently isotope unavailable for HIDA scan, patient unable to be off narcotics for the scan -- May need Axios stent placement for gallbladder drainage if HIDA is positive for cholecystitis as patient is a poor candidate for surgery. --Less likely cholecystitis as per GI. --Blood cultures-negative --Empiric cefepime, Flagyl DCed as less likely cholecystitis as per GI --Appreciate surgery, GI input --Continue IV fluids --Advance diet as tolerated --Pain control with [employer] Pump -- Appreciate palliative care input and recommendation -Has been on comfort care -Increasing pain overnight-appreciate palliative care input and recommendation this morning -She will be discharged this afternoon with home hospice Severe anxiety with depression Fear of dying Has been getting Ativan as needed May need to increase the dose to control anxiety Remains very anxious and has been requiring frequent doses of Ativan intravenously Adequate medications will be given C. difficile colitis Started on PO vancomycin Isolation precautions . Oral vancomycin (3) Metastatic adenocarcinoma to pancreas: Metastatic adenocarcinoma pancreas Ongoing Chemotherapy Not a candidate for surgery Metastasis to Liver Following with [facility] oncology Last chemo on 05/31/2022 Following with [facility] palliative care. Had Telemedicine appointment on 06/12/2022 and was discussed to stop Compazine, add scopolamine patch, and can use Reglan as needed Palliative care consulted to address goals of care Patient leaning towards transition to home hospice Awaiting home hospice on Saturday As above Hepatic Abscess IR drain placed on 04/18, cultures grew Klebsiella and E. coli. Was treated with IV Rocephin, finished on 05/17/2022 Drain was removed on 05/14/2022 No fever and no chills DM II, insulin dependent HbA1c: 6.2 on 05/10/2022 Continue Insulin per Protocol Monitor BGs HTN continue Enalapril Anxiety Continue home meds DVT Px Lovenox SQ Code Status DNI/DNR Total Time Total Time Spent Total Time Spent (In Minutes): 35 minutes Discharge Plan Discharge Items Patient Disposition: Hospice - Home Reason For Visit: Abd Pain Discharge Diagnosis: Metastatic pancreatic cancer Condition on Discharge: Fair Activity: As commented below Activity Comment: As tolerated Non-emergency contact: Primary Care Provider Call non-emergency contact if: you have any medication questions and your symptoms worsen Follow-up/Referrals: Dhruv Hawley MD [Primary Care Provider] - (As per hospice care) Diet: Regular Addtl Attending Provider Instructions: Please take precautions to avoid falls Pending Studies at Discharge: No Stand-Alone Forms: My [employer] Medications and DC Order Prescriptions: New hydromorphone (PF)-0.9 % NaCl 30 mg/30 mL (1 mg/mL) Pt Controlled Analgesia Syring 30 mg IV PRN PRN (Reason: pain) Qty: 30 0RF Rx Instructions: Separate prescription given.This one is for documentation only haloperidol lactate 2 mg/mL concentrate 0.5 mg PO Q6H PRN (Reason: nausea and vomiting) Qty: 15 0RF Rx Instructions: For delirium, nausea, restlessness and agitation lorazepam [Ativan] 2 mg tablet 2 mg PO Q4H PRN (Reason: anxiety) 2 Days Qty: 14 0RF Rx Instructions: do not exceed 5 doses per 24 hrs Continued (DME) OneTouch Verio test strips Strip See Rx Instructions .Route Qty: 600 3RF Rx Instructions: Test six times daily (DME) FreeStyle Tanmay 14 Day Sensor Kit See Rx Instructions .Route Qty: 7 3RF Rx Instructions: Change every 14 days (DME) pen needle, diabetic [BD Ultra-Fine Mini Pen Needle] 31 gauge x 3/16" needle See Rx Instructions .Route Qty: 200 5RF Rx Instructions: use 4 needles daily (DME) FreeStyle Tanmay 2 Sensor Kit See Rx Instructions .Route Qty: 2 11RF Rx Instructions: Change every 14 days levothyroxine 50 mcg tablet 50 mcg PO QAM ropinirole 4 mg tablet 4 mg PO TID (DME) FreeStyle Tanmay 14 Day Niland Misc See Rx Instructions .Route Rx Instructions: As directed sennosides [senna] 8.6 mg tablet 17.2 mg PO HS polyethylene glycol 3350 [Miralax] 17 gram/dose Powder 17 g PO QAM PRN (Reason: Constipation) bisacodyl 10 mg Suppository 10 mg WA DAILY MDD dont use morne than 1 a week PRN (Reason: Constipation) enalapril maleate 20 mg tablet 20 mg PO DAILY pantoprazole 40 mg tablet,delayed release (DR/EC) 40 mg PO BID albuterol sulfate [Ventolin HFA] 90 mcg/actuation Hfa Aerosol Inhaler 1 - 2 inh INHALATION Q6 PRN (Reason: as directed) lidocaine-prilocaine 2.5-2.5 % cream 1 applic topical UD Rx Instructions: apply to affectd area as needed for pain. appyl to skin over mediport & cover 1 hour prior to accessing loperamide 2 mg Capsule 2 mg PO Q4H PRN (Reason: loose stool) Qty: 10 0RF fentanyl 75 mcg/hr Patch 72 Hour 1 patch TRANSDERMAL Q72H potassium chloride 10 mEq tablet extended release 10 meq PO BID prochlorperazine maleate 10 mg tablet 10 mg PO Q6H PRN (Reason: Nausea) mirtazapine 15 mg tablet 15 mg PO HS Pancreaze 16,800-56,800- 98,400 unit capsule,delayed release(DR/EC) 1 cap PO TIDM acetaminophen 500 mg Tablet 500 mg PO Q4 MDD 3g PRN (Reason: Pain) Rx Instructions: take 2 caps every 8 hour for 3 days ,then 1 cap every 4 hours as needed for pain. do not exceed 3000mg every 24 hours ordered 01/12/22 loratadine [Claritin] 10 mg Tablet 10 mg PO DAILY Toujeo Max U-300 SoloStar 300 unit/mL (3 mL) insulin pen 10 unit SUBCUT QAM Discontinued lorazepam 1 mg tablet 1 mg PO Q8H PRN (Reason: anxiety) hydromorphone 4 mg tablet 8 mg PO Q4H PRN (Reason: Severe Pain (Scale Score 7-10)) Discharge Orders: Discharge Order (Routine); Ordered 06/18/22 Ordered By: Marii Cruz Admission Data Admit Date/Time: 06/13/22 14:27 Attending Provider: Marii Cruz Admit Provider: Raf Peterson Primary Care Provider: Dhruv Hawley Other Providers: [facility],Home [facility] ; Jordan Beck ; Raf Peterson ; Melquiades Delgado ; Isa Khoury ; David Estrada Other Interventions: Discharge Summary Assessment (RN) Last Done: 06/18/22 15:34
== END 2022-06-18 16:11 | disposition hospice, home (50) | DRG 438 ==
LOC: ED 08:43 → 2E 14:27 → SUATTDRO 14:27 → 2E 14:59 → 2S 06-15 15:53